=== PATIENT | male | born 1995 | race Caucasian/White ===

== ENCOUNTER 2020-08-04 07:33 | Day surgery (SDC) | payer OTHER ==
--- OUTSIDE RECORDS SUMMARY | 2020-08-02 09:40 | XMS REPORT | Continuity of Care Document ---
:1995 Author Organization [facility] t Address [address] [place] [place] [address] Care Team Providers Name Role Phone Jaymie Orellana Attending Clinician Doctor Unassigned, Name Attending Clinician Unavailable Milton CRUZ Attending Clinician Payers Payer Name Policy Type Policy Number Effective Date Expiration Date S ource Problems This patient has no known problems. Allergies, Adverse Reactions, Alerts Allergy Allergy Status Severity Reaction(s) Onset Inactive Treating Comm ents Source Name Type Date Date Clinician cefaclor DA Active U 2019-0 [facility] [place] [facility] sulfamet DA Active U 2018-0 [facility] hoxazole 01-15 [place] 00[facility] trimetho DA Active U 2019-0 [facility] prim - [place] [facility] Medications This patient has no known medications. Procedures This patient has no known procedures. Encounters Start End Encounter Admission Attending Care Care Encounter Source Date/Time Date/Time Type Type Clinicians Facility Department ID 2020-07-29 2020-07-29 Telephone Aniceto PRSARAY [id number] 00:00:00 00:00:00 Eileen Yeh [id number] [place] [id number] Anitha [id number] formerly [facility] 204 [facility] 2020-07-27 2020-07-27 Outpatient [facility]LMLC [facility] [id number] [facility] 2020-07-27 2020-07-27 Orders Doctor CHRISTINE [id number] 00:00:00 00:00:00 Only Unassigned, RAY [id number] [place] [facility] [id number] 2020-07-25 2020-07-25 Office Cristy [facility] [id number] 12:49:30 14:02:12 Visit Deshawn Yeh [id number] [place] [id number] Anitha [phone] [address] Results This patient has no known results.
--- OUTSIDE RECORDS SUMMARY | 2020-08-02 09:41 | XMS REPORT ---
:1995 Author Organization [facility] Address [address] [facility] [address] [place] [address] Care Team Providers Name Role Phone Marialuisa Unavailable [phone] PROBLEMS No Information ALLERGIES Allergen (clinical drug Drug/Non Drug Reaction Allergy Type Onset D ate Status ingredient) Allergy documented on EMR sulfamethoxazole / Bactrim([facility] Unknown Drug Allergy Act et[place] trimethoprim Code:[address]-45) [facility] Unknown Drug Allergy Active ENCOUNTERS from 1993 to 2020-07-27 Encounter Location Date Provider Diagnosis [place] [address] [facility] Jul, Lesely Elam Orchalgi a N50.819 ; Specialty/Urology [address] [facility] [place] [address] Z87.440 and Incomplete blad lisa emptying R33.9 IMMUNIZATIONS No Information SOCIAL HISTORY Tobacco Use: Social History Observation Description Date Details (start date - stop date) Never Smoker Sex Assigned At : Social History Observation Description Sex Assigned At Unknown Tobacco Use/Smoking Question Answer Notes Are you a never smoker REASON FOR REFERRAL No Information VITAL SIGNS Height 5 ft 9 in in Jul, Weight 195.8 lbs Jul, BMI 28.91 kg/m2 Jul, Oximetry 98 % Jul, Blood pressure systolic 119 mm Hg Jul, Blood pressure diastolic 92 mm Hg Jul, MEDICATIONS Medication SIG (Take, Route, Frequency, Duration) Start Date En d Date Status Tamiflu 75 MG 1 capsule Orally Twice a day for 5 Not-Taking day(s) Aspirin Not-Taking Janumet Not-Taking albuterol Not-Taking PROCEDURES No Information RESULTS No Results REASON FOR VISIT testicle pain MEDICAL (GENERAL) HISTORY Type Description Date Medical History Asthma, unspecified asthma severity, uns pecified whether complicated, unspecified whether persist ent Medical History Type 2 diabetes mellitus wit hout complication, without long-term current use of insulin Goals Section No Information Health Concerns No Information MEDICAL EQUIPMENT No Information MENTAL STATUS No Information FUNCTIONAL STATUS No Information ASSESSMENTS Encounter Date Diagnosis Notes Jul, Orchalgia (ICD-10 - N50.819) Jul, Incomplete bladder emptying (ICD-10 - R3 3.9) Jul, History of UTI (ICD-10 - Z87.440) PLAN OF TREATMENT Treatment Notes Assessment Notes Clinical Notes Orchalgia Continue FlomaxFinis h CiproUrine reflexStat Scrotal US and SHAVONNE, scrotal reveals righ t inguinal hernia in scrotal sac, no torsion or masses, normal symme tric blood flow, confirmed with Dr Rocha in radiologyRec referra l to general surgery, Dr. Walker who I spoke with and if patient can m anage pain, ok to see him in office tomorrow,Pain contro lled with OTC ibuprofen alternate with TylenolPatient instr ucted to go to ER if pain worsens, fever/chills, N&/or V. and ask for Dr. Walker as needed.SHAVONNE unremarkable, no hydroDr. Bynum exa mined patient, discussed plan of care and agreed with planROV for cys to, meatal dilation next visit after hernia repaired Treatment Notes Test Name Order Date URINALYSIS, COMPLETE W/REFLEX TO CULTURE 2020-07-27 URINALYSIS AUTO W/O SCOPE (21020) 2020-07-27 Ultrasound : Scrotum 2020-07-27 Renal Ultrasound-Complete 2020-07-27 PVR 2020-07-27 Next Appt Details 2 Weeks Reason:cysto with dilation Follow Up:2 Weekscysto with dilation Insurance Providers Payer Name Payer Payer Insured Name Patient Coverage Covera End Address Phone Relationship to Start Date Quang e Insured TML [employer] [phone] RatnaMaicol self CLAIMS [id number] [facility] [id number]
--- OUTSIDE RECORDS SUMMARY | 2020-08-02 09:42 | XMS REPORT | Summary of Care ---
:1995 Author Organization [facility] Address [address] [place] [address] Care Team Providers Name Role Phone Charito Elizalde Primary Care Provider Reason for Visit Reason Comments Results Encounter Details Date Type Department Care Team Description 07/28/2020 Telephone [facility] and Deshawn Muniz i, MD Results Clinics [address] [place] [address]. [address] [place] [id number] [place] [address] [phone] Allergies Active Allergy Reactions Severity Noted Date Comments Sulfamethoxazole-Trimethoprim Hives 08/27/2007 Cefaclor Hives 08/27/2007 documented as of this encounter (statuses as of 07/28/2020) Medications Medication Sig Dispensed Refills Start Date End Date Status aspirin (LO-DOSE Take 81 mg by 0 Active ASPIRIN) 81 mg EC mouth daily. tablet albuterol 90 Inhale 2 Puffs 8.5 g 2 08/25/2018 A ctive mcg/actuation inhaler every 6 (six) hours as needed for Wheezing or Shortness of Breath. Insulin [place], USE ONCE DAILY 100 Each 0 03/25/2019 Active Disposable, 32 gauge x 5/32" NdleIndications: Type 2 diabetes mellitus without complication, without long-term current use of insulin brompheniramine-pseud Take 5 mL by 150 mL 0 09/08/2019 Active oephedrine-DM mouth 4 (four) (BROMFED DM) 2-30-10 times daily as mg/5 mL needed for syrupIndications: Congestion/Aller Viral upper gies or Cough. respiratory tract infection with cough blood sugar Use as directed 200 Strip 1 09/09/2019 A ctive diagnostic (ONETOUCH BID E11.65 ULTRA BLUE TEST STRIP) stripIndications: Uncontrolled type 2 diabetes mellitus with hyperglycemia Insulin Glargine inject 24 Units 6 mL 1 09/30/2019 Active (LANTUS SOLOSTAR under the skin U-100 INSULIN) 100 every morning. unit/mL (3 mL) injection albuterol 1.25 mg/3 Use 3 mL as 120 Vial 2 03/21/2020 Active mL nebulizer directed every 6 solutionIndications: (six) hours as Moderate persistent needed for asthma without Wheezing. complication budesonide-formoteroL Inhale 2 Puffs 2 10.2 g 5 03/21/2020 Active 160-4.5 mcg/actuation (two) times inhalerIndications: daily. Moderate persistent asthma without complication amoxicillin-clavulana Take 1 tablet by 20 tablet 0 03/21/2020 Active te (AUGMENTIN) mouth 2 (two) 875-125 mg per times daily. tabletIndications: Moderate persistent asthma without complication lisinopril 10 mg Take 1 tablet by 30 tablet 5 03/21/2020 Active tabletIndications: mouth daily. Essential hypertension FARXIGA 5 mg TAKE ONE TABLET 90 tablet 0 03/30/2020 Active tabletIndications: BY MOUTH EVERY Uncontrolled type 2 MORNING diabetes mellitus with hyperglycemia naproxen 500 mg Take 1 tablet by 60 tablet 0 07/05/20202019 Active tabletIndications: mouth 2 (two) Acute bilateral times daily as thoracic back pain needed for Pain (scale 4-6) for up to 30 days. ciprofloxacin HCl Take 2 tablets 40 tablet 0 07/25/20202019 Active (CIPRO) 250 mg by mouth every tabletIndications: 12 (twelve) Epididymitis, hours for 10 Prostatitis, days. unspecified prostatitis type tamsulosin 0.4 mg 24 Take 1 capsule 30 capsule 0 07/25/2020 Active hr by mouth daily capsuleIndications: for 30 days. 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 Utility documented as of this encounter (statuses as of 07/28/2020) Resolved Problems Problem Noted Date Resolved Date Abscess and cellulitis 04/08/2016 05/05/2018 documented as of this encounter (statuses as of 07/28/2020) Social History Tobacco Use Types Packs/Day Years Used Date Former Smoker Cigarettes 4 Quit: 05/10/20 Smokeless Tobacco: Never Used Comments: quit 4 months ago Alcohol Use Drinks/Week oz/Week Comments Yes 1 Cans of beer 1.0 Sex Assigned at Date Recorded Not on file COVID-19 Exposure Response Date Recorded In the last month, have you been in contact with No / Unsure 07/25/2020 12:47 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 documented as of this encounter Last Filed Vital Signs Not on filedocumented in this encounter Miscellaneous Notes Telephone Encounter - Deshawn Rose MD - 07/28/2020 5:02 PM CST Resulting Agency: Susceptibility Staphylococcus aureus SUSCEPTIBILITY TESTING Clindamycin Resistant Erythromycin >=8 Resistant Nitrofurantoin 32 Susceptible Oxacillin 0.5 Susceptible Rifampin <=0.5 Susceptible Tetracycline <=1 Susceptible Trimethoprim/Sulfamethoxazole <=10 Susceptible I called patient and explained the results No hx of fever, seems to be contamination Allergic to Bactrim and cephalexin Plan: Tetracycline 500 mg po QID for 5 days Repeat urine culture documented in this encounter Plan of Treatment Date Type Specialty Care Team Description 08/11/2020 Office Visit Urology Deshawn Rose MD [address] [place] [address] [phone] Health Maintenance Due Date Last Done Comments VARICELLA VACCINES (1 of 2 - 1994 2-dose childhood series) PNEUMOCOCCAL 0-64 YEARS COMBINED 1999 SERIES (1 of 1 - PPSV23) DTaP,Tdap,and Td Vaccines (1 - 2012 Tdap) CREATININE (SERUM) 07/25/2019 07/25/2018, 11/13/2017, 05/11/2016 LDL-C 07/25/2019 07/25/2018, 05/11/2016 URINE MICROALBUMIN 07/25/2019 07/25/2018, 05/11/2016 HgA1C 03/10/2020 09/09/2019, 07/22/2018, 05/11/2016 INFLUENZA VACCINE (#1) 2020 Depression Screening 09/09/2020 09/09/2019 FOOT EXAM 09/09/2020 09/09/2019, 09/09/2019, 07/22/2018, Additional history exists EYE EXAM 12/22/2020 12/23/2019, 03/06/2017 documented as of this encounter Results Not on filedocumented in this encounter Insurance Payer Benefit Plan / Subscriber ID Effective Dates Phone Addre ss Type Group [facility] [employer] CLAIMS [id number] 2019-Present PPO documented as of this encounter
--- OUTSIDE RECORDS SUMMARY | 2020-08-02 09:42 | XMS REPORT | Summary of Care ---
:1995 Author Organization [facility] - Health Address [address] [place] [address] Care Team Providers Name Role Phone Charito Elizalde Primary Care Provider Encounter Details Date Type Department Care Team Description 07/27/2020 Orders Only [facility] Doctor Unassigned, No [address] [facility] Name [place] [phone] [place] [address] Allergies Active Allergy Reactions Severity Noted Date Comments Sulfamethoxazole-Trimethoprim Hives 08/27/2007 Cefaclor Hives 08/27/2007 documented as of this encounter (statuses as of 07/29/2020) Medications Medication Sig Dispensed Refills Start Date End Date Status aspirin (LO-DOSE Take 81 mg by 0 Active ASPIRIN) 81 mg EC mouth daily. tablet albuterol 90 Inhale 2 Puffs 8.5 g 2 08/25/2018 A ctive mcg/actuation inhaler every 6 (six) hours as needed for Wheezing or Shortness of Breath. Insulin [place], USE ONCE DAILY 100 Each 0 03/25/2019 [...] 30 days. 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 documented as of this encounter Last Filed Vital Signs Not on filedocumented in this encounter Plan of Treatment Date Type Specialty Care Team Description 08/11/2020 Office Visit Urology Deshawn Rose MD [address] [place] [address] [phone] Health Maintenance Due Date Last Done [...] 12/23/2019, 03/06/2017 documented as of this encounter Procedures Procedure Name Priority Date/Time Associated Diagnosis Comme nts AUTHORIZATION FOR RELEASE Routine 07/27/2020 12:01 AM OF PHI TIMBER KILLER documented in this encounter Results Not on filedocumented in this encounter Insurance Payer Benefit Plan / Subscriber ID Effective Dates Phone Addre ss Type Group [facility] CLAIMS [id number] 2019-Present PPO documented as of this encounter
--- OUTSIDE RECORDS SUMMARY | 2020-08-02 09:42 | XMS REPORT | Summary of Care ---
:1995 Author Organization [facility] Address [address] [place] [id number] Care Team Providers Name Role Phone Charito Elizalde Primary Care Provider Reason for Referral Radiology Services (Routine) Status Reason Specialty Diagnoses / Referred By Referred To Procedures Contact Contact New Request Diagnostic Diagnoses Epididymitis Stricture of anterior urethra in male, unspecified stricture type Retention of urine, unspecified Dilcia Garcia, Radiology Procedures US RETROPERITONEAL COMPLETE [address] [address] Radiology Services (Routine) Status Reason Specialty Diagnoses / Referred By Referred To Procedures Contact Contact New Request Diagnostic Diagnoses Epididymitis Type 2 diabetes mellitus without complication, without long-term current use of insulin Stricture of anterior urethra in male, unspecified stricture type Retention of urine, unspecified Dilcia Garcia, Radiology Procedures US SCROTUM AND CONTENTS [address] [address] Reason for Visit Reason Comments New Patient epididymitis (Routine) Status Reason Specialty Diagnoses / Referred By Referred To Procedures Contact Contact Authorized URO-UROLOGY / Diagnoses Epididymitis Dhara Tarango, Dilcia Garcia, Urology Procedures CONSULT/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 [address] [place] [id number] Phone: Encounter Details Date Type Department Care Team Description 07/25/2020 Office Visit [facility] Urology- Rachel Garcia MD Acute cystitis without hematuria (Primar y Dx); [address] Epididymitis; [address] [place] [address] Type 2 diab etes mellitus without complication, without long-term current use of insulin; Drive [phone] Stricture of anterior urethra in male, u nspecified stricture type; [address] Retention of urine, unspecified; [place], [place] Prostatit is, unspecified prostatitis type [id number] Allergies Active Allergy Reactions Severity Noted Date Comments Sulfamethoxazole-Trimethoprim Hives 08/27/2007 Cefaclor Hives 08/27/2007 documented as of this encounter (statuses as of 07/28/2020) Medications Medication Sig Dispensed Refills Start Date End Date Status aspirin (LO-DOSE Take 81 mg by 0 Active ASPIRIN) 81 mg EC mouth daily. tablet albuterol 90 Inhale 2 Puffs 8.5 g 2 08/25/2018 A ctive mcg/actuation every 6 (six) inhaler hours as needed for Wheezing or Shortness of Breath. Insulin Charlo, USE ONCE DAILY 100 Each 0 03/25/2019 Active Disposable, 32 gauge x 5/32" NdleIndications: Type 2 diabetes mellitus without complication, without long-term current use of insulin brompheniramine-pseu Take 5 mL by 150 mL 0 09/08/2019 Active doephedrine-DM mouth 4 (four) (BROMFED DM) 2-30-10 times [...] persistent needed for asthma without Wheezing. complication budesonide-formotero Inhale 2 Puffs 2 10.2 g 5 03/21/2020 Active L 160-4.5 (two) times mcg/actuation daily. inhalerIndications: Moderate persistent asthma without complication amoxicillin-clavulan Take 1 tablet by 20 tablet 0 03/21/2020 Active ate (AUGMENTIN) mouth 2 (two) 875-125 mg per [...] mouth 4 Epididymitis, (four) times Stricture of daily for 5 anterior urethra in days. male, unspecified stricture type, Retention of urine, unspecified, Acute cystitis without hematuria doxycycline hyclate Take 1 tablet by 14 tablet 0 07/19/2020 100 mg mouth 2 (two) tabletIndications: times daily for Epididymitis 7 days. documented as of this encounter (statuses as of 07/28/2020) Active Problems Problem Noted Date Diabetes 06/01/2016 Asthma Overview: ICD10 Diagnosis Term Eeler Utility documented as of this encounter (statuses as of 07/28/2020) Resolved Problems Problem Noted Date Resolved Date Abscess and cellulitis 04/08/2016 05/05/2018 documented as of this encounter (statuses as of 07/28/2020) Social History Tobacco Use Types Packs/Day Years Used Date Former Smoker Cigarettes 4 Quit: 05/10/20 19 Smokeless Tobacco: Never Used Comments: quit 4 months ago Alcohol Use Drinks/Week oz/Week Comments Yes 1 Cans of beer 1.0 Sex Assigned at Date Recorded Not on file COVID-19 Exposure Response Date Recorded In the last month, have you been in contact with No / Unsure 07/25/2020 12:47 PM CLAIM PROFESSIONAL someone who was confirmed or suspected to have Coronavirus / COVID-19? documented as of this encounter Last Filed Vital Signs Vital Sign Reading Time Taken Comments Blood Pressure 132/90 07/25/2020 1:14 PM CLAIM PROFESSIONAL Pulse 95 07/25/2020 1:14 PM CLAIM PROFESSIONAL Temperature - - Respiratory Rate 18 07/25/2020 1:14 PM CLAIM PROFESSIONAL Oxygen Saturation - - Inhaled Oxygen Concentration - - Weight 89.7 kg (197 lb 12.8 oz) 07/25/2020 1:14 PM CLAIM PROFESSIONAL Height 175.3 cm (5' 9") 07/25/2020 1:14 PM CLAIM PROFESSIONAL Body Mass Index 29.21 07/25/2020 1:14 PM CLAIM PROFESSIONAL documented in this encounter Progress Notes Dilcia Garcia MD - 07/25/2020 1:00 PM CST Urology Clinic Note / History and Physical Referred by: PCP Chief Complaint: I was asked to give my opinion regarding Maicol Segundo is a 25 year old male who presents with hx of right epididymitis History of Present Illness 07/25/2020: Maicol Segundo is a 25 year old male with PMHx of DM on insulin. Reported sudden onset dysuria and right testicular swelling No previous similar complaints, UTI or hematuria No hx of risky sexual behavior , most recent sexual activity 6 months ago. No previous urethral discharge or STI. Patient reported chronic stable LUTS and weak stream ( all of his adult life) No previous urological procedures or hx of urethral stricture Improved on a trial of Doxycycline International Prostate Symptom Score (I-PSS) In the past month: (Not at all - 0, Less than 1 in 5 times - 1, Less than half the time - 2, About half the time - 3, More than half the time - 4, Almost always - 5) 1. Incomplete Emptyin 2. Frequency: 1 3. Intermittency: 0 4. Urgency: 1 5. Weak Stream: 3 6. Strainin 7. Nocturia: 1 TOTAL: 13 Bother score: 5 DAKOTA : 20/25 PSAs reviewed: No results found for: PSA Histories Past Medical History: Diagnosis Date Diabetes mellitus Hyperlipidemia Hypertension Unspecified asthma(493.90) Past Surgical History: Procedure Laterality Date ADENOIDECTOMY MASS EXCISION MYRINGOTOMY Family History Problem Relation Age of Onset Diabetes Mother Heart Paternal Grandfather Heart Paternal Grandmother Diabetes Maternal Grandmother Diabetes Maternal Grandfather Diabetes Paternal Grandmother Diabetes Paternal Grandfather Social History Socioeconomic History Marital status: Single Spouse name: Not on file Number of children: Not on file Years of education: Not on file Highest education level: Not on file Occupational History Not on file Social Needs Financial resource strain: Not on file Food insecurity Worry: Not on file Inability: Not on file Transportation needs Medical: Not on file Non-medical: Not on file Tobacco Use Smoking status: Former Smoker Years: 4.00 Types: Cigarettes Quit date: 05/10/2019 Years since quittin.2 Smokeless tobacco: Never Used Tobacco comment: quit 4 months ago Substance and Sexual Activity Alcohol use: Yes Alcohol/week: 1.0 standard drinks Types: 1 Cans of beer per week Drug use: No Sexual activity: Yes Partners: Female Lifestyle Physical activity Days per week: Not on file Minutes per session: Not on file Stress: Not on file Relationships Social connections Talks on phone: Not on file Gets together: Not on file Attends sabianist service: Not on file Active member of club or organization: Not on file Attends meetings of clubs or organizations: Not on file Relationship status: Not on file Intimate partner violence Fear of current or ex partner: Not on file Emotionally abused: Not on file Physically abused: Not on file Forced sexual activity: Not on file Other Topics Concern Not on file Social History Narrative He lives alone 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 He gets a lot of exercise. Allergies Allergies Allergen Reactions Bactrim [Sulfamethoxazole-Trimethoprim] Hives Ceclor [Cefaclor] Hives Review of Systems Constitutional: negative Eyes: negative Ears, nose, mouth, throat: negative Cardiovascular: negative Respiratory: negative Gastrointestinal: negative Genitourinary: (+) per HPI Musculoskeletal: negative Integumentary: negative Neurological: negative Psychiatric: negative Endocrine: negative Hematologic/Lymphatic: negative Allergic/Immunologic: negative, allergies listed above Physical Examination Blood pressure 132/90, pulse 95, resp. rate 18, height 1.753 m (5' 9"), weight 89.7 kg (197 lb 12.8 oz). Constitutional: healthy, no acute distress Eyes: normal external eye, conjunctiva and sclera normal Ears, nose, mouth, throat: normocephalic, moist mucous membranes Cardiovascular: regular rate and rhythm Respiratory: respirations unlabored on room air Gastrointestinal: soft, non-distended, no pain Genitourinary: circumcised, normal phallus, two EUM, patient passes urine from superior stenotic opening. bilateral descended testes in normal anatomical position, slightly tender right testicle,no masses or lumps Rectal: deferred, tender perineum Musculoskeletal: no clubbing, cyanosis or edema Skin: no rashes Neurologic: alert and oriented x3 Psychiatric: appropriate mood and affect Hematologic: no bruising Laboratory Per HPI Radiology No final results containing an impression from the past 30 days were found. Procedure Note PVR : 128 cc Assessment Maicol Segundo is a 25 year old male with: 1. Hx of right epididymitis. Prostatitis , UTI and chronic LUTS Seems to have had some form for EUM stenosis w/wout urethral stricture Improved on Doxycycline Plan - Cipro 500 mg po bid for 10 days - Flomax - Urine culture - SHAVONNE to assess for HN - SARANYA - RTC 2 weeks will assess for RUG and cysto once UTI is treated Dilcia Garcia MD documented in this encounter Miscellaneous Notes Result QuickNote - Dilcia Garcia MD - 07/25/2020 1:00 PM CSTAllergic to Bactrim and cephalexin Plan:Tetracycline 500 mg po QID for 5 days Repeat urine culture ddendum Note - Dilcia Garcia MD - 07/25/2020 1:00 PM CLAIM PROFESSIONAL Addended by: DILCIA GARCIA on: 07/28/2020 05:07 PM Modules accepted: Orders documented in this encounter Plan of Treatment Date Type Specialty Care Team Description 08/11/2020 Office Visit Urology Dilcia Garcia MD [address] [place] [address]. [place] [phone] Name Type Priority Associated Diagnoses Order S chedule BASIC METABOLIC PANEL (NA, LAB Routine Epidi dymitis Expected: K, CL, CO2, GLUCOSE, BUN, Type 2 diabetes 07/25/2020, CREATININE, CA) mellitus without Expires: 07/25/2021 complication, without long-term current use of insulin Stricture of anterior urethra in male, unspecified stricture type Retention of urine, unspecified Prostatitis, unspecified prostatitis type US SCROTUM AND CONTENTS IMAGING Routine Epididym itis Expected: Type 2 diabetes 07/25/2020, mellitus without Expires: complication, without long-term current use of insulin Stricture of anterior urethra in male, unspecified stricture type Retention of urine, unspecified US RETROPERITONEAL COMPLETE IMAGING Routine Epid idymitis Expected: Stricture of anterior 2019, urethra in male, Expires: unspecified stricture type Retention of urine, unspecified Health Maintenance Due Date Last Done Comments [...] Name Priority Date/Time Associated Diagnosis Comme nts URINE CULTURE Routine 07/25/2020 4:00 Epididymitis Results for this PM CLAIM PROFESSIONAL Type 2 diabetes procedure ar e in mellitus without the results complication, without sectio n. long-term current use of insulin Stricture of anterior urethra in male, unspecified stricture type Retention of urine, unspecified Prostatitis, unspecified prostatitis type POCT URINALYSIS Routine 07/25/2020 1:15 Epididymitis Results for this AUTO PM CLAIM PROFESSIONAL procedure are i n the results section. documented in this encounter Results URINE CULTURE (07/25/2020 4:00 PM CLAIM PROFESSIONAL) URINE CULTURE 10,000-100,000 CFU/mL [facility] Staphylococcus aureus SERVICES Specimen Urine - URINE, CLEAN CATCH Narrative Performed At When Staphylococcus aureus is recovered in a urine cul ture, [facility] obtaining blood cultures is recommended in order to ex clude bloodstream infection. S. aureus largely enters the urinary tract hematogenously. Please contact the Antimicrobial Stewardship Program w ith questions. ASP Pager: [phone] Organism Antibiotic Method Susceptibility Staphylococcus aureus Clindamycin SUSCEPTIBILITY TESTING Res istant Staphylococcus aureus Erythromycin SUSCEPTIBILITY TESTING >=8 : Resistant Staphylococcus aureus Nitrofurantoin SUSCEPTIBILITY TESTING 32: Susceptible Staphylococcus aureus Oxacillin SUSCEPTIBILITY TESTING 0.5 : Susceptible Staphylococcus aureus Rifampin SUSCEPTIBILITY TESTING <=0 .5: Susceptible Staphylococcus aureus Tetracycline SUSCEPTIBILITY TESTING <=1 : Susceptible Staphylococcus aureus Trimethoprim/Sulfameth SUSCEPTIBILITY TEST ING <=10: Susceptible oxazole Comment: This isolate demonstrates inducible Clin damycin resistance by in vitro testing. Contact infectious disease faculty for appropriate advice. Nitrofurantoin is not recommended for us e in treating pyelonephritis or systemic disease. Performing Organization Address City/State/Zipcode Phone Number [facility] CLIA: [id number] [place] [address] [place] [address] POCT URINALYSIS, INSTRUMENT (07/25/2020 1:15 PM CLAIM PROFESSIONAL) Pathologist Sig nature POCT U SP GRAV 1.010 1.005 - 1.025 mg/dl POCT PH U 6.5 5 - 8 mg/dl POCT U LEUK EST Trace Negative - Negative POCT U NIT Negative Negative - Negative POCT U PROT Negative Negative - Negative POCT U GLU 1,000 Negative - Negative POCT U KETONE 80 Negative - Negative POCT U UROBILI 0.2 0.2 - 1 mg/dl POCT U BILI Negative Negative - Negative POCT U BLD small Negative - Negative POCT U COLOR Yellow POCT U APPEAR clear Specimen Urine - URINE, CLEAN CATCH documented in this encounter Visit Diagnoses Diagnosis Acute cystitis without hematuria - Prima ry Acute cystitis Epididymitis Orchitis and epididymitis, unspecified Type 2 diabetes mellitus without complic ation, without long-term current use of insulin Stricture of anterior urethra in male, u nspecified stricture type Retention of urine, unspecified Prostatitis, unspecified prostatitis typ e documented in this encounter Insurance Payer Benefit Plan / Subscriber ID Effective Dates Phone Addre ss Type Group [facility] CLAIMS [id number] 2019-Present PPO documented as of this encounter
--- OUTSIDE RECORDS SUMMARY | 2020-08-02 09:43 | XMS REPORT | Summary of Care ---
:1995 Author Organization [facility] Address [address] [place] [address] Care Team Providers Name Role Phone Charito Elizalde Primary Care Provider Reason for Visit Reason Comments Results Encounter Details Date Type Department Care Team Description 07/29/2020 Telephone [facility] Urology- Yakelin Moreland, ORACLE WMS CONSULTANT Results [place] [address] [facility] [address] [place] [address] [place] [address] [phone] Allergies Active Allergy Reactions Severity Noted Date [...] for Wheezing or Shortness of Breath. 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 documented as of this encounter Last Filed Vital Signs Not on filedocumented in this encounter Miscellaneous Notes Telephone Encounter - Eileen Moreland FNP - 07/29/2020 3:22 PM CSTCalled patient to let him know he has UTI and Rx was sent to [facility] in [place] yesterday. No answer, left message. documented in this encounter Plan of Treatment Date Type Specialty Care Team Description 08/11/2020 Office Visit Urology Deshawn Rose MD [address] [place] [address] [phone] Health Maintenance Due Date Last Done [...] Effective Dates Phone Addre ss Type Group [facility] TM GBRP CLAIMS [id number] 2019-Present PPO documented as of this encounter
[2020-08-02 13:16] LABS: Absolute Lymphocytes (CBC) 2.7 K/uL (0.7-4.9); Basophils % 0.2 % (0-1.3); Hematocrit 48.3 % (39.6-49.0); Lymphocytes % 17.7 % (15.3-44.8); MPV 8.8 fL (7.6-11.3); RBC Red Blood Cell Count 5.86 M/uL (4.33-5.43)
[2020-08-02 13:20] LABS: BUN Blood Urea Nitrogen 10 mg/dL (7-18); Bicarbonate 26 mmol/L (21-32); Glucose Level 366 mg/dL (74-106); Potassium 3.9 mmol/L (3.5-5.1); Sodium Level 132 mmol/L (136-145)
--- OUTSIDE RECORDS SUMMARY | 2020-08-04 07:43 | XMS REPORT | Continuity of Care Document ---
:1995 Author Organization [facility] t Address [address] [place] [place] [address] Care Team Providers Name Role Phone Jaymie [...] cefaclor DA Active U 2019-0 [facility] [place] [facility] sulfamet DA Active U 2018-0 [facility] hoxazole 01-15 [place] 00:[facility] [place] [place] [address] [facility] [place] [facility] Medications This patient has no known medications. Procedures This patient has no known procedures. Encounters Start End Encounter Admission Attending Care Care Encounter Source Date/Time Date/Time Type Type Clinicians Facility Department ID 2020-07-29 2020-07-29 Telephone Aniceto [facility] [id number] 00:00:00 00:00:00 Eilene Yeh [id number] [place] [id number] Anitha [phone] [facility] 204 [facility] 2020-07-27 2020-07-27 Outpatient [facility] [id number] [facility] 2020-07-27 2020-07-27 Orders Doctor CHRISTINE [id number] 00:00:00 00:00:00 Only Unassigned, RAY [id number] [place] [facility] [id number] 2020-07-25 2020-07-25 [facility] [id number] 12:49:30 14:02:12 Visit Deshawn Yeh [id number] [place] [id number] Anitha [phone] [address] Results This patient has no known results.
[2020-08-04] MEDS ORDERED: NA CHLORIDE 0.9% 1,000 ML ONE ×2 (08:07→11:32)
[2020-08-04] MEDS ORDERED: CEFAZOLIN/SWI 1gm 1 GM/10 ML SYR ONE (08:08)
[2020-08-04] MEDS ORDERED: INSULIN -REGULAR HUMAN 50 UNIT/0.5 ML ML ONE ×2 (08:18→10:31)
[2020-08-04] MEDS ORDERED: dexAMETHasone 4 MG/ML VIAL ONE (08:53)
[2020-08-04] MEDS ORDERED: FENTANYL CITR 100 MCG/2 ML ONE (08:53)
[2020-08-04] MEDS ORDERED: propofoL 200 MG/20 ML VIAL IV ONE (08:53)
[2020-08-04] MEDS ORDERED: MIDAZOLAM HCL 2 MG/2 ML INJ ONE (08:53)
[2020-08-04] MEDS ORDERED: LIDOCAINE 2% MPF 5 ML VIAL ONE (08:54)
[2020-08-04] MEDS ORDERED: KETOROLAC 30 MG/ML INJ ONE ×2 (09:20→11:41)
[2020-08-04] MEDS ORDERED: ONDANSETRON 4 MG/2 ML VIAL ONE (09:36)
--- NOTE | 2020-08-04 10:27 | OP ---
Date of Procedure: 08/04/2020 Surgeon: Jb Walker MD Program Director/Traffic Director: ANA CRISTINA Quinteros. Preoperative Diagnosis: Right inguinal hernia. Postoperative Diagnosis: Right inguinal hernia. Procedure: Repair of right inguinal hernia. Estimated Blood Loss: Minimal. Specimen: Cord lipoma. Findings: As above. Anesthesia: General. Complications: None. The patient tolerated the procedure in stable condition, taken to Recovery in good general condition. Procedure In Detail: Patient was brought to the OR and placed in supine position and general anesthe dolly begun. Patient was prepped draped in the usual sterile fashion. Marcaine 0.5% was infiltrated locally. A 1 5-blade was used to make a 4 cm oblique incision between anterior iliac superior spine and the pubic tubercle. In the right groin subcu tissue was divided. Darwin's fascia was identified and divided. Aponeurosis was identified and mobilized inferiorly to expose shelving edge and then opened through the external ring. The ilioinguinal nerve was identified and retracted out of the field of dissectio n. Cord was mobilized at the pubic tubercle. Cord lipoma was present, excised, sent to Pathology as specimen. No indirect sac identified. Weakening of the inguinal floor noticed. Subsequently this was repaired with the Marlex mesh plug in the internal ring, Onlay mesh plug on the inguinal floor, s ecured medially to the pubic tubercle, superior to the conjoined tendon, inferiorly to the shelving e dge, laterally to each other. Cord structures and ilioinguinal nerve were placed back in anatomic lo cation and then 2-0 Prolene used to close the aponeurosis, 3-0 chromic used to close Darwin's fascia and skin. Sterile dressing was applied. Patient was awakened and taken to Recovery in good general condition. Discharge Note: The patient will go to Day Surgery and home when stable. Disposition: Home. Condition: Stable. Discharge Instructions: Resume home medications and diet. Activity as tolerated. No heavy lifting. Remove outer dressing in 2 days. Shower. Keep wound clean and dry. Keep Steri-Strips on at all t imes. Scrotal support, ice pack. Tylenol No. 3 one tablet p.o. q.4 p.r.n. pain. Follow up in of erika in 1 week. Call for appointment. /MODL Voice ID: [id number] Report ID: [id number]
[2020-08-04] MEDS ORDERED: EPHEDRINE SULF 50 MG/ML VIAL ONE (11:06)
[2020-08-04] MEDS ORDERED: Phenylephrine HCl 10 MG/ML 1 ML VIAL ONE (11:24)
[2020-08-04] MEDS ORDERED: HYDROCODONE/APAP 7.5/325 MG TAB ONE (11:30)
[2020-08-04 12:20] VITALS: TEMP 97.4; O2SAT 98
[2020-08-04 13:31] VITALS: BP 128/76
== END 2020-08-04 13:55 | disposition home or self-care (01) ==
LOC: OR 07:33
PROVIDERS: ATTEND Surgery
PROC: 0YU50JZ Supplement Right Inguinal Region with Synthetic Substitute, Open Approach (ICD-10-PCS; principal; 2020-08-04 09:00)
DX: K40.90 Unilateral inguinal hernia, without obstruction or gangrene, not specified as recurrent (principal); Z20.828 Contact with and (suspected) exposure to other viral communicable diseases; F17.210 Nicotine dependence, cigarettes, uncomplicated; E10.9 Type 1 diabetes mellitus without complications
CPT/HCPCS: 36415; 80048; 82947; 85025; 88302; J0690; J1100; J2250; J2370; J2405; J2704; J3010; J7030; U0002

== ENCOUNTER 2020-08-20 14:59 | Inpatient (IN) | payer OTHER ==
--- OUTSIDE RECORDS SUMMARY | 2020-08-20 15:02 | XMS REPORT | Continuity of Care Document ---
:1995 Author Organization [facility] t Address [address] [place] [place] [address] Care Team Providers Name Role Phone Jaymie [...] Clinician cefaclor DA Active U 2019-0 [facility] [place] [facility]: [facility] sulfamet DA Active U 2018-0 [facility] hoxazole 01-15 [place] 00:00: [facility] trimetho DA Active U 2018-0 [facility] prim 01-15 [place] 00:00: [facility]ope 00 [facility] Medications This patient has no known medications. Procedures This patient has no known procedures. Encounters Start End Encounter Admission Attending Care Care Encounter Source Date/Time Date/Time Type Type Clinicians Facility Department ID 2020-08-17 2020-08-17 Outpatient [facility] [id number] [facility] X[facility]ena meehan Out[facility] ent Clinics 2020-08-12 2020-08-12 Outpatient [facility] [id number] [facility] 2020-08-10 2020-08-10 [facility] [id number] [facility] 2020-07-29 2020-07-29 Telephone [facility] [id number] 00:00:00 00:00:00 Eileen Yeh [id number] [place] [id number] [place] [phone] [facility] 204 [facility] 2020-07-27 2020-07-27 Outpatient [facility] [id number] [facility]00 [facility] l Outpati ent [facility] 2020-07-27 2020-07-27 Orders Doctor KING [id number] 00:00:00 00:00:00 Only Unassigned, RAY [id number] [place] [facility] [id number] 2020-07-25 2020-07-25 Office [facility] [id number] 12:49:30 14:02:12 Visit Deshawn Yeh [id number] [place] [id number] Profjudy [phone] [facility] 204 [facility] Results This patient has no known results.
--- OUTSIDE RECORDS SUMMARY | 2020-08-20 15:05 | XMS REPORT ---
:1995 Author Organization [facility] Address [address] [facility] [address] [place] [address] Care Team Providers Name Role Phone Marialuisa Unavailable [phone] PROBLEMS No Information ALLERGIES Allergen (clinical drug Drug/Non Drug Reaction Allergy Type Onset D ate Status ingredient) Allergy documented on EMR sulfamethoxazole / Bactrim([facility] Unknown Drug Allergy Act ethel trimethoprim Code:[address]-93) [facility] Unknown Drug Allergy Active ENCOUNTERS from 1993 to 2020-08-10 Encounter Location Date Provider Diagnosis [place] [address] [facility] Jul, Lesley Elam Incomple te bladder Specialty/Urology [address] [facility] [place] [address] [place] [address] Orchalgia N50. 819 IMMUNIZATIONS No Information SOCIAL HISTORY Tobacco Use: Social History Observation Description Date Details (start date - stop date) Never Smoker Sex Assigned At : Social History Observation Description Sex Assigned At Unknown Tobacco Use/Smoking Question Answer Notes Are you a never smoker REASON FOR REFERRAL No Information VITAL SIGNS Height 5 ft 9 in in Jul, Weight 195.8 lbs Jul, Temperature 98.2 degrees Fahrenheit Jul, BMI 28.91 kg/m2 Jul, Oximetry 95 % Jul, Blood pressure systolic 134 mm Hg Jul, Blood pressure diastolic 91 mm Hg Jul, MEDICATIONS Medication SIG (Take, Route, Notes Start Date End Date Status Frequency, Duration) Aspirin Not-Taking Tamsulosin HCl 0.4 MG 1 capsule Orally Once Jul,Aug, Active a day for 30 day(s) Tamiflu 75 MG 1 capsule Orally Not-T aking Twice a day for 5 day(s) albuterol Not-Taking Janumet Not-Taking PROCEDURES No Information RESULTS No Results REASON FOR VISIT trouble with urination MEDICAL (GENERAL) HISTORY Type Description Date Medical History Asthma, unspecified asthma severity, uns pecified whether complicated, unspecified whether persist ent Medical History Type 2 diabetes mellitus wit hout complication, without long-term current use of insulin Goals Section No Information Health Concerns No Information MEDICAL EQUIPMENT No Information MENTAL STATUS No Information FUNCTIONAL STATUS No Information ASSESSMENTS Encounter Date Diagnosis Assessment Notes Treatment Notes Treatm ent Clinical Notes 18 Jul, 2020 Incomplete bladder emptying (ICD-10 - R33.9) Jul, Orchalgia (ICD-10 - Continue Flomax N50.819) Finish his abx Urine reflex Scrotal US and SHAVONNE, scrotal reveals right inguinal hernia in scrotal sac, no torsion or mass es, normal symmetri c blood flow, confirmed with Dr Rocha in radiology referral to general surgery , Dr. Walker, repa ir on 08/04/2020 Pain controlled with OTC ibupro fen alternate with Tylenol Patient instruc adrian to go to ER if pain worsens, fever/chills, N&/or V. and as k for Dr. Walker a s needed. SHAVONNE unremarkabl e, no hydro ROV for cysto, meatal dilation next visit afte r hernia repaired PLAN OF TREATMENT Medication Medication Name Sig Start Date Stop Date Tamsulosin HCl 0.4 MG 1 capsule Orally Once a day for 30 Jul, Aug, day(s) Treatment Notes Assessment Notes Clinical Notes Orchalgia Continue FlomaxFinis h his abxUrine reflexScrotal US and SHAVONNE, scrotal reveals right inguin al hernia in scrotal sac, no torsion or masses, normal symmetric blo od flow, confirmed with Dr Rocha in radiologyreferral to general surgery, Dr. Walker, repair on 08/04/2020Pain contr olled with OTC ibuprofen alternate with TylenolPatient instr ucted to go to ER if pain worsens, fever/chills, N&/or V. and ask for Dr. Walker as needed.SHAVONNE unremarkable, no hydroROV for cysto, meatal dilation next visit after hernia repaired Treatment Notes Test Name Order Date URINALYSIS AUTO W/O SCOPE (22532) 2020-08-10 PVR 2020-08-10 URINALYSIS, COMPLETE W/REFLEX TO CULTURE 2020-08-10 Next Appt Details prn Reason:meatal dilation Follow Up:prnmeatal dilation Insurance Providers Payer Name Payer Payer Insured Name Patient Coverage Covera ge End Address Phone Relationship to Start Date Quang e Insured TML [employer] [phone] Maicol Segundo self CLAIMS [id number] [facility] [id number]
--- OUTSIDE RECORDS SUMMARY | 2020-08-20 15:05 | XMS REPORT ---
:1995 Author Organization [facility] Address [address] [facility] [place] [address] [place] [address] Care Team Providers Name Role Phone Fletcher Unavailable [phone] PROBLEMS No Information ALLERGIES Allergen (clinical drug Drug/Non Drug Reaction Allergy Type Onset D ate Status ingredient) Allergy documented on EMR sulfamethoxazole / Bactrim([facility] Unknown Drug Allergy Act ethel trimethoprim Code:[address]-69) [facility] Unknown Drug Allergy Active ENCOUNTERS from 1993 to 2020-08-17 Encounter Location Date Provider Diagnosis [place] [address] [facility] Jul, Vidal Bynum Incomple te emptying Specialty/Urology [address] [facility] bl [address]der R33.9 ; [place] [address] Perineal pain R10.2 and Right butto ck pain M79.18 IMMUNIZATIONS No Information SOCIAL HISTORY Tobacco Use: Social History Observation Description Date Details (start date - stop date) Never Smoker Sex Assigned At : Social History Observation Description Sex Assigned At Unknown Tobacco Use/Smoking Question Answer Notes Are you a never smoker REASON FOR REFERRAL No Information VITAL SIGNS Height 5 ft 9 in in Jul, Weight 194.2 lbs Jul, Temperature 97.3 degrees Fahrenheit Jul, BMI 28.68 kg/m2 Jul, Oximetry 97 % Jul, Blood pressure systolic 155 mm Hg Jul, Blood pressure diastolic 91 mm Hg Jul, MEDICATIONS Medication SIG (Take, Route, Notes Start Date End Date Status Frequency, Duration) Tamsulosin HCl 0.4 MG 1 capsule Orally Once Jul, 1 8 Aug, 2020 Active a day for 30 day(s) Janumet Not-Taking Aspirin Not-Taking Tamiflu 75 MG 1 capsule Orally Not-T aking Twice a day for 5 day(s) albuterol Not-Taking PROCEDURES No Information RESULTS No Results REASON FOR VISIT consultation, HAD INGUINAL HERNIA REPAIRED -NOW HURTING RIGHT TESTICLE AND BUTTOCKS MEDICAL (GENERAL) HISTORY Type Description Date Medical History Asthma, unspecified asthma severity, uns pecified whether complicated, unspecified whether persist ent Medical History Type 2 diabetes mellitus without complic ation, without long-term current use of insulin Medical History PT WAS GIVEN MACROBID 100MG # 1 TODAY DC IOR TO LEAVING THE OFFICE. Surgical History RIGHT INGUINAL HERNIA REPAIRED 07/2020 Goals Section No Information Health Concerns No Information MEDICAL EQUIPMENT No Information MENTAL STATUS No Information FUNCTIONAL STATUS No Information ASSESSMENTS Encounter Date Diagnosis Assessment Notes Treatment Notes Treatm ent Clinical Notes Jul, Incomplete emptying of bladder (ICD-10 - R33.9) Jul, Perineal pain (ICD-10 - R10.2) Jul, Right buttock pain (ICD-10 - M79.18) PLAN OF TREATMENT Treatment Notes Test Name Order Date URINALYSIS AUTO W/O SCOPE ([id number]) 2020-08-17 PVR 2020-08-17 Next Appt Details Provider Name:Vidal Bynum 2020-08-24 11:00:00 AM, [address] [place] [address], [facility] [address], [place], [address], Insurance Providers Payer Name Payer Payer Insured Name Patient Coverage Covera End Address Phone Relationship to Start Date Quang e Insured TML [employer] [phone] Maicol Segundo self CLAIMS [id number] [facility] [id number]
--- OUTSIDE RECORDS SUMMARY | 2020-08-20 15:05 | XMS REPORT ---
:1995 Author Organization [facility] Address [address] [facility] 200 [place] [address] Care Team Providers Name Role Phone Marialuisa Unavailable [phone] PROBLEMS No Information ALLERGIES Allergen (clinical drug Drug/Non Drug Reaction Allergy Type Onset D ate Status ingredient) Allergy documented on EMR sulfamethoxazole / Bactrim([facility] Unknown Drug Allergy Act ethel trimethoprim Code:[address]-62) [facility] Unknown Drug Allergy Active ENCOUNTERS from 1993 to 2020-08-15 Encounter Location Date Provider Diagnosis [place] [address] [facility] 200 20 Jul, 2020 Lesley Elam Specialty/[place] [address] IMMUNIZATIONS No Information SOCIAL HISTORY Tobacco Use: Social History Observation Description Date Details (start date - stop date) Never Smoker Sex Assigned At : Social History Observation Description Sex Assigned At Unknown Tobacco Use/Smoking Question Answer Notes Are you a never smoker REASON FOR REFERRAL No Information VITAL SIGNS No information MEDICATIONS Medication SIG (Take, Route, Notes Start Date End Date Status Frequency, Duration) Aspirin Not-Taking Tamsulosin HCl 0.4 MG 1 capsule Orally Once Jul,Aug, Active a day for 30 day(s) Tamiflu 75 MG 1 capsule Orally Not-T aking Twice a day for 5 day(s) albuterol Not-Taking Janumet Not-Taking PROCEDURES No Information RESULTS No Results REASON FOR VISIT No Information MEDICAL (GENERAL) HISTORY Type Description Date Medical History Asthma, unspecified asthma severity, uns pecified whether complicated, unspecified whether persist ent Medical History Type 2 diabetes mellitus wit hout complication, without long-term current use of insulin Goals Section No Information Health Concerns No Information MEDICAL EQUIPMENT No Information MENTAL STATUS No Information FUNCTIONAL STATUS No Information ASSESSMENTS No Information PLAN OF TREATMENT Medication Medication Name Sig Start Date Stop Date Tamsulosin HCl 0.4 MG 1 capsule Orally Once a day for 30 Jul, Aug, day(s) Next Appt Details Provider Name:Vidal Bynum, 2020-08-17 11:00:00 AM, [address] [place] [address], [place], [address], Insurance Providers Payer Name Payer Payer Insured Name Patient Coverage Covera End Address Phone Relationship to Start Date Quang e Insured TML [employer] [phone] Maicol Segundo self CLAIMS [id number] [facility] [address]
[2020-08-20] MEDS ORDERED: MORPHINE 4 MG/ML SYR ONE ×2 (16:04→17:21)
[2020-08-20] MEDS ORDERED: ONDANSETRON 4 MG/2 ML VIAL ONE (16:04)
[2020-08-20 16:14] LABS: Absolute Lymphocytes (CBC) 1.3 K/uL (0.7-4.9); Basophils % 0.3 % (0-1.3); Hematocrit 47.1 % (39.6-49.0); Lymphocytes % 6.1 % (15.3-44.8); MPV 8.8 fL (7.6-11.3); RBC Red Blood Cell Count 5.74 M/uL (4.33-5.43)
[2020-08-20 16:25] LABS: BUN Blood Urea Nitrogen 12 mg/dL (7-18); Bicarbonate 22 mmol/L (21-32); Glucose Level 197 mg/dL (74-106); Potassium 3.5 mmol/L (3.5-5.1); Sodium Level 135 mmol/L (136-145)
--- NOTE | 2020-08-20 16:34 | RAD REPORT ---
EXAM DESCRIPTION: CT - Pelvis W/Cont - 08/20/2020 4:21 pm CLINICAL HISTORY: marlen-rectal pain, eval for abscess Pain and swelling COMPARISON: No comparisons TECHNIQUE: All CT scans are performed using dose optimization technique as appropriate and may inclu de automated exposure control or mA/KV adjustment according to patient size. FINDINGS: There is a very large perirectal abscess on the right measuring 6.7 x 6.4 cm. The abscess is seen to extend superiorly into the pelvis where a large right pelvic sidewall abscess component is present during 10.2 x 6.3 cm. Smaller abscesses appear to involve the posterior aspect of the prosta te gland in totality measuring 3.5 x 2.4 cm. A Bertrand catheter is in place in the urinary bladder. The large abscesses exerts mass effect on the prostate gland and rectum to the left. The abscess extends to involve the right obturator internus muscle where an intramuscular 26 x 13 mm abscess is present. Surgical changes are present in the right inguinal region with small pockets of fluid and air present . Suggest clinical correlation history right inguinal surgical intervention. IMPRESSION: Very large right perirectal abscess is present with the abscess extending into the pelvi s along the right pelvic sidewall with involvement of the posterior prostate gland.
[2020-08-20] MEDS ORDERED: Levofloxacin 750mg IV 750 MG/150 ML BAG IV ONE (16:42)
[2020-08-20] MEDS ORDERED: METRONIDAZOLE 500mg IVPB 500 MG/100 ML BAG IV ONE (16:42)
--- NOTE | 2020-08-20 16:57 | ER ---
Nurse's Notes [facility] Name: Maicol Segundo Age: 25 yrs Sex: Male : 1995 Arrival Date: 08/20/2020 Time: 15:01 Bed 5 Private MD: Diagnosis: Abscess of anal and rectal regions Presentation: 08/20 15:20 Chief complaint: Sent by Dr. Walker for perirectal abscess. Coronavirus screen: At this hb time, the client does not indicate any symptoms associated with coronavirus-19. Ebola Screen: No symptoms or risks identified at this time. Initial Sepsis Screen: Does the patient meet any 2 criteria? No. Patient's initial sepsis screen is negative. Does the patient have a suspected source of infection? No. Patient's initial sepsis screen is negative. Risk Assessment: Do you want to hurt yourself or someone else? Patient reports no desire to harm self or others. Onset of symptoms was August 20, 2020. 15:20 Method Of Arrival: Wheelchair hb 15:20 Acuity: JIMMY 3 hb Historical: - Allergies: 15:23 Cefaclor; hb 15:23 sulfamethoxazole-trimethoprim; hb - Home Meds: 16:03 Farxiga 5 mg oral tab 1 tab once daily [Active]; Lantus 100 unit/mL Sub-Q soln tw2 [Active]; acetaminophen-codeine 300-15 mg Oral tab 1 tab prn every 4-6 hours [Active]; lisinopril 2.5 mg Oral tab 1 tab once daily [Active]; Cipro 500 mg Oral tab 1 tab every 12 hours [Active]; - PMHx: 16:03 Diabetes - IDDM; Hypertension; tw2 - PSHx: 15:23 Ear Tubes; Adenoids; hb - Immunization history:: Adult Immunizations up to date. - Social history:: Smoking status: Patient denies any tobacco usage or history of. - Family history:: not pertinent. - Hospitalizations: : No recent hospitalization is reported. Screenin:19 Abuse screen: Denies threats or abuse. Nutritional screening: No deficits noted. tw2 Tuberculosis screening: No symptoms or risk factors identified. Fall Risk None identified. Assessment: 15:30 General: Appears uncomfortable, slender, well groomed, Behavior is calm, cooperative, tw2 appropriate for age. Pain: Complains of pain in buttocks. Neuro: Level of Consciousness is awake, alert, obeys commands, Oriented to person, place, time, situation. Cardiovascular: Heart tones S1 S2 Patient's skin is warm and dry. Respiratory: Airway is patent Respiratory effort is even, unlabored, Respiratory pattern is regular, symmetrical, Breath sounds are clear bilaterally. GI: Abdomen is flat, Bowel sounds present X 4 quads. Reports rectal pain. : Urine is cloudy, cesar urine noted in collection bag Parent/caregiver report the patient having mart in place with leg bag for drainage collection. EENT: No signs and/or symptoms were reported regarding the EENT system. Derm: No signs and/or symptoms reported regarding the dermatologic system. Skin is intact, is healthy with good turgor, Skin is dry, Skin temperature is warm. Musculoskeletal: Range of motion: intact in all extremities. 16:30 Reassessment: Patient appears in no apparent distress at this time. No changes from tw2 previously documented assessment. Patient and/or family updated on plan of care and expected duration. Pain level reassessed. Patient is alert, oriented x 3, equal unlabored respirations, skin warm/dry/pink. Reassessment: "pain is better". 16:46 Reassessment: Dr. Lisa Pearson at bedside at this time discussing poc with pt and pts tw2 family. 17:02 Reassessment: pt states "my pain is coming back", provider notified, medicated as tw2 ordered. 18:10 Reassessment: Patient and/or family updated on plan of care and expected duration. Pain tw2 level reassessed. Patient is alert, oriented x 3, equal unlabored respirations, skin warm/dry/pink. pt c/o pain, medicated as ordered. Patient states symptoms have not improved. 19:10 Derm: explained to patient I will examined his buttocks area to see the area. patient rr5 refused to examined further while he is on side lying position. 19:10 General: Appears in no apparent distress. uncomfortable, Behavior is calm, cooperative, rr5 appropriate for age, for transfer to room 231. 19:10 Neuro: Level of Consciousness is awake, alert, obeys commands, Oriented to person, rr5 place, time. Cardiovascular: Capillary refill < 3 seconds Patient's skin is warm and dry. Respiratory: Airway is patent Respiratory effort is even, unlabored, Respiratory pattern is regular, symmetrical. : Mart in place to gravity drainage leg bag. Derm:. Musculoskeletal: Capillary refill < 3 seconds. 20:00 Reassessment: Patient appears in no apparent distress at this time. Patient is alert, rr5 oriented x 3, equal unlabored respirations, skin warm/dry/pink. reminded for NPO. patient understand the procedure for tomorrow and signed the consent. Vital Signs: 15:20 BP 161 / 107; Pulse 116; Resp 16; Temp 98.5(O); Pulse Ox 98% on R/A; Weight 89.81 kg; hb Height 5 ft. 9 in. (175.26 cm); Pain 10/10; 16:01 BP 161 / 109; Pulse 106; Resp 18; Pulse Ox 99% on R/A; Pain 7/10; tw2 17:00 BP 153 / 101; Pulse 98; Resp 17; Pulse Ox 96% on R/A; Pain 7/10; tw2 18:00 BP 146 / 96; Pulse 107; Resp 18; Pulse Ox 97% on R/A; Pain 8/10; tw2 18:57 BP 143 / 93; Pulse 106; Resp 16; Pulse Ox 96% on R/A; tw2 19:10 BP 131 / 85; Pulse 90; Resp 19; Pulse Ox 99% ; rr5 20:30 BP 139 / 96; Pulse 99; Resp 20; Temp 98.4; Pulse Ox 95% ; rr5 15:20 Body Mass Index 29.24 (89.81 kg, 175.26 cm) ED Course: 15:01 Patient arrived in ED. ds1 15:11 Placed in gown. Bed in low position. Side rails up X 1. Adult w/ patient. Pulse ox on. tw2 NIBP on. Warm blanket given. 15:19 Stacie King, ARTURO is Primary Nurse. tw2 15:19 Arm band placed on. tw2 15:22 Triage completed. hb 15:25 Franklyn Baeza MD is Attending Physician. rn 15:30 Served as a internal review and audit compliance during rectal exam. tw2 15:50 Inserted saline lock: 20 gauge in right antecubital area, using aseptic technique. tw2 Blood collected. 16:21 CT Pelvis w cont In Process Unspecified. EDMS 16:46 Served as a internal review and audit compliance during rectal exam. for Dr. Lisa Pearson at this time. tw2 16:56 Amador Dang MD is Hospitalizing Provider. rn 16:56 Rony Dang MD is Hospitalizing Provider. rn 19:00 Report given to ARTURO Mcgill, LyndsayRN and ARTURO Heredia. tw2 20:03 [facility] vince gutierrez informed to be in house. rr5 20:39 Patient admitted, IV remains in place. intact, No redness/swelling at site. rr5 Administered Medications: 15:56 Drug: Zofran (Ondansetron) 4 mg Route: IVP; Site: right antecubital; tw2 16:35 Follow up: Response: No adverse reaction tw2 15:58 Drug: morphine 4 mg {Note: RASS 0.} Route: IVP; Site: right antecubital; tw2 16:34 Follow up: Response: No adverse reaction; Pain is decreased; RASS: Drowsy (-1) tw2 16:34 Drug: Flagyl 500 mg Volume: 100 ml; Route: IVPB; Rate: 200 ml/hr; Infused Over: 30 tw2 mins; Site: right antecubital; 17:13 Follow up: Response: No adverse reaction; IV Status: Completed infusion tw2 17:10 Drug: morphine 4 mg {Note: RASS 0.} Route: IVP; Site: right antecubital; tw2 17:50 Follow up: Response: No adverse reaction; Pain is decreased; RASS: Alert and Calm (0) tw2 17:14 Drug: LevaQUIN 750 mg Volume: 150 ml; Route: IVPB; Infused Over: 90 mins; Site: right tw2 antecubital; 18:40 Follow up: Response: No adverse reaction; IV Intake: 150ml tw2 18:15 Drug: Zofran (Ondansetron) 4 mg Route: IVP; Site: right antecubital; tw2 18:57 Follow up: Response: No adverse reaction tw2 18:17 Drug: Dilaudid 1 mg {Note: RASS 0.} Route: IVP; Site: right antecubital; tw2 18:57 Follow up: Response: No adverse reaction; Pain is decreased; RASS: Alert and Calm (0) tw2 Intake: 18:40 IV: 150ml; Total: 150ml. tw2 19:30 PO: 0ml; Total: 150ml. rr5 15:37 pt arrived with mart and a leg bag in place upon arrival to the ER tw2 Output: 15:37 Urine: 450ml (Mart); Total: 450ml. tw2 19:30 Urine: 400ml (Mart); Total: 850ml. rr5 15:37 pt arrived with mart and a leg bag in place upon arrival to the ER tw2 Outcome: 16:56 Decision to Hospitalize by Provider. rn 20:39 Admitted to Med/surg accompanied by tech, via stretcher, room 231, with chart, Report rr5 called to hannah 20:39 Condition: stable 20:39 Instructed on the need for admit. 20:47 Patient left the ED. rr5 Signatures: Dispatcher [employer] EDMO Sneedi ds1 Franklyn Baeza MD MD rn Baxter, Heather, RN RN Stacie King RN RN tw2 Yan Sterling RN RN rr5 Corrections: (The following items were deleted from the chart) 18:18 18:18 Reassessment: Patient and/or family updated on plan of care and expected tw2 duration. Pain level reassessed. Patient is alert, oriented x 3, equal unlabored respirations, skin warm/dry/pink. pt c/o pain, medicated as ordered. Patient states symptoms have not improved. tw2
--- NOTE | 2020-08-20 16:57 | EDPHYS ---
Physician Documentation [facility] Name: Maicol Segundo Age: 25 yrs Sex: Male : 1995 Arrival Date: 08/20/2020 Time: 15:01 Bed 5 Private MD: ED Physician Franklyn Baeza HPI: 08/20 15:49 This 25 yrs old Male presents to ER via Wheelchair with complaints of Abscess.rn 15:49 the patient presents with a swollen area of the marlen-rectal. Description: fluctuant, rn swollen, warm. Onset: The symptoms/episode began/occurred 1 week(s) ago. Possible cause(s): unknown. Associated signs and symptoms: Pertinent positives: erythema, swelling, Pertinent negatives: fever. Modifying factors: the symptoms are alleviated by nothing, the symptoms are aggravated by walking, pressure, sitting, touching. Severity of symptoms: At their worst the symptoms were moderate, in the emergency department the symptoms are unchanged. The patient has not experienced similar symptoms in the past. The patient has been recently seen by a physician:. 15:51 Reports recent right inguinal hernia repair by Dr. Walker, states had been having rn perirectal pain for atleast a week, on abx, and now more intense pain. Worse with sitting and movement, no constipation, no bleeding. . Historical: - Allergies: 15:23 Cefaclor; hb 15:23 sulfamethoxazole-trimethoprim; hb - Home Meds: 16:03 Farxiga 5 mg oral tab 1 tab once daily [Active]; Lantus 100 unit/mL Sub-Q soln tw2 [Active]; acetaminophen-codeine 300-15 mg Oral tab 1 tab prn every 4-6 hours [Active]; lisinopril 2.5 mg Oral tab 1 tab once daily [Active]; Cipro 500 mg Oral tab 1 tab every 12 hours [Active]; - PMHx: 16:03 Diabetes - IDDM; Hypertension; tw2 - PSHx: 15:23 Ear Tubes; Adenoids; hb - Immunization history:: Adult Immunizations up to date. - Social history:: Smoking status: Patient denies any tobacco usage or history of. - Family history:: not pertinent. - Hospitalizations: : No recent hospitalization is reported. ROS: 15:51 Constitutional: Negative for fever, chills, and weight loss, Eyes: Negative for injury, rn pain, redness, and discharge, Cardiovascular: Negative for chest pain, palpitations, and edema, Respiratory: Negative for shortness of breath, cough, wheezing, and pleuritic chest pain, Abdomen/GI: Negative for abdominal pain, nausea, vomiting, diarrhea, and constipation, + perirectal pain and swelling Back: Negative for injury and pain, : Negative for injury, bleeding, discharge, and swelling, MS/Extremity: Negative for injury and deformity, Skin: Negative for injury, rash, and discoloration, Neuro: Negative for headache, weakness, numbness, tingling, and seizure. Exam: 15:51 Constitutional: This is a well developed, well nourished patient who is awake, alert, rn appears uncomfortable Head/Face: Normocephalic, atraumatic. Cardiovascular: Tachycardic, regular. No pulse deficits. Respiratory: No increased work of breathing, no retractions or nasal flaring. Abdomen/GI: soft, non-tender abdomen, + right marlen-rectal swelling and tenderness, no hemorrhoid seen, no tear Skin: Warm, dry MS/ Extremity: Pulses equal, no cyanosis. Neurovascular intact. Full, normal range of motion. Equal circumference. Neuro: Awake and alert, GCS 15, oriented to person, place, time, and situation. Vital Signs: 15:20 BP 161 / 107; Pulse 116; Resp 16; Temp 98.5(O); Pulse Ox 98% on R/A; Weight 89.81 kg; hb Height 5 ft. 9 in. (175.26 cm); Pain 10/10; 16:01 BP 161 / 109; Pulse 106; Resp 18; Pulse Ox 99% on R/A; Pain 7/10; tw2 17:00 BP 153 / 101; Pulse 98; Resp 17; Pulse Ox 96% on R/A; Pain 7/10; tw2 18:00 BP 146 / 96; Pulse 107; Resp 18; Pulse Ox 97% on R/A; Pain 8/10; tw2 18:57 BP 143 / 93; Pulse 106; Resp 16; Pulse Ox 96% on R/A; tw2 19:10 BP 131 / 85; Pulse 90; Resp 19; Pulse Ox 99% ; rr5 20:30 BP 139 / 96; Pulse 99; Resp 20; Temp 98.4; Pulse Ox 95% ; rr5 15:20 Body Mass Index 29.24 (89.81 kg, 175.26 cm) hb MDM: 15:25 Patient medically screened. rn 16:55 Differential diagnosis: abscess. Data reviewed: vital signs, nurses notes, lab test rn result(s), radiologic studies, CT scan, and as a result, I will admit patient. Counseling: I had a detailed discussion with the patient and/or guardian regarding: the historical points, exam findings, and any diagnostic results supporting the discharge/admit diagnosis, lab results, radiology results, the need for further work-up and treatment in the hospital. Response to treatment: the patient's symptoms have mildly improved after treatment, and as a result, I will admit patient. Admission orders: after a detailed discussion of the patient's condition and case, the admit orders are written by me. ED course: Consulted Monty Gayle out of town, Dr. Pearson evaluated patient in ER and looked at CT with me, will admit to hospitalist service and Monty Pearson with operate tomorrow. . 08/20 15:46 Order name: Basic Metabolic Panel; Complete Time: 16:28 rn 08/20 15:46 Order name: CBC with Diff rn 08/20 16:42 Order name: CREATININE WHOLE BLOOD; Complete Time: 16:43 EDSC 08/20 17:57 Order name: CBC with Automated Diff EDSC 08/20 17:57 Order name: CBC with Automated Diff EDSC 08/20 17:57 Order name: Comprehensive Metabolic Panel EDSC 08/20 15:46 Order name: CT Pelvis w cont; Complete Time: 16:36 rn 08/20 17:57 Order name: Comprehensive Metabolic Panel EDSC 08/20 18:53 Order name: CBC Smear Scan EDSC 08/20 19:30 Order name: COVID-19 rr5 08/20 15:46 Order name: IV Saline Lock; Complete Time: 16:00 rn 08/20 15:46 Order name: Labs collected and sent; Complete Time: 16:00 rn 08/20 15:46 Order name: NPO; Complete Time: 16:00 rn 08/20 17:57 Order name: CONS Pharmacy Consult EDSC 08/20 17:57 Order name: NPO EDMS Administered Medications: 15:56 Drug: Zofran (Ondansetron) 4 mg Route: IVP; Site: right antecubital; tw2 16:35 Follow up: Response: No adverse reaction tw2 15:58 Drug: morphine 4 mg {Note: RASS 0.} Route: IVP; Site: right antecubital; tw2 16:34 Follow up: Response: No adverse reaction; Pain is decreased; RASS: Drowsy (-1) tw2 16:34 Drug: Flagyl 500 mg Volume: 100 ml; Route: IVPB; Rate: 200 ml/hr; Infused Over: 30 tw2 mins; Site: right antecubital; 17:13 Follow up: Response: No adverse reaction; IV Status: Completed infusion tw2 17:10 Drug: morphine 4 mg {Note: RASS 0.} Route: IVP; Site: right antecubital; tw2 17:50 Follow up: Response: No adverse reaction; Pain is decreased; RASS: Alert and Calm (0) tw2 17:14 Drug: LevaQUIN 750 mg Volume: 150 ml; Route: IVPB; Infused Over: 90 mins; Site: right tw2 antecubital; 18:40 Follow up: Response: No adverse reaction; IV Intake: 150ml tw2 18:15 Drug: Zofran (Ondansetron) 4 mg Route: IVP; Site: right antecubital; tw2 18:57 Follow up: Response: No adverse reaction tw2 18:17 Drug: Dilaudid 1 mg {Note: RASS 0.} Route: IVP; Site: right antecubital; tw2 18:57 Follow up: Response: No adverse reaction; Pain is decreased; RASS: Alert and Calm (0) tw2 Disposition: 08/20/20 16:56 Hospitalization ordered by Rony Dang for Inpatient Admission. Preliminary diagnosis is Abscess of anal and rectal regions. - Bed requested for Telemetry/MedSurg (Inpatient). - Status is Inpatient Admission. rr5 - Condition is Stable. - Problem is new. - Symptoms have improved. Signatures: Dispatcher [employer] EDMS Franklyn Baeza MD MD rn Garcia, Cindy, RN RN Alexia Lundy RN RN Stacie King RN RN tw2 Yan Sterling RN RN rr5 Corrections: (The following items were deleted from the chart) 19:08 16:56 Hospitalization Ordered by Rony Dang MD for Inpatient Admission. cg Preliminary diagnosis is Abscess of anal and rectal regions. Bed requested for Telemetry/MedSurg (Inpatient). Status is Inpatient Admission. Condition is Stable. Problem is new. Symptoms have improved. rn 20:47 19:08 08/20/2020 16:56 Hospitalization Ordered by Rony Dang MD for Inpatient rr5 Admission. Preliminary diagnosis is Abscess of anal and rectal regions. Bed requested for Telemetry/MedSurg (Inpatient). Status is Inpatient Admission. Condition is Stable. Problem is new. Symptoms have improved. cg
[2020-08-20] MEDS ORDERED: MORPHINE 2 MG/ML SYR IV PRN (17:55)
[2020-08-20] MEDS ORDERED: Meropenem 1,000 MG in NA CHLORIDE 0.9% 100 ML IV SCH (17:59)
--- NOTE | 2020-08-20 18:00 | P.HP ---
Certification for Inpatient Patient admitted to: Inpatient With expected LOS: >2 Midnights Practitioner: I am a practitioner with admitting privileges, knowledge of patient current condition, hospital course, and medical plan of care. Services: Services provided to patient in accordance with Admission requirements found in Title 42 Section 412.3 of the Code of Federal Regulations Patient History Date of Service: 08/21/20 Reason for admission: Perirectal abscess History of Present Illness: Patient is 25 years ago this problem started 5 weeks ago he started having pain in the right side of his buttock went to the urgent care center was diagnosed with a urinary tract infection his pain persisted min to see 2 urologist and general surgery patient had operation in the right inguinal region still is pain persisted ended up here in the emergency room was found to have a very large perirectal abscess with elevated white count patient is also diabetic Allergies cefaclor [From Ceclor] Allergy (Verified 08/02/20 12:39) UNKNOWN sulfamethoxazole [From Bactrim] Allergy (Verified 08/02/20 12:39) UNKNOWN trimethoprim [From Bactrim] Allergy (Verified 08/02/20 12:39) UNKNOWN Home Medications: Dapagliflozin Propanediol [Farxiga] 5 mg PO DAILY 08/02/20 Insulin Glargine,Hum.rec.anlog [Lantus Solostar] 24 unit SQ DAILY 08/02/20 Lisinopril [Zestril] 10 mg PO DAILY 08/02/20 - Past Medical/Surgical History Diabetic: Yes -: Diabetes -: Tubes in ears -: adnoids removed - Family History Mother -: Diabetes Father -: Heart disease - Social History Alcohol use: Yes CD- Drugs: No Caffeine use: Yes Review of Systems 10-point ROS is otherwise unremarkable General: Weakness Gastrointestinal: Other (Pain in the right side of his buttock) Physical Examination - Vital Signs Temperature: 98.5 F Blood Pressure: 161/107 Pulse: 116 Respirations: 16 Pulse Ox (%): 98 - Physical Exam General: Alert, Oriented x3, Moderate distress Neck: Supple Respiratory: Clear to auscultation bilaterally, Friction rub Cardiovascular: Regular rate/rhythm Gastrointestinal: Normal bowel sounds, Soft and benign, Other (Rectal exam deferred done by the emergency room doctor) Integumentary: No rashes Neurological: Normal speech, Normal strength at 5/5 x4 extr Rectal: Other (Deferred) - Studies Laboratory Data (last 24 hrs) 08/20/20 15:50: WBC 20.7 H*, Hgb 15.7, Hct 47.1, Plt Count 205 08/20/20 15:50: Sodium 135 L, Potassium 3.5, BUN 12, Creatinine 0.57, Glucose 197 H Assessment and Plan - Problems (Diagnosis) (1) Perirectal abscess Current Visit: Yes Status: Acute Plan: Patient is 25 years of age admitted with right-sided perirectal abscess he has had pain for the past 5 weeks he has is seeing has an at an urgent care and an by urologist and vaginal surgery had operation in the right inguinal region pain continued to persist ended up in emergency room is also diabetic patient's white count is elevated admit to the floor seen by Dr. Pearson schedule for surgery tomorrow started him on meropenem CT report Very large right perirectal abscess is present with the abscess extending into the pelvis along the right pelvic sidewall with involvement of the posterior prostate gland. - Advance Directives Does patient have a Living Will: No Does patient have a Durable POA for Healthcare: No
[2020-08-20] MEDS ORDERED: HYDROMORPHONE HCL 1 MG/ML INJ ONE (18:24)
[2020-08-20 18:52] LABS: Blood Morphology Comment NOTED (NOT SEEN); Platelet Estimate ADEQ; White Blood Cell Scan OK (OK)
[2020-08-20 18:53] LABS: Anisocytosis 2+; Poikilocytosis 1+
--- NOTE | 2020-08-20 19:04 | CON ---
Date of Consultation: 08/20/2020 Reason For Consultation: Perirectal abscess. History Of Present Illness: This is a case of a 25-year-old patient, who comes to us with a 1-week h istory of what he claims is a perianal tenderness. He also has some of the issues with urological sy mptoms, for what he has a Bertrand at this moment. He was at one point also diagnosed with epididymitis , sometimes also diagnosed with UTI. The patient has a right inguinal hernia repair by one of the [facility] surgeons about a week ago. Unfortunately, he is not available at this time and I am covering for him. The patient fully understands that. Allergies: CEFACLOR, BACTRIM. Medications: 1.Farxiga. 2.Lantus. 3.Lisinopril. 4.Cipro. Past Surgical History: As above. Past Medical History: Include insulin-dependent diabetes and hypertension. Review of Systems: See H and P. No dysuria, hematuria, hematochezia, or melena. Although at one point, he has some dys uria and the person received a Bertrand catheter that is still there due to the urinary retention. Physical Examination: General: The patient is awake and alert. HEENT: Pupils are equal and reactive. Anicteric. Neck: Supple. Chest: Clear. Abdomen: Soft and depressible. Right inguinal incision is intact. No cellulitis in that area. Per ianal region shows tenderness, induration, and increased temperature. Extremities: Good capillary refill. Laboratory Data: Blood work shows WBC count of 20.7, hemoglobin of 15.7, platelets of 205. Sodium i s 135, creatinine is 0.57. CAT scan of the pelvis done in ER shows findings consistent with a large perirectal abscess that extends into the area of the pelvis. Assessment: A 25-year-old patient with large perirectal abscess. Benefits, alternatives, and risks of examination under anaesthesia, anoscopy, rigid proctoscopy, incision and drainage of a large perir ectal complex abscess was fully explained to the patient and the parents, which include, but not limi adrian to infection, bleeding, damage to adjacent structures, anesthesia complication, nonhealing wound, [place], and even . He also understands this may not relieve the symptoms. He might need more than one surgical intervention. He most likely will require wound care and long-term antibiotics. He at e just recently. We are going to keep the patient n.p.o. after midnight and then proceed when safe. BERRY/FELICE Voice ID: [id number] Report ID: [id number]
[2020-08-20 21:16] VITALS: BMI 29.1
[2020-08-20] MEDS ORDERED: Meropenem 1 GM/100 ML BAG ONE (21:42)
[2020-08-20] MEDS: INSULIN -REGULAR HUMAN 50 UNIT/0.5 ML ML SQ SCH (22:11)
[2020-08-20] MEDS: NA CHLORIDE 0.9% 1,000 ML IV SCH (22:12)
[2020-08-21] MEDS: KETOROLAC 30 MG/ML INJ IV PRN ×2 (00:25→06:37)
[2020-08-21 06:04] LABS: Absolute Lymphocytes (CBC) 1.9 K/uL (0.7-4.9); Basophils % 0.2 % (0-1.3); Hematocrit 42.9 % (39.6-49.0); Lymphocytes % 9.7 % (15.3-44.8); RBC Red Blood Cell Count 5.18 M/uL (4.33-5.43)
[2020-08-21 06:21] LABS: ALT/SGPT 9 U/L (12-78); AST/SGOT 10 U/L (15-37); Albumin 2.1 g/dL (3.4-5.0); Alkaline Phosphatase 102 U/L (45-117); BUN Blood Urea Nitrogen 13 mg/dL (7-18); Bicarbonate 26 mmol/L (21-32); Bilirubin Total 0.6 mg/dL (0.2-1.0); Glucose Level 171 mg/dL (74-106); Potassium 3.5 mmol/L (3.5-5.1); Protein, Total 6.4 g/dL (6.4-8.2); Sodium Level 135 mmol/L (136-145)
[2020-08-21] MEDS: ONDANSETRON 4 MG/2 ML VIAL IV PRN (06:37)
[2020-08-21] MEDS: NA CHLORIDE 0.9% 1,000 ML IV SCH ×3 (06:38→17:54)
[2020-08-21] MEDS: MORPHINE 4 MG/ML SYR IV PRN (07:04)
[2020-08-21] MEDS: Meropenem 1,000 MG in NA CHLORIDE 0.9% 100 ML IV SCH ×3 (07:12→22:02)
[2020-08-21] MEDS: INSULIN -REGULAR HUMAN 50 UNIT/0.5 ML ML SQ SCH ×4 (07:30→21:00)
[2020-08-21] MEDS ORDERED: SUCCINYLCHOLINE 20 MG/ML (10 ML) IV ONE (09:12)
[2020-08-21] MEDS ORDERED: FENTANYL CITR 250 MCG/5 ML ONE (09:13)
[2020-08-21] MEDS ORDERED: MIDAZOLAM HCL 2 MG/2 ML INJ ONE (09:13)
[2020-08-21] MEDS ORDERED: propofoL 200 MG/20 ML VIAL IV ONE (09:13)
--- NOTE | 2020-08-21 10:00 | P.BOP ---
Preoperative diagnosis: Complex large perirectal/pelvic abscess Postoperative diagnosis: same Primary procedure: EUA, Anoscopy, Rigid proctoscopy Secondary procedure: Incision and drainage or perirectal abscess Estimated blood loss: <20cc Specimen: pus Findings: as above Anesthesia: General Complications: None Drain(s): Wound drain (owen ) Transferred to: Recovery Room
[2020-08-21] MEDS: NICOTINE 21 MG/PAT TD SCH (11:11)
--- NOTE | 2020-08-21 11:16 | P.PN ---
Subjective Date of Service: 08/21/20 Chief Complaint: Perirectal abscess Subjective: Improving (Patient is status post incision and drainage doing much better very alert responsive cooperative) Review of Systems Unremarkable Physical Examination - Vital Signs Temperature: 97.7 F Blood Pressure: 118/76 Pulse: 90 Respirations: 16 Pulse Ox (%): 98 - Physical Exam General: Alert, In no apparent distress, Oriented x3 Respiratory: Clear to auscultation bilaterally Cardiovascular: No edema - Studies Laboratory Data (last 24 hrs) 08/20/20 15:50: WBC 20.7 H*, Hgb 15.7, Hct 47.1, Plt Count 205 08/20/20 15:50: Sodium 135 L, Potassium 3.5, BUN 12, Creatinine 0.57, Glucose 197 H Assessment & Plan - Problems (Diagnosis) (1) Perirectal abscess Current Visit: Yes Status: Acute Plan: Status post incision and drainage of the perirectal abscess is doing much better start a diet patient has a drain chemistries reviewed white count is declining vital signs stable naked Nicoderm patch ordered patient is a heavy smoker (2) Diabetes Current Visit: Yes Status: Acute Plan: Resume insulin and that Qualifiers: Diabetes mellitus type: type 1 Discharge Plan: Home Plan to discharge in: 48 Hours
[2020-08-21] MEDS ORDERED: TRAMADOL 37.5mg/APAP 325mg PER TAB PO PRN (11:18)
--- NOTE | 2020-08-21 12:50 | OP ---
Date of Procedure: 08/21/2020 Surgeon: Josh Pearson MD Preoperative Diagnosis: Complex large perirectal and pelvic abscess. Postoperative Diagnosis: Complex large perirectal and pelvic abscess. Procedures: Examination under anesthesia, anoscopy, rigid proctoscopy, incision and drainage of comp jerilyn perirectal abscess. Anesthesia: General plus local. Drains: Oren drain. Indications: This is the case of a 25-year-old patient with multiple medical problems including diab etes, who came to us with a very large right perirectal abscess that extends into the area of the pel vis and right pelvic sidewall with even some improvement of the posterior prostate gland. The patien t needs emergent drainage. We kept him n.p.o., IV hydration, IV antibiotics and proceeded with EUA, anoscopy, proctoscopy, I and D of perirectal abscess with benefits, alternatives, and risks were full y explained to him and the parents, which include, but not limited to infection, bleeding, damage to adjacent structures, anesthesia complication, nonhealing wound, [place], and even . They also unders tand this may not relieve any symptoms. He might need more than one surgical intervention. The fami ly understand that he may require wound care. Family also understands may require long-term antibiot ics. So, I believe an Infectious Disease doctor should be called in the case. We will also explain to him the importance of losing weight and also diabetes control. He signed a consent. Procedure In Detail: The patient was brought to the operating room and placed in supine position. A nesthesia was done without complication. The patient was placed in lithotomy position. A time-out w as called. Rectal examination was done followed by a rigid proctoscopy under direct visualization up to about 12 cm, cannot advance anymore due to large amount of stool present. We did not see any mas s in that region. We still have the perirectal abscess mostly on the right side. Then, after that, I placed an anoscope once again looking for any tumors in the anal canal or any specific connection. Once again, we noticed the perirectal abscess. We may get an incision on the perianal region that g ave us access to the perirectal area. This abscess was large, going all the way down to the pelvis. When we have incision in that area, first we localized with an 18-gauge needle and then we made the incision. We have a large amount of copious amount of pus. The area was profusely irrigated until c lear and then since the packing that area is not possible at this time and the area of cellulitis, I put a [place] drain that will help me drain this area in the meantime until more definitive treatment can be done. Local anesthetic was applied over the area. The patient tolerated the procedure well. Area was covered with sterile dressings. The patient was sent to recovery in stable condition. BERRY/FELICE Voice ID: [id number] Report ID: [id number]
[2020-08-21] MEDS: HYDROCODONE/APAP 5/325 MG TAB PO PRN (22:02)
[2020-08-22] MEDS ORDERED: TRAZODONE 50 MG TABLET PO ONE (00:12)
[2020-08-22] MEDS: KETOROLAC 30 MG/ML INJ IV PRN (00:32)
[2020-08-22 04:20] LABS: Hematocrit 40.5 % (39.6-49.0); MPV 8.6 fL (7.6-11.3); RBC Red Blood Cell Count 4.92 M/uL (4.33-5.43)
[2020-08-22 04:31] LABS: BUN Blood Urea Nitrogen 11 mg/dL (7-18); Bicarbonate 25 mmol/L (21-32); Glucose Level 225 mg/dL (74-106); HDL Cholesterol 24 mg/dL (40-60); LDL Cholesterol, Calculated 89 (<130); Potassium 3.2 mmol/L (3.5-5.1); Sodium Level 138 mmol/L (136-145)
[2020-08-22] MEDS: NA CHLORIDE 0.9% 1,000 ML IV SCH (05:05)
[2020-08-22] MEDS: Meropenem 1,000 MG in NA CHLORIDE 0.9% 100 ML IV SCH ×3 (05:05→21:38)
[2020-08-22] MEDS: HYDROCODONE/APAP 5/325 MG TAB PO PRN ×2 (06:21→14:10)
[2020-08-22] MEDS: INSULIN -REGULAR HUMAN 50 UNIT/0.5 ML ML SQ SCH ×4 (08:58→21:37)
[2020-08-22] MEDS: NICOTINE 21 MG/PAT TD SCH (08:58)
[2020-08-22] MEDS: INSULIN GLARGINE 100 UNITS/ML SQ SCH (08:59)
--- NOTE | 2020-08-22 11:43 | P.PN ---
Subjective Date of Service: 08/22/20 Patient is a 25-year-old gentleman who came to the hospital with a large perirectal abscess. Patient had an incision and debridement performed yesterday. Patient had been struggling with pain for the last month. He initially had an inguinal hernia repair, but this did not fix his pain. He has seen by the urologist who had felt patient may have a perirectal abscess. Patient was having pain so General surgery recommended going to the emergency room were patient was found have a large perirectal abscess. On the CT scan there was also concern for an intramuscular abscess as well as an abscess along the prostate. At this time, will continue with the IV antibiotic therapy. Infectious Disease consultation is pending. Continue with Bertrand catheter at this time. Review of Systems 10-point ROS is otherwise unremarkable Physical Examination - Vital Signs Temperature: 96.9 F Blood Pressure: 122/82 Pulse: 84 Respirations: 16 Pulse Ox (%): 97 - Physical Exam General: Alert, In no apparent distress, Oriented x3 Respiratory: Clear to auscultation bilaterally, Normal air movement Cardiovascular: Regular rate/rhythm, Normal S1 S2, No murmurs Gastrointestinal: Normal bowel sounds, Soft and benign, Non-distended, No tenderness Neurological: Sensation intact, Cranial nerves 3-12 intact, Abnormal strength - Studies Medications List Reviewed: Yes Assessment & Plan - Problems (Diagnosis) (1) Perirectal abscess Current Visit: Yes Status: Acute (2) Diabetes Current Visit: Yes Status: Acute Qualifiers: Diabetes mellitus type: type 1 (3) Abscess of muscle Current Visit: Yes Status: Acute (4) Abscess, prostate Current Visit: Yes Status: Acute - Plan 1. Continue with IV antibiotic 2. Continue with local wound care 3. Appreciate Infectious Disease and surgical consultation 4. Gentle IV hydration 5. Monitor CBC 6. Strict blood sugar monitoring 7. Pain control 8. GI and DVT prophylaxis Discharge Plan: Home Plan to discharge in: Greater than 2 days - Advance Directives Does patient have a Living Will: No Does patient have a Durable POA for Healthcare: No - Code Status/Comfort Care Code Status Assessed: Yes Code Status: Full Code Critical Care: No Time Spent Managing PTS Care (In Minutes): 35
--- NOTE | 2020-08-22 12:37 | PN ---
Date of Progress Note: 08/22/2020 Diagnosis: Pelvic and perirectal abscess. Subjective: Patient is doing better, feeling better less pressure. No shortness of breath. No ches t pain. Objective: General: The patient is awake, alert. Abdomen: Soft and depressible. Intact surgical sites. Extremities: No calf tenderness. Laboratory Data: Blood work came from 20 to 15.6. We are trying to give him some diet. Plan: We are going to consult Infectious Disease for guidance on the antibiotics since it was a very large complex abscess and may require several days of IV antibiotics. Concerning the Bertrand, it was placed by urologist. I do not have the details of the reason why I suspect is that pressure in the b ladder, which CAT scan shows even affecting the prostate. So even though we can remove the Bertrand, we have to consider also the risks and damage from trying to put it back on, so the decision will be ma de tomorrow. The Oren will remain in place. Antibiotics will continue. We are going to try to f ollow the cultures. BERRY/FELICE Voice ID: [id number] Report ID: [id number]
--- NOTE | 2020-08-22 15:07 | CON ---
History Of Present Illness: This is a 25-year-old male coming in with perirectal abscess. I was con sulted to evaluate and manage antibiotic. The patient has been diabetic since cintia in high school at age 14 and noncompliant to his sugar control. Hemoglobin A1c is more than 12 and blood sugars wer e quite high also. The patient recently seen by urologist for urinary tract infection and recently a lso had a right inguinal hernia surgery. Came to the emergency room where a CT scan showed the patie nt has a large perirectal abscess of 6.7 x 6.4 cm extending to the right pelvis 10.2 x 6.3. A smalle r abscess is also noted in the prostate gland and measuring 3.5 x 2.4. The abscess is extending to i nvolve the right obturator intermedius muscle where an intramuscular 26 x 13 mm abscess was also note d. Past Medical History: Diabetes mellitus and noncompliance with medications. Tobacco positive 1 pack . Social History: Tobacco positive. Alcohol negative. Family History: Noncontributory. Medications: Currently, the patient is on meropenem. See MAR for other medications. Allergies: INCLUDE CEFACLOR AND BACTRIM. Review of Systems: A 10-point review was performed. Physical Examination: General: This is a 25-year-old male, lying in bed, not in any acute cardiopulmonary distress. Vital Signs: Temperature 97, pulse 92, respirations 18, blood pressure 136/94. HEENT: Unremarkable. Neck: Supple. Lungs: Clear to auscultation. Heart: S1, S2. Regular. Abdomen: Soft. Bowel sounds present. Extremities: No edema. Genitalia: Right perirectal area shows Oren drain in place. Laboratory Data: Shows WBC 15,600 down from 20,700, hemoglobin 13.6, platelets are 204. Chemistry s hows sodium 138, potassium 3.2, chloride 103, bicarb of 25, BUN 11, creatinine 0.4, glucose is 225. Hemoglobin A1c is 12.2. Micro data is growing Staph aureus from the wound, positive. Assessment And Plan: This is a 25-year-old male with longstanding history of diabetes mellitus and u ncontrolled diabetes and previous history of abscess formation, especially when he goes off his insul in treatment. The patient is coming in at this time with perirectal abscess, had recent right inguin al hernia surgery also. Hemoglobin A1c is 12.2. I agree with continuing meropenem. We will also st art the patient on vancomycin as the patient is growing gram-positive cocci. Case was discussed with father and mother as the patient has been on poor control with his diabetes. Wound might be slow he aling. We will recommend vancomycin and Merrem for now once leukocytosis starts to subside. We will recommend to switch him to Levaquin and doxycycline depending on sensitivity of Staph aureus. We wi ll follow the patient closely. Continue wound care and supportive care. We will recommend to apply petroleum gel to the wound site, to keep wound area covered and protected from fecal material and uri ne. We will follow the patient closely. Thank you Dr. Pearson for consult. SHELLY/FELICE Voice ID: [id number] Report ID: [id number]
[2020-08-22] MEDS: MORPHINE 4 MG/ML SYR IV PRN (21:36)
[2020-08-23] MEDS ORDERED: TRAZODONE 50 MG TABLET PO ONE (01:40)
[2020-08-23] MEDS: NA CHLORIDE 0.9% 1,000 ML IV SCH ×3 (02:03→16:37)
[2020-08-23] MEDS ORDERED: LORazepam 2 MG/ML VIAL IV ONE (04:32)
[2020-08-23] MEDS: Meropenem 1,000 MG in NA CHLORIDE 0.9% 100 ML IV SCH ×3 (06:32→21:59)
[2020-08-23] MEDS: INSULIN -REGULAR HUMAN 50 UNIT/0.5 ML ML SQ SCH ×4 (11:01→21:12)
[2020-08-23] MEDS: INSULIN GLARGINE 100 UNITS/ML SQ SCH (11:01)
[2020-08-23] MEDS: NICOTINE 21 MG/PAT TD SCH (11:02)
--- NOTE | 2020-08-23 13:41 | PN ---
Diagnosis: Large pelvic and perirectal abscess, status post drainage. History Of Present Illness: This is the case of a 25-year-old patient with history of diabetes, morb id obesity, came with pelvic abscesses coming from the perirectal region. Underwent surgery surinder quinn. Right now, he feels better. Pressure is relieved. He comes to the hospital already with a Fo sergio catheter placed by urologist. Since the abscess was so large, apparently he was pushing the blad lisa to the side. Now that that is relieved, we are considering removing his Bertrand. He had a [place] drain, moving on the last few hours, came off, so we removed the [place] drain from him today. He i s tolerating a clear liquid diet. Objective: Chest: Clear. Abdomen: Soft and depressible. Genitalia: Perianal area shows an intact incision. The [place] is out already, so we removed that. No evidence of rosmery pus coming through the area. Extremities: Good capillary refill. Laboratory Data: Blood work shows a WBC count came from 20.7 to 15.6. Glucose about 209. Plan: He wants the Bertrand removed. He understands that they have a chance to put it back again, alth ough now that the pressure is relieved, most likely it is going to be okay. Under those conditions, we will proceed to remove the Bertrand. Oren is out already. We are going to give him some diet. H e still needs to be on antibiotics. We consulted ID doctor, who will help us with that. He understands the chance of recurrence of that abs cess. HM/MODL Voice ID: [id number] Report ID: [id number]
[2020-08-23] MEDS: ONDANSETRON 4 MG/2 ML VIAL IV PRN (16:19)
[2020-08-23] MEDS: KETOROLAC 30 MG/ML INJ IV PRN (16:19)
[2020-08-24] MEDS: NA CHLORIDE 0.9% 1,000 ML IV SCH (05:07)
[2020-08-24] MEDS: Meropenem 1,000 MG in NA CHLORIDE 0.9% 100 ML IV SCH ×3 (05:08→21:29)
[2020-08-24] MEDS: INSULIN GLARGINE 100 UNITS/ML SQ SCH (09:30)
--- NOTE | 2020-08-24 09:33 | P.PN ---
Subjective Date of Service: 08/23/20 Subjective: No new changes, No C/O voiced Patient is doing better. At this time will continue with the IV antibiotic therapy. Infectious Disease consultation appreciated. MAXIMO mart in AM Review of Systems 10-point ROS is otherwise unremarkable Physical Examination - Vital Signs Temperature: 98.2 F Blood Pressure: 142/94 Pulse: 94 Respirations: 18 Pulse Ox (%): 97 - Physical Exam General: Alert, In no apparent distress, Oriented x3 Respiratory: Clear to auscultation bilaterally, Normal air movement Cardiovascular: Regular rate/rhythm, Normal S1 S2 Gastrointestinal: Normal bowel sounds, Soft and benign, Non-distended, Tenderness (minimal) Musculoskeletal: No tenderness Neurological: Normal tone, Sensation intact, Cranial nerves 3-12 intact - Studies Medications List Reviewed: Yes Assessment & Plan - Problems (Diagnosis) (1) Perirectal abscess Current Visit: Yes Status: Acute (2) Diabetes Current Visit: Yes Status: Acute Qualifiers: Diabetes mellitus type: type 1 (3) Abscess of muscle Current Visit: Yes Status: Acute (4) Abscess, prostate Current Visit: Yes Status: Acute - Plan 1. Continue with IV antibiotic 2. Continue with local wound care 3. Appreciate Infectious Disease and surgical consultation 4. Gentle IV hydration 5. Monitor CBC 6. Strict blood sugar monitoring 7. Pain control 8. GI and DVT prophylaxis - Advance Directives Does patient have a Living Will: No Does patient have a Durable POA for Healthcare: No - Code Status/Comfort Care Code Status: Full Code
--- NOTE | 2020-08-24 10:47 | PN ---
Date of Progress Note: 08/24/2020 Diagnoses: Perirectal and pelvic abscess. Subjective: A 25-year-old patient with perirectal and pelvic abscess, underwent an evacuation of tho se abscesses. Now continued on antibiotics. Appreciate Dr. Rowell and Dr. Moore's recommendations on antibiotics. The patient feels better. No shortness of breath. No chest pain. No fever. Having bowel movement and passing flatus. Yesterday, also the Bertrand was removed that was placed previously by urologist and he is having good urination. Objective: Abdomen: Benign. The surgical site is intact. Extremities: No calf tenderness. The patient will continue antibiotics following the recommendations from the Infectious Disease. Alicia ntually, we will do the CAT scan before he gets discharged. Laboratory Data: WBC count today is still pending, although yesterday it was 15, coming down from 20 . BERRY/FELICE Voice ID: [id number] Report ID: [id number]
[2020-08-24] MEDS: INSULIN -REGULAR HUMAN 50 UNIT/0.5 ML ML SQ SCH ×4 (10:59→21:00)
[2020-08-24] MEDS: NICOTINE 21 MG/PAT TD SCH (11:00)
[2020-08-24 11:44] LABS: Absolute Lymphocytes (CBC) 2.2 K/uL (0.7-4.9); Basophils % 0.6 % (0-1.3); Hematocrit 44.7 % (39.6-49.0); Lymphocytes % 16.6 % (15.3-44.8); MPV 7.9 fL (7.6-11.3); RBC Red Blood Cell Count 5.46 M/uL (4.33-5.43)
--- NOTE | 2020-08-24 11:56 | PN ---
Subjective: The patient is lying in bed. Father is by the bedside. Denies any problems. Had a show er earlier this morning. Continue to have sugars running high and are in 240s-250s. Denies any othe r problems. Objective: Vital Signs: Temperature 98.2, pulse 94, respirations 18, blood pressure 142/94. Pelvic: Examination of perirectal region shows surgical incision without much drainage at this time. Laboratory Data: Shows WBC 15.6, hemoglobin 13.6, platelets are 204. No new labs available for catalina ritchie. They are pending. Chemistry is pending. Micro data showing Staph aureus sensitive to cefazolin and quinolones. We will recommend to start patient on cefazolin or Cipro and pack the wound with iodoform gauze. Con tinue antibiotic IV for now and then can be switched to oral for 2 more weeks if no problems with rolando rrhea. Also recommend to put the patient on probiotics. We will follow the patient as needed. The patient was also educated regarding his control of diabetes mellitus as it can delay wound healing if the sugars remain elevated. We will follow the patient closely. NF/MODL Voice ID: [id number] Report ID: [id number]
[2020-08-24 11:57] LABS: BUN Blood Urea Nitrogen 7 mg/dL (7-18); Bicarbonate 32 mmol/L (21-32); Glucose Level 259 mg/dL (74-106); Potassium 3.9 mmol/L (3.5-5.1); Sodium Level 141 mmol/L (136-145)
[2020-08-24 13:36] LABS: Blood Morphology Comment NOT SEEN (NOT SEEN); Platelet Estimate ADEQ
[2020-08-24] MEDS ORDERED: HUMALOG MIX 75/25 100 UNITS/ML SQ ONE (14:30)
[2020-08-24] MEDS: METRONIDAZOLE 500mg IVPB 500 MG/100 ML BAG IV SCH (16:27)
[2020-08-24] MEDS: Levofloxacin500mg IV 500 MG/100 ML BAG IV SCH (16:27)
[2020-08-24] MEDS: KETOROLAC 30 MG/ML INJ IV PRN (22:42)
[2020-08-24] MEDS: ONDANSETRON 4 MG/2 ML VIAL IV PRN (22:43)
[2020-08-25] MEDS: METRONIDAZOLE 500mg IVPB 500 MG/100 ML BAG IV SCH ×4 (01:12→17:06)
[2020-08-25] MEDS: Meropenem 1,000 MG in NA CHLORIDE 0.9% 100 ML IV SCH ×2 (05:50→14:00)
[2020-08-25 06:45] LABS: Absolute Lymphocytes (CBC) 2.3 K/uL (0.7-4.9); Basophils % 0.3 % (0-1.3); Hematocrit 40.9 % (39.6-49.0); Lymphocytes % 26.1 % (15.3-44.8); MPV 8.4 fL (7.6-11.3)
[2020-08-25 06:57] LABS: ALT/SGPT 9 U/L (12-78); AST/SGOT 9 U/L (15-37); Albumin 2.2 g/dL (3.4-5.0); Alkaline Phosphatase 78 U/L (45-117); BUN Blood Urea Nitrogen 8 mg/dL (7-18); Bicarbonate 27 mmol/L (21-32); Bilirubin Total 0.7 mg/dL (0.2-1.0); Glucose Level 182 mg/dL (74-106); Magnesium 1.7 mg/dL (1.8-2.4); Phosphorus 3.2 mg/dL (2.5-4.9); Potassium 3.5 mmol/L (3.5-5.1); Protein, Total 6.5 g/dL (6.4-8.2); Sodium Level 141 mmol/L (136-145)
--- NOTE | 2020-08-25 07:54 | RAD REPORT ---
EXAM DESCRIPTION: CT - Abdomen Pelvis W Contrast - 08/25/2020 7:31 am CLINICAL HISTORY: Perirectal abscess/intramuscular abscess/prostate, abdominopelvic discomfort COMPARISON: CT pelvis August 20 TECHNIQUE: Biphasic, helical CT imaging of the abdomen and pelvis was performed following 100 ml non -ionic IV contrast. No oral contrast All CT scans are performed using dose optimization technique as appropriate and may include automated exposure control or mA/KV adjustment according to patient size. FINDINGS: No suspicious findings in the lung bases. The liver, spleen, and pancreas show no suspicious findings. Gallbladder and biliary tree are also wi thout suspicious finding. Symmetric renal function is seen with no hydronephrosis or suspicious renal mass. No pyelonephritis o r acute parenchymal process. Bertrand catheter has been removed. Bladder wall thickening is present part ly due to contracted state. There may be cystitis or reactive changes due to the previously detailed large pelvic abscess. Punctate air within the lumen of the bladder is not unexpected given the recent placement of a Bertrand catheter. No adrenal abnormalities. No gastric dilatation or gastric wall thickening. No small bowel dilatation. The appendix is normal. Moderate stool volume is present from cecum through descending colon. No primary or acute colon proce ss. No bulky lymphadenopathy or mass. No suspicious bony findings. The large pelvic abscess has almost fully resolved. There are 2 low-density collections in the prosta te gland both approximately 16 mm in size. The right-side collection has reduced in size since Novemb er 28. Small fluid and air collections remain along the right-side pelvic floor and pelvic side wall. Reduction from prior study is greater than 90%. Largest remnant collection is 3 x 1 cm. Small air in fluid collections are present in the right groin. There are surgical clips present from prior hernia repair. The surgical procedure pre dates the abscess. No new abscess formation. No distant free air. IMPRESSION: Near complete resolution of the large pelvic abscess reduced by 90% or more in volume. A few small remnant fluid collections remain in the right-side pelvic floor and sidewall. Minimal les s than 2 centimeter fluid collection at the right groin. Two small low-density masses in the prostate gland are most likely remnant prostate abscesses. The ri ght-side collection has significantly reduced in size. Urinary bladder wall thickening. This may be cystitis or reactive wall thickening related to the absc ess. Bertrand catheter has been removed. No new abscess or distant free air.
[2020-08-25] MEDS: INSULIN GLARGINE 100 UNITS/ML SQ SCH (08:37)
[2020-08-25] MEDS: INSULIN -REGULAR HUMAN 50 UNIT/0.5 ML ML SQ SCH ×4 (08:37→22:13)
[2020-08-25] MEDS: NICOTINE 21 MG/PAT TD SCH (08:38)
[2020-08-25] MEDS: DAPAGLIFLOZIN PROPANEDIOL 5 MG PO SCH (09:00)
--- NOTE | 2020-08-25 09:33 | P.PN ---
Subjective Date of Service: 08/24/20 Patient is doing well with no new complaints. Repeat CT scan in the morning. If improvement then possible discharge home in the next 24-48 hr. Review of Systems 10-point ROS is otherwise unremarkable Physical Examination - Vital Signs Temperature: 97.9 F Blood Pressure: 145/82 Pulse: 78 Respirations: 20 Pulse Ox (%): 99 - Physical Exam General: Alert, In no apparent distress, Oriented x3 Respiratory: Clear to auscultation bilaterally, Normal air movement Cardiovascular: Regular rate/rhythm, Normal S1 S2, No murmurs Gastrointestinal: Normal bowel sounds, Soft and benign, Non-distended, No tende rness Musculoskeletal: No clubbing, No swelling, No tenderness Neurological: Normal strength at 5/5 x4 extr, Sensation intact, Cranial nerves 3-12 intact - Studies Medications List Reviewed: Yes Assessment & Plan - Problems (Diagnosis) (1) Perirectal abscess Current Visit: Yes Status: Acute (2) Diabetes Current Visit: Yes Status: Acute Qualifiers: Diabetes mellitus type: type 1 (3) Abscess of muscle Current Visit: Yes Status: Acute (4) Abscess, prostate Current Visit: Yes Status: Acute - Plan continue with plan of care as mentioned below 1. Continue with IV antibiotics;If white blood cell count continues to improve then will change to oral antibiotics and patient will be able to discharge home. CT scan pending in a.m. 2. Continue with local wound care 3. Appreciate Infectious Disease and surgical consultation 4. Gentle IV hydration 5. Monitor CBC 6. Strict blood sugar monitoring 7. Pain control 8. GI and DVT prophylaxis Discharge Plan: Home Plan to discharge in: Greater than 2 days - Advance Directives Does patient have a Living Will: No Does patient have a Durable POA for Healthcare: No - Code Status/Comfort Care Code Status: Full Code Critical Care: No Time Spent Managing PTS Care (In Minutes): 35
[2020-08-25] MEDS ORDERED: FLUCONAZOLE 100 MG TAB PO ONE (11:58)
[2020-08-25] MEDS ORDERED: MICONAZOLE 2% TOPICAL 15 GM TOP SCH (11:58)
--- NOTE | 2020-08-25 12:10 | PN ---
Diagnoses: Diabetes, pelvic abscess, perirectal abscess. The patient is improving, not able to tolerate full diet yet. Still having some dysuria. No hematur ia, no hematochezia, no melena. Chest clear. Abdomen no peritonitis and patient has surgical site intact. The only condition we ask ed the nurse not to pack the area anymore. Blood Work: Reviewed with the patient. Imaging: CAT scan done today reviewed with the patient with the excellent improvement of his conditi on. Still some time to go because the patient still has cystitis, prostatitis, and colitis. The mul tiple pocketed tiny pelvic abscess and perirectal abscess, but compared with the previous one, he has a lot of improvement. So the plan from the surgical standpoint, no packing needed. This will block the area and make it worse. We just need a 4 x 4 outside to collect the area that is draining. Con tinue the antibiotics. Follow Dr. Moore's recommendations. Follow Dr. Rowell's recommendations. The patient fully explained for the last 45 minutes the importance of being compliance not only with his antibiotics treatment but also with diabetes treatment. He was advised to follow up with the urolog ist when he get discharged and follow also with us when he get discharged. BERRY/FELICE Voice ID: [id number] Report ID: [id number]
[2020-08-25] MEDS: Levofloxacin500mg IV 500 MG/100 ML BAG IV SCH (14:53)
[2020-08-25] MEDS: NYSTATIN 100MU/GM CREAM 15GM TOP SCH (16:15)
--- NOTE | 2020-08-25 16:49 | PN ---
Subjective: The patient is lying in bed. No new complaints. Would like to go home. No fever. No problems with antibiotics. Objective: Vital Signs: Temperature 97.6, pulse 92, respirations 20, blood pressure 118/77. Extremities: Per recommendation of surgical team, iodoform was not placed into the wound. Laboratory Data: Shows WBC 9, hemoglobin 13.7, platelets are 243. Chemistry shows sodium 141, potas sium 3.5, chloride 105, bicarb 27, BUN 8, creatinine 0.5, glucose 182. Currently, the patient is on Levaquin and Flagyl. Assessment And Plan: Perirectal abscess. Continue IV for couple of weeks and then switch to oral fo r 2 weeks. Probiotics. Monitor for signs of diarrhea or nausea, vomiting. Follow up with surgical team. NF/MODL Voice ID: [id number] Report ID: [id number]
[2020-08-25] MEDS: ONDANSETRON 4 MG/2 ML VIAL IV PRN (22:15)
[2020-08-25] MEDS: KETOROLAC 30 MG/ML INJ IV PRN (22:15)
[2020-08-26] MEDS: METRONIDAZOLE 500mg IVPB 500 MG/100 ML BAG IV SCH ×4 (01:32→18:37)
[2020-08-26] MEDS: DAPAGLIFLOZIN PROPANEDIOL 5 MG PO SCH (09:00)
[2020-08-26] MEDS: NICOTINE 21 MG/PAT TD SCH (09:00)
[2020-08-26] MEDS: INSULIN -REGULAR HUMAN 50 UNIT/0.5 ML ML SQ SCH ×4 (09:14→21:00)
[2020-08-26] MEDS: INSULIN GLARGINE 100 UNITS/ML SQ SCH (09:15)
[2020-08-26] MEDS: NYSTATIN 100MU/GM CREAM 15GM TOP SCH ×2 (09:16→20:14)
--- NOTE | 2020-08-26 10:16 | P.PN ---
Subjective Date of Service: 08/25/[address] scan shows significant improvement. Infectious Disease wants to continue IV antibiotics. Trying to get a PICC line arranged as an outpatient. Review of Systems 10-point ROS is otherwise unremarkable Physical Examination - Vital Signs Temperature: 97.1 F Blood Pressure: 137/86 Pulse: 88 Respirations: 14 Pulse Ox (%): 98 - Physical Exam General: Alert, In no apparent distress, Oriented x3 Respiratory: Clear to auscultation bilaterally, Normal air movement Cardiovascular: Regular rate/rhythm, Normal S1 S2 Gastrointestinal: Normal bowel sounds, Soft and benign, Non-distended, No tenderness Musculoskeletal: No clubbing, No swelling, No tenderness Integumentary: Other (5 cm incision which is healing well with minimal drainage) Neurological: Normal speech, Normal tone, Normal affect Lymphatics: No axilla or inguinal lymphadenopathy - Studies Medications List Reviewed: Yes Assessment & Plan - Problems (Diagnosis) (1) Perirectal abscess Current Visit: Yes Status: Acute (2) Diabetes Current Visit: Yes Status: Acute Qualifiers: Diabetes mellitus type: type 1 (3) Abscess of muscle Current Visit: Yes Status: Acute (4) Abscess, prostate Current Visit: Yes Status: Acute - Plan continue with plan of care as mentioned below 1. Continue with IV antibiotics-infectious Disease wanting 2 weeks of IV antibiotics. 2. Continue with local wound care 3. Appreciate Infectious Disease and surgical consultation 4. Gentle IV hydration 5. Monitor CBC 6. Strict blood sugar monitoring 7. Pain control 8. GI and DVT prophylaxis Discharge Plan: Home Plan to discharge in: 24 Hours - Advance Directives Does patient have a Living Will: No Does patient have a Durable POA for Healthcare: No - Code Status/Comfort Care Code Status: Full Code Critical Care: No Time Spent Managing PTS Care (In Minutes): 35
[2020-08-26] MEDS: Levofloxacin500mg IV 500 MG/100 ML BAG IV SCH (14:11)
[2020-08-26] MEDS: HYDROCODONE/APAP 5/325 MG TAB PO PRN (20:59)
[2020-08-27] MEDS: METRONIDAZOLE 500mg IVPB 500 MG/100 ML BAG IV SCH ×5 (00:13→23:27)
[2020-08-27] MEDS: HYDROCODONE/APAP 5/325 MG TAB PO PRN (05:29)
[2020-08-27] MEDS: FARXIGA 5 MG PO SCH (08:29)
[2020-08-27] MEDS: ONDANSETRON 4 MG/2 ML VIAL IV PRN (08:29)
[2020-08-27] MEDS: INSULIN -REGULAR HUMAN 50 UNIT/0.5 ML ML SQ SCH ×4 (08:29→21:37)
[2020-08-27] MEDS: NYSTATIN 100MU/GM CREAM 15GM TOP SCH ×2 (08:30→21:00)
[2020-08-27] MEDS: INSULIN GLARGINE 100 UNITS/ML SQ SCH (08:30)
[2020-08-27] MEDS: NICOTINE 21 MG/PAT TD SCH (08:30)
--- NOTE | 2020-08-27 08:53 | RAD REPORT ---
EXAM DESCRIPTION: RAD - Chest Single View - 08/27/2020 3:08 am CLINICAL HISTORY: The patient is 25 year old and is male; TECHNIQUE: Frontal view of the chest. COMPARISON: Chest radiograph August 26, 2020 at 2238 hours FINDINGS: LUNGS: There are low lung volumes. No lobar consolidation. PLEURAL SPACE: Unremarkable. No pneumothorax. HEART: Unremarkable. No cardiomegaly. MEDIASTINUM: Unremarkable. BONES/JOINTS: Unremarkable. TUBES, LINES AND DEVICES: The right upper extremity PICC is redemonstrated. The tip is difficult to fully see, but felt to be within the proximal SVC. IMPRESSION: The right upper extremity PICC is redemonstrated. The tip is difficult to fully see, but felt to be within the proximal SVC. Electronically signed by: Karen Jj MD 08/27/2020 6:58 AM OVEN DRIER TENDER Due to temporary technical issues with the PACS/Fluency reporting system, reports are being signed by the in house radiologists without review as a courtesy to insure prompt reporting. The interpreting radiologist is fully responsible for the content of the report.
--- NOTE | 2020-08-27 08:54 | RAD REPORT ---
EXAM DESCRIPTION: RAD - Chest Single View - 08/26/2020 10:49 pm CLINICAL HISTORY: 25-year-old male status post PICC line placement. TECHNIQUE: Single view, AP portable chest was obtained. COMPARISON: None. FINDINGS: Unremarkable cardiac and mediastinal silhouette. Heart size is normal. Low lung volumes grossly clear without focal opacity, pneumothorax or pleural effusions. LEFT basilar linear opacities suggesting subsegmental atelectasis. RIGHT PICC line tip is not visualized to its distal extent, seen to the level of the approximately T4 vertebrae, level of the cephalad superior vena cava. The visualized bones are within normal limits. IMPRESSION: 1. No acute cardiopulmonary abnormalities. 2. RIGHT PICC line tip is not visualized to its distal extent, seen to the level of the approximately T4 vertebrae, level of the cephalad superior vena cava. Electronically signed by: Maria Fernanda Muniz MD 08/26/2020 11:06 PM [employer] BUSINESS OBJECTS CONSULTANT Due to temporary technical issues with the PACS/Fluency reporting system, reports are being signed by the in house radiologists without review as a courtesy to insure prompt reporting. The interpreting radiologist is fully responsible for the content of the report.
[2020-08-27] MEDS: Levofloxacin500mg IV 500 MG/100 ML BAG IV SCH (13:20)
[2020-08-27] MEDS: ESZOPICLONE 1 MG TAB PO PRN (21:48)
[2020-08-28] MEDS: METRONIDAZOLE 500mg IVPB 500 MG/100 ML BAG IV SCH ×3 (06:13→17:59)
[2020-08-28] MEDS: NICOTINE 21 MG/PAT TD SCH ×2 (09:00→09:59)
[2020-08-28] MEDS: FARXIGA 5 MG PO SCH (10:00)
[2020-08-28] MEDS: NYSTATIN 100MU/GM CREAM 15GM TOP SCH ×2 (10:00→21:00)
[2020-08-28] MEDS: INSULIN -REGULAR HUMAN 50 UNIT/0.5 ML ML SQ SCH ×4 (10:00→21:00)
[2020-08-28] MEDS: INSULIN GLARGINE 100 UNITS/ML SQ SCH (10:01)
[2020-08-28] MEDS: Levofloxacin500mg IV 500 MG/100 ML BAG IV SCH (15:11)
--- NOTE | 2020-08-28 15:11 | P.PN ---
Subjective Date of Service: 08/26/20 Patient denies any complaints. Patient is clinically improving with no new complaints. We are trying get patient home unfortunately we are unable to get home health established because of insurance. Will continue trying home health agencies. I have also talked to case management about educating the patient regarding getting IV antibiotics and monitoring his wounds, but there is an issue of taking care of the PICC line. I did speak with Infectious Disease again and they recommended 2 weeks of IV antibiotic therapy. At this time patient only needs 10 more days. Review of Systems 10-point ROS is otherwise unremarkable Physical Examination - Vital Signs Temperature: 96.9 F Blood Pressure: 137/83 Pulse: 82 Respirations: 16 Pulse Ox (%): 97 - Physical Exam General: Alert, In no apparent distress, Oriented x3 Respiratory: Clear to auscultation bilaterally, Normal air movement Cardiovascular: Regular rate/rhythm, Normal S1 S2, No murmurs Gastrointestinal: Normal bowel sounds, Soft and benign, Non-distended, No tenderness Musculoskeletal: No clubbing, No swelling, No tenderness Integumentary: Other (Incision to the buttocks) Neurological: Sensation intact, Cranial nerves 3-12 intact - Studies Medications List Reviewed: Yes Assessment & Plan - Problems (Diagnosis) (1) Perirectal abscess Current Visit: Yes Status: Acute (2) Diabetes Current Visit: Yes Status: Acute Qualifiers: Diabetes mellitus type: type 1 (3) Abscess of muscle Current Visit: Yes Status: Acute (4) Abscess, prostate Current Visit: Yes Status: Acute - Plan At this time where awaiting for discharge planning to complete patient's discharge. We have not been able to get home health established. 1. Continue with IV antibiotics-Infectious Disease wanting 2 weeks of IV antibiotics(11 more days). 2. Continue with local wound care 3. Appreciate Infectious Disease and surgical consultation 4. Hep-Lock IV 5. Labs weekly 6. Strict blood sugar monitoring 7. Pain control 8. GI and DVT prophylaxis Discharge Plan: Home Plan to discharge in: Greater than 2 days - Advance Directives Does patient have a Living Will: No Does patient have a Durable POA for Healthcare: No - Code Status/Comfort Care Code Status: Full Code Critical Care: No Time Spent Managing PTS Care (In Minutes): 35
--- NOTE | 2020-08-28 15:17 | P.PN ---
Subjective Date of Service: 08/28/2008/28-Patient is wanting to go home. He has Levaquin at home and he is worried that he wasted his money. I am not sure if his insurance covered it. He is really just wanting to get home but unfortunately we are waiting for home health arrangements. 08/27-Patient continues to do well with no new complaints. 08/26 Patient denies any complaints. Patient is clinically improving with no new complaints. We are trying get patient home unfortunately we are unable to get home health established because of insurance. Will continue trying home health agencies. I have also talked to case management about educating the patient regarding getting IV antibiotics and monitoring his wounds, but there is an issue of taking care of the PICC line. I did speak with Infectious Disease again and they recommended 2 weeks of IV antibiotic therapy. At this time patient only needs 10 more days. Review of Systems 10-point ROS is otherwise unremarkable Physical Examination - Vital Signs Temperature: 96.9 F Blood Pressure: 137/83 Pulse: 82 Respirations: 16 Pulse Ox (%): 97 - Physical Exam General: Alert, In no apparent distress, Oriented x3 Gastrointestinal: Normal bowel sounds, Soft and benign, Non-distended, No rebound, No guarding - Studies Medications List Reviewed: Yes Assessment & Plan - Problems (Diagnosis) (1) Perirectal abscess Current Visit: Yes Status: Acute (2) Diabetes Current Visit: Yes Status: Acute Qualifiers: Diabetes mellitus type: type 1 (3) Abscess of muscle Current Visit: Yes Status: Acute (4) Abscess, prostate Current Visit: Yes Status: Acute - Plan At this time where awaiting for discharge planning to complete patient's discharge. We have not been able to get home health established. 1. Continue with IV antibiotics-Infectious Disease wanting 2 weeks of IV Levaquin from 08/23. (8 more days remaining). 2. Continue with local wound care 3. Appreciate Infectious Disease and surgical consultation 4. Labs weekly Discharge Plan: Home Plan to discharge in: 24 Hours - Advance Directives Does patient have a Living Will: No Does patient have a Durable POA for Healthcare: No - Code Status/Comfort Care Code Status: Full Code Critical Care: No Time Spent Managing PTS Care (In Minutes): 25
--- NOTE | 2020-08-28 15:18 | P.PN ---
Subjective Date of Service: 08/27/2008/27-Patient continues to do well with no new complaints. 08/26 Patient denies any complaints. Patient is clinically improving with no new complaints. We are trying get patient home unfortunately we are unable to get home health established because of insurance. Will continue trying home health agencies. I have also talked to case management about educating the patient regarding getting IV antibiotics and monitoring his wounds, but there is an issue of taking care of the PICC line. I did speak with Infectious Disease again and they recommended 2 weeks of IV antibiotic therapy. At this time patient only needs 10 more days. Review of Systems 10-point ROS is otherwise unremarkable Physical Examination - Vital Signs Temperature: 96.9 F Blood Pressure: 137/83 Pulse: 82 Respirations: 16 Pulse Ox (%): 97 - Physical Exam General: Alert, In no apparent distress, Oriented x3 - Studies Medications List Reviewed: Yes Assessment & Plan - Problems (Diagnosis) (1) Perirectal abscess Current Visit: Yes Status: Acute (2) Diabetes Current Visit: Yes Status: Acute Qualifiers: Diabetes mellitus type: type 1 (3) Abscess of muscle Current Visit: Yes Status: Acute (4) Abscess, prostate Current Visit: Yes Status: Acute - Plan 1. Continue with IV antibiotics-Infectious Disease wanting 2 weeks of IV Levaquin from 08/23. (9 more days remaining). 2. Continue with local wound care 3. Appreciate Infectious Disease and surgical consultation 4. Labs weekly Discharge Plan: Home Plan to discharge in: Greater than 2 days - Advance Directives Does patient have a Living Will: No Does patient have a Durable POA for Healthcare: No - Code Status/Comfort Care Code Status: Full Code Critical Care: No Time Spent Managing PTS Care (In Minutes): 25
[2020-08-28 19:51] VITALS: O2SAT 99
[2020-08-28] MEDS: ESZOPICLONE 1 MG TAB PO PRN (21:58)
[2020-08-29] MEDS: METRONIDAZOLE 500mg IVPB 500 MG/100 ML BAG IV SCH ×5 (00:27→23:43)
[2020-08-29 05:58] LABS: Absolute Lymphocytes (CBC) 3.3 K/uL (0.7-4.9); Basophils % 0.4 % (0-1.3); MPV 8.3 fL (7.6-11.3); RBC Red Blood Cell Count 5.47 M/uL (4.33-5.43)
[2020-08-29 06:15] LABS: BUN Blood Urea Nitrogen 15 mg/dL (7-18); Bicarbonate 29 mmol/L (21-32); Glucose Level 180 mg/dL (74-106); Potassium 3.9 mmol/L (3.5-5.1); Sodium Level 140 mmol/L (136-145)
[2020-08-29] MEDS: FARXIGA 5 MG PO SCH (08:24)
[2020-08-29] MEDS: NICOTINE 21 MG/PAT TD SCH (08:25)
[2020-08-29] MEDS: INSULIN -REGULAR HUMAN 50 UNIT/0.5 ML ML SQ SCH ×4 (08:26→21:03)
[2020-08-29] MEDS: NYSTATIN 100MU/GM CREAM 15GM TOP SCH ×2 (08:28→21:00)
[2020-08-29] MEDS: INSULIN GLARGINE 100 UNITS/ML SQ SCH (08:28)
--- NOTE | 2020-08-29 08:53 | P.DS ---
Admission Date: 08/20/20 Discharge Date: 08/29/20 Primary Care Provider: Dr. Roger Disposition: ROUTINE DISCHARGE Discharge Condition: GOOD Reason for Admission: Perirectal abscess Consultations: Surgery-Dr. Pearson Infectious disease-Dr. Moore Procedures: COVID: Negative CT scan: FINDINGS: There is a very large perirectal abscess on the right measuring 6.7 x 6.4 cm. The abscess is seen to extend superiorly into the pelvis where a large right pelvic sidewall abscess component is present during 10.2 x 6.3 cm. Smaller abscesses appear to involve the posterior aspect of the prostate gland in totality measuring 3.5 x 2.4 cm. A Bertrand catheter is in place in the urinary bladder. The large abscesses exerts mass effect on the prostate gland and rectum to the left. The abscess extends to involve the right obturator internus muscle where an intramuscular 26 x 13 mm abscess is present. Surgical changes are present in the right inguinal region with small pockets of fluid and air present. Suggest clinical correlation history right inguinal surgical intervention. IMPRESSION: Very large right perirectal abscess is present with the abscess extending into the pelvis along the right pelvic sidewall with involvement of the posterior prostate gland. Surgery: Date of Procedure: 08/21/2020 Surgeon: Josh Pearson MD Preoperative Diagnosis: Complex large perirectal and pelvic abscess. Postoperative Diagnosis: Complex large perirectal and pelvic abscess. Procedures: Examination under anesthesia, anoscopy, rigid proctoscopy, incision and drainage of complex perirectal abscess. Anesthesia: General plus local. Drains: Oren drain. Follow up CT Scan: FINDINGS: No suspicious findings in the lung bases. The liver, spleen, and pancreas show no suspicious findings. Gallbladder and biliary tree are also without suspicious finding. Symmetric renal function is seen with no hydronephrosis or suspicious renal mass. No pyelonephritis or acute parenchymal process. Bertrand catheter has been removed. Bladder wall thickening is present partly due to contracted state. There may be cystitis or reactive changes due to the previously detailed large pelvic abscess. Punctate air within the lumen of the bladder is not unexpected given the recent placement of a Bertrand catheter. No adrenal abnormalities. No gastric dilatation or gastric wall thickening. No small bowel dilatation. The appendix is normal. Moderate stool volume is present from cecum through descen ding colon. No primary or acute colon process. No bulky lymphadenopathy or mass. No suspicious bony findings. The large pelvic abscess has almost fully resolved. There are 2 low-density collections in the prostate gland both approximately 16 mm in size. The right- side collection has reduced in size since August 20. Small fluid and air collections remain along the right-side pelvic floor and pelvic side wall. Reduction from prior study is greater than 90%. Largest remnant collection is 3 x 1 cm. Small air in fluid collections are present in the right groin. There are surgical clips present from prior hernia repair. The surgical procedure pre dates the abscess. No new abscess formation. No distant free air. IMPRESSION: Near complete resolution of the large pelvic abscess reduced by 90% or more in volume. A few small remnant fluid collections remain in the right-side pelvic floor and sidewall. Minimal less than 2 centimeter fluid collection at the right groin. Two small low-density masses in the prostate gland are most likely remnant prostate abscesses. The right-side collection has significantly reduced in size. Urinary bladder wall thickening. This may be cystitis or reactive wall thickening related to the abscess. Bertrand catheter has been removed. No new abscess or distant free air. 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 Patient was apparently diagnose with epididymitis prior to admission. Patient also had a right inguinal repair by 1 of the local surgeons. Patient did not improve. Patient now with large complex perirectal abscess with pelvic abscess. Patient admitted for further evaluation and treatment. Hospital Course: Patient presented with Helen rectal pain. Patient found to have large right complex perirectal abscess with abscess extending into the pelvis along with right pelvic side wall with involvement of the posterior prostate gland. Patient was seen and evaluated by infectious disease and surgery. Surgical intervention was required. Patient had examination under anesthesia, anoscopy, rigid proctoscopy, and incision/drainage of complex perirectal abscess. Wound culture positive for Staph aureus. Infectious disease recommended IV Levaquin. PICC line now in place. Repeat CT scan shows near complete resolution of the large pelvic abscess reduce by 90% or more in volume. Small remnant fluid collection remain in the right side pelvic floor inside wall. Minimal less than 2 cm fluid collection at the right groin noted. 2 small low-density masses in the prostate gland likely remnant prostate abscesses. Patient continues with current wound care. Infectious Disease recommends IV Levaquin 500 mg daily for 14 days. This can be transition to oral Levaquin 500 mg daily for another 14 days. Arrangements for IV antibiotic therapy to be done as an outpatient have been arranged. Patient and family have been taught on current wound care and IV antibiotic administration. The patient will also continue with probiotics 3 times a day. At discharge patient will follow up with surgery within 1 week to follow up this hospitalization and continue his care. Infectious Disease recommends to recheck MRI of the abdomen and pelvis after 14 days of IV antibiotic therapy to monitor resolution of abscess. This can be further monitored and managed by surgery. Patient with diabetes mellitus type 2 insulin-dependent. Patient with hyperglycemia. A1c 12.2. Recommend blood sugars less than 140 fasting and less than 200 after meals. Blood sugars have been stable on Lantus. At discharge patient will continue with Lantus 30 units subcu once daily and Farxiga 5 mg daily. Further adjustment in his medication can be done by his PCP. Patient with hypertension. Patient may continue with lisinopril 10 mg daily. Recommend to maintain blood pressure less than 140/80. Further adjustment can be done by his PCP. Patient with tobacco abuse. At discharge patient will continue with nicotine patch. Tobacco cessation education provided. Vital Signs/Physical Exam: Temp Pulse Resp BP Pulse Ox 98 F 85 16 101/64 98 08/29/20 04:00 08/29/20 04:00 08/29/20 04:00 08/29/20 04:00 08/29/20 04:00 General: Alert, Cooperative HEENT: Atraumatic Respiratory: Other (Patient breathing appropriately) Cardiovascular: Normal pulses Integumentary: Other (Examination to the wound not done.) Neurological: Normal speech, Normal strength at 5/5 x4 extr, Normal tone Laboratory Data at Discharge: WBC 9.6 K/uL (4.3-10.9) 08/29/20 05:13 Hgb 14.8 g/dL (13.6-17.9) 08/29/20 05:13 Hct 44.0 % (39.6-49.0) 08/29/20 05:13 Plt Count 218 K/uL (152-406) 08/29/20 05:13 Sodium 140 mmol/L (136-145) 08/29/20 05:13 Potassium 3.9 mmol/L (3.5-5.1) 08/29/20 05:13 BUN 15 mg/dL (7-18) 08/29/20 05:13 Creatinine 0.67 mg/dL (0.55-1.3) 08/29/20 05:13 Glucose 180 mg/dL (74-106) H 08/29/20 05:13 Phosphorus 3.2 mg/dL (2.5-4.9) 08/25/20 06:04 Magnesium 1.7 mg/dL (1.8-2.4) L 08/25/20 06:04 Total Bilirubin 0.7 mg/dL (0.2-1.0) 08/25/20 06:04 AST 9 U/L (15-37) L 08/25/20 06:04 ALT 9 U/L (12-78) L 08/25/20 06:04 Alkaline Phosphatase 78 U/L (45-117) 08/25/20 06:04 Triglycerides 122 mg/dL (<150) 08/22/20 03:56 Cholesterol 137 mg/dL (<200) 08/22/20 03:56 HDL Cholesterol 24 mg/dL (40-60) L 08/22/20 03:56 Cholesterol/HDL Ratio 5.71 08/22/20 03:56 Home Medications: Dapagliflozin Propanediol [Farxiga] 5 mg PO DAILY 08/02/20 Lisinopril [Zestril] 10 mg PO DAILY 08/02/20 Insulin Glargine,Hum.rec.anlog [Lantus Solostar] 30 unit SQ DAILY #1 08/25/20 Nystatin Cream [Mycostatin 100MU/Gm Cream*] 1 appl TOP BID #1 tube 08/25/20 Lactobacillus Acidophilus [Acidophilus Lactobacilli] 1 each PO TID #90 capsule 08/29/20 Nicotine [Nicoderm*] 21 mg TD DAILY #30 patch.td24 08/29/20 New Medications: Lactobacillus Acidophilus [Acidophilus Lactobacilli] 1 each PO TID #90 capsule Insulin Glargine,Hum.rec.anlog [Lantus Solostar] 30 unit SQ DAILY #1 Nystatin Cream [Mycostatin 100MU/Gm Cream*] 1 appl TOP BID #1 tube Nicotine [Nicoderm*] 21 mg TD DAILY #30 patch.td24 Patient Discharge Instructions: 1. Recommend follow up with PCP in 1 week to follow up this hospitalization. 2. Patient presented with Helen rectal pain. Patient found to have large right complex perirectal abscess with abscess extending into the pelvis along with right pelvic side wall with involvement of the posterior prostate gland. Patient was seen and evaluated by infectious disease and surgery. Surgical intervention was required. Patient had examination under anesthesia, anoscopy, rigid proctoscopy, and incision/drainage of complex perirectal abscess. Wound culture positive for Staph aureus. Infectious disease recommended IV Levaquin. PICC line now in place. Repeat CT scan shows near complete resolution of the large pelvic abscess reduce by 90% or more in volume. Small remnant fluid collection remain in the right side pelvic floor inside wall. Minimal less than 2 cm fluid collection at the right groin noted. 2 small low-density masses in the prostate gland likely remnant prostate abscesses. Patient continues with current wound care. Infectious Disease recommends IV Levaquin 500 mg daily for 14 days. This can be transition to oral Levaquin 500 mg daily for another 14 days. Arrangements for IV antibiotic therapy to be done as an outpatient have been arranged. Patient and family have been taught on current wound care and IV antibiotic administration. The patient will also continue with probiotics 3 times a day. At discharge patient will follow up with surgery within 1 week to follow up this hospitalization and continue his care. Infectious Disease recommends to recheck MRI of the abdomen and pelvis after 14 days of IV antibiotic therapy to monitor resolution of abscess. This can be further monitored and managed by surgery. 3. Patient with diabetes mellitus type 2 insulin-dependent. Patient with hyperglycemia. A1c 12.2. Recommend blood sugars less than 140 fasting and less than 200 after meals. Blood sugars have been stable on Lantus. At discharge patient will continue with Lantus 30 units subcu once daily and Farxiga 5 mg daily. Further adjustment in his medication can be done by his PCP. 4. Patient with hypertension. Patient may continue with lisinopril 10 mg daily. Recommend to maintain blood pressure less than 140/80. Further adjustment can be done by his PCP. 5. Patient with tobacco abuse. At discharge patient will continue with nicotine patch. Tobacco cessation education provided. Diet: ADA Activity: Fall precautions Followup: Fausto Roger MD [Primary Care Provider] - 1 Week (Follow up in office in 1 week. Call to schedule an appointment. ) Time spent managing pt's care (in minutes): 55
--- NOTE | 2020-08-29 13:59 | P.PN ---
Subjective Date of Service: 08/29/20 Primary Care Provider: Dr. Roger Chief Complaint: Perirectal/pelvic abscess Subjective: No new changes, Tolerating diet, Ambulating, Improving Physical Examination - Vital Signs Temperature: 97.1 F Blood Pressure: 109/73 Pulse: 80 Respirations: 18 Pulse Ox (%): 99 - Physical Exam General: Alert, Oriented x3 HEENT: PERRLA Neck: Supple Neurological: Normal speech - Studies Medications List Reviewed: Yes Assessment And Plan - Plan F/U with offive one week Cover surgical area with gauze. No packing. Abx per Dr Bunn
[2020-08-29] MEDS: Levofloxacin500mg IV 500 MG/100 ML BAG IV SCH (14:00)
--- NOTE | 2020-08-29 18:44 | PN ---
Subjective: The patient is sitting up, not in any acute distress. Would like to go home as soon as possible. Objective: Vital Signs: Temperature 97, pulse 80, respirations 18, blood pressure 109/73. Lungs: Basal crackles. Heart: S1, S2. Regular. Abdomen: Soft, nontender. Bowel sounds present. Extremities: No edema. Laboratory Data: Reviewed. Assessment And Plan: Perirectal abscess, doing better. Continue antibiotic. We will follow the pat ient as needed. Two weeks of IV and two weeks off oral. Repeat MRI after 2 weeks. NF/MODL Voice ID: [id number] Report ID: [id number]
[2020-08-29] MEDS: ESZOPICLONE 1 MG TAB PO PRN (21:03)
[2020-08-30] MEDS: METRONIDAZOLE 500mg IVPB 500 MG/100 ML BAG IV SCH ×2 (05:30→12:17)
--- NOTE | 2020-08-30 08:12 | P.PN ---
Subjective Date of Service: 08/30/20 Primary Care Provider: Dr. Roger Chief Complaint: Perirectal/pelvic abscess Subjective: Other (Discharge was held yesterday as home health could not be arrange.) Physical Examination - Vital Signs Temperature: 96.9 F Blood Pressure: 112/74 Pulse: 81 Respirations: 17 Pulse Ox (%): 98 - Physical Exam General: Alert, Cooperative HEENT: Atraumatic Neck: Supple Respiratory: Clear to auscultation bilaterally, Normal air movement Cardiovascular: Normal pulses, Regular rate/rhythm Neurological: Normal speech, Normal strength at 5/5 x4 extr, Normal tone, Normal affect - Studies Medications List Reviewed: Yes Assessment & Plan Discharge Plan: Home Plan to discharge in: 24 Hours Physician Review Additional Text: Medical Problem List: Helen rectal pain secondary to large right complex perirectal abscess with abscess extending into the pelvis along with right pelvic side wall with involvement of the posterior prostate gland status post examination under anesthesia, anoscopy, rigid proctoscopy, and incision/drainage of complex perirectal abscess, wound culture positive for Staph aureus 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 Patient was apparently diagnose with epididymitis prior to admission. Patient also had a right inguinal repair by 1 of the local surgeons. Patient did not improve. Patient now with large complex perirectal abscess with pelvic abscess. Patient admitted for further evaluation and treatment. Plan of care for today: Discharge was held yesterday as home health could not be arranged. Planned for today is to discuss with social worker palliative care to help arrange for home health. Hopefully this can be arranged so that patient can be discharged today. This was discussed in detail with patient. Hospital course Patient presented with Helen rectal pain. Patient found to have large right complex perirectal abscess with abscess extending into the pelvis along with right pelvic side wall with involvement of the posterior prostate gland. Patient was seen and evaluated by infectious disease and surgery. Surgical intervention was required. Patient had examination under anesthesia, anoscopy, rigid proctoscopy, and incision/drainage of complex perirectal abscess. Wound culture positive for Staph aureus. Infectious disease recommended IV Levaquin. PICC line now in place. Repeat CT scan shows near complete resolution of the large pelvic abscess reduce by 90% or more in volume. Small remnant fluid collection remain in the right side pelvic floor inside wall. Minimal less than 2 cm fluid collection at the right groin noted. 2 small low-density masses in the prostate gland likely remnant prostate abscesses. Patient continues with current wound care. Infectious Disease recommends IV Levaquin 500 mg daily for 14 days. This can be transition to oral Levaquin 500 mg daily for another 14 days. Arrangements for IV antibiotic therapy to be done as an outpatient have been arranged. Patient and family have been taught on current wound care and IV antibiotic administration. The patient will also continue with probiotics 3 times a day. At discharge patient will follow up with surgery within 1 week to follow up this hospitalization and continue his care. Infectious Disease recommends to recheck MRI of the abdomen and pelvis after 14 days of IV antibiotic therapy to monitor resolution of abscess. This can be further monitored and managed by surgery. Patient with diabetes mellitus type 2 insulin-dependent. Patient with hypergl ycemia. A1c 12.2. Recommend blood sugars less than 140 fasting and less than 200 after meals. Blood sugars have been stable on Lantus. At discharge patient will continue with Lantus 30 units subcu once daily and Farxiga 5 mg daily. Further adjustment in his medication can be done by his PCP. Patient with hypertension. Patient may continue with lisinopril 10 mg daily. Recommend to maintain blood pressure less than 140/80. Further adjustment can be done by his PCP. Patient with tobacco abuse. At discharge patient will continue with nicotine patch. Tobacco cessation education provided. Time Spent Managing Pts Care (In Minutes): 55
[2020-08-30] MEDS: NYSTATIN 100MU/GM CREAM 15GM TOP SCH (08:43)
[2020-08-30] MEDS: INSULIN -REGULAR HUMAN 50 UNIT/0.5 ML ML SQ SCH ×3 (08:44→16:30)
[2020-08-30] MEDS: INSULIN GLARGINE 100 UNITS/ML SQ SCH (08:44)
[2020-08-30] MEDS: FARXIGA 5 MG PO SCH (08:44)
[2020-08-30] MEDS: NICOTINE 21 MG/PAT TD SCH (08:52)
[2020-08-30 13:01] VITALS: BP 123/85; TEMP 97.1
[2020-08-30] MEDS: Levofloxacin500mg IV 500 MG/100 ML BAG IV SCH (14:23)
== END 2020-08-30 16:41 | disposition home health service (06) | DRG 345 ==
LOC: ER 14:59 → ERHOLD 18:05 → 2ND 19:44
PROVIDERS: ADMIT Internal Medicine Sleep Medicine; ATTEND Family Medicine
PROC: 0D9P8ZZ Drainage of Rectum, Via Natural or Artificial Opening Endoscopic (ICD-10-PCS; principal; 2020-08-21 09:00)
PROC: 02HV33Z Insertion of Infusion Device into Superior Vena Cava, Percutaneous Approach (ICD-10-PCS; 2020-08-26)
DX: K61.1 Rectal abscess (principal); N41.2 Abscess of prostate; M60.051 Infective myositis, right thigh; I10 Essential (primary) hypertension; E11.65 Type 2 diabetes mellitus with hyperglycemia; B95.61 Methicillin susceptible Staphylococcus aureus infection as the cause of diseases classified elsewhere; Z88.1 Allergy status to other antibiotic agents; Z79.4 Long term (current) use of insulin; Z91.14 Patient's other noncompliance with medication regimen; Z79.899 Other long term (current) drug therapy; Z20.828 Contact with and (suspected) exposure to other viral communicable diseases
CPT/HCPCS: 36415; 36569; 71045; 72193; 74177; 80048; 80053; 80061; 82565; 82947; 83036; 83735; 84100; 84145; 84153; 85025; 85027; 87070; 87075; 87077; 87186; 87205; 94760; 96365; 96375; 99285; J0330; J1170; J1815; J2185; J2250; J2270; J2405; J2704; J3010; J7030; Q9967; U0003

== ENCOUNTER 2020-12-14 20:25 | Inpatient (IN) | payer OTHER ==
--- OUTSIDE RECORDS SUMMARY | 2020-12-14 20:29 | XMS REPORT | Continuity of Care Document ---
:1995 Author Organization [facility] t Address [address] [place] [place] [address] Care Team Providers Name Role Phone Doctor Unassigned, Name Attending Clinician Unavailable Kaan CRUZ Attending Clinician Milton CRUZ Attending Clinician Jaymie Orellana Attending Clinician Payers Payer Name Policy Type Policy Number Effective Date Expiration Date S ource Problems This patient has no known problems. Allergies, Adverse Reactions, Alerts Allergy Allergy Status Severity Reaction(s) Onset Inactive Treating Comm ents Source Name Type Date Date Clinician cefaclor DA Active U 2019-0 [facility] 01[facility]15 [place] [facility] sulfamet DA Active U 2018-0 [facility] hoxazole 01-15 00:00: [facility] trimetho DA Active U 2019-0 [facility] prim 01-15 [place] [facility] Medications This patient has no known medications. Procedures This patient has no known procedures. Encounters Start End Encounter Admission Attending Care Care Encounter Source Date/Time Date/Time Type Type Clinicians Facility Department ID 2020-09-05 2020-09-05 Orders Doctor KING [id number] 00:00:00 00:00:00 Only UnassignedRAY [id number] [facility] [id number] 2020-08-30 2020-08-30 [facility] [id number] 00:00:00 00:00:00 [facility] [id number] [place] [id number] Professio [phone] nal 044 Office [facility] 2020-08-21 2020-08-21 Refill [facility] [id number] 00:00:00 00:00:00 Deshawn Yeh [id number] [place] [id number] Professio [phone] [address] 2020-08-17 2020-08-17 [facility]patient [facility] [id number] 2020-08-12 2020-08-12 [facility] [id number] [facility] 2020-08-10 2020-08-10 Outpatient [facility] [id number] [facility] 2020-07-29 2020-07-29 [place] [facility] [id number] 00:00:00 00:00:00 Eileen Coon [place] [id number] [place] [id number] Professio [phone] [address] 2020-07-27 2020-07-27 Orders Doctor K[facility] [id number] 00:00:00 00:00:00 Only Unassigned, RAY [id number] [facility] [id number] 2020-07-27 2020-07-[address] [facility] [id number] [facility] 2020-07-25 2020-07-25 Office [facility] [id number] 12:49:30 14:02:12 Visit Deshawn Yeh [id number] [place] [id number] [facility] [phone] [place] [address] Building Results This patient has no known results.
--- NOTE | 2020-12-14 23:25 | EDPHYS ---
Physician Documentation [facility] Name: Maicol Segundo Age: 25 yrs Sex: Male : 1995 Arrival Date: 12/14/2020 Time: 20:29 Bed 19 Private MD: MICHAEL Physician Solomon Santos HPI: 12/14 23:17 This 25 yrs old Male presents to ER via Wheelchair with complaints of Wound tyrese Infection, on foot,sent by Dr. Fernando. Historical: - Allergies: 20:44 sulfamethoxazole-trimethoprim; ca1 20:44 Cefaclor; ca1 - PMHx: 20:44 Diabetes - IDDM; Hypertension; ca1 - PSHx: 20:44 Ear Tubes; Adenoids; ca1 - Immunization history:: Flu vaccine is not up to date. - Social history:: Smoking status: Patient reports the use of cigarette tobacco products, smokes one pack cigarettes per day. ROS: 23:18 MS/extremity: Positive for erythema, pain, swelling, of the right foot, right ankle, tyrese lateral aspect of right foot, anterior aspect of right ankle and dorsum of right foot. 23:18 Constitutional: Negative for fever, chills, and weight loss. 23:18 Eyes: Negative for injury, pain, redness, and discharge, ENT: Negative for injury, pain, and discharge, Neck: Negative for injury, pain, and swelling, Respiratory: Negative for shortness of breath, cough, wheezing, and pleuritic chest pain, Abdomen/GI: Negative for abdominal pain, nausea, vomiting, diarrhea, and constipation, Back: Negative for injury and pain, : Negative for injury, bleeding, discharge, and swelling, Skin: Negative for injury, rash, and discoloration, Neuro: Negative for headache, weakness, numbness, tingling, and seizure, Psych: Negative for depression, anxiety, suicide ideation, homicidal ideation, and hallucinations, Allergy/Immunology: Negative for hives, rash, and allergies, Endocrine: Negative for neck swelling, polydipsia, polyuria, polyphagia, and marked weight changes, Hematologic/Lymphatic: Negative for swollen nodes, abnormal bleeding, and unusual bruising. 23:18 Constitutional: Positive for fever, malaise. 23:18 Cardiovascular: Positive for palpitations. 23:18 MS/extremity: Positive for decreased range of motion, erythema, pain, swelling, tenderness, of the lateral side of right foot, right lateral malleolus and dorsum of right foot. 23:18 Skin: Positive for cellulitis, discoloration, erythema, swelling, of the lateral side of right foot, lateral side of right heel, right lateral malleolus and dorsum of right foot, diffusely. Exam: 23:18 Constitutional: This is a well developed, well nourished patient who is awake, alert, tyrese and in no acute distress. Head/Face: Normocephalic, atraumatic. Eyes: Pupils equal round and reactive to light, extra-ocular motions intact. Lids and lashes normal. Conjunctiva and sclera are non-icteric and not injected. Cornea within normal limits. Periorbital areas with no swelling, redness, or edema. ENT: Nares patent. No nasal discharge, no septal abnormalities noted. Tympanic membranes are normal and external auditory canals are clear. Oropharynx with no redness, swelling, or masses, exudates, or evidence of obstruction, uvula midline. Mucous membranes moist. Neck: Trachea midline, no thyromegaly or masses palpated, and no cervical lymphadenopathy. Supple, full range of motion without nuchal rigidity, or vertebral point tenderness. No Meningismus. Chest/axilla: Normal chest wall appearance and motion. Nontender with no deformity. No lesions are appreciated. Respiratory: Lungs have equal breath sounds bilaterally, clear to auscultation and percussion. No rales, rhonchi or wheezes noted. No increased work of breathing, no retractions or nasal flaring. Back: No spinal tenderness. No costovertebral tenderness. Full range of motion. Male : Normal genitalia with no discharge or lesions. Skin: Warm, dry with normal turgor. Normal color with no rashes, no lesions, and no evidence of cellulitis. MS/ Extremity: Pulses equal, no cyanosis. Neurovascular intact. Full, normal range of motion. Neuro: Awake and alert, GCS 15, oriented to person, place, time, and situation. Cranial nerves II-XII grossly intact. Motor strength 5/5 in all extremities. Sensory grossly intact. Cerebellar exam normal. Normal gait. Psych: Awake, alert, with orientation to person, place and time. Behavior, mood, and affect are within normal limits. 23:18 Cardiovascular: Rate: tachycardic, Rhythm: regular, Pulses: Pulses are 4+ in bilateral radial, brachial, femoral, popliteal, posterior tibial and and dorsalis pedis arteries.. Edema: 1+ edema to level of right midcalf and right ankle, JVD: is not appreciated. 12/15 01:03 ECG was reviewed by the Attending Physician. [facility] Vital Signs: 12/14 20:39 BP 125 / 87; Pulse 117; Resp 19 S; Temp 99.2(TE); Pulse Ox 97% on R/A; Weight 89.36 kg ca1 (R); Height 5 ft. 9 in. (175.26 cm) (R); Pain 6/10; 20:39 Body Mass Index 29.09 (89.36 kg, 175.26 cm) ca1 MDM: 23:03 Patient medically screened. [facility] 12/15 00:19 Differential diagnosis: fracture, cellulitis. Data reviewed: vital signs, nurses notes, [facility] lab test result(s), EKG, radiologic studies, plain films. Data interpreted: secured entrance monitor: rate is 117 beats/min, rhythm is regular, Pulse oximetry: on room air is 97 %. Test interpretation: by ED physician or midlevel provider: ECG, plain radiologic studies. Counseling: I had a detailed discussion with the patient and/or guardian regarding: the historical points, exam findings, and any diagnostic results supporting the discharge/admit diagnosis, lab results, radiology results, the need for further work-up and treatment in the hospital. 12/14 23:17 Order name: Basic Metabolic Panel [facility] 12/14 23:17 Order name: CBC with Diff [facility] 12/14 23:17 Order name: LFT's [facility] 12/14 23:17 Order name: Magnesium; Complete Time: 00:48 [facility] 12/14 23:17 Order name: NT PRO-BNP; Complete Time: 00:48 [facility] 12/14 23:17 Order name: PT-INR; Complete Time: 00:30 [facility] 12/14 23:17 Order name: Troponin (emerg Dept Use Only); Complete Time: 00:48 [facility] 12/14 23:17 Order name: Sed Rate; Complete Time: 00:30 [facility] 12/14 23:17 Order name: Basic Metabolic Panel; Complete Time: 00:48 EDMS 12/14 23:17 Order name: CBC with Automated Diff; Complete Time: 00:30 EDMS 12/14 23:17 Order name: Liver (Hepatic) Function; Complete Time: 00:48 EDKS 12/14 23:25 Order name: Lactate [facility] 12/14 23:38 Order name: COVID-19 : Document "Date of Symptom Onset" if Symptomatic. tt3 12/15 00:59 Order name: CORONAVIRUS EDKS 12/14 23:17 Order name: XRAY Chest (1 view) [facility] 12/14 23:17 Order name: EKG; Complete Time: 23:18 [facility] 12/14 23:17 Order name: Foot Right 3 View XRAY [facility] 12/15 01:48 Order name: SARS-COV-2 RT PCR EDKS 12/15 06:41 Order name: CBC with Automated Diff EDKS 12/15 06:54 Order name: Basic Metabolic Panel [facility] 12/15 08:05 Order name: RAD [facility] 12/15 08:08 Order name: Glucose, Ancillary Testing [facility] 12/15 08:24 Order name: RAD [facility] 12/15 11:53 Order name: Glucose, Ancillary Testing [facility] 12/14 23:17 Order name: Cardiac monitoring; Complete Time: 01:04 [facility] 12/14 23:17 Order name: EKG - Nurse/Tech; Complete Time: 01:04 [facility] 12/14 23:17 Order name: IV Saline Lock; Complete Time: 00:03 [facility] 12/14 23:17 Order name: Labs collected and sent; Complete Time: 00:03 [facility] 12/14 23:17 Order name: O2 Per Protocol; Complete Time: 00:03 [facility] 12/14 23:17 Order name: O2 Sat Monitoring; Complete Time: 00:03 [facility] 12/14 23:17 Order name: Wound Care: damp to dry; Complete Time: 01:29 [facility] 12/14 23:29 Order name: CONS Physician Consult EDKS EC: Rate is 98 beats/min. Rhythm is regular. QRS [place] is Normal. FL interval is normal. QRS tyrese interval is normal. QT interval is prolonged at 362 msec. No Q waves. T waves are Normal. No ST changes noted. Clinical impression: NSR w/ Non-specific ST/T Changes and No evidence of ischemia. Interpreted by me. Reviewed by me. Administered Medications: 12/14 23:55 Drug: NS 0.9% 1000 ml Route: IV; Rate: 1 bolus; Site: right antecubital; ea 12/15 01:29 Follow up: Response: No adverse reaction; IV Status: Completed infusion; IV Intake: ea 1000ml 12/14 23:55 Drug: morphine 4 mg Route: IVP; Site: right antecubital; ea 12/15 01:29 Follow up: Response: No adverse reaction ea 12/14 23:55 Drug: Zofran (Ondansetron) 4 mg Route: IVP; Site: right antecubital; ea 12/15 01:29 Follow up: Response: No adverse reaction ea 00:04 Drug: Zosyn 3.375 grams Route: IVPB; Infused Over: 60 mins; Site: right antecubital; ea 01:10 Follow up: Response: No adverse reaction; IV Status: Completed infusion ea :03 Drug: NS 0.9% 1000 ml Route: IV; Rate: 1 bolus; Site: right antecubital; ea 01:15 Drug: vancoMYCIN 2 grams Route: IVPB; Rate: calculated rate; Site: right antecubital; ea Disposition: 12/14/20 23:24 Hospitalization ordered by Mark Joseph for Inpatient Admission. Preliminary diagnosis are Cellulitis and acute lymphangitis of other parts of limb - right foot, with necrosis, Type 1 diabetes mellitus, Gangrene, not elsewhere classified - right foot, Fever, unspecified, Osteomyelitis - right foot, Elevated white blood cell count. - Bed requested for Telemetry/MedSurg (Inpatient). - Status is Inpatient Admission. rb3 - Condition is Fair. - Problem is new. - Symptoms have worsened. Signatures: Dispatcher [employer] Mari Knox RN RN dw Anderson, Corey, MD MD cha Antunez, Elena, RN RN ea Acob, Cheryl, RN RN ca1 Dale, Rhonda, RN RN rd1 Kera Valverde, RN RN rb3 Corrections: (The following items were deleted from the chart) 12/14 23:59 23:24 Hospitalization Ordered by Mark Joseph MD for Inpatient Admission. Preliminary [facility] diagnosis is Cellulitis and acute lymphangitis of other parts of limb - right foot, with necrosis; Type 1 diabetes mellitus; Gangrene, not elsewhere classified - right foot; Fever, unspecified. Bed requested for Telemetry/MedSurg (Inpatient). Status is Inpatient Admission. Condition is Fair. Problem is new. Symptoms have worsened. [facility] 12/15 00:31 12/14 23:59 12/14/2020 23:24 Hospitalization Ordered by Mark Joseph MD for Inpatient tyrese Admission. Preliminary diagnosis is Cellulitis and acute lymphangitis of other parts of limb - right foot, with necrosis; Type 1 diabetes mellitus; Gangrene, not elsewhere classified - right foot; Fever, unspecified; Osteomyelitis - right foot. Bed requested for Telemetry/MedSurg (Inpatient). Status is Inpatient Admission. Condition is Fair. Problem is new. Symptoms have worsened. [facility] 12/15 01:50 00:31 12/14/2020 23:24 Hospitalization Ordered by Mark Joseph MD for Inpatient rd1 Admission. Preliminary diagnosis is Cellulitis and acute lymphangitis of other parts of limb - right foot, with necrosis; Type 1 diabetes mellitus; Gangrene, not elsewhere classified - right foot; Fever, unspecified; Osteomyelitis - right foot; Elevated white blood cell count. Bed requested for Telemetry/MedSurg (Inpatient). Status is Inpatient Admission. Condition is Fair. Problem is new. Symptoms have worsened. [facility] 11:28 01:50 12/14/2020 23:24 Hospitalization Ordered by Mark Joseph MD for Inpatient dw Admission. Preliminary diagnosis is Cellulitis and acute lymphangitis of other parts of limb - right foot, with necrosis; Type 1 diabetes mellitus; Gangrene, not elsewhere classified - right foot; Fever, unspecified; Osteomyelitis - right foot; Elevated white blood cell count. Bed requested for [facility] ER HOLD. Status is Inpatient Admission. Condition is Fair. Problem is new. Symptoms have worsened. rd1 11:37 11:28 12/14/2020 23:24 Hospitalization Ordered by Mark Joseph MD for Inpatient dw Admission. Preliminary diagnosis is Cellulitis and acute lymphangitis of other parts of limb - right foot, with necrosis; Type 1 diabetes mellitus; Gangrene, not elsewhere classified - right foot; Fever, unspecified; Osteomyelitis - right foot; Elevated white blood cell count. Bed requested for Telemetry/MedSurg (Inpatient). Status is Inpatient Admission. Condition is Fair. Problem is new. Symptoms have worsened. dw 12:40 11:37 12/14/2020 23:24 Hospitalization Ordered by Mark Joseph MD for Inpatient rb3 Admission. Preliminary diagnosis is Cellulitis and acute lymphangitis of other parts of limb - right foot, with necrosis; Type 1 diabetes mellitus; Gangrene, not elsewhere classified - right foot; Fever, unspecified; Osteomyelitis - right foot; Elevated white blood cell count. Bed requested for Telemetry/MedSurg (Inpatient). Status is Inpatient Admission. Condition is Fair. Problem is new. Symptoms have worsened. dw
--- NOTE | 2020-12-14 23:25 | ER ---
Nurse's Notes [facility] Name: Maicol Segundo Age: 25 yrs Sex: Male : 1995 Arrival Date: 12/14/2020 Time: 20:29 Bed 19 Private MD: Diagnosis: Cellulitis and acute lymphangitis of other parts of limb-right foot, with necrosis;Type 1 diabetes mellitus;Gangrene, not elsewhere classified-right foot;Fever, unspecified;Osteomyelitis-right foot;Elevated white blood cell count Presentation: 12/14 20:39 Chief complaint: Patient states: I am a diabetic and have neuropathy. I have a wound on ca1 my R foot x 2 weeks. Started with a blister and has gotten worse since. Had been taking ABX prescribed for the wound, but the wound is bot getting better. Coronavirus screen: Client denies travel out of the [place] in the last 14 days. At this time, the client does not indicate any symptoms associated with coronavirus-19. Ebola Screen: Patient negative for fever greater than or equal to 101.5 degrees Fahrenheit, and additional compatible Ebola Virus Disease symptoms Patient denies exposure to infectious person. Patient denies travel to an Ebola-affected area in the 21 days before illness onset. No symptoms or risks identified at this time. Initial Sepsis Screen: Does the patient meet any 2 criteria? No. Patient's initial sepsis screen is negative. Does the patient have a suspected source of infection? No. Patient's initial sepsis screen is negative. Risk Assessment: Do you want to hurt yourself or someone else? Patient reports no desire to harm self or others. Onset of symptoms was December 14, 2020. 20:39 Method Of Arrival: Wheelchair ca1 20:39 Acuity: JIMMY 3 ca1 Triage Assessment: 12/15 03:18 General: Appears. ea Historical: - Allergies: 12/14 20:44 sulfamethoxazole-trimethoprim; ca1 20:44 Cefaclor; ca1 - PMHx: 20:44 Diabetes - IDDM; Hypertension; ca1 - PSHx: 20:44 Ear Tubes; Adenoids; ca1 - Immunization history:: Flu vaccine is not up to date. - Social history:: Smoking status: Patient reports the use of cigarette tobacco products, smokes one pack cigarettes per day. Screenin/25 01:51 Abuse screen: Denies threats or abuse. Nutritional screening: No deficits noted. ea Tuberculosis screening: No symptoms or risk factors identified. Fall Risk None identified. Assessment: 12:03 Reassessment: Gave report to ARTURO Nolasco. Information from the [facility] was given. All rb3 questions asked and answered. Vital Signs: 12/14 20:39 BP 125 / 87; Pulse 117; Resp 19 S; Temp 99.2(TE); Pulse Ox 97% on R/A; Weight 89.36 kg ca1 (R); Height 5 ft. 9 in. (175.26 cm) (R); Pain 6/10; 20:39 Body Mass Index 29.09 (89.36 kg, 175.26 cm) ca1 ED Course: 20:29 Patient arrived in ED. bp1 20:43 Triage completed. ca1 20:44 Arm band placed on right wrist. ca1 21:00 Patient has correct armband on for positive identification. Bed in low position. Call ea light in reach. Side rails up X2. 22:59 Purvi Bertrand RN is Primary Nurse. ea 23:03 Solomon Santos MD is Attending Physician. tyrese 23:21 Mark Joseph MD is Hospitalizing Provider. [facility] 12/15 01:52 No provider procedures requiring assistance completed. Patient admitted, IV remains in ea place. 12:30 No provider procedures requiring assistance completed. Patient admitted, IV remains in rb3 place. Administered Medications: 12/14 23:55 Drug: NS 0.9% 1000 ml Route: IV; Rate: 1 bolus; Site: right antecubital; ea 12/15 01:29 Follow up: Response: No adverse reaction; IV Status: Completed infusion; IV Intake: ea 1000ml 12/14 23:55 Drug: morphine 4 mg Route: IVP; Site: right antecubital; ea 12/15 01:29 Follow up: Response: No adverse reaction 12/14 23:55 Drug: Zofran (Ondansetron) 4 mg Route: IVP; Site: right antecubital; ea 12/15 01:29 Follow up: Response: No adverse reaction ea 00:04 Drug: Zosyn 3.375 grams Route: IVPB; Infused Over: 60 mins; Site: right antecubital; ea 01:10 Follow up: Response: No adverse reaction; IV Status: Completed infusion ea 01:03 Drug: NS 0.9% 1000 ml Route: IV; Rate: 1 bolus; Site: right antecubital; ea 01:15 Drug: vancoMYCIN 2 grams Route: IVPB; Rate: calculated rate; Site: right antecubital; ea Intake: 01:29 IV: 1000ml; Total: 1000ml. ea Outcome: 12/14 23:24 Decision to Hospitalize by Provider. tyrese 12/15 01:52 Instructed on the need for admit, Demonstrated understanding of instructions. ea 03:18 Admitted to ER Hold. Please see [facility] for further documentation. ea 03:18 Condition: stable 12:30 Admitted to Tele via stretcher, room 424, with chart, Report called to ARTURO Nolasco rb3 12:30 Condition: stable 12:30 Instructed on the need for admit. 12:40 Patient left the ED. rb3 Signatures: Solomon Santos MD MD cha Antunez, Elena, RN RN ea Acob, Cheryl, RN RN ca1 [place]ia[place], Brittany bp1 Barber, Rebecca, RN RN rb3
[2020-12-14] MEDS ORDERED: NA CHLORIDE 0.9% 500 ML ONE (23:44)
[2020-12-14] MEDS ORDERED: VANCOMYCIN 1 GM/VIAL ONE (23:44)
[2020-12-14] MEDS ORDERED: ONDANSETRON 4 MG/2 ML VIAL ONE (23:44)
[2020-12-14] MEDS ORDERED: MORPHINE 4 MG/ML SYR ONE (23:44)
[2020-12-14] MEDS ORDERED: PIPER/TAZO/NS 3.375gm 3.375 GM/100 ML BAG ONE (23:44)
[2020-12-14] MEDS ORDERED: NA CHLORIDE 0.9% 2,000 ML ONE (23:45)
[2020-12-15 00:10] LABS: Absolute Lymphocytes (CBC) 1.8 K/uL (0.7-4.9); Basophils % 0.4 % (0-1.3); Hematocrit 45.5 % (39.6-49.0); Lymphocytes % 11.2 % (15.3-44.8); MPV 8.5 fL (7.6-11.3); RBC Red Blood Cell Count 5.64 M/uL (4.33-5.43)
[2020-12-15 00:20] LABS: Protime INR 1.3
[2020-12-15 00:36] LABS: ALT/SGPT 8 U/L (12-78); AST/SGOT 6 U/L (15-37); Albumin 2.8 g/dL (3.4-5.0); Alkaline Phosphatase 71 U/L (45-117); BUN Blood Urea Nitrogen 15 mg/dL (7-18); Bicarbonate 28 mmol/L (21-32); Bilirubin Direct 0.2 mg/dL (0-0.2); Bilirubin Total 0.7 mg/dL (0.2-1.0); Glucose Level 191 mg/dL (74-106); NT PRO-BNP 72 pg/mL (<125); Potassium 3.7 mmol/L (3.5-5.1); Protein, Total 7.8 g/dL (6.4-8.2); Sodium Level 138 mmol/L (136-145); Troponin (Emerg Dept Use Only) < 0.02 ng/mL (0.0-0.045)
[2020-12-15] MEDS ORDERED: VANCOMYCIN/NS 1 gm 1 GM/250 ML BAG IVPB SCH (03:35)
[2020-12-15] MEDS ORDERED: GLUCAGON 1 MG/VIAL IM PRN ×2 (03:35→17:09)
[2020-12-15] MEDS ORDERED: D50W 25 GM/50 ML SYRINGE IV PRN (03:35)
[2020-12-15] MEDS ORDERED: PIPER/TAZO/NS 3.375gm 3.375 GM/100 ML BAG IVPB SCH ×2 (03:35→12:00)
[2020-12-15] MEDS: NA CHLORIDE 0.9% 1,000 ML IV SCH ×4 (03:35→19:35)
[2020-12-15] MEDS ORDERED: PIPER/TAZO/NS 3.375gm 3.375 GM/100 ML BAG IVPB ONE (04:00)
[2020-12-15] MEDS: PIPER/TAZO/NS 3.375gm 3.375 GM/100 ML BAG IVPB SCH ×2 (06:00→12:00)
[2020-12-15 06:40] LABS: Absolute Lymphocytes (CBC) 1.7 K/uL (0.7-4.9); Basophils % 0.4 % (0-1.3); Hematocrit 40.8 % (39.6-49.0); MPV 7.8 fL (7.6-11.3); RBC Red Blood Cell Count 5.06 M/uL (4.33-5.43)
[2020-12-15 06:54] LABS: BUN Blood Urea Nitrogen 15 mg/dL (7-18); Bicarbonate 26 mmol/L (21-32); Glucose Level 167 mg/dL (74-106); Potassium 3.8 mmol/L (3.5-5.1); Sodium Level 138 mmol/L (136-145)
[2020-12-15] MEDS ORDERED: NA CHLORIDE 0.9% 1,000 ML ONE (07:06)
--- NOTE | 2020-12-15 07:19 | EKG ---
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
[2020-12-15] MEDS ORDERED: PIPER/TAZO/NS 3.375gm 3.375 GM/100 ML BAG ONE (07:25)
[2020-12-15] MEDS: INSULIN -REGULAR HUMAN 50 UNIT/0.5 ML ML SQ SCH ×4 (07:30→21:58)
--- NOTE | 2020-12-15 08:04 | RAD REPORT ---
EXAM DESCRIPTION: Vincent Single View12/14/2020 11:42 pm CLINICAL HISTORY: Cough COMPARISON: 2019 FINDINGS: The lungs appear clear of acute infiltrate. The heart is normal size IMPRESSION: No acute abnormalities displayed
--- NOTE | 2020-12-15 08:24 | RAD REPORT ---
EXAM DESCRIPTION: RAD - Foot Right 3 View - 12/14/2020 11:42 pm CLINICAL HISTORY: Right foot pain and swelling FINDINGS: No fracture or dislocation is seen. Air is present within the soft tissues along the dorsal aspect adjacent to the lateral metatarsals. T his may indicate an air producing infection. Subtle cortical regularity involves the fifth metatarsal neck which may indicate osteomyelitis
[2020-12-15] MEDS ORDERED: INSULIN -REGULAR HUMAN 50 UNIT/0.5 ML ML ONE (08:45)
[2020-12-15] MEDS ORDERED: INFLUENZA VACCINE (for 3y+) 0.5 ML DOSE IMVAC ONE (09:00)
[2020-12-15] MEDS ORDERED: FAMOTIDINE 20 MG/2 ML VIAL IV SCH (09:00)
[2020-12-15] MEDS ORDERED: FAMOTIDINE 20 MG/2 ML VIAL IV ONE (09:12)
[2020-12-15] MEDS ORDERED: PANTOPRAZOLE 40 MG INJ ONE (09:34)
[2020-12-15] MEDS: VANCOMYCIN 1.5 GM in NA CHLORIDE 0.9% 500 ML IVPB SCH ×2 (11:00→14:16)
--- NOTE | 2020-12-15 12:12 | P.CNS ---
Date of Consult: 12/15/20 Reason for Consult: abscess right foot Requesting Physician: Solomon Santos Chief Complaint: right foot abscess History of Present Illness: Right foot wound present for 6 days. Patient was placed on oral antibiotics with increased pain and signs of infection. Patient was referred to the ER and placed on iv antibiotics Allergies cefaclor [From Ceclor] Allergy (Verified 08/02/20 12:39) UNKNOWN sulfamethoxazole [From Bactrim] Allergy (Verified 08/02/20 12:39) UNKNOWN trimethoprim [From Bactrim] Allergy (Verified 08/02/20 12:39) UNKNOWN Home Medications: Dapagliflozin Propanediol [Farxiga] 5 mg PO DAILY 08/02/20 Lisinopril [Zestril] 10 mg PO DAILY 08/02/20 Insulin Glargine,Hum.rec.anlog [Lantus Solostar] 30 unit SQ DAILY #1 08/25/20 Nystatin Cream [Mycostatin 100MU/Gm Cream*] 1 appl TOP BID #1 tube 08/25/20 Lactobacillus Acidophilus [Acidophilus Lactobacilli] 1 each PO TID #90 capsule 08/29/20 Nicotine [Nicoderm*] 21 mg TD DAILY #30 patch.td24 08/29/20 - Past Medical/Surgical History Diabetic: Yes -: Diabetes -: HTN -: Tubes in ears -: adnoids removed - Family History Mother Medical History: Diabetes Father Medical History: Heart disease - Social History Smoking Status: Current every day smoker Alcohol use: Yes CD- Drugs: No Caffeine use: Yes Review of Systems 10-point ROS is otherwise unremarkable Physical Examination Temp Pulse Resp BP Pulse Ox 98.3 F 82 17 123/69 97 12/15/20 08:00 12/15/20 08:00 12/15/20 08:00 12/15/20 08:00 12/15/20 08:00 General: Alert, In no apparent distress, Oriented x3 Cardiovascular: No edema, Normal pulses Capillary refill: <2 Seconds Musculoskeletal: No clubbing, No swelling, No contractures, No erythema, No tenderness, No warmth Integumentary: Diabetic ulcer (ulceration right plantar and lateral fifth metatarsal head large eschar present and foul odor. Ecchymosis/necrosis noted dorsum right fifth metatarsal extending proximally to the midfoot with significant erythema and edema note) Neurological: Abnormal sensation Imagings Data: right foot x ray three views reveal edema right forefoot with gas present in tissues and possible osteomyelitis right fifth metatarsal - Problems (1) Abscess of right foot Current Visit: Yes Status: Acute (2) Diabetes Current Visit: No Status: Acute Qualifiers: Diabetes mellitus type: type 1 Conclusions/Impression: Patient to remain npo Patient will be taken to the OR tonight for incision and drainage with bone biopsy right foot This is an emergent procedure due to gas being present on radiographs and leukocytosis noted
[2020-12-15] MEDS ORDERED: VANCOMYCIN 1.25 GM in NA CHLORIDE 0.9% 250 ML IVPB SCH ×2 (13:00→15:00)
[2020-12-15 14:56] VITALS: BMI 27.3
[2020-12-15] MEDS ORDERED: D50W 25 GM/50 ML VIAL IV PRN ×2 (16:00→17:13)
[2020-12-15] MEDS ORDERED: LIDOCAINE 2% MPF 5 ML VIAL ONE (16:22)
[2020-12-15] MEDS ORDERED: propofoL 200 MG/20 ML VIAL IV ONE (16:22)
[2020-12-15] MEDS ORDERED: FENTANYL CITR 100 MCG/2 ML ONE (16:23)
[2020-12-15] MEDS ORDERED: ONDANSETRON 4 MG/2 ML VIAL ONE (16:30)
[2020-12-15] MEDS ORDERED: dexAMETHasone 10 MG/ML VIAL ONE (16:30)
[2020-12-15] MEDS ORDERED: LIDOCAINE 1% MPF 30 ML VIAL ONE (16:52)
[2020-12-15] MEDS: AMPICILLIN/SULBACT 1.5 GM in NA CHLORIDE 0.9% 100 ML IV SCH (16:55)
[2020-12-15] MEDS ORDERED: AMPICILLIN/SULBACT 1.5GM VIAL IVPB SCH (17:00)
[2020-12-15] MEDS ORDERED: PROMETHAZINE INJ 25 MG/ML AMP ONE (17:04)
--- NOTE | 2020-12-15 17:08 | P.HP ---
Certification for Inpatient Patient admitted to: Inpatient With expected LOS: >2 Midnights Patient will require the following post-hospital care: Home Health Services Practitioner: I am a practitioner with admitting privileges, knowledge of patient current condition, hospital course, and medical plan of care. 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 He was seen last week with an ulcer of his foot. Went to Dr. Grider office for follow up yesterday. He was complaining of fevers and chills. had surrounding cellulitis on the wound. Was sent to the ER. xray showed possible air in the wound. As well possible osteomyelitis. Allergies cefaclor [From Ceclor] Allergy (Verified 08/02/20 12:39) UNKNOWN sulfamethoxazole [From Bactrim] Allergy (Verified 08/02/20 12:39) UNKNOWN trimethoprim [From Bactrim] Allergy (Verified 08/02/20 12:39) UNKNOWN Home Medications: Dapagliflozin Propanediol [Farxiga] 10 mg PO DAILY 12/15/20 Doxycycline Hyclate 100 mg PO BID 12/15/20 Insulin Glargine,Hum.rec.anlog [Basaglar Kwikpen U-100] 36 units SQ DAILY 12/15/20 Levofloxacin [Levaquin] 500 mg PO DAILY 12/15/20 Medihoney [Medihoney Woundcare Gel*] 1 appl TOP DAILY 12/15/20 Omeprazole [Prilosec] 40 mg PO DAILY 12/15/20 - Past Medical/Surgical History Has patient received pneumonia vaccine in the past: No Diabetic: Yes -: Diabetes -: HTN -: Tubes in ears -: adnoids removed - Family History Mother -: Diabetes Father -: Heart disease - Social History Smoking Status: Unknown if ever smoked Alcohol use: Yes CD- Drugs: No Caffeine use: Yes Review of Systems 10-point ROS is otherwise unremarkable Musculoskeletal: Foot Pain Physical Examination - Vital Signs Temperature: 97.9 F Blood Pressure: 120/76 Pulse: 99 Respirations: 16 Pulse Ox (%): 99 - Physical Exam General: Alert, In no apparent distress HEENT: Atraumatic, PERRLA, Mucous membr. moist/pink, EOMI, Sclerae nonicteric Neck: Supple, 2+ carotid pulse no bruit, No LAD, Without JVD or thyroid abnormality Respiratory: Clear to auscultation bilaterally, Normal air movement Cardiovascular: Regular rate/rhythm, Normal S1 S2 Gastrointestinal: Normal bowel sounds, No tenderness Musculoskeletal: No tenderness Integumentary: No rashes, Tenderness/swelling, Warmth, Diabetic ulcer Neurological: Normal gait, Normal speech, Normal strength at 5/5 x4 extr, Normal tone, Normal affect Lymphatics: No axilla or inguinal lymphadenopathy Assessment and Plan - Problems (Diagnosis) (1) Abscess of right foot Current Visit: Yes Status: Acute Plan: Will start the patient on iv antibiotics and fluids. Consult to Dr. Fernando. He plans to take the patient to surgery this evening. Will continue to follow up on the wound. (2) Diabetes Current Visit: No Status: Acute Plan: will continue home dosage of insulin. With sliding scale to cover. We have already got a recent a1c in the office Qualifiers: Diabetes mellitus type: type 1 Diabetes mellitus complication status: with skin complications Diabetes mellitus complication detail: with foot ulcer Qualified Code(s): E10.621 - Type 1 diabetes mellitus with foot ulcer; L97.509 - Non-pressure chronic ulcer of other part of unspecified foot with unspecified severity (3) HTN (hypertension) Current Visit: Yes Status: Chronic Plan: continue home dose of lisinopril Qualifiers: Hypertension type: essential hypertension Qualified Code(s): I10 - Essential (primary) hypertension Discharge Plan: Home Plan to discharge in: 48 Hours - Advance Directives Does patient have a Living Will: No Does patient have a Durable POA for Healthcare: No - Code Status/Comfort Care Code Status Assessed: Yes Code Status: Full Code Physician Review: Patient Assessed, Agree with Above Assessment and Plan Critical Care: No Time Spent Managing Pts Care (In Minutes): 45
--- NOTE | 2020-12-15 17:34 | P.OP ---
Preoperative diagnosis: bilateral feet abscess Postoperative diagnosis: same Primary procedure: bilateral foot incision and drainage Secondary procedure: bone biopsy right fifth metatarsal Anesthesia: general Estimated blood loss: 20cc Specimen: bone for gross, cultures Findings: abscess right foot with necrotic tissue Complications: None Implants: none Fluids & blood products: none Transferred to: Recovery Room Condition: Good
[2020-12-15] MEDS ORDERED: KETOROLAC 30 MG/ML INJ ONE (17:36)
[2020-12-15] MEDS: ACETAMINOPHEN 325 MG TABLET PO PRN (21:55)
[2020-12-15] MEDS: MORPHINE 4 MG/ML SYR IV PRN (22:43)
--- NOTE | 2020-12-15 23:40 | OP ---
Surgeon: Phuc Fernando Jr, DPM Preoperative Diagnosis: Bilateral foot abscess. Postoperative Diagnosis: Bilateral foot abscess. Procedure: Bilateral foot incision and drainage, simple on the left, deep to fascial area on the rig ht with bone biopsy of the right fifth metatarsal. Pathology: Cultures for aerobic and anaerobic sensitivities and bone biopsy of the right fifth metat arsal for gross. Anesthesia: General. Hemostasis: Pneumatic ankle tourniquet at 250 mmHg. Estimated Blood Loss: Less than 20 cc. Materials: 1 inch iodoform gauze. Injectables: None. Complication: None. Procedure In Detail: The patient was brought into [facility] operating room, placed o n the OR table in supine position. Patient was placed under general anesthesia and the patient was p repped and draped in the usual aseptic manner. Attention was directed to the right foot at which elle e black eschar was noted to be along the plantar aspect of the right fifth MPJ extending laterally an d dorsally with proximal erythema along the extensor tendons of the lateral aspect of the foot extend ing proximally with necrosis and ecchymosis to approximately the cuboid. At this time utilizing makenna p dissection, the eschar was excised full thickness with purulence noted to be exuding from the exten sor tendon tract. At this time, a [place] elevator was inserted along this area and the 15 blade was c arried straight to the [place] elevator opening and decompressing the abscess. There was significant b lack necrotic tissue with purulence noted. Cultures were taken at this time. There abscesses were n oted to extend somewhat dorsally with necrotic nonviable tissue noted on the medial aspect of the inc ision. This was excised utilizing a 15 blade. Next, utilizing curettage and rongeur, necrotic nonvi able tissue was removed and the wound was then irrigated with copious amounts of normal sterile salin e utilizing pulse lavage. Following this, the fifth metatarsal head was identified and a bone biopsy was performed utilizing a rongeur. Next, the wound was packed with 1 inch iodoform gauze. The inci rich was noted to be 13 mm in length, 3 cm in width to the extensor tendons. There was no purulence after irrigation was performed and a sterile dressing consisting of Iodoform gauze, 4x4s, ABD, Kerlix and an Alex wrap was applied to the right lower extremity. Pneumatic ankle tourniquet was deflated w ith prompt hyperemic response noted to the right lower extremity. At this time, attention was direct ed to the left posterior aspect of the heel, which time a small bullous lesion was identified. This was excised, opened, deroofed with no purulence. The skin has healed deep to this. So no abscess wa s present. This was dressed with Xeroform, Adaptic and Kerlix and the patient tolerated the procedur e and anesthesia well and was transferred to recovery with vital signs stable and neurovascular statu s intact. This was noted to be a probable staged procedure with possible further return to the OR as needed. SYDNEY/FELICE Voice ID: [id number] Report ID: [id number]
[2020-12-16] MEDS: AMPICILLIN/SULBACT 1.5 GM in NA CHLORIDE 0.9% 100 ML IV SCH ×3 (01:26→17:00)
[2020-12-16] MEDS: VANCOMYCIN 1.5 GM in NA CHLORIDE 0.9% 500 ML IVPB SCH ×3 (02:39→18:00)
[2020-12-16 06:37] LABS: BUN Blood Urea Nitrogen 22 mg/dL (7-18); Bicarbonate 17 mmol/L (21-32); Glucose Level 205 mg/dL (74-106); Potassium 4.3 mmol/L (3.5-5.1); Sodium Level 140 mmol/L (136-145)
[2020-12-16 06:40] LABS: Absolute Lymphocytes (CBC) 1.1 K/uL (0.7-4.9); Basophils % 0.2 % (0-1.3); Lymphocytes % 6.4 % (15.3-44.8); MPV 8.3 fL (7.6-11.3); RBC Red Blood Cell Count 5.53 M/uL (4.33-5.43)
[2020-12-16] MEDS: NA CHLORIDE 0.9% 1,000 ML IV SCH (07:20)
[2020-12-16] MEDS: INSULIN -REGULAR HUMAN 50 UNIT/0.5 ML ML SQ SCH ×4 (07:30→20:49)
[2020-12-16] MEDS: NICOTINE 21 MG/PAT TD SCH (09:00)
[2020-12-16] MEDS: lisinopriL 10 MG TAB PO SCH (09:00)
[2020-12-16] MEDS ORDERED: INSULIN GLARGINE 100 UNITS/ML SQ SCH (09:00)
[2020-12-16 09:21] LABS: Blood Morphology Comment NOT SEEN (NOT SEEN); Platelet Estimate ADEQ
[2020-12-16] MEDS: INSULIN GLARGINE 100 UNITS/ML SQ SCH (10:00)
[2020-12-16] MEDS: HOME MED 1 EA UNK (Dapagliflozin Propanediol [Farxiga] 10 MG) PO SCH (10:00)
--- NOTE | 2020-12-16 10:03 | P.PN ---
Subjective Date of Service: 12/16/20 Primary Care Provider: Jake Chief Complaint: right foot abscess Subjective: Improving Review of Systems 10-point ROS is otherwise unremarkable Musculoskeletal: Foot Pain Physical Examination - Vital Signs Temperature: 96.3 F Blood Pressure: 116/73 Pulse: 81 Respirations: 19 Pulse Ox (%): 97 - Physical Exam General: Alert, In no apparent distress HEENT: Atraumatic, PERRLA, EOMI Neck: Supple, JVD not distended Respiratory: Clear to auscultation bilaterally, Normal air movement Cardiovascular: Regular rate/rhythm, Normal S1 S2 Gastrointestinal: Normal bowel sounds, No tenderness Musculoskeletal: No tenderness, Other (both feet bandaged) Integumentary: No rashes Neurological: Normal speech, Normal tone, Normal affect Lymphatics: No axilla or inguinal lymphadenopathy Assessment & Plan - Problems (Diagnosis) (1) Abscess of bursae of both feet Current Visit: Yes Status: Acute Plan: will continue IV antibiotics. Will keep him in house till we get back the bone cultures. See what duration of antibiotics he will need. Will get a picc line for the patient in anticipation of home antibiotics. (2) Diabetes Current Visit: No Status: Acute Plan: will continue home dosage of insulin. With sliding scale to cover. We have already got a recent a1c in the office 12/16 Will start his home medications Qualifiers: Diabetes mellitus type: type 1 Diabetes mellitus complication status: with skin complications Diabetes mellitus complication detail: with foot ulcer Qualified Code(s): E10.621 - Type 1 diabetes mellitus with foot ulcer; L97.509 - Non-pressure chronic ulcer of other part of unspecified foot with unspecified severity (3) HTN (hypertension) Current Visit: Yes Status: Chronic Plan: continue home dose of lisinopril Qualifiers: Hypertension type: essential hypertension Qualified Code(s): I10 - Essential (primary) hypertension (4) GERD (gastroesophageal reflux disease) Current Visit: Yes Status: Acute Plan: will substitue protonix for home omeprazole Qualifiers: Esophagitis presence: without esophagitis Qualified Code(s): K21.9 - Gastro-esophageal reflux disease without esophagitis Discharge Plan: Home Plan to discharge in: Greater than 2 days - Code Status/Comfort Care Code Status Assessed: No Physician Review: Patient Assessed, Agree with Above Assessment and Plan Critical Care: No Time Spent Managing Pts Care (In Minutes): 25
--- NOTE | 2020-12-16 13:39 | P.PN ---
Subjective Date of Service: 12/16/20 Primary Care Provider: Jake Chief Complaint: right foot abscess Subjective: Tolerating diet ("I feel better"), Doing well Review of Systems 10-point ROS is otherwise unremarkable Physical Examination - Vital Signs Temperature: 96.3 F Blood Pressure: 116/73 Pulse: 81 Respirations: 19 Pulse Ox (%): 97 - Physical Exam General: Alert, In no apparent distress, Oriented x3 Cardiovascular: No edema, Normal pulses Capillary refill: <2 Seconds Musculoskeletal: No clubbing, No swelling, No contractures, No erythema, No tenderness, No warmth Integumentary: Other (Dressing change performed at bedside. No breakthrough bleeding. No purulence noted within wound. Decreased erythema and edema periwound right foot. Small areas of continued necrotic demarcation at proximal aspects of wound. ) Neurological: Abnormal sensation (absent proprioceptive and protective sensations right) - Studies WBC increased to 18,000. Assessment And Plan - Current Problems (Diagnosis) (1) Abscess of right foot Current Visit: Yes Status: Acute (2) Diabetes Current Visit: No Status: Acute Qualifiers: Diabetes mellitus type: type 1 Diabetes mellitus complication status: with skin complications Diabetes mellitus complication detail: with foot ulcer Qualified Code(s): E10.621 - Type 1 diabetes mellitus with foot ulcer; L97.509 - Non-pressure chronic ulcer of other part of unspecified foot with unspecified severity - Plan Bid wet to dry dressing change Will continue to monitor the patient and his labs. May need a return to OR for further debridement Physician Review: Patient Assessed, Agree with Above Assessment and Plan
[2020-12-16] MEDS: MORPHINE 4 MG/ML SYR IV PRN (21:37)
[2020-12-16] MEDS: ONDANSETRON 4 MG/2 ML VIAL IV PRN (21:44)
[2020-12-17] MEDS: AMPICILLIN/SULBACT 1.5 GM in NA CHLORIDE 0.9% 100 ML IV SCH ×3 (00:13→17:00)
[2020-12-17] MEDS: MORPHINE 4 MG/ML SYR IV PRN ×3 (03:27→23:03)
[2020-12-17] MEDS: NA CHLORIDE 0.9% 1,000 ML IV SCH ×3 (03:28→22:59)
[2020-12-17 06:51] LABS: Absolute Lymphocytes (CBC) 2.6 K/uL (0.7-4.9); Basophils % 0.2 % (0-1.3); Hematocrit 41.5 % (39.6-49.0); Lymphocytes % 23.1 % (15.3-44.8); MPV 8.1 fL (7.6-11.3); RBC Red Blood Cell Count 5.01 M/uL (4.33-5.43)
[2020-12-17 06:58] LABS: BUN Blood Urea Nitrogen 18 mg/dL (7-18); Bicarbonate 23 mmol/L (21-32); Glucose Level 189 mg/dL (74-106); Sodium Level 142 mmol/L (136-145)
[2020-12-17] MEDS: VANCOMYCIN 1.5 GM in NA CHLORIDE 0.9% 500 ML IVPB SCH ×2 (07:16→18:13)
[2020-12-17] MEDS: PANTOPRAZOLE 40MG TABLET PO SCH (07:16)
[2020-12-17] MEDS: ONDANSETRON 4 MG/2 ML VIAL IV PRN (07:21)
[2020-12-17] MEDS: INSULIN -REGULAR HUMAN 50 UNIT/0.5 ML ML SQ SCH ×4 (07:30→20:08)
[2020-12-17] MEDS: lisinopriL 10 MG TAB PO SCH (08:20)
[2020-12-17] MEDS: INSULIN GLARGINE 100 UNITS/ML SQ SCH (08:20)
[2020-12-17] MEDS: HOME MED 1 EA UNK (Dapagliflozin Propanediol [Farxiga] 10 MG) PO SCH (08:21)
[2020-12-17] MEDS: NICOTINE 21 MG/PAT TD SCH (08:27)
--- NOTE | 2020-12-17 09:19 | P.PN ---
Subjective Date of Service: 12/17/20 Primary Care Provider: Jake Chief Complaint: right foot abscess Subjective: Improving, Doing well Review of Systems 10-point ROS is otherwise unremarkable Physical Examination - Vital Signs Temperature: 97 F Blood Pressure: 129/85 Pulse: 85 Respirations: 16 Pulse Ox (%): 98 - Physical Exam General: Alert, In no apparent distress, Oriented x3, Oriented x2 Cardiovascular: No edema, Normal pulses Capillary refill: <2 Seconds Musculoskeletal: No clubbing, No swelling, No contractures, No erythema, No tenderness, No warmth Integumentary: Other (dressing removed at bedside. No purulence. Demarcation of medial incision flap that was debrided full thickness excisionally at bedside with a 15 blade.) Neurological: Abnormal sensation - Studies WBC decreased to 11.1, cultures positive for s. Agalactae Group B sensitive to Vancomycin Assessment And Plan - Current Problems (Diagnosis) (1) Abscess of right foot Current Visit: Yes Status: Acute (2) Diabetes Current Visit: No Status: Acute Qualifiers: Diabetes mellitus type: type 1 Diabetes mellitus complication status: with skin complications Diabetes mellitus complication detail: with foot ulcer Qualified Code(s): E10.621 - Type 1 diabetes mellitus with foot ulcer; L97.509 - Non-pressure chronic ulcer of other part of unspecified foot with unspecified severity - Plan d/c wet to dry Begin wound vac 120mmhg continuous with dressing changes q48h Awaiting bone biopsy results Will continue to monitor the patient and his labs. May need a return to OR for further debridement Physician Review: Patient Assessed, Agree with Above Assessment and Plan
--- NOTE | 2020-12-17 11:14 | P.PN ---
Subjective Date of Service: 12/17/20 Primary Care Provider: Jake Chief Complaint: right foot abscess Subjective: Improving Review of Systems 10-point ROS is otherwise unremarkable Musculoskeletal: Foot Pain Physical Examination - Vital Signs Temperature: 97 F Blood Pressure: 129/85 Pulse: 85 Respirations: 16 Pulse Ox (%): 98 - Physical Exam General: Alert, In no apparent distress HEENT: Atraumatic, PERRLA, EOMI Neck: Supple, JVD not distended Respiratory: Clear to auscultation bilaterally, Normal air movement Cardiovascular: Regular rate/rhythm, Normal S1 S2 Gastrointestinal: Normal bowel sounds, No tenderness Musculoskeletal: No tenderness Integumentary: No rashes Neurological: Normal speech, Normal tone, Normal affect Lymphatics: No axilla or inguinal lymphadenopathy Assessment & Plan - Problems (Diagnosis) (1) Abscess of bursae of both feet Current Visit: Yes Status: Acute Plan: will continue IV antibiotics. Will keep him in house till we get back the bone cultures. See what duration of antibiotics he will need. Will get a picc line for the patient in anticipation of home antibiotics. 12/17 plans for wound vac. (2) Diabetes Current Visit: No Status: Acute Plan: will continue home dosage of insulin. With sliding scale to cover. We have already got a recent a1c in the office 12/16 Will start his home medications Qualifiers: Diabetes mellitus type: type 1 Diabetes mellitus complication status: with skin complications Diabetes mellitus complication detail: with foot ulcer Qualified Code(s): E10.621 - Type 1 diabetes mellitus with foot ulcer; L97.509 - Non-pressure chronic ulcer of other part of unspecified foot with unspecified severity (3) HTN (hypertension) Current Visit: Yes Status: Chronic Plan: continue home dose of lisinopril Qualifiers: Hypertension type: essential hypertension Qualified Code(s): I10 - Essential (primary) hypertension (4) GERD (gastroesophageal reflux disease) Current Visit: Yes Status: Acute Plan: will substitue protonix for home omeprazole Qualifiers: Esophagitis presence: without esophagitis Qualified Code(s): K21.9 - Gastro-esophageal reflux disease without esophagitis Discharge Plan: Home Plan to discharge in: 48 Hours - Code Status/Comfort Care Code Status Assessed: No Physician Review: Patient Assessed, Agree with Above Assessment and Plan Critical Care: No Time Spent Managing Pts Care (In Minutes): 25
[2020-12-18] MEDS: AMPICILLIN/SULBACT 1.5 GM in NA CHLORIDE 0.9% 100 ML IV SCH ×3 (00:39→17:04)
[2020-12-18] MEDS: VANCOMYCIN 1.5 GM in NA CHLORIDE 0.9% 500 ML IVPB SCH ×2 (05:33→18:59)
[2020-12-18] MEDS: PANTOPRAZOLE 40MG TABLET PO SCH (05:33)
[2020-12-18 06:17] LABS: Absolute Lymphocytes (CBC) 2.2 K/uL (0.7-4.9); Basophils % 0.5 % (0-1.3); Hematocrit 40.5 % (39.6-49.0); Lymphocytes % 21.4 % (15.3-44.8); MPV 7.5 fL (7.6-11.3); RBC Red Blood Cell Count 4.99 M/uL (4.33-5.43)
[2020-12-18 06:36] LABS: BUN Blood Urea Nitrogen 13 mg/dL (7-18); Bicarbonate 24 mmol/L (21-32); Glucose Level 125 mg/dL (74-106); Potassium 3.8 mmol/L (3.5-5.1); Sodium Level 140 mmol/L (136-145)
[2020-12-18] MEDS: INSULIN -REGULAR HUMAN 50 UNIT/0.5 ML ML SQ SCH ×4 (07:30→20:04)
[2020-12-18] MEDS: NICOTINE 21 MG/PAT TD SCH (08:42)
[2020-12-18] MEDS: HOME MED 1 EA UNK (Dapagliflozin Propanediol [Farxiga] 10 MG) PO SCH (08:46)
[2020-12-18] MEDS: lisinopriL 10 MG TAB PO SCH (08:48)
[2020-12-18] MEDS: INSULIN GLARGINE 100 UNITS/ML SQ SCH (08:49)
[2020-12-18 11:42] LABS: C.diff Antigen/Toxin Ag neg : Tox neg (NEG : NEG)
[2020-12-18 15:08] LABS: Urine Appearance CLEAR; Urine Bilirubin NEGATIVE (NEG); Urine Blood NEGATIVE (Negative); Urine Color YELLOW; Urine Glucose 3+ (Negative); Urine Protein NEGATIVE (NEG); Urine Specific Gravity 1.015 (1.005-1.030); Urine Urobilinogen 0.2 mg/dL (0.2-1.0)
--- NOTE | 2020-12-18 15:24 | P.PN ---
Subjective Date of Service: 12/18/20 Primary Care Provider: Jake Chief Complaint: right foot abscess Subjective: Improving Review of Systems 10-point ROS is otherwise unremarkable Musculoskeletal: Foot Pain (well controlled. Has a wound vac on ) Physical Examination - Vital Signs Temperature: 96.6 F Blood Pressure: 128/89 Pulse: 75 Respirations: 18 Pulse Ox (%): 98 - Physical Exam General: Alert, In no apparent distress HEENT: Atraumatic, PERRLA, EOMI Neck: Supple, JVD not distended Respiratory: Clear to auscultation bilaterally, Normal air movement Cardiovascular: Regular rate/rhythm, Normal S1 S2 Gastrointestinal: Normal bowel sounds, No tenderness Musculoskeletal: Erythema Integumentary: No rashes Neurological: Normal speech, Normal tone, Normal affect Lymphatics: No axilla or inguinal lymphadenopathy Assessment & Plan - Problems (Diagnosis) (1) Abscess of bursae of both feet Current Visit: Yes Status: Acute Plan: will continue IV antibiotics. Will keep him in house till we get back the bone cultures. See what duration of antibiotics he will need. Will get a picc line for the patient in anticipation of home antibiotics. 12/18 Strep agl from the wound culture. Vanc sensitive. Will have him set up for 6 weeks of antibiotics. (2) Diabetes Current Visit: No Status: Acute Plan: will continue home dosage of insulin. With sliding scale to cover. We have already got a recent a1c in the office 12/16 Will start his home medications Qualifiers: Diabetes mellitus type: type 1 Diabetes mellitus complication status: with skin complications Diabetes mellitus complication detail: with foot ulcer Qualified Code(s): E10.621 - Type 1 diabetes mellitus with foot ulcer; L97.509 - Non-pressure chronic ulcer of other part of unspecified foot with unspecified severity (3) HTN (hypertension) Current Visit: Yes Status: Chronic Plan: continue home dose of lisinopril Qualifiers: Hypertension type: essential hypertension Qualified Code(s): I10 - Essential (primary) hypertension (4) GERD (gastroesophageal reflux disease) Current Visit: Yes Status: Acute Plan: will substitue protonix for home omeprazole Qualifiers: Esophagitis presence: without esophagitis Qualified Code(s): K21.9 - Gastro-esophageal reflux disease without esophagitis Discharge Plan: Home Plan to discharge in: 48 Hours - Code Status/Comfort Care Code Status Assessed: No Physician Review: Patient Assessed, Agree with Above Assessment and Plan Critical Care: No Time Spent Managing Pts Care (In Minutes): 20
[2020-12-18 15:36] LABS: Urine Microscopic Reflex NO UMIC
[2020-12-18] MEDS: NA CHLORIDE 0.9% 1,000 ML IV SCH (17:03)
[2020-12-18] MEDS: MORPHINE 4 MG/ML SYR IV PRN (21:51)
[2020-12-18] MEDS: ONDANSETRON 4 MG/2 ML VIAL IV PRN (21:55)
[2020-12-19] MEDS: AMPICILLIN/SULBACT 1.5 GM in NA CHLORIDE 0.9% 100 ML IV SCH ×3 (00:09→17:47)
[2020-12-19] MEDS: NA CHLORIDE 0.9% 1,000 ML IV SCH ×2 (01:31→12:27)
[2020-12-19] MEDS: VANCOMYCIN 1.5 GM in NA CHLORIDE 0.9% 500 ML IVPB SCH ×2 (06:07→18:45)
[2020-12-19] MEDS: PANTOPRAZOLE 40MG TABLET PO SCH (06:07)
--- NOTE | 2020-12-19 08:03 | P.PN ---
Subjective Date of Service: 12/19/20 Primary Care Provider: Jake Chief Complaint: right foot abscess Subjective: Improving Review of Systems 10-point ROS is otherwise unremarkable Physical Examination - Vital Signs Temperature: 97.7 F Blood Pressure: 150/90 Pulse: 67 Respirations: 19 Pulse Ox (%): 98 - Physical Exam General: Alert, In no apparent distress, Oriented x3 Cardiovascular: No edema, Normal pulses Capillary refill: <2 Seconds Musculoskeletal: No clubbing, No swelling, No contractures, No erythema, No tenderness, No warmth Integumentary: Other (wound right foot is improving, increased granulation, no purulence noted. Tendon noted distally) Neurological: Abnormal sensation - Studies awaiting results from pathology on bone biopsy Assessment And Plan - Current Problems (Diagnosis) (1) Abscess of right foot Current Visit: Yes Status: Acute (2) Diabetes Current Visit: No Status: Acute Qualifiers: Diabetes mellitus type: type 1 Diabetes mellitus complication status: with skin complications Diabetes mellitus complication detail: with foot ulcer Qualified Code(s): E10.621 - Type 1 diabetes mellitus with foot ulcer; L97.509 - Non-pressure chronic ulcer of other part of unspecified foot with unspecified severity - Plan Continue wound vac 120mmhg continuous with dressing changes q48h Awaiting bone biopsy results Will continue to monitor the patient and his labs. May need a return to OR for further debridement Awaiting PICC placement Patient to follow up in wound care 12/26/20 upon discharge from hospital Discharge Plan: Home Physician Review: Patient Assessed, Agree with Above Assessment and Plan
[2020-12-19] MEDS: INSULIN -REGULAR HUMAN 50 UNIT/0.5 ML ML SQ SCH ×4 (08:49→21:28)
[2020-12-19] MEDS: lisinopriL 10 MG TAB PO SCH (08:50)
[2020-12-19] MEDS: HOME MED 1 EA UNK (Dapagliflozin Propanediol [Farxiga] 10 MG) PO SCH (08:51)
[2020-12-19] MEDS: INSULIN GLARGINE 100 UNITS/ML SQ SCH (08:52)
[2020-12-19] MEDS: NICOTINE 21 MG/PAT TD SCH (09:00)
[2020-12-19] MEDS: LOPERAMIDE HCL 2 MG CAPSULE PO PRN ×2 (10:22→21:29)
--- NOTE | 2020-12-19 11:23 | P.PN ---
Subjective Date of Service: 12/19/20 Primary Care Provider: Jake Chief Complaint: right foot abscess Subjective: No new changes Review of Systems 10-point ROS is otherwise unremarkable Physical Examination - Vital Signs Temperature: 97.7 F Blood Pressure: 143/93 Pulse: 79 Respirations: 19 Pulse Ox (%): 98 - Physical Exam General: Alert, In no apparent distress HEENT: Atraumatic, PERRLA, EOMI Neck: Supple, JVD not distended Respiratory: Clear to auscultation bilaterally, Normal air movement Cardiovascular: Regular rate/rhythm, Normal S1 S2 Gastrointestinal: Normal bowel sounds, No tenderness Musculoskeletal: No tenderness Integumentary: No rashes Neurological: Normal speech, Normal tone, Normal affect Lymphatics: No axilla or inguinal lymphadenopathy Assessment & Plan - Problems (Diagnosis) (1) Abscess of bursae of both feet Current Visit: Yes Status: Acute Plan: will continue IV antibiotics. Will keep him in house till we get back the bone cultures. See what duration of antibiotics he will need. Will get a picc line for the patient in anticipation of home antibiotics. 12/18 Strep agl from the wound culture. Vanc sensitive. Will have him set up for 6 weeks of antibiotics. (2) Diabetes Current Visit: No Status: Acute Plan: will continue home dosage of insulin. With sliding scale to cover. We have already got a recent a1c in the office 12/16 Will start his home medications Qualifiers: Diabetes mellitus type: type 1 Diabetes mellitus complication status: with skin complications Diabetes mellitus complication detail: with foot ulcer Qualified Code(s): E10.621 - Type 1 diabetes mellitus with foot ulcer; L97.509 - Non-pressure chronic ulcer of other part of unspecified foot with unspecified severity (3) HTN (hypertension) Current Visit: Yes Status: Chronic Plan: continue home dose of lisinopril Qualifiers: Hypertension type: essential hypertension Qualified Code(s): I10 - Essential (primary) hypertension (4) GERD (gastroesophageal reflux disease) Current Visit: Yes Status: Acute Plan: will substitue protonix for home omeprazole Qualifiers: Esophagitis presence: without esophagitis Qualified Code(s): K21.9 - Gastro-esophageal reflux disease without esophagitis (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 Spent 20min discussing his condition. The father took me aside to address some of the fears the patient is voicing with the family and not with me. Patient has been working hard on his diabetes the last 6 months and has made good progress. Unfortunately he had this osteomyletis. He is worried about loosing his feet, not being able to work. Other concerns as well. These are all valid fears. Will need to create more support for his family. Gave the father the [employer] diabetic education program. We can try working with councillors. Discharge Plan: Home - Code Status/Comfort Care Code Status Assessed: No Physician Review: Patient Assessed, Agree with Above Assessment and Plan Critical Care: No Time Spent Managing Pts Care (In Minutes): 40
[2020-12-19] MEDS: MORPHINE 4 MG/ML SYR IV PRN ×2 (12:14→21:29)
--- NOTE | 2020-12-19 16:57 | RAD REPORT ---
EXAM DESCRIPTION: RAD - Chest Single View - 12/19/2020 4:46 pm CLINICAL HISTORY: picc placement COMPARISON: Chest Single View dated 12/14/2020; Chest Single View dated 08/27/2020; Chest Single View dated 08/26/2020 FINDINGS: Portable chest was obtained following placement of a right upper extremity PICC line. The catheter tip projects over the SVC.
[2020-12-20] MEDS: AMPICILLIN/SULBACT 1.5 GM in NA CHLORIDE 0.9% 100 ML IV SCH ×3 (00:21→16:16)
[2020-12-20] MEDS: NA CHLORIDE 0.9% 1,000 ML IV SCH (04:24)
[2020-12-20] MEDS: MORPHINE 4 MG/ML SYR IV PRN ×2 (05:28→22:48)
[2020-12-20] MEDS: LOPERAMIDE HCL 2 MG CAPSULE PO PRN ×2 (05:29→22:49)
[2020-12-20] MEDS: PANTOPRAZOLE 40MG TABLET PO SCH (05:29)
[2020-12-20] MEDS: VANCOMYCIN 1.5 GM in NA CHLORIDE 0.9% 500 ML IVPB SCH ×2 (06:00→17:46)
[2020-12-20] MEDS: lisinopriL 10 MG TAB PO SCH (08:07)
[2020-12-20] MEDS: INSULIN -REGULAR HUMAN 50 UNIT/0.5 ML ML SQ SCH ×4 (08:08→22:46)
[2020-12-20] MEDS: INSULIN GLARGINE 100 UNITS/ML SQ SCH (08:09)
[2020-12-20] MEDS: HOME MED 1 EA UNK (Dapagliflozin Propanediol [Farxiga] 10 MG) PO SCH (08:12)
[2020-12-20] MEDS: NICOTINE 21 MG/PAT TD SCH (08:15)
--- NOTE | 2020-12-20 09:51 | P.PN ---
Subjective Date of Service: 12/20/20 Primary Care Provider: Jake Chief Complaint: right foot abscess Subjective: No new changes Review of Systems 10-point ROS is otherwise unremarkable Physical Examination - Vital Signs Temperature: 97.7 F Blood Pressure: 121/44 Pulse: 84 Respirations: 17 Pulse Ox (%): 98 - Physical Exam General: Alert, In no apparent distress HEENT: Atraumatic, PERRLA, EOMI Neck: Supple, JVD not distended Respiratory: Clear to auscultation bilaterally, Normal air movement Cardiovascular: Regular rate/rhythm, Normal S1 S2 Gastrointestinal: Normal bowel sounds, No tenderness Musculoskeletal: No tenderness Integumentary: No rashes, Diabetic ulcer (right foot) Neurological: Normal speech, Normal tone, Normal affect Lymphatics: No axilla or inguinal lymphadenopathy Assessment & Plan - Problems (Diagnosis) (1) Abscess of bursae of both feet Current Visit: Yes Status: Acute Plan: will continue IV antibiotics. Will keep him in house till we get back the bone cultures. See what duration of antibiotics he will need. Will get a picc line for the patient in anticipation of home antibiotics. 12/20 Awaiting authorization of his wound vac and antibiotics. Will continue unasyn and vancomycin. Once bone biopsy results come back we can tailor the antibio tics to the wound (2) Diabetes Current Visit: No Status: Acute Plan: will continue home dosage of insulin. With sliding scale to cover. We have already got a recent a1c in the office 12/16 Will start his home medications Qualifiers: Diabetes mellitus type: type 1 Diabetes mellitus complication status: with skin complications Diabetes mellitus complication detail: with foot ulcer Qualified Code(s): E10.621 - Type 1 diabetes mellitus with foot ulcer; L97.509 - Non-pressure chronic ulcer of other part of unspecified foot with unspecified severity (3) HTN (hypertension) Current Visit: Yes Status: Chronic Plan: continue home dose of lisinopril Qualifiers: Hypertension type: essential hypertension Qualified Code(s): I10 - Essential (primary) hypertension (4) GERD (gastroesophageal reflux disease) Current Visit: Yes Status: Acute Plan: will substitue protonix for home omeprazole Qualifiers: Esophagitis presence: without esophagitis Qualified Code(s): K21.9 - Gastro-esophageal reflux disease without esophagitis (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 Spent 20min discussing his condition. The father took me aside to address some of the fears the patient is voicing with the family and not with me. Patient has been working hard on his diabetes the last 6 months and has made good progress. Unfortunately he had this osteomyletis. He is worried about loosing his feet, not being able to work. Other concerns as well. These are all valid fears. Will need to create more support for his family. Gave the father the [employer] diabetic education program. We can try working with councillors. Discharge Plan: Home Plan to discharge in: 24 Hours - Code Status/Comfort Care Code Status Assessed: No Physician Review: Patient Assessed, Agree with Above Assessment and Plan Critical Care: No Time Spent Managing Pts Care (In Minutes): 20
[2020-12-20] MEDS: ONDANSETRON 4 MG/2 ML VIAL IV PRN (22:49)
[2020-12-21] MEDS: NA CHLORIDE 0.9% 1,000 ML IV SCH ×3 (00:38→20:51)
[2020-12-21] MEDS: AMPICILLIN/SULBACT 1.5 GM in NA CHLORIDE 0.9% 100 ML IV SCH ×3 (00:38→16:16)
[2020-12-21] MEDS: LOPERAMIDE HCL 2 MG CAPSULE PO PRN ×2 (04:24→17:19)
[2020-12-21] MEDS: PANTOPRAZOLE 40MG TABLET PO SCH (06:08)
[2020-12-21] MEDS: VANCOMYCIN 1.5 GM in NA CHLORIDE 0.9% 500 ML IVPB SCH ×2 (06:08→18:14)
[2020-12-21] MEDS: INSULIN -REGULAR HUMAN 50 UNIT/0.5 ML ML SQ SCH ×4 (07:30→20:52)
[2020-12-21] MEDS: HOME MED 1 EA UNK (Dapagliflozin Propanediol [Farxiga] 10 MG) PO SCH (08:35)
[2020-12-21] MEDS: NICOTINE 21 MG/PAT TD SCH (08:36)
[2020-12-21] MEDS: lisinopriL 10 MG TAB PO SCH (08:38)
[2020-12-21] MEDS: INSULIN GLARGINE 100 UNITS/ML SQ SCH (08:38)
--- NOTE | 2020-12-21 09:44 | P.PN ---
Subjective Date of Service: 12/21/20 Primary Care Provider: Jake Chief Complaint: right foot abscess Subjective: No new changes Review of Systems 10-point ROS is otherwise unremarkable Integumentary: Other Physical Examination - Vital Signs Temperature: 97.9 F Blood Pressure: 126/78 Pulse: 75 Respirations: 16 Pulse Ox (%): 97 - Physical Exam General: Alert, In no apparent distress HEENT: Atraumatic, PERRLA, EOMI Neck: Supple, JVD not distended Respiratory: Clear to auscultation bilaterally, Normal air movement Cardiovascular: Regular rate/rhythm, Normal S1 S2 Gastrointestinal: Normal bowel sounds, No tenderness Musculoskeletal: No tenderness Integumentary: No rashes, Diabetic ulcer Neurological: Normal speech, Normal tone, Normal affect Lymphatics: No axilla or inguinal lymphadenopathy Assessment & Plan - Problems (Diagnosis) (1) Abscess of bursae of both feet Current Visit: Yes Status: Acute Plan: will continue IV antibiotics. Will keep him in house till we get back the bone cultures. See what duration of antibiotics he will need. Will get a picc line for the patient in anticipation of home antibiotics. 12/21 awaiting home health and antibiotic authorization and we can discharge the patient today. (2) Diabetes Current Visit: No Status: Acute Plan: will continue home dosage of insulin. With sliding scale to cover. We have already got a recent a1c in the office 12/16 Will start his home medications Qualifiers: Diabetes mellitus type: type 1 Diabetes mellitus complication status: with skin complications Diabetes mellitus complication detail: with foot ulcer Qualified Code(s): E10.621 - Type 1 diabetes mellitus with foot ulcer; L97.509 - Non-pressure chronic ulcer of other part of unspecified foot with unspecified severity (3) HTN (hypertension) Current Visit: Yes Status: Chronic Plan: continue home dose of lisinopril Qualifiers: Hypertension type: essential hypertension Qualified Code(s): I10 - Essential (primary) hypertension (4) GERD (gastroesophageal reflux disease) Current Visit: Yes Status: Acute Plan: will substitue protonix for home omeprazole Qualifiers: Esophagitis presence: without esophagitis Qualified Code(s): K21.9 - Gastro-esophageal reflux disease without esophagitis (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 Spent 20min discussing his condition. The father took me aside to address some of the fears the patient is voicing with the family and not with me. Patient has been working hard on his diabetes the last 6 months and has made good progress. Unfo rtunately he had this osteomyletis. He is worried about loosing his feet, not being able to work. Other concerns as well. These are all valid fears. Will need to create more support for his family. Gave the father the [employer] diabetic education program. We can try working with councillors. Discharge Plan: Home Plan to discharge in: 24 Hours - Code Status/Comfort Care Code Status Assessed: No Physician Review: Patient Assessed, Agree with Above Assessment and Plan Critical Care: No Time Spent Managing Pts Care (In Minutes): 20
[2020-12-21] MEDS: ENSURE HIGH PROTEIN 237 ML CAN PO SCH (20:51)
[2020-12-22] MEDS: AMPICILLIN/SULBACT 1.5 GM in NA CHLORIDE 0.9% 100 ML IV SCH ×3 (00:22→17:00)
[2020-12-22] MEDS: ACETAMINOPHEN 325 MG TABLET PO PRN (02:14)
[2020-12-22] MEDS: VANCOMYCIN 1.5 GM in NA CHLORIDE 0.9% 500 ML IVPB SCH ×2 (05:03→15:11)
[2020-12-22] MEDS: PANTOPRAZOLE 40MG TABLET PO SCH (05:04)
[2020-12-22] MEDS: NICOTINE 21 MG/PAT TD SCH (09:00)
[2020-12-22] MEDS: ENSURE HIGH PROTEIN 237 ML CAN PO SCH (09:00)
[2020-12-22] MEDS: INSULIN -REGULAR HUMAN 50 UNIT/0.5 ML ML SQ SCH ×3 (09:24→16:11)
[2020-12-22] MEDS: HOME MED 1 EA UNK (Dapagliflozin Propanediol [Farxiga] 10 MG) PO SCH (09:24)
[2020-12-22] MEDS: INSULIN GLARGINE 100 UNITS/ML SQ SCH (09:25)
[2020-12-22] MEDS: lisinopriL 10 MG TAB PO SCH (09:26)
[2020-12-22] MEDS: NA CHLORIDE 0.9% 1,000 ML IV SCH (10:00)
[2020-12-22 10:14] VITALS: O2SAT 98
--- NOTE | 2020-12-22 11:25 | P.DS ---
Admission Date: 12/14/20 Discharge Date: 12/22/20 Primary Care Provider: Jake Disposition: ROUTINE DISCHARGE Discharge Condition: GOOD Reason for Admission: right foot abscess - Problems (1) Abscess of bursae of both feet Current Visit: Yes Status: Acute (2) Diabetes Current Visit: No Status: Acute Qualifiers: Diabetes mellitus type: type 1 Diabetes mellitus complication status: with skin complications Diabetes mellitus complication detail: with foot ulcer Qualified Code(s): E10.621 - Type 1 diabetes mellitus with foot ulcer; L97.509 - Non-pressure chronic ulcer of other part of unspecified foot with unspecified severity (3) HTN (hypertension) Current Visit: Yes Status: Chronic Qualifiers: Hypertension type: essential hypertension Qualified Code(s): I10 - Essential (primary) hypertension (4) GERD (gastroesophageal reflux disease) Current Visit: Yes Status: Acute Qualifiers: Esophagitis presence: without esophagitis Qualified Code(s): K21.9 - Gastro-esophageal reflux disease without esophagitis (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 He was seen last week with an ulcer of his foot. Went to Dr. Grider office for follow up yesterday. He was complaining of fevers and chills. had surrounding cellulitis on the wound. Was sent to the ER. xray showed possible air in the wound. As well possible osteomyelitis. Hospital Course: Patient was sent to the office by Dr. Fernando. Who took the patient to surgery. Awaiting on the bone biopsy. He had a wound vac placed. Started the patient on vanc and unasyn. Will have him follow up with me in a week. He is following up with Dr. Fernando in the wound care center. Have had a long visit with his father. the patient was quite despondent on this unfortunate turn He has been working hard to control his diabetes. Will continue to try improving the support to the patient and the family. Vital Signs/Physical Exam: Temp Pulse Resp BP Pulse Ox 97.3 F 67 17 145/86 H 99 12/22/20 08:00 12/22/20 09:26 12/22/20 08:00 12/22/20 09:26 12/22/20 08:00 General: Alert, In no apparent distress HEENT: Atraumatic, PERRLA, EOMI Neck: Supple, JVD not distended Respiratory: Clear to auscultation bilaterally, Normal air movement Cardiovascular: Regular rate/rhythm, Normal S1 S2 Gastrointestinal: Normal bowel sounds, No tenderness Musculoskeletal: No tenderness Integumentary: No rashes Neurological: Normal speech, Normal tone, Normal affect Lymphatics: No axilla or inguinal lymphadenopathy Laboratory Data at Discharge: WBC 10.40 K/uL (4.3-10.9) 12/18/20 05:39 Hgb 13.8 g/dL (13.6-17.9) 12/18/20 05:39 Hct 40.5 % (39.6-49.0) 12/18/20 05:39 Plt Count 211 K/uL (152-406) 12/18/20 05:39 PT 15.0 SECONDS (9.5-12.5) H 12/14/20 23:43 INR 1.30 12/14/20 23:43 Sodium 140 mmol/L (136-145) 12/18/20 05:39 Potassium 3.8 mmol/L (3.5-5.1) 12/18/20 05:39 BUN 13 mg/dL (7-18) 12/18/20 05:39 Creatinine 0.38 mg/dL (0.55-1.3) L 12/18/20 05:39 Glucose 125 mg/dL (74-106) H 12/18/20 05:39 Magnesium 2.0 mg/dL (1.8-2.4) 12/14/20 23:43 Total Bilirubin 0.7 mg/dL (0.2-1.0) 12/14/20 23:43 AST 6 U/L (15-37) L 12/14/20 23:43 ALT 8 U/L (12-78) L 12/14/20 23:43 Alkaline Phosphatase 71 U/L (45-117) 12/14/20 23:43 Home Medications: Dapagliflozin Propanediol [Farxiga] 10 mg PO DAILY 12/15/20 Doxycycline Hyclate 100 mg PO BID 12/15/20 Insulin Glargine,Hum.rec.anlog [Basaglar Kwikpen U-100] 36 units SQ DAILY 12/15/20 Levofloxacin [Levaquin] 500 mg PO DAILY 12/15/20 Medihoney [Medihoney Woundcare Gel*] 1 appl TOP DAILY 12/15/20 Omeprazole [Prilosec] 40 mg PO DAILY 12/15/20 Physician Discharge Instructions: patient should be on 6 weeks of iv unasyn and vancomycin. Diet: ADA Activity: Ad margarette Followup: Phuc Fernando JR, DPM [ASSOCIATE-ACTIVE - CAN ADMIT] - 1 Week (in wound care center) Mark Joseph MD [Primary Care Provider] - 1-2 Weeks Time spent managing pt's care (in minutes): 30
[2020-12-22 13:05] VITALS: TEMP 97.6
[2020-12-22 17:38] VITALS: BP 128/85
== END 2020-12-22 18:07 | disposition home health service (06) | DRG 478 ==
LOC: ER 20:25 → OBSVTOIN 23:38 → ERHOLD 23:38 → INTOOBSV 23:38 → 4TH 12-15 12:17 → 2ND 12-18 10:45
PROVIDERS: ADMIT Internal Medicine; ATTEND Internal Medicine
PROC: 0J9Q0ZZ Drainage of Right Foot Subcutaneous Tissue and Fascia, Open Approach (ICD-10-PCS; 2020-12-15)
PROC: 0QBN0ZX Excision of Right Metatarsal, Open Approach, Diagnostic (ICD-10-PCS; principal; 2020-12-15 16:30)
PROC: 02HV33Z Insertion of Infusion Device into Superior Vena Cava, Percutaneous Approach (ICD-10-PCS; 2020-12-19)
DX: M71.072 Abscess of bursa, left ankle and foot (principal); M86.8X7 Other osteomyelitis, ankle and foot; L03.116 Cellulitis of left lower limb; L03.115 Cellulitis of right lower limb; M71.071 Abscess of bursa, right ankle and foot; E10.69 Type 1 diabetes mellitus with other specified complication; E10.621 Type 1 diabetes mellitus with foot ulcer; L97.509 Non-pressure chronic ulcer of other part of unspecified foot with unspecified severity; F06.34 Mood disorder due to known physiological condition with mixed features; I10 Essential (primary) hypertension; K21.9 Gastro-esophageal reflux disease without esophagitis; F17.210 Nicotine dependence, cigarettes, uncomplicated; Z79.4 Long term (current) use of insulin; Z88.1 Allergy status to other antibiotic agents; Z79.899 Other long term (current) drug therapy; Z20.822 Contact with and (suspected) exposure to COVID-19
CPT/HCPCS: 36415; 36569; 71045; 80048; 80076; 80202; 81003; 82947; 83605; 83735; 83880; 84484; 85025; 85610; 85652; 87070; 87075; 87077; 87186; 87205; 87324; 87449; 88304; 88311; 93005; 96365; 96375; 99285; C9113; J0295; J1100; J1815; J2405; J2543; J2550; J2704; J3010; J3370; J7030; J7040; U0003

== ENCOUNTER 2021-01-09 09:19 | Day surgery (SDC) | payer OTHER ==
[2021-01-09 10:18] VITALS: BP 116/73; BMI 26.6
--- NOTE | 2021-01-09 14:20 | RAD REPORT ---
EXAM DESCRIPTION: RAD - Chest Single View - 01/09/2021 2:10 pm CLINICAL HISTORY: Device placement PICC line placement . IMPRESSION: PICC line with its tip in the proximal to mid superior vena cava
[2021-01-09] MEDS ORDERED: ALTEPLASE 2 MG/VIAL IV SCH (16:00)
[2021-01-09] MEDS ORDERED: WATER FOR INJ,STERILE 10 ML IV SCH (16:00)
[2021-01-09 16:19] VITALS: TEMP 98; O2SAT 98
== END 2021-01-09 16:10 | disposition home or self-care (01) ==
LOC: DS 09:19
PROVIDERS: ATTEND Internal Medicine
DX: M86.471 Chronic osteomyelitis with draining sinus, right ankle and foot (principal)
CPT/HCPCS: 36593; 71045; J2997

== ENCOUNTER 2023-05-13 18:21 | Inpatient (IN) | payer BC ==
--- OUTSIDE RECORDS SUMMARY | 2023-05-13 18:27 | XMS REPORT | Continuity of Care Document ---
:[address] [facility] t Address [address] [facility] [address] [place] [address] Care Team Providers Name Role Phone Vianca Joshua Attending Clinician Unavailable Doctor Unassigned, [place] Attending Clinician Unavailable Dalton Sandhu MD Attending Clinician DALTON SANDHU Attending Clinician Unavailable NYDIA SANCHEZ Attending Clinician Unavailable Nydia Sanchez MD Attending Clinician Dilcia Rose MD Attending Clinician DILCIA ROSE Attending Clinician Unavailable Eileen Orellana Attending Clinician Provider, [facility] Attending Clinician Unavailable Lainey Hernandez Attending Clinician LAINEY BRITTON Attending Clinician Unavailable Charito Frank Attending Clinician Joby Eller MD Attending Clinician JOBY ELLER Attending Clinician Unavailable HOLLI FITZGERALD Admitting Clinician Unavailable Payers Payer Name Policy Type Policy Number Effective Date Expiration Date S ource TML [facility] [id number] 2019 CLAIMS 00:00:00 TML GBRP C1 [id number] [facility] t CLAIMS - [facility] Problems Condition Condition Condition Status Onset Resolution Last Treating Co mments Source Name Details Category Date Date Treatment Clinician Date Diabetes [facility]: [place] 00 Medical Branch Asthma Asthma Disease Active Overview: [facility] Formattin ity of g of this [place] note Medical might be Branch different from the original. ICD10 Diagnosis Term [employer] Utility Allergies, Adverse Reactions, Alerts Allergy Allergy Status Severity Reaction(s) Onset Inactive Treating Comm ents Source Name Type Date Date Clinician sulfamet DA Active [facility] hoxazole 01-15 [place] [facility] trim[facility] DA Active [facility] prim 01-15 [place] 00:[facility] cefaclor DA Active [facility] 01-15 [place] 00:[facility] Sulfamet Propensi Active Hives 2006-09 [facility] hoxazole ty to 2-05 ity of -Trimeth adverse 00:00: [place] oprim reaction 00 Medical s Branch Cefaclor Propensi Active Hives 2006-09 Univer s ty to 2-05 ity of adverse 00:00: [place] reaction 00 Medical s Branch SULFAMET DRUG Active Hives 2006- Univers HOXAZOLE 2-05 ity of -TRIMETH 00:00: [place] OPRIM 00 Medical Branch CEFACLOR DRUG Active Hives 2006- Univers INGREDI 2-05 ity of 00:00: [place] 00 Medical Branch sulfamet sulfamet Active Unknown Commo n hoxazole hoxazole Spirit / / - [facility] trimetho trimetho [facility] Social History Social Habit Start Date Stop Date Quantity Comments Source History of [facility] - Tobacco Use [facility] Sex Assigned At Common Sp michelle - [facility] Exposure to Not sure University of SARS-CoV-2 [facility] (event) [place] Tobacco use and 2020-07-25 2020-07-25 Never used Universit y of exposure 00:00:00 00:00:00 [facility] Alcohol intake 2020-07-25 2020-07-25 Current drinker [facility] rsity of 00:00:00 00:00:00 of alcohol [place] Medical (finding) Branch Tobacco Comment 2019-09-09 2019-09-09 quit 4 months Univer sity of 00:00:00 00:00:00 ago [facility] Smoking Status Start Date Stop Date Source Never Smoker [facility] Ce nter Former smoker 2020-07-25 00:00:00 2020-07-25 00:00:00 Universi ty of [place] Medical [place] Current some day 2020-07-19 00:00:00 [facility] smoker Medical Branch Medications Ordered Filled Start Stop Current Ordering Indication Dosage Frequency Signature Comments Components Source Medication Medication Date Date Medication? Clinician (SIG) Name Name TAMSULOSIN 2019-09 Yes [id number] TAKE ONE Univers 0.4 mg 24 1-30 CAPSULE BY ity of hr capsule 00:00: [facility] DAILY Medical Branch TAMSULOSIN 2019-09 Yes [id number] TAKE ONE Univers 0.4 mg 24 1-30 CAPSULE BY ity of hr capsule 00:00: [facility] DAILY Medical Branch TAMSULOSIN 2019-09 Yes [id number] TAKE ONE Univers 0.4 mg 24 1-30 CAPSULE BY ity of hr capsule 00:00: [facility] DAILY Medical Branch TAMSULOSIN 2019-09 Yes [id number] TAKE ONE Univers 0.4 mg 24 1-30 CAPSULE BY ity of hr capsule 00:00: [facility] DAILY Medical Branch TAMSULOSIN 2019- Yes [id number] TAKE ONE Univers 0.4 mg 24 1-30 CAPSULE BY ity of hr capsule 00:00: [facility] DAILY Medical Branch TAMSULOSIN 2019- Yes [id number] TAKE ONE Univers 0.4 mg 24 1-30 CAPSULE BY ity of hr capsule 00:00: [facility] DAILY Medical Branch TAMSULOSIN 2019- Yes [id number] TAKE ONE Univers 0.4 mg 24 1-30 CAPSULE BY ity of hr capsule 00:00: [facility] DAILY Medical Branch TAMSULOSIN 2019- Yes [id number] TAKE ONE Univers 0.4 mg 24 1-30 CAPSULE BY ity of hr capsule 00:00: [facility] DAILY Medical Branch Tamsulosin Tamsulosin 2019-09 2020- No 1{capsu QD Tamsulosin HCl 0.4 MG HCl 0.4 MG 10-10 le} HCl 0.4 MG 00:00: 00:00 00 :00 Tamsulosin Tamsulosin 2019-09 2020- No 1{capsu QD Tamsulosin HCl 0.4 MG HCl 0.4 MG 10-1018 le} HCl 0.4 MG 00:00: 00:00 00 :00 Tamsulosin Tamsulosin 2019-09- No 1{capsu QD Tamsulosin HCl 0.4 MG HCl 0.4 MG 10-1018 le} HCl 0.4 MG 00:00: 00:00 00 :00 tetracyclin 2019-2019- No [id number] 500mg Take 1 Univers e 500 mg 09-27 capsule by ity of capsule 00:00: 05:59 mouth 4 [place] 00 :00 (four) Medical times Branch daily for 5 days. tetracyclin 2019-09- No [id number] 500mg Take 1 Univers e 500 mg 09-27 capsule by ity of capsule 00:00: 05:59 mouth 4 [place] 00 :00 (four) Medical times Branch daily for 5 days. tetracyclin 2019-09- No [id number] 500mg Take 1 Univers e 500 mg 09-27 capsule by ity of capsule 00:00: 05:59 mouth 4 [place] 00 :00 (four) Medical times Branch daily for 5 days. tamsulosin 2019-09- No [id number] .4mg Take 1 U nivers 0.4 mg 24 09-24 capsule by ity of hr capsule 00:00: 05:59 mouth [place] 00 :00 daily for Medical 30 days. Branch tamsulosin 2019-09- No [id number] .4mg Take 1 U nivers 0.4 mg 24 09-24 capsule by ity of hr capsule 00:00: 05:59 mouth [place] 00 :00 daily for Medical 30 days. Branch tamsulosin 2019-09- No [id number] .4mg Take 1 U nivers 0.4 mg 24 09-24 capsule by ity of hr capsule 00:00: 05:59 mouth [place] 00 :00 daily for Medical 30 days. Branch tamsulosin 2019-09- No [id number] .4mg Take 1 U nivers 0.4 mg 24 09-24 capsule by ity of hr capsule 00:00: 05:59 mouth [place] 00 :00 daily for Medical 30 days. Branch tamsulosin 2019-09- No [id number] .4mg Take 1 U nivers 0.4 mg 24 09-24 capsule by ity of hr capsule 00:00: 05:59 mouth [place] 00 :00 daily for Medical 30 days. Branch tamsulosin 2019-09- No [id number] .4mg Take 1 U nivers 0.4 mg 24 09-24 capsule by ity of hr capsule 00:00: 05:59 mouth [place] 00 :00 daily for Medical 30 days. Branch tamsulosin 2019-09 No [id number] .4mg Take 1 U nivers 0.4 mg 24 09-24 capsule by ity of hr capsule 00:00: 05:59 mouth [place] 00 :00 daily for Medical 30 days. Branch tamsulosin 2019-09 No [id number] .4mg Take 1 U nivers 0.4 mg 24 09-24 capsule by ity of hr capsule 00:00: 00:00 mouth [place] 00 :00 daily for Medical 30 days. Branch ciprofloxac 2019-09 No [id number] 500mg Take 2 Univers in HCl 09-2413 tablets by ity of (CIPRO) 250 00:00: 05:59 [place] mg tablet 00 :00 every 12 Medica l (twelve) Branch hours for 10 days. ciprofloxac 2019-09 No [id number] 500mg Take 2 Univers in HCl 09-2413 tablets by ity of (CIPRO) 250 00:00: 05:59 [place] mg tablet 00 :00 every 12 Medica l (twelve) Branch hours for 10 days. ciprofloxac 2019-09 No [id number] 500mg Take 2 Univers in HCl 09-2413 tablets by ity of (CIPRO) 250 00:00: 05:59 mouth [place] mg tablet 00 :00 every 12 Medica l (twelve) Branch hours for 10 days. ciprofloxac 2019-09 No [id number] 500mg Take 2 Univers in HCl 09-2413 tablets by ity of (CIPRO) 250 00:00: 05:59 mouth [place] mg tablet 00 :00 every 12 Medica l (twelve) Branch hours for 10 days. ciprofloxac 2019-09 No [id number] 500mg Take 2 Univers in HCl - 11-13 tablets by ity of (CIPRO) 250 00:00: 05:59 mouth [place] mg tablet 00 :00 every 12 Medica l (twelve) Branch hours for 10 days. ciprofloxac 2019-09- No [id number] 500mg Take 2 Univers in HCl - 11-13 tablets by ity of (CIPRO) 250 00:00: 05:59 mouth [place] mg tablet 00 :00 every 12 Medica l (twelve) Branch hours for 10 days. ciprofloxac 2019-09- No [id number] 500mg Take 2 Univers in HCl - 11-13 tablets by ity of (CIPRO) 250 00:00: 05:59 mouth [place] mg tablet 00 :00 every 12 Medica l (twelve) Branch hours for 10 days. doxycycline 2019-09- No [id number] 100mg Take 1 Univers hyclate 100 0-27 11-04 tablet by it y of mg tablet 00:00: 05:59 mouth 2 [place] 00 :[place] (two) Medical times Branch daily for 7 days. doxycycline 2019-09- No [id number] 100mg Take 1 Univers hyclate 100 0-27 11-04 tablet by it y of mg tablet 00:00: 05:59 mouth 2 [place] 00 :[place] (two) Medical times Branch daily for 7 days. doxycycline 2019-09- No [id number] 100mg Take 1 Univers hyclate 100 0-27 11-04 tablet by it y of mg tablet 00:00: 05:59 mouth 2 [place] 00 :[place] (two) Medical times Branch daily for 7 days. doxycycline 2019-09- No [id number] 100mg Take 1 Univers hyclate 100 0-27 11-04 tablet by it y of mg tablet 00:00: 05:59 mouth 2 [place] 00 :[place] (two) Medical times Branch daily for 7 days. doxycycline 2019-09- No [id number] 100mg Take 1 Univers hyclate 100 0-27 11-04 tablet by it y of mg tablet 00:00: 05:59 mouth 2 [place] 00 :[place] (two) Medical times Branch daily for 7 days. doxycycline 2019-09- No [id number] 100mg Take 1 Univers hyclate 100 0-27 11-04 tablet by it y of mg tablet 00:00: 05:59 mouth 2 [place] 00 :[place] (two) Medical times Branch daily for 7 days. naproxen 2019- 2020- No [id number] 500mg Take 1 Univers 500 mg 0-13 11-13 tablet by ity of tablet 00:00: 05:59 mouth 2 [place] 00 :00 (two) Medical times Branch daily as needed for Pain (scale 4-6) for up to 30 days. naproxen 2019- 2020- No [id number] 500mg Take 1 Univers 500 mg 0-13 11-13 tablet by ity of tablet 00:00: 05:59 mouth 2 [place] 00 :00 (two) Medical times Branch daily as needed for Pain (scale 4-6) for up to 30 days. naproxen 2019- 2020- No [id number] 500mg Take 1 Univers 500 mg 0-13 11-13 tablet by ity of tablet 00:00: 05:59 mouth 2 [place] 00 :00 (two) Medical times Branch daily as needed for Pain (scale 4-6) for up to 30 days. naproxen 2019- 2020- No [id number] 500mg Take 1 [facility] 500 mg 0-13 11-13 tablet by ity of tablet 00:00: 05:59 mouth 2 [place] 00 :00 (two) Medical times Branch daily as needed for Pain (scale 4-6) for up to 30 days. naproxen 2019-09 2020- No [id number] 500mg Take 1 Univers 500 mg 0-13 11-13 tablet by ity of tablet 00:00: 05:59 mouth 2 [place] 00 :00 (two) Medical times Branch daily as needed for Pain (scale 4-6) for up to 30 days. naproxen 2019- 2020- No [id number] 500mg Take 1 Univers 500 mg 0-13 11-13 tablet by ity of tablet 00:00: 05:59 mouth 2 [place] 00 :00 (two) Medical times Branch daily as needed for Pain (scale 4-6) for up to 30 days. naproxen 2019- 2020- No [id number] 500mg Take 1 Univers 500 mg 0-13 11-13 tablet by ity of tablet 00:00: 05:59 mouth 2 [place] 00 :00 (two) Medical times Branch daily as needed for Pain (scale 4-6) for up to 30 days. naproxen 2019- 2020- No [id number] 500mg Take 1 Univers 500 mg 0-13 11-13 tablet by ity of tablet 00:00: 05:59 mouth 2 [place] 00 :00 (two) Medical times Branch daily as needed for Pain (scale 4-6) for up to 30 days. naproxen 2019- 2020- No [id number] 500mg Take 1 Univers 500 mg 0-13 11-13 tablet by ity of tablet 00:00: 05:59 mouth 2 [place] 00 :00 (two) Medical times Branch daily as needed for Pain (scale 4-6) for up to 30 days. naproxen 2019- 2020- No [id number] 500mg Take 1 Univers 500 mg 0-13 11-13 tablet by ity of tablet 00:00: 05:59 mouth 2 [place] 00 :00 (two) Medical times Branch daily as needed for Pain (scale 4-6) for up to 30 days. naproxen 2019- 2020- No [id number] 500mg Take 1 Univers 500 mg 0-13 11-13 tablet by ity of tablet 00:00: 05:59 mouth 2 [place] 00 :00 (two) Medical times Branch daily as needed for Pain (scale 4-6) for up to 30 days. naproxen 2019-09 2020- No [id number] 500mg Take 1 Univers 500 mg 0-13 11-13 tablet by ity of tablet 00:00: 05:59 mouth 2 [place] 00 :00 (two) Medical times Branch daily as needed for Pain (scale 4-6) for up to 30 days. naproxen 2019-09 2020- No [id number] 500mg Take 1 Univers 500 mg 0-13 11-13 tablet by ity of tablet 00:00: 05:59 mouth 2 [place] 00 :00 (two) Medical times Branch daily as needed for Pain (scale 4-6) for up to 30 days. naproxen 2019- 2020- No [id number] 500mg Take 1 Univers 500 mg 0-13 11-13 tablet by ity of tablet 00:00: 05:59 mouth 2 [place] 00 :00 (two) Medical times Branch daily as needed for Pain (scale 4-6) for up to 30 days. naproxen 2019- 2020- No [id number] 500mg Take 1 Univers 500 mg 0-13 11-13 tablet by ity of tablet 00:00: 05:59 mouth 2 [place] 00 :00 (two) Medical times Branch daily as needed for Pain (scale 4-6) for up to 30 days. naproxen 2019-09- No [id number] 500mg Take 1 Univers 500 mg 0-13 11-13 tablet by ity of tablet 00:00: 05:59 mouth 2 [place] 00 :00 (two) Medical times Branch daily as needed for Pain (scale 4-6) for up to 30 days. cyclobenzap 2019-09- No [id number] 10mg Take 1 Univers rine 10 mg 0-13 10-21 tablet by ity of tablet 00:00: 04:59 mouth 3 [place] 00 :00 (three) Medical times Branch daily for 7 days. cyclobenzap 2019-09- No [id number] 10mg Take 1 Univers rine 10 mg 0-13 10-21 tablet by ity of tablet 00:00: 04:59 mouth 3 [place] 00 :00 (three) Medical times Branch daily for 7 days. cyclobenzap 2019-2019- No [id number] 10mg Take 1 Univers rine 10 mg 0-13 10-21 tablet by ity of tablet 00:00: 04:59 mouth 3 [place] 00 :00 (three) Medical times Branch daily for 7 days. cyclobenzap 2019-09- No [id number] 10mg Take 1 Univers rine 10 mg 0-13 10-21 tablet by ity of tablet 00:00: 04:59 mouth 3 [place] 00 :00 (three) Medical times Branch daily for 7 days. cyclobenzap 2019-2019- No [id number] 10mg Take 1 Univers rine 10 mg 0-13 10-21 tablet by ity of tablet 00:00: 04:59 mouth 3 [place] 00 :00 (three) Medical times Branch daily for 7 days. cyclobenzap 2019-09 2020- No [id number] 10mg Take 1 Univers rine 10 mg 0-13 10-21 tablet by ity of tablet 00:00: 04:59 mouth 3 [place] 00 :00 (three) Medical times Branch daily for 7 days. FARXIGA 5 2020-0 Yes [id number] TAKE ONE Univers mg tablet 7-08 TABLET BY ity o f 00:00: MOUTH [place] 00 EVERY Medical MORNING Branch FARXIGA 5 2020-0 Yes [id number] TAKE ONE Univers mg tablet 7-08 TABLET BY ity o f 00:00: MOUTH [place] 00 EVERY Medical MORNING Branch FARXIGA 5 2020-0 Yes [id number] TAKE ONE Univers mg tablet 7-08 TABLET BY ity o f 00:00: MOUTH [place] 00 EVERY Medical MORNING Branch FARXIGA 5 2020-0 Yes [id number] TAKE ONE Univers mg tablet 7-08 TABLET BY ity o f 00:00: MOUTH [place] 00 EVERY Medical MORNING Branch FARXIGA 5 2020-0 Yes [id number] TAKE ONE Univers mg tablet 7-08 TABLET BY ity o f 00:00: MOUTH [place] 00 EVERY Medical MORNING Branch FARXIGA 5 2020-0 Yes [id number] TAKE ONE Univers mg tablet 7-08 TABLET BY ity o f 00:00: MOUTH [place] 00 EVERY Medical MORNING Branch FARXIGA 5 2020-0 Yes [id number] TAKE ONE Univers mg tablet 7-08 TABLET BY ity o f 00:00: MOUTH [place] 00 EVERY Medical MORNING Branch FARXIGA 5 2020-0 Yes [id number] TAKE ONE Univers mg tablet 7-08 TABLET BY ity o f 00:00: MOUTH [place] 00 EVERY Medical MORNING Branch FARXIGA 5 2020-0 Yes [id number] TAKE ONE Univers mg tablet 7-08 TABLET BY ity o f 00:00: MOUTH [place] 00 EVERY Medical MORNING Branch FARXIGA 5 2020-0 Yes [id number] TAKE ONE Univers mg tablet 7-08 TABLET BY ity o f 00:00: MOUTH [place] 00 EVERY Medical MORNING Branch FARXIGA 5 2020-0 Yes [id number] TAKE ONE Univers mg tablet 7-08 TABLET BY ity o f 00:00: MOUTH [place] 00 EVERY Medical MORNING Branch FARXIGA 5 2020-0 Yes [id number] TAKE ONE Univers mg tablet 7-08 TABLET BY ity o f 00:00: MOUTH [place] 00 EVERY Medical MORNING Branch FARXIGA 5 2020-0 Yes [id number] TAKE ONE Univers mg tablet 7-08 TABLET BY ity o f 00:00: MOUTH [place] 00 EVERY Medical MORNING Branch FARXIGA 5 2020-0 Yes [id number] TAKE ONE Univers mg tablet 7-08 TABLET BY ity o f 00:00: MOUTH [place] 00 EVERY Medical MORNING Branch FARXIGA 5 2020-0 Yes [id number] TAKE ONE Univers mg tablet 7-08 TABLET BY ity o f 00:00: MOUTH [place] 00 EVERY Medical MORNING Branch FARXIGA 5 2020-0 Yes [id number] TAKE ONE Univers mg tablet 7-08 TABLET BY ity o f 00:00: MOUTH [place] 00 EVERY Medical MORNING Branch FARXIGA 5 2020-0 Yes [id number] TAKE ONE Univers mg tablet 7-08 TABLET BY ity o f 00:00: MOUTH [place] 00 EVERY Medical MORNING Branch FARXIGA 5 2020-0 Yes [id number] TAKE ONE Univers mg tablet 7-08 TABLET BY ity o f 00:00: MOUTH [place] 00 EVERY Medical MORNING Branch FARXIGA 5 2020-0 Yes [id number] TAKE ONE Univers mg tablet 7-08 TABLET BY ity o f 00:00: MOUTH [place] 00 EVERY Medical MORNING Branch FARXIGA 5 2020-0 Yes [id number] TAKE ONE Univers mg tablet 7-08 TABLET BY ity o f 00:00: MOUTH [place] 00 EVERY Medical MORNING Branch FARXIGA 5 2020-0 Yes [id number] TAKE ONE Univers mg tablet 7-08 TABLET BY ity o f 00:00: MOUTH [place] 00 EVERY Medical MORNING Branch FARXIGA 5 2020-0 Yes [id number] TAKE ONE Univers mg tablet 7-08 TABLET BY ity o f 00:00: MOUTH [place] 00 EVERY Medical MORNING Branch FARXIGA 5 2020-0 Yes [id number] TAKE ONE Univers mg tablet 7-08 TABLET BY ity o f 00:00: MOUTH [place] 00 EVERY Medical MORNING Branch FARXIGA 5 2020-0 Yes [id number] TAKE ONE Univers mg tablet 7-08 TABLET BY ity o f 00:00: MOUTH [place] 00 EVERY Medical MORNING Branch FARXIGA 5 2020-0 Yes [id number] TAKE ONE Univers mg tablet 7-08 TABLET BY ity o f 00:00: MOUTH [place] 00 EVERY Medical MORNING Branch FARXIGA 5 2020-0 Yes [id number] TAKE ONE Univers mg tablet 7-08 TABLET BY ity o f 00:00: MOUTH [place] 00 EVERY Medical MORNING Branch FARXIGA 5 2020-0 Yes [id number] TAKE ONE Univers mg tablet 7-08 TABLET BY ity o f 00:00: MOUTH [place] 00 EVERY Medical MORNING Branch FARXIGA 5 2020-0 Yes [id number] TAKE ONE Univers mg tablet 7-08 TABLET BY ity o f 00:00: MOUTH [place] 00 EVERY Medical MORNING Branch FARXIGA 5 2020-0 Yes [id number] TAKE ONE Univers mg tablet 7-08 TABLET BY ity o f 00:00: MOUTH [place] 00 EVERY Medical MORNING Branch FARXIGA 5 2020-0 Yes [id number] TAKE ONE Univers mg tablet 7-08 TABLET BY ity o f 00:00: MOUTH [place] 00 EVERY Medical MORNING Branch FARXIGA 5 2020-0 Yes [id number] TAKE ONE Univers mg tablet 7-08 TABLET BY ity o f 00:00: MOUTH [place] 00 EVERY Medical MORNING Branch albuterol 2020-0 Yes [id number] 1.25mg Use 3 mL Univers 1.25 mg/3 6-29 as ity of mL 00:00: directed [place] nebulizer 00 every 6 Medical solution (six) Branch hours as needed for Wheezing. budesonide- 2020-0 Yes [id number] 2{puff} Inhale 2 Univers formoteroL 6-29 Puffs 2 ity of 160-4.5 00:00: (two) [place] mcg/actuati 00 times Medical on inhaler daily. Branch amoxicillin 2020-0 Yes [id number] 1{tbl} Take 1 Univers -clavulanat 6-29 tablet by ity of e 00:00: mouth 2 [place] (AUGMENTIN) 00 (two) Medical 875-125 mg times Branch per tablet daily. lisinopril 2020-0 Yes [id number] 10mg Take 1 U nivers 10 mg 6-29 tablet by ity of tablet 00:00: mouth [place] 00 daily. Medical Branch albuterol 2020-0 Yes [id number] 1.25mg Use 3 mL Univers 1.25 mg/3 6-29 as ity of mL 00:00: directed [place] nebulizer 00 every 6 Medical solution (six) Branch hours as needed for Wheezing. budesonide- 2020-0 Yes [id number] 2{puff} Inhale 2 Univers formoteroL 6-29 Puffs 2 ity of 160-4.5 00:00: (two) [place] mcg/actuati 00 times Medical on inhaler daily. Branch amoxicillin 2020-0 Yes [id number] 1{tbl} Take 1 Univers -clavulanat 6-29 tablet by ity of e 00:00: mouth 2 [place] (AUGMENTIN) 00 (two) Medical 875-125 mg times Branch per tablet daily. lisinopril 2020-0 Yes [id number] 10mg Take 1 U nivers 10 mg 6-29 tablet by ity of tablet 00:00: mouth [place] 00 daily. Medical Branch albuterol 2020-0 Yes [id number] 1.25mg Use 3 mL Univers 1.25 mg/3 6-29 as ity of mL 00:00: directed [place] nebulizer 00 every 6 Medical solution (six) Branch hours as needed for Wheezing. budesonide- 2020-0 Yes [id number] 2{puff} Inhale 2 Univers formoteroL 6-29 Puffs 2 ity of 160-4.5 00:00: (two) [place] mcg/actuati 00 times Medical on inhaler daily. Branch amoxicillin 2020-0 Yes [id number] 1{tbl} Take 1 Univers -clavulanat 6-29 tablet by ity of e 00:00: mouth 2 [place] (AUGMENTIN) 00 (two) Medical 875-125 mg times Branch per tablet daily. lisinopril 2020-0 Yes [id number] 10mg Take 1 U nivers 10 mg 6-29 tablet by ity of tablet 00:00: mouth [place] 00 daily. Medical Branch albuterol 2020-0 Yes [id number] 1.25mg Use 3 mL Univers 1.25 mg/3 6-29 as ity of mL 00:00: directed [place] nebulizer 00 every 6 Medical solution (six) Branch hours as needed for Wheezing. budesonide- 2020-0 Yes [id number] 2{puff} Inhale 2 Univers formoteroL 6-29 Puffs 2 ity of 160-4.5 00:00: (two) [place] mcg/actuati 00 times Medical on inhaler daily. Branch amoxicillin 2020-0 Yes [id number] 1{tbl} Take 1 Univers -clavulanat 6-29 tablet by ity of e 00:00: mouth 2 [place] (AUGMENTIN) 00 (two) Medical 875-125 mg times Branch per tablet daily. lisinopril 2020-0 Yes [id number] 10mg Take 1 U nivers 10 mg 6-29 tablet by ity of tablet 00:00: mouth [place] 00 daily. Medical Branch albuterol 2020-0 Yes [id number] 1.25mg Use 3 mL Univers 1.25 mg/3 6-29 as ity of mL 00:00: directed [place] nebulizer 00 every 6 Medical solution (six) Branch hours as needed for Wheezing. budesonide- 2020-0 Yes [id number] 2{puff} Inhale 2 Univers formoteroL 6-29 Puffs 2 ity of 160-4.5 00:00: (two) [place] mcg/actuati 00 times Medical on inhaler daily. Branch amoxicillin 2020-0 Yes [id number] 1{tbl} Take 1 Univers -clavulanat 6-29 tablet by ity of e 00:00: mouth 2 [place] (AUGMENTIN) 00 (two) Medical 875-125 mg times Branch per tablet daily. lisinopril 2020-0 Yes [id number] 10mg Take 1 U nivers 10 mg 6-29 tablet by ity of tablet 00:00: mouth [place] 00 daily. Medical Branch albuterol 2020-0 Yes [id number] 1.25mg Use 3 mL Univers 1.25 mg/3 6-29 as ity of mL 00:00: directed [place] nebulizer 00 every 6 Medical solution (six) Branch hours as needed for Wheezing. budesonide- 2020-0 Yes [id number] 2{puff} Inhale 2 Univers formoteroL 6-29 Puffs 2 ity of 160-4.5 00:00: (two) [place] mcg/actuati 00 times Medical on inhaler daily. Branch amoxicillin 2020-0 Yes [id number] 1{tbl} Take 1 Univers -clavulanat 6-29 tablet by ity of e 00:00: mouth 2 [place] (AUGMENTIN) 00 (two) Medical 875-125 mg times Branch per tablet daily. lisinopril 2020-0 Yes [id number] 10mg Take 1 U nivers 10 mg 6-29 tablet by ity of tablet 00:00: mouth [place] 00 daily. Medical Branch albuterol 2020-0 Yes [id number] 1.25mg Use 3 mL Univers 1.25 mg/3 6-29 as ity of mL 00:00: directed [place] nebulizer 00 every 6 Medical solution (six) Branch hours as needed for Wheezing. budesonide- 2020-0 Yes [id number] 2{puff} Inhale 2 Univers formoteroL 6-29 Puffs 2 ity of 160-4.5 00:00: (two) [place] mcg/actuati 00 times Medical on inhaler daily. Branch amoxicillin 2020-0 Yes [id number] 1{tbl} Take 1 Univers -clavulanat 6-29 tablet by ity of e 00:00: mouth 2 [place] (AUGMENTIN) 00 (two) Medical 875-125 mg times Branch per tablet daily. lisinopril 2020-0 Yes [id number] 10mg Take 1 U nivers 10 mg 6-29 tablet by ity of tablet 00:00: mouth [place] 00 daily. Medical Branch albuterol 2020-0 Yes [id number] 1.25mg Use 3 mL Univers 1.25 mg/3 6-29 as ity of mL 00:00: directed [place] nebulizer 00 every 6 Medical solution (six) Branch hours as needed for Wheezing. budesonide- 2020-0 Yes [id number] 2{puff} Inhale 2 Univers formoteroL 6-29 Puffs 2 ity of 160-4.5 00:00: (two) [place] mcg/actuati 00 times Medical on inhaler daily. Branch amoxicillin 2020-0 Yes [id number] 1{tbl} Take 1 Univers -clavulanat 6-29 tablet by ity of e 00:00: mouth 2 [place] (AUGMENTIN) 00 (two) Medical 875-125 mg times Branch per tablet daily. lisinopril 2020-0 Yes [id number] 10mg Take 1 U nivers 10 mg 6-29 tablet by ity of tablet 00:00: mouth [place] 00 daily. Medical Branch albuterol 2020-0 Yes [id number] 1.25mg Use 3 mL Univers 1.25 mg/3 6-29 as ity of mL 00:00: directed [place] nebulizer 00 every 6 Medical solution (six) Branch hours as needed for Wheezing. budesonide- 2020-0 Yes [id number] 2{puff} Inhale 2 Univers formoteroL 6-29 Puffs 2 ity of 160-4.5 00:00: (two) [place] mcg/actuati 00 times Medical on inhaler daily. Branch amoxicillin 2020-0 Yes [id number] 1{tbl} Take 1 [facility] -clavulanat 6-29 tablet by ity of e 00:00: mouth 2 [place] (AUGMENTIN) 00 (two) Medical 875-125 mg times Branch per tablet daily. lisinopril 2020-0 Yes [id number] 10mg Take 1 [facility] nivers 10 mg 6-29 tablet by ity of tablet 00:00: mouth [place] 00 daily. Medical Branch albuterol 2020-0 Yes [id number] 1.25mg Use 3 mL [facility] 1.25 mg/3 6-29 as ity of mL 00:00: directed [place] nebulizer 00 every 6 Medical solution (six) Branch hours as needed for Wheezing. budesonide- 2020-0 Yes [id number] 2{puff} Inhale 2 [facility] formoteroL 6-29 Puffs 2 ity of 160-4.5 00:00: (two) [place] mcg/actuati 00 times Medical on inhaler daily. Branch amoxicillin 2020-0 Yes [id number] 1{tbl} Take 1 [facility] -clavulanat 6-29 tablet by ity of e 00:00: mouth 2 [place] (AUGMENTIN) 00 (two) Medical 875-125 mg times Branch per tablet daily. lisinopril 2020-0 Yes [id number] 10mg Take 1 [facility] nivers 10 mg 6-29 tablet by ity of tablet 00:00: mouth [place] 00 daily. Medical Branch albuterol 2020-0 Yes [id number] 1.25mg Use 3 mL [facility] 1.25 mg/3 6-29 as ity of mL 00:00: directed [place] nebulizer 00 every 6 Medical solution (six) Branch hours as needed for Wheezing. budesonide- 2020-0 Yes [id number] 2{puff} Inhale 2 [facility] formoteroL 6-29 Puffs 2 ity of 160-4.5 00:00: (two) [place] mcg/actuati 00 times Medical on inhaler daily. Branch amoxicillin 2020-0 Yes [id number] 1{tbl} Take 1 [facility] -clavulanat 6-29 tablet by ity of e 00:00: mouth 2 [place] (AUGMENTIN) 00 (two) Medical 875-125 mg times Branch per tablet daily. lisinopril 2020-0 Yes [id number] 10mg Take 1 [facility] nivers 10 mg 6-29 tablet by ity of tablet 00:00: mouth [place] 00 daily. Medical Branch albuterol 2020-0 Yes [id number] 1.25mg Use 3 mL [facility] 1.25 mg/3 6-29 as ity of mL 00:00: directed [place] nebulizer 00 every 6 Medical solution (six) Branch hours as needed for Wheezing. budesonide- 2020-0 Yes [id number] 2{puff} Inhale 2 [facility] formoteroL 6-29 Puffs 2 ity of 160-4.5 00:00: (two) [place] mcg/actuati 00 times Medical on inhaler daily. Branch amoxicillin 2020-0 Yes [id number] 1{tbl} Take 1 [facility] -clavulanat 6-29 tablet by ity of e 00:00: mouth 2 [place] (AUGMENTIN) 00 (two) Medical 875-125 mg times Branch per tablet daily. lisinopril 2020-0 Yes [id number] 10mg Take 1 [facility] nivers 10 mg 6-29 tablet by ity of tablet 00:00: mouth [place] 00 daily. Medical Branch albuterol 2020-0 Yes [id number] 1.25mg Use 3 mL [facility] 1.25 mg/3 6-29 as ity of mL 00:00: directed [place] nebulizer 00 every 6 Medical solution (six) Branch hours as needed for Wheezing. budesonide- 2020-0 Yes [id number] 2{puff} Inhale 2 [facility] formoteroL 6-29 Puffs 2 ity of 160-4.5 00:00: (two) [place] mcg/actuati 00 times Medical on inhaler daily. Branch amoxicillin 2020-0 Yes [id number] 1{tbl} Take 1 [facility] -clavulanat 6-29 tablet by ity of e 00:00: mouth 2 [place] (AUGMENTIN) 00 (two) Medical 875-125 mg times Branch per tablet daily. lisinopril 2020-0 Yes [id number] 10mg Take 1 [facility] nivers 10 mg 6-29 tablet by ity of tablet 00:00: mouth [place] 00 daily. Medical Branch albuterol 2020-0 Yes [id number] 1.25mg Use 3 mL [facility] 1.25 mg/3 6-29 as ity of mL 00:00: directed [place] nebulizer 00 every 6 Medical solution (six) Branch hours as needed for Wheezing. budesonide- 2020-0 Yes [id number] 2{puff} Inhale 2 [facility] formoteroL 6-29 Puffs 2 ity of 160-4.5 00:00: (two) [place] mcg/actuati 00 times Medical on inhaler daily. Branch amoxicillin 2020-0 Yes [id number] 1{tbl} Take 1 [facility] -clavulanat 6-29 tablet by ity of e 00:00: mouth 2 [place] (AUGMENTIN) 00 (two) Medical 875-125 mg times Branch per tablet daily. lisinopril 2020-0 Yes [id number] 10mg Take 1 [facility] nivers 10 mg 6-29 tablet by ity of tablet 00:00: mouth [place] 00 daily. Medical Branch albuterol 2020-0 Yes [id number] 1.25mg Use 3 mL [facility] 1.25 mg/3 6-29 as ity of mL 00:00: directed [place] nebulizer 00 every 6 Medical solution (six) Branch hours as needed for Wheezing. budesonide- 2020-0 Yes [id number] 2{puff} Inhale 2 [facility] formoteroL 6-29 Puffs 2 ity of 160-4.5 00:00: (two) [place] mcg/actuati 00 times Medical on inhaler daily. Branch amoxicillin 2020-0 Yes [id number] 1{tbl} Take 1 [facility] -clavulanat 6-29 tablet by ity of e 00:00: mouth 2 [place] (AUGMENTIN) 00 (two) Medical 875-125 mg times Branch per tablet daily. lisinopril 2020-0 Yes [id number] 10mg Take 1 [facility] nivers 10 mg 6-29 tablet by ity of tablet 00:00: mouth [place] 00 daily. Medical Branch albuterol 2020-0 Yes [id number] 1.25mg Use 3 mL [facility] 1.25 mg/3 6-29 as ity of mL 00:00: directed [place] nebulizer 00 every 6 Medical solution (six) Branch hours as needed for Wheezing. budesonide- 2020-0 Yes [id number] 2{puff} Inhale 2 [facility] formoteroL 6-29 Puffs 2 ity of 160-4.5 00:00: (two) [place] mcg/actuati 00 times Medical on inhaler daily. Branch amoxicillin 2020-0 Yes [id number] 1{tbl} Take 1 [facility] -clavulanat 6-29 tablet by ity of e 00:00: mouth 2 [place] (AUGMENTIN) 00 (two) Medical 875-125 mg times Branch per tablet daily. lisinopril 2020-0 Yes [id number] 10mg Take 1 [facility] nivers 10 mg 6-29 tablet by ity of tablet 00:00: mouth [place] 00 daily. Medical Branch albuterol 2020-0 Yes [id number] 1.25mg Use 3 mL [facility] 1.25 mg/3 6-29 as ity of mL 00:00: directed [place] nebulizer 00 every 6 Medical solution (six) Branch hours as needed for Wheezing. budesonide- 2020-0 Yes [id number] 2{puff} Inhale 2 [facility] formoteroL 6-29 Puffs 2 ity of 160-4.5 00:00: (two) [place] mcg/actuati 00 times Medical on inhaler daily. Branch amoxicillin 2020-0 Yes [id number] 1{tbl} Take 1 [facility] -clavulanat 6-29 tablet by ity of e 00:00: mouth 2 [place] (AUGMENTIN) 00 (two) Medical 875-125 mg times Branch per tablet daily. lisinopril 2020-0 Yes [id number] 10mg Take 1 [facility] nivers 10 mg 6-29 tablet by ity of tablet 00:00: mouth [place] 00 daily. Medical Branch albuterol 2020-0 Yes [id number] 1.25mg Use 3 mL [facility] 1.25 mg/3 6-29 as ity of mL 00:00: directed [place] nebulizer 00 every 6 Medical solution (six) Branch hours as needed for Wheezing. budesonide- 2020-0 Yes [id number] 2{puff} Inhale 2 [facility] formoteroL 6-29 Puffs 2 ity of 160-4.5 00:00: (two) [place] mcg/actuati 00 times Medical on inhaler daily. Branch amoxicillin 2020-0 Yes [id number] 1{tbl} Take 1 [facility] -clavulanat 6-29 tablet by ity of e 00:00: mouth 2 [place] (AUGMENTIN) 00 (two) Medical 875-125 mg times Branch per tablet daily. lisinopril 2020-0 Yes [id number] 10mg Take 1 [facility] nivers 10 mg 6-29 tablet by ity of tablet 00:00: mouth [place] 00 daily. Medical Branch albuterol 2020-0 Yes [id number] 1.25mg Use 3 mL [facility] 1.25 mg/3 6-29 as ity of mL 00:00: directed [place] nebulizer 00 every 6 Medical solution (six) Branch hours as needed for Wheezing. budesonide- 2020-0 Yes [id number] 2{puff} Inhale 2 [facility] formoteroL 6-29 Puffs 2 ity of 160-4.5 00:00: (two) [place] mcg/actuati 00 times Medical on inhaler daily. Branch amoxicillin 2020-0 Yes [id number] 1{tbl} Take 1 [facility] -clavulanat 6-29 tablet by ity of e 00:00: mouth 2 [place] (AUGMENTIN) 00 (two) Medical 875-125 mg times Branch per tablet daily. lisinopril 2020-0 Yes [id number] 10mg Take 1 [facility] nivers 10 mg 6-29 tablet by ity of tablet 00:00: mouth [place] 00 daily. Medical Branch albuterol 2020-0 Yes [id number] 1.25mg Use 3 mL [facility] 1.25 mg/3 6-29 as ity of mL 00:00: directed [place] nebulizer 00 every 6 Medical solution (six) Branch hours as needed for Wheezing. budesonide- 2020-0 Yes [id number] 2{puff} Inhale 2 [facility] formoteroL 6-29 Puffs 2 ity of 160-4.5 00:00: (two) [place] mcg/actuati 00 times Medical on inhaler daily. Branch amoxicillin 2019-0 Yes [id number] 1{tbl} Take 1 [facility] -clavulanat 6-29 tablet by ity of e 00:00: mouth 2 [place] (AUGMENTIN) 00 (two) Medical 875-125 mg times Branch per tablet daily. lisinopril 2020-0 Yes [id number] 10mg Take 1 U nivers 10 mg 6-29 tablet by ity of tablet 00:00: mouth [place] 00 daily. Medical Branch albuterol 2020-0 Yes [id number] 1.25mg Use 3 mL [facility] 1.25 mg/3 6-29 as ity of mL 00:00: directed [place] nebulizer 00 every 6 Medical solution (six) Branch hours as needed for Wheezing. budesonide- 2020-0 Yes [id number] 2{puff} Inhale 2 [facility] formoteroL 6-29 Puffs 2 ity of 160-4.5 00:00: (two) [place] mcg/actuati 00 times Medical on inhaler daily. Branch amoxicillin 2020-0 Yes [id number] 1{tbl} Take 1 [facility] -clavulanat 6-29 tablet by ity of e 00:00: mouth 2 [place] (AUGMENTIN) 00 (two) Medical 875-125 mg times Branch per tablet daily. lisinopril 2020-0 Yes [id number] 10mg Take 1 U nivers 10 mg 6-29 tablet by ity of tablet 00:00: mouth [place] 00 daily. Medical Branch albuterol 2020-0 Yes [id number] 1.25mg Use 3 mL [facility] 1.25 mg/3 6-29 as ity of mL 00:00: directed [place] nebulizer 00 every 6 Medical solution (six) Branch hours as needed for Wheezing. budesonide- 2020-0 Yes [id number] 2{puff} Inhale 2 [facility] formoteroL 6-29 Puffs 2 ity of 160-4.5 00:00: (two) [place] mcg/actuati 00 times Medical on inhaler daily. Branch amoxicillin 2020-0 Yes [id number] 1{tbl} Take 1 [facility] -clavulanat 6-29 tablet by ity of e 00:00: mouth 2 [place] (AUGMENTIN) 00 (two) Medical 875-125 mg times Branch per tablet daily. lisinopril 2020-0 Yes [id number] 10mg Take 1 U nivers 10 mg 6-29 tablet by ity of tablet 00:00: mouth [place] 00 daily. Medical Branch albuterol 2020-0 Yes [id number] 1.25mg Use 3 mL [facility] 1.25 mg/3 6-29 as ity of mL 00:00: directed [place] nebulizer 00 every 6 Medical solution (six) Branch hours as needed for Wheezing. budesonide- 2020-0 Yes [id number] 2{puff} Inhale 2 [facility] formoteroL 6-29 Puffs 2 ity of 160-4.5 00:00: (two) [place] mcg/actuati 00 times Medical on inhaler daily. Branch amoxicillin 2020-0 Yes [id number] 1{tbl} Take 1 [facility] -clavulanat 6-29 tablet by ity of e 00:00: mouth 2 [place] (AUGMENTIN) 00 (two) Medical 875-125 mg times Branch per tablet daily. lisinopril 2020-0 Yes [id number] 10mg Take 1 U nivers 10 mg 6-29 tablet by ity of tablet 00:00: mouth [place] 00 daily. Medical Branch albuterol 2020-0 Yes [id number] 1.25mg Use 3 mL [facility] 1.25 mg/3 6-29 as ity of mL 00:00: directed [place] nebulizer 00 every 6 Medical solution (six) Branch hours as needed for Wheezing. budesonide- 2020-0 Yes [id number] 2{puff} Inhale 2 [facility] formoteroL 6-29 Puffs 2 ity of 160-4.5 00:00: (two) [place] mcg/actuati 00 times Medical on inhaler daily. Branch amoxicillin 2020-0 Yes [id number] 1{tbl} Take 1 [facility] -clavulanat 6-29 tablet by ity of e 00:00: mouth 2 [place] (AUGMENTIN) 00 (two) Medical 875-125 mg times Branch per tablet daily. lisinopril 2020-0 Yes [id number] 10mg Take 1 U nivers 10 mg 6-29 tablet by ity of tablet 00:00: mouth [place] 00 daily. Medical Branch albuterol 2020-0 Yes [id number] 1.25mg Use 3 mL [facility] 1.25 mg/3 6-29 as ity of mL 00:00: directed [place] nebulizer 00 every 6 Medical solution (six) Branch hours as needed for Wheezing. budesonide- 2020-0 Yes [id number] 2{puff} Inhale 2 [facility] formoteroL 6-29 Puffs 2 ity of 160-4.5 00:00: (two) [place] mcg/actuati 00 times Medical on inhaler daily. Branch amoxicillin 2020-0 Yes [id number] 1{tbl} Take 1 [facility] -clavulanat 6-29 tablet by ity of e 00:00: mouth 2 [place] (AUGMENTIN) 00 (two) Medical 875-125 mg times Branch per tablet daily. lisinopril 2020-0 Yes [id number] 10mg Take 1 U nivers 10 mg 6-29 tablet by ity of tablet 00:00: mouth [place] 00 daily. Medical Branch albuterol 2020-0 Yes [id number] 1.25mg Use 3 mL [facility] 1.25 mg/3 6-29 as ity of mL 00:00: directed [place] nebulizer 00 every 6 Medical solution (six) Branch hours as needed for Wheezing. budesonide- 2020-0 Yes [id number] 2{puff} Inhale 2 [facility] formoteroL 6-29 Puffs 2 ity of 160-4.5 00:00: (two) [place] mcg/actuati 00 times Medical on inhaler daily. Branch amoxicillin 2020-0 Yes [id number] 1{tbl} Take 1 [facility] -clavulanat 6-29 tablet by ity of e 00:00: mouth 2 [place] (AUGMENTIN) 00 (two) Medical 875-125 mg times Branch per tablet daily. lisinopril 2020-0 Yes [id number] 10mg Take 1 U nivers 10 mg 6-29 tablet by ity of tablet 00:00: mouth [place] 00 daily. Medical Branch albuterol 2020-0 Yes [id number] 1.25mg Use 3 mL [facility] 1.25 mg/3 6-29 as ity of mL 00:00: directed [place] nebulizer 00 every 6 Medical solution (six) Branch hours as needed for Wheezing. budesonide- 2020-0 Yes [id number] 2{puff} Inhale 2 [facility] formoteroL 6-29 Puffs 2 ity of 160-4.5 00:00: (two) [place] mcg/actuati 00 times Medical on inhaler daily. Branch amoxicillin 2020-0 Yes [id number] 1{tbl} Take 1 [facility] -clavulanat 6-29 tablet by ity of e 00:00: mouth 2 [place] (AUGMENTIN) 00 (two) Medical 875-125 mg times Branch per tablet daily. lisinopril 2020-0 Yes [id number] 10mg Take 1 U nivers 10 mg 6-29 tablet by ity of tablet 00:00: mouth [place] 00 daily. Medical Branch albuterol 2020-0 Yes [id number] 1.25mg Use 3 mL [facility] 1.25 mg/3 6-29 as ity of mL 00:00: directed [place] nebulizer 00 every 6 Medical solution (six) Branch hours as needed for Wheezing. budesonide- 2020-0 Yes [id number] 2{puff} Inhale 2 [facility] formoteroL 6-29 Puffs 2 ity of 160-4.5 00:00: (two) [place] mcg/actuati 00 times Medical on inhaler daily. Branch amoxicillin 2020-0 Yes [id number] 1{tbl} Take 1 [facility] -clavulanat 6-29 tablet by ity of e 00:00: mouth 2 [place] (AUGMENTIN) 00 (two) Medical 875-125 mg times Branch per tablet daily. lisinopril 2020-0 Yes [id number] 10mg Take 1 U nivers 10 mg 6-29 tablet by ity of tablet 00:00: mouth [place] 00 daily. Medical Branch albuterol 2020-0 Yes [id number] 1.25mg Use 3 mL [facility] 1.25 mg/3 6-29 as ity of mL 00:00: directed [place] nebulizer 00 every 6 Medical solution (six) Branch hours as needed for Wheezing. budesonide- 2020-0 Yes [id number] 2{puff} Inhale 2 [facility] formoteroL 6-29 Puffs 2 ity of 160-4.5 00:00: (two) [place] mcg/actuati 00 times Medical on inhaler daily. Branch amoxicillin 2020-0 Yes [id number] 1{tbl} Take 1 [facility] -clavulanat 6-29 tablet by ity of e 00:00: mouth 2 [place] (AUGMENTIN) 00 (two) Medical 875-125 mg times Branch per tablet daily. lisinopril 2020-0 Yes [id number] 10mg Take 1 U nivers 10 mg 6-29 tablet by ity of tablet 00:00: mouth [place] 00 daily. Medical Branch albuterol 2020-0 Yes [id number] 1.25mg Use 3 mL [facility] 1.25 mg/3 6-29 as ity of mL 00:00: directed [place] nebulizer 00 every 6 Medical solution (six) Branch hours as needed for Wheezing. budesonide- 2020-0 Yes [id number] 2{puff} Inhale 2 [facility] formoteroL 6-29 Puffs 2 ity of 160-4.5 00:00: (two) [place] mcg/actuati 00 times Medical on inhaler daily. Branch amoxicillin 2020-0 Yes [id number] 1{tbl} Take 1 [facility] -clavulanat 6-29 tablet by ity of e 00:00: mouth 2 [place] (AUGMENTIN) 00 (two) Medical 875-125 mg times Branch per tablet daily. lisinopril 2020-0 Yes [id number] 10mg Take 1 U nivers 10 mg 6-29 tablet by ity of tablet 00:00: mouth [place] 00 daily. Medical Branch albuterol 2020-0 Yes [id number] 1.25mg Use 3 mL [facility] 1.25 mg/3 6-29 as ity of mL 00:00: directed [place] nebulizer 00 every 6 Medical solution (six) Branch hours as needed for Wheezing. budesonide- 2020-0 Yes [id number] 2{puff} Inhale 2 [facility] formoteroL 6-29 Puffs 2 ity of 160-4.5 00:00: (two) [place] mcg/actuati 00 times Medical on inhaler daily. Branch amoxicillin 2020-0 Yes [id number] 1{tbl} Take 1 [facility] -clavulanat 6-29 tablet by ity of e 00:00: mouth 2 [place] (AUGMENTIN) 00 (two) Medical 875-125 mg times Branch per tablet daily. lisinopril 2020-0 Yes [id number] 10mg Take 1 U nivers 10 mg 6-29 tablet by ity of tablet 00:00: mouth [place] 00 daily. Medical Branch albuterol 2020-0 Yes [id number] 1.25mg Use 3 mL [facility] 1.25 mg/3 6-29 as ity of mL 00:00: directed [place] nebulizer 00 every 6 Medical solution (six) Branch hours as needed for Wheezing. budesonide- 2020-0 Yes [id number] 2{puff} Inhale 2 [facility] formoteroL 6-29 Puffs 2 ity of 160-4.5 00:00: (two) [place] mcg/actuati 00 times Medical on inhaler daily. Branch amoxicillin 2019-0 Yes [id number] 1{tbl} Take 1 [facility] -clavulanat 6-29 tablet by ity of e 00:00: mouth 2 [place] (AUGMENTIN) 00 (two) Medical 875-125 mg times Branch per tablet daily. lisinopril 2020-0 Yes [id number] 10mg Take 1 U nivers 10 mg 6-29 tablet by ity of tablet 00:00: mouth [place] 00 daily. Medical Branch albuterol 2020-0 Yes [id number] 1.25mg Use 3 mL [facility] 1.25 mg/3 6-29 as ity of mL 00:00: directed [place] nebulizer 00 every 6 Medical solution (six) Branch hours as needed for Wheezing. budesonide- 2020-0 Yes [id number] 2{puff} Inhale 2 [facility] formoteroL 6-29 Puffs 2 ity of 160-4.5 00:00: (two) [place] mcg/actuati 00 times Medical on inhaler daily. Branch amoxicillin 2020-0 Yes [id number] 1{tbl} Take 1 [facility] -clavulanat 6-29 tablet by ity of e 00:00: mouth 2 [place] (AUGMENTIN) 00 (two) Medical 875-125 mg times Branch per tablet daily. lisinopril 2020-0 Yes [id number] 10mg Take 1 U nivers 10 mg 6-29 tablet by ity of tablet 00:00: mouth [place] 00 daily. Medical Branch albuterol 2020-0 Yes [id number] 1.25mg Use 3 mL [facility] 1.25 mg/3 6-29 as ity of mL 00:00: directed [place] nebulizer 00 every 6 Medical solution (six) Branch hours as needed for Wheezing. budesonide- 2020-0 Yes [id number] 2{puff} Inhale 2 [facility] formoteroL 6-29 Puffs 2 ity of 160-4.5 00:00: (two) [place] mcg/actuati 00 times Medical on inhaler daily. Branch amoxicillin 2020-0 Yes [id number] 1{tbl} Take 1 [facility] -clavulanat 6-29 tablet by ity of e 00:00: mouth 2 [place] (AUGMENTIN) 00 (two) Medical 875-125 mg times Branch per tablet daily. lisinopril 2020-0 Yes [id number] 10mg Take 1 U nivers 10 mg 6-29 tablet by ity of tablet 00:00: mouth [place] 00 daily. Medical Branch albuterol 2020-0 Yes [id number] 1.25mg Use 3 mL [facility] 1.25 mg/3 6-29 as ity of mL 00:00: directed [place] nebulizer 00 every 6 Medical solution (six) Branch hours as needed for Wheezing. budesonide- 2020-0 Yes [id number] 2{puff} Inhale 2 [facility] formoteroL 6-29 Puffs 2 ity of 160-4.5 00:00: (two) [place] mcg/actuati 00 times Medical on inhaler daily. Branch amoxicillin 2020-0 Yes [id number] 1{tbl} Take 1 [facility] -clavulanat 6-29 tablet by ity of e 00:00: mouth 2 [place] (AUGMENTIN) 00 (two) Medical 875-125 mg times Branch per tablet daily. lisinopril 2020-0 Yes [id number] 10mg Take 1 U nivers 10 mg 6-29 tablet by ity of tablet 00:00: mouth [place] 00 daily. Medical Branch LISINOPRIL 2020-0 Yes [id number] TAKE ONE [facility] 2.5 mg 3-06 TABLET BY ity of tablet 00:00: MOUTH [place] 00 DAILY Medical Branch LISINOPRIL 2020-0 Yes [id number] TAKE ONE [facility] 2.5 mg 3-06 TABLET BY ity of tablet 00:00: MOUTH [place] 00 DAILY Medical Branch LISINOPRIL 2020-0 Yes [id number] TAKE ONE [facility] 2.5 mg 3-06 TABLET BY ity of tablet 00:00: MOUTH [place] 00 DAILY Medical Branch LISINOPRIL 2020-0 Yes [id number] TAKE ONE [facility] 2.5 mg 3-06 TABLET BY ity of tablet 00:00: [facility] 00 DAILY Medical Branch LISINOPRIL 2020-0 Yes [id number] TAKE ONE [facility] 2.5 mg 3-06 TABLET BY ity of tablet 00:00: [facility] 00 DAILY Medical Branch LISINOPRIL 2020-0 Yes [id number] TAKE ONE [facility] 2.5 mg 3-06 TABLET BY ity of tablet 00:00: [facility] 00 DAILY Medical Branch LISINOPRIL 2020-0 Yes [id number] TAKE ONE [facility] 2.5 mg 3-06 TABLET BY ity of tablet 00:00: [facility] 00 DAILY Medical Branch LISINOPRIL 2020-0 2020- No [id number] TAKE ONE [facility] 2.5 mg 3-06 06-29 TABLET BY ity of tablet 00:00: 00:00 [facility] 00 :00 DAILY Medical Branch LISINOPRIL 2020-0 2020- No [id number] TAKE ONE [facility] 2.5 mg 3-06 06-29 TABLET BY ity of tablet 00:00: 00:00 [facility] 00 :00 DAILY Medical Branch Insulin 2020-0 Yes 24U inject 24 Unive rs Gl[place]ine 1-08 Units ity of (LANTUS 00:00: under the [facility] 00 skin every Medic al U-100 morning. Branch INSULIN) 100 unit/mL (3 mL) injection Insulin 2020-0 Yes 24U inject 24 Unive rs Glargine 1-08 Units ity of (LANTUS 00:00: under the [place] SOLOSTIN 00 skin every Medic al U-100 morning. Branch INSULIN) 100 unit/mL (3 mL) injection Insulin 2020-0 Yes 24U inject 24 Unive rs Gl[place]ine 1-08 Units ity of (LANTUS 00:00: under the [place] SOLOSTAR 00 skin every Medic al U-100 morning. Branch INSULIN) 100 unit/mL (3 mL) injection Insulin 2020-0 Yes 24U inject 24 Unive rs Gl[place]ine 1-08 Units ity of (LANTUS 00:00: under the [place] [facility] 00 skin every Medic al U-100 morning. Branch INSULIN) 100 unit/mL (3 mL) injection Insulin 2020-0 Yes 24U inject 24 Unive rs [place] 1-08 Units ity of (LANTUS 00:00: under the [place] SOLOST[facility] 00 skin every Medic al U-100 morning. Branch INSULIN) 100 unit/mL (3 mL) injection Insulin 2020-0 Yes 24U inject 24 Unive rs [place]ine 1-08 Units ity of (LANTUS 00:00: under the [place] [facility] 00 skin every Medic al U-100 morning. Branch INSULIN) 100 unit/mL (3 mL) injection Insulin 2020-0 Yes 24U inject 24 Unive rs [place] 1-08 Units ity of (LANTUS 00:00: under the [place] SOLOSTAR 00 skin every Medic al U-100 morning. Branch INSULIN) 100 unit/mL (3 mL) injection Insulin 2020-0 Yes 24U inject 24 Unive rs Gl[place]ine 1-08 Units ity of (LANTUS 00:00: under the [place] [facility] 00 skin every Medic al U-100 morning. Branch INSULIN) 100 unit/mL (3 mL) injection Insulin 2020-0 Yes 24U inject 24 Unive rs [place]ine 1-08 Units ity of (LANTUS 00:00: under the [place] [facility] 00 skin every Medic al U-100 morning. Branch INSULIN) 100 unit/mL (3 mL) injection Insulin 2020-0 Yes 24U inject 24 Unive rs Gl[place]ine 1-08 Units ity of (LANTUS 00:00: under the [place] [facility] 00 skin every Medic al U-100 morning. Branch INSULIN) 100 unit/mL (3 mL) injection Insulin 2020-0 Yes 24U inject 24 Unive rs Gl[place]ine 1-08 Units ity of (LANTUS 00:00: under the [place] [facility] 00 skin every Medic al U-100 morning. Branch INSULIN) 100 unit/mL (3 mL) injection Insulin 2020-0 Yes 24U inject 24 Unive rs [place]ine 1-08 Units ity of (LANTUS 00:00: under the [place] [facility] 00 skin every Medic al U-100 morning. Branch INSULIN) 100 unit/mL (3 mL) injection Insulin 2020-0 Yes 24U inject 24 Unive rs [place]ine 1-08 Units ity of (LANTUS 00:00: under the [place] SOLOST[facility] 00 skin every Medic al U-100 morning. Branch INSULIN) 100 unit/mL (3 mL) injection Insulin 2020-0 Yes 24U inject 24 Unive rs Glargine 1-08 Units ity of (LANTUS 00:00: under the [place] [facility] 00 skin every Medic al U-100 morning. Branch INSULIN) 100 unit/mL (3 mL) injection Insulin 2020-0 Yes 24U inject 24 Unive rs Glargine 1-08 Units ity of (LANTUS 00:00: under the [place] [facility] 00 skin every Medic al U-100 morning. Branch INSULIN) 100 unit/mL (3 mL) injection Insulin 2020-0 Yes 24U inject 24 Unive rs Glargine 1-08 Units ity of (LANTUS 00:00: under the [place] [facility] 00 skin every Medic al U-100 morning. Branch INSULIN) 100 unit/mL (3 mL) injection Insulin 2020-0 Yes 24U inject 24 Unive rs Glargine 1-08 Units ity of (LANTUS 00:00: under the [place] SOL[facility] 00 skin every Medic al U-100 morning. Branch INSULIN) 100 unit/mL (3 mL) injection Insulin 2020-0 Yes 24U inject 24 Unive rs Glargine 1-08 Units ity of (LANTUS 00:00: under the [place] SOL[facility] 00 skin every Medic al U-100 morning. Branch INSULIN) 100 unit/mL (3 mL) injection Insulin 2020-0 Yes 24U inject 24 Unive rs Glargine 1-08 Units ity of (LANTUS 00:00: under the [place] SOLOSTAR 00 skin every Medic al U-100 morning. Branch INSULIN) 100 unit/mL (3 mL) injection Insulin 2020-0 Yes 24U inject 24 Unive rs Glargine 1-08 Units ity of (LANTUS 00:00: under the [place] SOLOSTAR 00 skin every Medic al U-100 morning. Branch INSULIN) 100 unit/mL (3 mL) injection Insulin 2020-0 Yes 24U inject 24 Unive rs Glargine 1-08 Units ity of (LANTUS 00:00: under the [place] SOLOSTAR 00 skin every Medic al U-100 morning. Branch INSULIN) 100 unit/mL (3 mL) injection Insulin 2020-0 Yes 24U inject 24 Unive rs Glargine 1-08 Units ity of (LANTUS 00:00: under the [place] SOLOSTAR 00 skin every Medic al U-100 morning. Branch INSULIN) 100 unit/mL (3 mL) injection Insulin 2020-0 Yes 24U inject 24 Unive rs Glargine 1-08 Units ity of (LANTUS 00:00: under the [place] SOLOSTAR 00 skin every Medic al U-100 morning. Branch INSULIN) 100 unit/mL (3 mL) injection Insulin 2020-0 Yes 24U inject 24 Unive rs Glargine 1-08 Units ity of (LANTUS 00:00: under the [place] SOL[facility] 00 skin every Medic al U-100 morning. Branch INSULIN) 100 unit/mL (3 mL) injection Insulin 2020-0 Yes 24U inject 24 Unive rs Glargine 1-08 Units ity of (LANTUS 00:00: under the [place] SOL[facility] 00 skin every Medic al U-100 morning. Branch INSULIN) 100 unit/mL (3 mL) injection Insulin 2020-0 Yes 24U inject 24 Unive rs Glargine 1-08 Units ity of (LANTUS 00:00: under the [place] SOLOST[facility] 00 skin every Medic al U-100 morning. Branch INSULIN) 100 unit/mL (3 mL) injection Insulin 2020-0 Yes 24U inject 24 Unive rs Glargine 1-08 Units ity of (LANTUS 00:00: under the [place] SOLOSTAR 00 skin every Medic al U-100 morning. Branch INSULIN) 100 unit/mL (3 mL) injection Insulin 2020-0 Yes 24U inject 24 Unive rs Glargine 1-08 Units ity of ([place]US 00:00: under the [place] SOLOSTAR 00 skin every Medic al U-100 morning. Branch INSULIN) 100 unit/mL (3 mL) injection Insulin 2020-0 Yes 24U inject 24 Unive rs Glargine 1-08 Units ity of (L[place]US 00:00: under the [place] SOLOSTAR 00 skin every Medic al U-100 morning. Branch INSULIN) 100 unit/mL (3 mL) injection Insulin 2020-0 Yes 24U inject 24 Unive rs Glargine 1-08 Units ity of (LANTUS 00:00: under the [place] SOLOSTAR 00 skin every Medic al U-100 morning. Branch INSULIN) 100 unit/mL (3 mL) injection Insulin 2020-0 Yes 24U inject 24 Unive rs Glargine 1-08 Units ity of (LANTUS 00:00: under the [place] SOLOSTAR 00 skin every Medic al U-100 morning. Branch INSULIN) 100 unit/mL (3 mL) injection Insulin 2020-0 Yes 24U inject 24 Unive rs Glargine 1-08 Units ity of (LANTUS 00:00: under the [place] SOLOST[facility] 00 skin every Medic al U-100 morning. Branch INSULIN) 100 unit/mL (3 mL) injection Insulin 2020-0 Yes 24U inject 24 Unive rs Glargine 1-08 Units ity of (L[place]US 00:00: under the [place] SOLOSTAR 00 skin every Medic al U-100 morning. Branch INSULIN) 100 unit/mL (3 mL) injection Insulin 2020-0 Yes 24U inject 24 Unive rs Glargine 1-08 Units ity of ([place]ANTUS 00:00: under the [place] SOLOST[facility] 00 skin every Medic al U-100 morning. Branch INSULIN) 100 unit/mL (3 mL) injection Insulin 2020-0 Yes 24U inject 24 Unive rs Glargine 1-08 Units ity of (LANTUS 00:00: under the [place] SOLOST[facility] 00 skin every Medic al U-100 morning. Branch INSULIN) 100 unit/mL (3 mL) injection Insulin 2020-0 Yes 24U inject 24 Unive rs Glargine 1-08 Units ity of ([place]ANTUS 00:00: under the [place] SOLOST[facility] 00 skin every Medic al U-100 morning. Branch INSULIN) 100 unit/mL (3 mL) injection Insulin 2020-0 Yes 24U inject 24 Unive rs Glargine 1-08 Units ity of ([place]US 00:00: under the [place] SOLOST[facility] 00 skin every Medic al U-100 morning. Branch INSULIN) 100 unit/mL (3 mL) injection Insulin 2020-0 Yes 24U inject 24 Unive rs Glargine 1-08 Units ity of ([place]ANTUS 00:00: under the [place] SOLOST[facility] 00 skin every Medic al U-100 morning. Branch INSULIN) 100 unit/mL (3 mL) injection Insulin 2020-0 Yes 24U inject 24 Unive rs Glargine 1-08 Units ity of ([place] 00:00: under the [place] SOLOST[facility] 00 skin every Medic al U-100 morning. Branch INSULIN) 100 unit/mL (3 mL) injection Insulin 2020-0 Yes 24U inject 24 Unive rs Glargine 1-08 Units ity of ([place] 00:00: under the [place] SOLOSTAR 00 skin every Medic al U-100 morning. Branch INSULIN) 100 unit/mL (3 mL) injection Insulin 2020-0 Yes 24U inject 24 Unive rs Glargine 1-08 Units ity of (LANTUS 00:00: under the [place] SOLOST[facility] 00 skin every Medic al U-100 morning. Branch INSULIN) 100 unit/mL (3 mL) injection Insulin 2020-0 Yes 24U inject 24 Unive rs Glargine 1-08 Units ity of (LANTUS 00:00: under the [place] SOLOST[facility] 00 skin every Medic al U-100 morning. Branch INSULIN) 100 unit/mL (3 mL) injection dapaglifloz 2020-0 Yes [id number] 5mg Take 1 [facility] in 1-07 tablet by ity of (FARXIGA) 5 00:00: mouth [place] mg tablet 00 every Medical morning. Branch dapaglifloz 2020-0 Yes [id number] 5mg Take 1 [facility] in 1-07 tablet by ity of (FARXIGA) 5 00:00: mouth [place] mg tablet 00 every Medical morning. Branch dapaglifloz 2020-0 Yes [id number] 5mg Take 1 [facility] in 1-07 tablet by ity of (FARXIGA) 5 00:00: mouth [place] mg tablet 00 every Medical morning. Branch dapaglifloz 2020-0 Yes [id number] 5mg Take 1 [facility] in 1-07 tablet by ity of ([place]) 5 00:00: mouth [place] mg tablet 00 every Medical morning. Branch dapaglifloz 2020-0 Yes [id number] 5mg Take 1 [facility] in 1-07 tablet by ity of ([facility] ([place] [place] 5 00:00: mouth [place] mg tablet 00 every Medical morning. Branch dapaglifloz 2020-0 Yes [id number] 5mg Take 1 Univers in 1-07 tablet by ity of ([facility] ([place] [place] 5 00:00: mouth [place] mg tablet 00 every Medical morning. Branch dapaglifloz 2020-0 Yes [id number] 5mg Take 1 [facility] in 1-07 tablet by ity of ([facility] ([place] [place] 5 00:00: mouth [place] mg tablet 00 every Medical morning. Branch dapaglifloz 2020-0 Yes [id number] 5mg Take 1 Univers in 1-07 tablet by ity of ([facility] ([place] [place] 5 00:00: mouth [place] mg tablet 00 every Medical morning. Branch dapaglifloz 2020-0 Yes [id number] 5mg Take 1 Univers in 1-07 tablet by ity of ([facility] ([place] [place] 5 00:00: mouth [place] mg tablet 00 every Medical morning. Branch dapaglifloz 2020-0 Yes [id number] 5mg Take 1 [facility] in 1-07 tablet by ity of ([place]) 5 00:00: mouth [place] mg tablet 00 every Medical morning. Branch dapaglifloz 2020-0 Yes [id number] 5mg Take 1 [facility] in 1-07 tablet by ity of ([facility] ([place] [place] 5 00:00: mouth [place] mg tablet 00 every Medical morning. Branch dapaglifloz 2020-0 2020- No [id number] 5mg Take 1 [facility] in 1-07 07-08 tablet by ity of ([place]) 5 00:00: 00:00 [place] tablet 00 :00 every Medical morning. Branch blood sugar 2018-09 Yes [id number] Use as Univers diagnostic 2-18 directed ity o f (ONETOUCH 00:00: BID E11.65 [place] ULTRA BLUE 00 Medical TEST STRIP) Branch strip blood sugar 2018-09 Yes [id number] Use as [facility] diagnostic 2-18 directed ity o f (ONETOUCH 00:00: BID E11.65 [place] ULTRA BLUE 00 Medical TEST STRIP) Branch strip blood sugar 2018-09 Yes [id number] Use as [facility] diagnostic 2-18 directed ity o f (ONETOUCH 00:00: BID E11.65 [place] ULTRA BLUE 00 Medical TEST STRIP) Branch strip blood sugar 2018-09 Yes [id number] Use as [facility] diagnostic 2-18 directed ity o f (ONETOUCH 00:00: BID E11.65 [place] ULTRA BLUE 00 Medical TEST STRIP) Branch strip blood sugar 2018-09 Yes [id number] Use as [facility] diagnostic 2-18 directed ity o f (ONETOUCH 00:00: BID E11.65 [place] ULTRA BLUE 00 Medical TEST STRIP) Branch strip blood sugar 2018-09 Yes [id number] Use as [facility] diagnostic 2-18 directed ity o f (ONETOUCH 00:00: BID E11.65 [place] ULTRA BLUE 00 Medical TEST STRIP) Branch strip blood sugar 2018-09 Yes [id number] Use as [facility] diagnostic 2-18 directed ity o f (ONETOUCH 00:00: BID E11.65 [place] ULTRA BLUE 00 Medical TEST STRIP) Branch strip blood sugar 2018-09 Yes [id number] Use as [facility] diagnostic 2-18 directed ity o f (ONETOUCH 00:00: BID E11.65 [place] ULTRA BLUE 00 Medical TEST STRIP) Branch strip blood sugar 2018-09 Yes [id number] Use as [facility] diagnostic 2-18 directed ity o f (ONETOUCH 00:00: BID E11.65 [place] ULTRA BLUE 00 Medical TEST STRIP) Branch strip blood sugar 2018-09 Yes [id number] Use as [facility] diagnostic 2-18 directed ity o f (ONETOUCH 00:00: BID E11.65 [place] ULTRA BLUE 00 Medical TEST STRIP) Branch strip blood sugar 2018-09 Yes [id number] Use as [facility] diagnostic 2-18 directed ity o f (ONETOUCH 00:00: BID E11.65 [place] ULTRA BLUE 00 Medical TEST STRIP) Branch strip blood sugar 2018-09 Yes [id number] Use as [facility] diagnostic 2-18 directed ity o f (ONETOUCH 00:00: BID E11.65 [place] ULTRA BLUE 00 Medical TEST STRIP) Branch strip blood sugar 2018-09 Yes [id number] Use as [facility] diagnostic 2-18 directed ity o f (ONETOUCH 00:00: BID E11.65 [place] ULTRA BLUE 00 Medical TEST STRIP) Branch strip blood sugar 2018-09 Yes [id number] Use as [facility] diagnostic 2-18 directed ity o f (ONETOUCH 00:00: BID E11.65 [place] ULTRA BLUE 00 Medical TEST STRIP) Branch strip blood sugar 2018-09 Yes [id number] Use as Univers diagnostic 2-18 directed ity o f (ONETOUCH 00:00: BID E11.65 [place] ULTRA BLUE 00 Medical TEST STRIP) Branch strip blood sugar 2018-09 Yes [id number] Use as Univers diagnostic 2-18 directed ity o f (ONETOUCH 00:00: BID E11.65 [place] ULTRA BLUE 00 Medical TEST STRIP) Branch strip blood sugar 2018-09 Yes [id number] Use as [facility] diagnostic 2-18 directed ity o f (ONETOUCH 00:00: BID E11.65 [place] ULTRA BLUE 00 Medical TEST STRIP) Branch strip blood sugar 2018-09 Yes [id number] Use as [facility] diagnostic 2-18 directed ity o f (ONETOUCH 00:00: BID E11.65 [place] ULTRA BLUE 00 Medical TEST STRIP) Branch strip blood sugar 2018-09 Yes [id number] Use as [facility] diagnostic 2-18 directed ity o f (ONETOUCH 00:00: BID E11.65 [place] ULTRA BLUE 00 Medical TEST STRIP) Branch strip blood sugar 2018-09 Yes [id number] Use as [facility] diagnostic 2-18 directed ity o f (ONETOUCH 00:00: BID E11.65 [place] ULTRA BLUE 00 Medical TEST STRIP) Branch strip blood sugar 2018-09 Yes [id number] Use as [facility] diagnostic 2-18 directed ity o f (ONETOUCH 00:00: BID E11.65 [place] ULTRA BLUE 00 Medical TEST STRIP) Branch strip blood sugar 2018-09 Yes [id number] Use as [facility] diagnostic 2-18 directed ity o f (ONETOUCH 00:00: BID E11.65 [place] ULTRA BLUE 00 Medical TEST STRIP) Branch strip blood sugar 2018-09 Yes [id number] Use as [facility] diagnostic 2-18 directed ity o f (ONETOUCH 00:00: BID E11.65 [place] ULTRA BLUE 00 Medical TEST STRIP) Branch strip blood sugar 2018-09 Yes [id number] Use as [facility] diagnostic 2-18 directed ity o f (ONETOUCH 00:00: BID E11.65 [place] ULTRA BLUE 00 Medical TEST STRIP) Branch strip blood sugar 2018-09 Yes [id number] Use as [facility] diagnostic 2-18 directed ity o f (ONETOUCH 00:00: BID E11.65 [place] ULTRA BLUE 00 Medical TEST STRIP) Branch strip blood sugar 2018-09 Yes [id number] Use as [facility] diagnostic 2-18 directed ity o f (ONETOUCH 00:00: BID E11.65 [place] ULTRA BLUE 00 Medical TEST STRIP) Branch strip blood sugar 2018-09 Yes [id number] Use as [facility] diagnostic 2-18 directed ity o f (ONETOUCH 00:00: BID E11.65 [place] ULTRA BLUE 00 Medical TEST STRIP) Branch strip blood sugar 2018-09 Yes [id number] Use as [facility] diagnostic 2-18 directed ity o f (ONETOUCH 00:00: BID E11.65 [place] ULTRA BLUE 00 Medical TEST STRIP) Branch strip blood sugar 2018-09 Yes [id number] Use as [facility] diagnostic 2-18 directed ity o f (ONETOUCH 00:00: BID E11.65 [place] ULTRA BLUE 00 Medical TEST STRIP) Branch strip blood sugar 2018-09 Yes [id number] Use as [facility] diagnostic 2-18 directed ity o f (ONETOUCH 00:00: BID E11.65 [place] ULTRA BLUE 00 Medical TEST STRIP) Branch strip blood sugar 2018-09 Yes [id number] Use as [facility] diagnostic 2-18 directed ity o f (ONETOUCH 00:00: BID E11.65 [place] ULTRA BLUE 00 Medical TEST STRIP) Branch strip blood sugar 2018-09 Yes [id number] Use as [facility] diagnostic 2-18 directed ity o f (ONETOUCH 00:00: BID E11.65 [place] ULTRA BLUE 00 Medical TEST STRIP) Branch strip blood sugar 2018-09 Yes [id number] Use as [facility] diagnostic 2-18 directed ity o f (ONETOUCH 00:00: BID E11.65 [place] ULTRA BLUE 00 Medical TEST STRIP) Branch strip blood sugar 2018-09 Yes [id number] Use as [facility] diagnostic 2-18 directed ity o f (ONETOUCH 00:00: BID E11.65 [place] ULTRA BLUE 00 Medical TEST STRIP) Branch strip blood sugar 2018-09 Yes [id number] Use as [facility] diagnostic 2-18 directed ity o f (ONETOUCH 00:00: BID E11.65 [place] ULTRA BLUE 00 Medical TEST STRIP) Branch strip blood sugar 2018-09 Yes [id number] Use as [facility] diagnostic 2-18 directed ity o f (ONETOUCH 00:00: BID E11.65 [place] ULTRA BLUE 00 Medical TEST STRIP) Branch strip blood sugar 2018-09 Yes [id number] Use as [facility] diagnostic 2-18 directed ity o f (ONETOUCH 00:00: BID E11.65 [place] ULTRA BLUE 00 Medical TEST STRIP) Branch strip blood sugar 2018-09 Yes [id number] Use as [facility] diagnostic 2-18 directed ity o f (ONETOUCH 00:00: BID E11.65 [place] ULTRA BLUE 00 Medical TEST STRIP) Branch strip blood sugar 2018-09 Yes [id number] Use as [facility] diagnostic 2-18 directed ity o f (ONETOUCH 00:00: BID E11.65 [place] ULTRA BLUE 00 Medical TEST STRIP) Branch strip blood sugar 2018-09 Yes [id number] Use as [facility] diagnostic 2-18 directed ity o f (ONETOUCH 00:00: BID E11.65 [place] ULTRA BLUE 00 Medical TEST STRIP) Branch strip blood sugar 2018-09 Yes [id number] Use as [facility] diagnostic 2-18 directed ity o f (ONETOUCH 00:00: BID E11.65 [place] ULTRA BLUE 00 Medical TEST STRIP) Branch strip blood sugar 2018-09 Yes [id number] Use as [facility] diagnostic 2-18 directed ity o f (ONETOUCH 00:00: BID E11.65 [place] ULTRA BLUE 00 Medical TEST STRIP) Branch strip lisinopril 2018-09 2020- No [id number] 2.5mg Take 1 Univers 2.5 mg 2-18 03-06 tablet by ity of tablet 00:00: 00:00 mouth [place] 00 :00 daily. Medical Branch aspirin 2018-09 Yes 81mg Take 81 mg Univ ers (LO-DOSE 2-17 by mouth ity of ASPIRIN) 81 21:39: [place]. [place] mg EC 20 Medical tablet Branch aspirin 2018-09 Yes 81mg Take 81 mg Univ ers (LO-DOSE 2-17 by mouth ity of ASPIRIN) 81 21:39: daily. [place] mg EC 20 Medical tablet Branch aspirin Yes 81mg Take 81 mg Univ ers (LO-DOSE 2-17 by mouth ity of ASPIRIN) 81 21:39: daily. [place] mg EC 20 Medical tablet Branch aspirin 2018- Yes 81mg Take 81 mg Univ ers (LO-DOSE 2-17 by mouth ity of ASPIRIN) 81 21:39: daily. [place] mg EC 20 Medical tablet Branch aspirin 2018- Yes 81mg Take 81 mg Univ ers (LO-DOSE 2-17 by mouth ity of ASPIRIN) 81 21:39: daily. [place] mg EC 20 Medical tablet Branch aspirin 2018- Yes 81mg Take 81 mg Univ ers (LO-DOSE 2-17 by mouth ity of ASPIRIN) 81 21:39: daily. [place] mg EC 20 Medical tablet Branch aspirin 2018- Yes 81mg Take 81 mg Univ ers (LO-DOSE 2-17 by mouth ity of ASPIRIN) 81 21:39: daily. [place] mg EC 20 Medical tablet Branch aspirin 2018- Yes 81mg Take 81 mg Univ ers (LO-DOSE 2-17 by mouth ity of ASPIRIN) 81 21:39: daily. [place] mg EC 20 Medical tablet Branch aspirin 2018- Yes 81mg Take 81 mg Univ ers (LO-DOSE 2-17 by mouth ity of ASPIRIN) 81 21:39: daily. [place] mg EC 20 Medical tablet Branch aspirin 2018- Yes 81mg Take 81 mg Univ ers (LO-DOSE 2-17 by mouth ity of ASPIRIN) 81 21:39: daily. [place] mg EC 20 Medical tablet Branch aspirin 2018- Yes 81mg Take 81 mg Univ ers (LO-DOSE 2-17 by mouth ity of ASPIRIN) 81 21:39: daily. [place] mg EC 20 Medical tablet Branch aspirin 2018- Yes 81mg Take 81 mg Univ ers (LO-DOSE 2-17 by mouth ity of ASPIRIN) 81 21:39: daily. [place] mg EC 20 Medical tablet Branch aspirin 2018- Yes 81mg Take 81 mg Univ ers (LO-DOSE 2-17 by mouth ity of ASPIRIN) 81 21:39: daily. [place] mg EC 20 Medical tablet Branch aspirin 2018- Yes 81mg Take 81 mg Univ ers (LO-DOSE 2-17 by mouth ity of ASPIRIN) 81 21:39: daily. [place] mg EC 20 Medical tablet Branch aspirin 2018-09 Yes 81mg Take 81 mg Univ ers (LO-DOSE 2-17 by mouth ity of ASPIRIN) 81 21:39: daily. [place] mg EC 20 Medical tablet Branch aspirin 2018- Yes 81mg Take 81 mg Univ ers (LO-DOSE 2-17 by mouth ity of ASPIRIN) 81 21:39: daily. [place] mg EC 20 Medical tablet Branch aspirin 2018-09 Yes 81mg Take 81 mg Univ ers (LO-DOSE 2-17 by mouth ity of ASPIRIN) 81 21:39: daily. [place] mg EC 20 Medical tablet Branch aspirin 2018-09 Yes 81mg Take 81 mg Univ ers (LO-DOSE 2-17 by mouth ity of ASPIRIN) 81 21:39: daily. [place] mg EC 20 Medical tablet Branch aspirin 2018- Yes 81mg Take 81 mg Univ ers (LO-DOSE 2-17 by mouth ity of ASPIRIN) 81 21:39: daily. [place] mg EC 20 Medical tablet Branch aspirin 2018-09 Yes 81mg Take 81 mg Univ ers (LO-DOSE 2-17 by mouth ity of ASPIRIN) 81 21:39: daily. [place] mg EC 20 Medical tablet Branch aspirin 2018-09 Yes 81mg Take 81 mg Univ ers (LO-DOSE 2-17 by mouth ity of ASPIRIN) 81 21:39: daily. [place] mg EC 20 Medical tablet Branch aspirin 2018-09 Yes 81mg Take 81 mg Univ ers (LO-DOSE 2-17 by mouth ity of ASPIRIN) 81 21:39: daily. [place] mg EC 20 Medical tablet Branch aspirin 2018- Yes 81mg Take 81 mg Univ ers (LO-DOSE 2-17 by mouth ity of ASPIRIN) 81 21:39: daily. [place] mg EC 20 Medical tablet Branch aspirin 2018- Yes 81mg Take 81 mg Univ ers (LO-DOSE 2-17 by mouth ity of ASPIRIN) 81 21:39: daily. [place] mg EC 20 Medical tablet Branch aspirin 2018- Yes 81mg Take 81 mg Univ ers (LO-DOSE 2-17 by mouth ity of ASPIRIN) 81 21:39: daily. [place] mg EC 20 Medical tablet Branch aspirin 2018- Yes 81mg Take 81 mg Univ ers (LO-DOSE 2-17 by mouth ity of ASPIRIN) 81 21:39: daily. [place] mg EC 20 Medical tablet Branch aspirin 2018- Yes 81mg Take 81 mg Univ ers (LO-DOSE 2-17 by mouth ity of ASPIRIN) 81 21:39: daily. [place] mg EC 20 Medical tablet Branch aspirin 2018- Yes 81mg Take 81 mg Univ ers (LO-DOSE 2-17 by mouth ity of ASPIRIN) 81 21:39: daily. [place] mg EC 20 Medical tablet Branch aspirin 2018- Yes 81mg Take 81 mg Univ ers (LO-DOSE 2-17 by mouth ity of ASPIRIN) 81 21:39: daily. [place] mg EC 20 Medical tablet Branch aspirin 2018- Yes 81mg Take 81 mg Univ ers (LO-DOSE 2-17 by mouth ity of ASPIRIN) 81 21:39: daily. [place] mg EC 20 Medical tablet Branch aspirin 2018- Yes 81mg Take 81 mg Univ ers (LO-DOSE 2-17 by mouth ity of ASPIRIN) 81 21:39: daily. [place] mg EC 20 Medical tablet Branch aspirin 2018- Yes 81mg Take 81 mg Univ ers (LO-DOSE 2-17 by mouth ity of ASPIRIN) 81 21:39: daily. [place] mg EC 20 Medical tablet Branch aspirin 2018- Yes 81mg Take 81 mg Univ ers (LO-DOSE 2-17 by mouth ity of ASPIRIN) 81 21:39: daily. [place] mg EC 20 Medical tablet Branch aspirin 2018- Yes 81mg Take 81 mg Univ ers (LO-DOSE 2-17 by mouth ity of ASPIRIN) 81 21:39: daily. [place] mg EC 20 Medical tablet Branch aspirin 2018- Yes 81mg Take 81 mg Univ ers (LO-DOSE 2-17 by mouth ity of ASPIRIN) 81 21:39: daily. [place] mg EC 20 Medical tablet Branch aspirin 2018- Yes 81mg Take 81 mg Univ ers (LO-DOSE 2-17 by mouth ity of ASPIRIN) 81 21:39: daily. [place] mg EC 20 Medical tablet Branch aspirin 2018- Yes 81mg Take 81 mg Univ ers (LO-DOSE 2-17 by mouth ity of ASPIRIN) 81 21:39: daily. [place] mg EC 20 Medical tablet Branch aspirin 2018- Yes 81mg Take 81 mg Univ ers (LO-DOSE 2-17 by mouth ity of ASPIRIN) 81 21:39: daily. [place] mg EC 20 Medical tablet Branch aspirin 2018-09 Yes 81mg Take 81 mg Univ ers (LO-DOSE 2-17 by mouth ity of ASPIRIN) 81 21:39: daily. [place] mg EC 20 Medical tablet Branch aspirin 2018-09 Yes 81mg Take 81 mg Univ ers (LO-DOSE 2-17 by mouth ity of ASPIRIN) 81 21:39: daily. [place] mg EC 20 Medical tablet Branch aspirin 2018-09 Yes 81mg Take 81 mg Univ ers (LO-DOSE 2-17 by mouth ity of ASPIRIN) 81 21:39: daily. [place] mg EC 20 Medical tablet Branch aspirin 2018-09 Yes 81mg Take 81 mg Univ ers (LO-DOSE 2-17 by mouth ity of ASPIRIN) 81 21:39: daily. [place] mg EC 20 Medical tablet Branch bromphenira 2018-09 Yes [id number] 5mL Take 5 mL [facility] mine-pseudo 2-17 by mouth 4 it y of ephedrine-D 00:00: (four) [place] M (BROMFED 00 times Medical DM) 2-30-10 daily as Bran ch mg/5 mL needed for syrup Congestion /Allergies or Cough. bromphenira 2018-09 Yes [id number] 5mL Take 5 mL [facility] mine-pseudo 2-17 by mouth 4 it y of ephedrine-D 00:00: (four) [place] M (BROMFED 00 times Medical DM) 2-30-10 daily as Bran ch mg/5 mL needed for syrup Congestion /Allergies or Cough. bromphenira 2018-09 Yes [id number] 5mL Take 5 mL [facility] mine-pseudo 2-17 by mouth 4 it y of ephedrine-D 00:00: (four) [place] M (BROMFED 00 times Medical DM) 2-30-10 daily as Bran ch mg/5 mL needed for syrup Congestion /Allergies or Cough. bromphenira 2018-09 Yes [id number] 5mL Take 5 mL [facility] mine-pseudo 2-17 by mouth 4 it y of ephedrine-D 00:00: (four) [place] M (BROMFED 00 times Medical DM) 2-30-10 daily as Bran ch mg/5 mL needed for syrup Congestion /Allergies or Cough. bromphenira 2018-09 Yes [id number] 5mL Take 5 mL [facility] mine-pseudo 2-17 by mouth 4 it y of ephedrine-D 00:00: (four) [place] M (BROMFED 00 times Medical DM) 2-30-10 daily as Bran ch mg/5 mL needed for syrup Congestion /Allergies or Cough. phen2018-09 Yes [id number] 5mL Take 5 mL [facility] mine-pseudo 2-17 by mouth 4 it y of ephedrine-D 00:00: (four) [place] M (BROMFED 00 times Medical DM) 2-30-10 daily as Bran ch mg/5 mL needed for syrup Congestion /Allergies or Cough. phen2018-09 Yes [id number] 5mL Take 5 mL [facility] mine-pseudo 2-17 by mouth 4 it y of ephedrine-D 00:00: (four) [place] M (BROMFED 00 times Medical DM) 2-30-10 daily as Bran ch mg/5 mL needed for syrup Congestion /Allergies or Cough. phen2018-09 Yes [id number] 5mL Take 5 mL [facility] mine-pseudo 2-17 by mouth 4 it y of ephedrine-D 00:00: (four) [place] M (BROMFED 00 times Medical DM) 2-30-10 daily as Bran ch mg/5 mL needed for syrup Congestion /Allergies or Cough. phen2018-09 Yes [id number] 5mL Take 5 mL [facility] mine-pseudo 2-17 by mouth 4 it y of ephedrine-D 00:00: (four) [place] M (BROMFED 00 times Medical DM) 2-30-10 daily as Bran ch mg/5 mL needed for syrup Congestion /Allergies or Cough. phen2018-09 Yes [id number] 5mL Take 5 mL [facility] mine-pseudo 2-17 by mouth 4 it y of ephedrine-D 00:00: (four) [place] M (BROMFED 00 times Medical DM) 2-30-10 daily as Bran ch mg/5 mL needed for syrup Congestion /Allergies or Cough. phen2018-09 Yes [id number] 5mL Take 5 mL [facility] mine-pseudo 2-17 by mouth 4 it y of ephedrine-D 00:00: (four) [place] M (BROMFED 00 times Medical DM) 2-30-10 daily as Bran ch mg/5 mL needed for syrup Congestion /Allergies or Cough. phenira 2018-09 Yes [id number] 5mL Take 5 mL [facility] mine-pseudo 2-17 by mouth 4 it y of ephedrine-D 00:00: (four) [place] M (BROMFED 00 times Medical DM) 2-30-10 daily as Bran ch mg/5 mL needed for syrup Congestion /Allergies or Cough. phen2018-09 Yes [id number] 5mL Take 5 mL [facility] mine-pseudo 2-17 by mouth 4 it y of ephedrine-D 00:00: (four) [place] M (BROMFED 00 times Medical DM) 2-30-10 daily as Bran ch mg/5 mL needed for syrup Congestion /Allergies or Cough. phen2018-09 Yes [id number] 5mL Take 5 mL [facility] mine-pseudo 2-17 by mouth 4 it y of ephedrine-D 00:00: (four) [place] (BROMFED 00 times Medical DM) 2-30-10 daily as Bran ch mg/5 mL needed for syrup Congestion /Allergies or Cough. phen2018-09 Yes [id number] 5mL Take 5 mL [facility] mine-pseudo 2-17 by mouth 4 it y of ephedrine-D 00:00: (four) [place] M (BROMFED 00 times Medical DM) 2-30-10 daily as Bran ch mg/5 mL needed for syrup Congestion /Allergies or Cough. phen2018-09 Yes [id number] 5mL Take 5 mL [facility] mine-pseudo 2-17 by mouth 4 it y of ephedrine-D 00:00: (four) [place] (BROMFED 00 times Medical DM) 2-30-10 daily as Bran ch mg/5 mL needed for syrup Congestion /Allergies or Cough. phenira 2018-09 Yes [id number] 5mL Take 5 mL [facility] mine-pseudo 2-17 by mouth 4 it y of ephedrine-D 00:00: (four) [place] (BROMFED 00 times Medical DM) 2-30-10 daily as Bran ch mg/5 mL needed for syrup Congestion /Allergies or Cough. bromphenira 2018-09 Yes [id number] 5mL Take 5 mL [facility] mine-pseudo 2-17 by mouth 4 it y of ephedrine-D 00:00: (four) [place] (BROMFED 00 times Medical DM) 2-30-10 daily as Bran ch mg/5 mL needed for syrup Congestion /Allergies or Cough. phenira 2018-09 Yes [id number] 5mL Take 5 mL [facility] mine-pseudo 2-17 by mouth 4 it y of ephedrine-D 00:00: (four) [place] (BROMFED 00 times Medical DM) 2-30-10 daily as Bran ch mg/5 mL needed for syrup Congestion /Allergies or Cough. phenira 2018-09 Yes [id number] 5mL Take 5 mL [facility] mine-pseudo 2-17 by mouth 4 it y of ephedrine-D 00:00: (four) [place] (BROMFED 00 times Medical DM) 2-30-10 daily as Bran ch mg/5 mL needed for syrup Congestion /Allergies or Cough. phen2018-09 Yes [id number] 5mL Take 5 mL [facility] mine-pseudo 2-17 by mouth 4 it y of ephedrine-D 00:00: (four) [place] (BROMFED 00 times Medical DM) 2-30-10 daily as Bran ch mg/5 mL needed for syrup Congestion /Allergies or Cough. phenira 2018-09 Yes [id number] 5mL Take 5 mL [facility] mine-pseudo 2-17 by mouth 4 it y of ephedrine-D 00:00: (four) [place] (BROMFED 00 times Medical DM) 2-30-10 daily as Bran ch mg/5 mL needed for syrup Congestion /Allergies or Cough. phen2018-09 Yes [id number] 5mL Take 5 mL [facility] mine-pseudo 2-17 by mouth 4 it y of ephedrine-D 00:00: (four) [place] (BROMFED 00 times Medical DM) 2-30-10 daily as Bran ch mg/5 mL needed for syrup Congestion /Allergies or Cough. phen2018-09 Yes [id number] 5mL Take 5 mL [facility] mine-pseudo 2-17 by mouth 4 it y of ephedrine-D 00:00: (four) [place] (BROMFED 00 times Medical DM) 2-30-10 daily as Bran ch mg/5 mL needed for syrup Congestion /Allergies or Cough. bromphenira 2018-09 Yes [id number] 5mL Take 5 mL [facility] mine-pseudo 2-17 by mouth 4 it y of ephedrine-D 00:00: (four) [place] [facility] (BROMFED 00 times Medical DM) 2-30-10 daily as Bran ch mg/5 mL needed for syrup Congestion /Allergies or Cough. bromphenira 2018-09 Yes [id number] 5mL Take 5 mL [facility] mine-pseudo 2-17 by mouth 4 it y of ephedrine-D 00:00: (four) [place] (BROMFED 00 times Medical DM) 2-30-10 daily as Bran ch mg/5 mL needed for syrup Congestion /Allergies or Cough. bromphenira 2018-09 Yes [id number] 5mL Take 5 mL Univers mine-pseudo 2-17 by mouth 4 it y of ephedrine-D 00:00: (four) [place] [facility] M (BROMFED 00 times Medical DM) 2-30-10 daily as Bran ch mg/5 mL needed for syrup Congestion /Allergies or Cough. bromphenira 2018-09 Yes [id number] 5mL Take 5 mL Univers mine-pseudo 2-17 by mouth 4 it y of ephedrine-D 00:00: (four) [place] [facility] M (BROMFED 00 times Medical DM) 2-30-10 daily as Bran ch mg/5 mL needed for syrup Congestion /Allergies or Cough. bromphenira 2018-09 Yes [id number] 5mL Take 5 mL [facility] mine-pseudo 2-17 by mouth 4 it y of ephedrine-D 00:00: ([place] ([place] 00 times Medical DM) 2-30-10 daily as Bran ch mg/5 mL needed for syrup Congestion /Allergies or Cough. bromphenira 2018-09 Yes [id number] 5mL Take 5 mL [facility] mine-pseudo 2-17 by mouth 4 it y of ephedrine-D 00:00: ([place] ([place] 00 times Medical DM) 2-30-10 daily as Bran ch mg/5 mL needed for syrup Congestion /Allergies or Cough. bromphenira 2018-09 Yes [id number] 5mL Take 5 mL Univers mine-pseudo 2-17 by mouth 4 it y of ephedrine-D 00:00: (four[place] ([place]OMF[place] 00 times Medical DM) 2-30-10 daily as Bran ch mg/5 mL needed for syrup Congestion /Allergies or Cough. bromphenira 2018-09 Yes [id number] 5mL Take 5 mL Univers mine-pseudo 2-17 by mouth 4 it y of ephedrine-D 00:00: (four[place] (BROMFED 00 times Medical DM) 2-30-10 daily as Bran ch mg/5 mL needed for syrup Congestion /Allergies or Cough. bromphenira 2018-09 Yes [id number] 5mL Take 5 mL [facility] mine-pseudo 2-17 by mouth 4 it y of ephedrine-D 00:00: (four) [place] (BROMFED 00 times Medical DM) 2-30-10 daily as Bran ch mg/5 mL needed for syrup Congestion /Allergies or Cough. bromphenira 2018-09 Yes [id number] 5mL Take 5 mL [facility] mine-pseudo 2-17 by mouth 4 it y of ephedrine-D 00:00: (four) [place] (BROMFED 00 times Medical DM) 2-30-10 daily as Bran ch mg/5 mL needed for syrup Congestion /Allergies or Cough. bromphenira 2018-09 Yes [id number] 5mL Take 5 mL [facility] mine-pseudo 2-17 by mouth 4 it y of ephedrine-D 00:00: (four[place] (BROMFED 00 times Medical DM) 2-30-10 daily as Bran ch mg/5 mL needed for syrup Congestion /Allergies or Cough. bromphenira 2018-09 Yes [id number] 5mL Take 5 mL [facility] mine-pseudo 2-17 by mouth 4 it y of ephedrine-D 00:00: (four) [place] (BROMFED 00 times Medical DM) 2-30-10 daily as Bran ch mg/5 mL needed for syrup Congestion /Allergies or Cough. bromphenira 2018-09 Yes [id number] 5mL Take 5 mL [facility] mine-pseudo 2-17 by mouth 4 it y of ephedrine-D 00:00: (four[place] (BROMFED 00 times Medical DM) 2-30-10 daily as Bran ch mg/5 mL needed for syrup Congestion /Allergies or Cough. bromphenira 2018-09 Yes [id number] 5mL Take 5 mL [facility] mine-pseudo 2-17 by mouth 4 it y of ephedrine-D 00:00: (four) [place] M (BROMFED 00 times Medical DM) 2-30-10 daily as Bran ch mg/5 mL needed for syrup Congestion /Allergies or Cough. bromphenira 2018-09 Yes [id number] 5mL Take 5 mL [facility] mine-pseudo 2-17 by mouth 4 it y of ephedrine-D 00:00: (four[place] (BROMFED 00 times Medical DM) 2-30-10 daily as Bran ch mg/5 mL needed for syrup Congestion /Allergies or Cough. bromphenira 2018-09 Yes [id number] 5mL Take 5 mL [facility] mine-pseudo 2-17 by mouth 4 it y of ephedrine-D 00:00: (four) [place] [facility] M (BROMFED 00 times Medical DM) 2-30-10 daily as Bran ch mg/5 mL needed for syrup Congestion /Allergies or Cough. bromphenira 2018-09 Yes [id number] 5mL Take 5 mL [facility] mine-pseudo 2-17 by mouth 4 it y of ephedrine-D 00:00: (four) [place] (BROMFED 00 times Medical DM) 2-30-10 daily as Bran ch mg/5 mL needed for syrup Congestion /Allergies or Cough. bromphenira 2018-09 Yes [id number] 5mL Take 5 mL [facility] mine-pseudo 2-17 by mouth 4 it y of ephedrine-D 00:00: (four) [place] [facility] M (BROMFED 00 times Medical DM) 2-30-10 daily as Bran ch mg/5 mL needed for syrup Congestion /Allergies or Cough. Insulin 2018- Yes [id number] USE ONCE U nivers [place], 7-03 DAILY ity of Disposable, 00:00: [place] 32 gauge x 00 Medical 5/32" [place] Branch Insulin 2019-0 Yes [id number] USE ONCE U nivers [place], 7-03 DAILY ity of Disposable, 00:00: [place] 32 gauge x 00 Medical 5/32" [place] [facility] Insulin 2019-0 Yes [id number] USE ONCE U nivers [place], 7-03 DAILY ity of Disposable, 00:00: [place] 32 gauge x 00 Medical 5/32" [place] [facility] Insulin 2019-0 Yes [id number] USE ONCE U nivers [place], 7-03 DAILY ity of Disposable, 00:00: [place] 32 gauge x 00 Medical [facility]" [place] Branch Insulin 2019-0 Yes [id number] USE ONCE U nivers [place], 7-03 DAILY ity of Disposable, 00:00: [place] 32 gauge x 00 [place] [address]" [place] Branch Insulin 2019-0 Yes [id number] USE ONCE U nivers [place], 7-03 DAILY ity of Disposable, 00:00: [place] 32 gauge x 00 [place] [address]" [place] Branch Insulin 2019-0 Yes [id number] USE ONCE U nivers [place], 7-03 DAILY ity of Disposable, 00:00: [place] 32 gauge x 00 [place] [address]" [place] Branch Insulin 2019-0 Yes [id number] USE ONCE U nivers [place], 7-03 DAILY ity of Disposable, 00:00: [place] 32 gauge x 00 [place] [address]" [place] Branch Insulin 2019-0 Yes [id number] USE ONCE U nivers [place], 7-03 DAILY ity of Disposable, 00:00: [place] 32 gauge x 00 [place] [address]" [place] Branch Insulin 2019-0 Yes [id number] USE ONCE U nivers [place], 7-03 DAILY ity of Disposable, 00:00: [place] 32 gauge x 00 [place] [address]" [place] Branch Insulin 2019-0 Yes [id number] USE ONCE U nivers [place], 7-03 DAILY ity of Disposable, 00:00: [place] 32 gauge x 00 [place] [address]" [place] Branch Insulin 2019-0 Yes [id number] USE ONCE U nivers [place], 7-03 DAILY ity of Disposable, 00:00: [place] 32 gauge x 00 [place] [address]" [place] Branch Insulin 2019-0 Yes [id number] USE ONCE U nivers [place], 7-03 DAILY ity of Disposable, 00:00: [place] 32 gauge x 00 [place] [address]" [place] Branch Insulin 2019-0 Yes [id number] USE ONCE U nivers [place], 7-03 DAILY ity of Disposable, 00:00: [place] 32 gauge x 00 [place] [address]" [place] Branch Insulin 2019-0 Yes [id number] USE ONCE U nivers [place], 7-03 DAILY ity of Disposable, 00:00: [place] 32 gauge x 00 Medical 5/32" [place] [facility] Insulin 2019-0 Yes [id number] USE ONCE U nivers [place], 7-03 DAILY ity of Disposable, 00:00: [place] 32 gauge x [address] Branch Insulin 2019-0 Yes [id number] USE ONCE U nivers [place], 7-03 DAILY ity of Disposable, 00:00: [place] 32 gauge x [address] Branch Insulin 2019-0 Yes [id number] USE ONCE U nivers [place], 7-03 DAILY ity of Disposable, 00:00: [place] 32 gauge x [address] Branch Insulin 2019-0 Yes [id number] USE ONCE U nivers [place], 7-03 DAILY ity of Disposable, 00:00: [place] 32 gauge x [address] Branch Insulin 2019-0 Yes [id number] USE ONCE U nivers [place], 7-03 DAILY ity of Disposable, 00:00: [place] 32 gauge x [address] Branch Insulin 2019-0 Yes [id number] USE ONCE U nivers [place], 7-03 DAILY ity of Disposable, 00:00: [place] 32 gauge x [address] Branch Insulin 2019-0 Yes [id number] USE ONCE U nivers [place], 7-03 DAILY ity of Disposable, 00:00: [place] 32 gauge x [address] Insulin 2019-0 Yes [id number] USE ONCE U nivers [place], 7-03 DAILY ity of Disposable, 00:00: [place] 32 gauge x [address] Branch Insulin 2019-0 Yes [id number] USE ONCE U nivers [place], 7-03 DAILY ity of Disposable, 00:00: [place] 32 gauge x [address] Branch Insulin 2019-0 Yes [id number] USE ONCE U nivers [place], 7-03 DAILY ity of Disposable, 00:00: [place] 32 gauge x [address] Branch Insulin 2019-0 Yes [id number] USE ONCE U nivers [place], 7-03 DAILY ity of Disposable, 00:00: [place] 32 gauge x [address] Branch Insulin 2019-0 Yes [id number] USE ONCE U nivers [place], 7-03 DAILY ity of Disposable, 00:00: [place] 32 gauge x 00 [place] [address]" [place] Branch Insulin 2019-0 Yes [id number] USE ONCE U nivers [place], 7-03 DAILY ity of Disposable, 00:00: [place] 32 gauge x [address] Branch Insulin 2019-0 Yes [id number] USE ONCE U nivers [place], 7-03 DAILY ity of Disposable, 00:00: [place] 32 gauge x [address] Branch Insulin 2019-0 Yes [id number] USE ONCE U nivers [place], 7-03 DAILY ity of Disposable, 00:00: [place] 32 gauge x [address] Branch Insulin 2019-0 Yes [id number] USE ONCE U nivers [place], 7-03 DAILY ity of Disposable, 00:00: [place] 32 gauge x [address] Branch Insulin 2019-0 Yes [id number] USE ONCE U nivers [place], 7-03 DAILY ity of Disposable, 00:00: [place] 32 gauge x [address] Branch Insulin 2019-0 Yes [id number] USE ONCE U nivers [place], 7-03 DAILY ity of Disposable, 00:00: [place] 32 gauge x [address] Branch Insulin 2019-0 Yes [id number] USE ONCE U nivers [place], 7-03 DAILY ity of Disposable, 00:00: [place] 32 gauge x [address] Branch Insulin 2019-0 Yes [id number] USE ONCE U nivers [place], 7-03 DAILY ity of Disposable, 00:00: [place] 32 gauge x [address] Branch Insulin 2019-0 Yes [id number] USE ONCE U nivers [place], 7-03 DAILY ity of Disposable, 00:00: [place] 32 gauge x [address] Branch Insulin 2019-0 Yes [id number] USE ONCE U nivers [place], 7-03 DAILY ity of Disposable, 00:00: [place] 32 gauge x 00 [place] [address]" N[place] Branch Insulin 2019-0 Yes [id number] USE ONCE U nivers [place], 7-03 DAILY ity of Disposable, 00:00: [place] 32 gauge x 00 [place] [address]" [place] Branch Insulin 2019-0 Yes [id number] USE ONCE U nivers [place], 7-03 DAILY ity of Disposable, 00:00: [place] 32 gauge x 00 [facility] 5/32" [place] Branch Insulin 2019-0 Yes [id number] USE ONCE U nivers [place], 7-03 DAILY ity of Disposable, 00:00: [place] 32 gauge x 00 Medical 5/32" [place] Branch Insulin 2019-0 Yes [id number] USE ONCE U nivers [place], 7-03 DAILY ity of Disposable, 00:00: [place] 32 gauge x 00 Medical 5/32" [place] Branch Insulin 2019-0 Yes [id number] USE ONCE U nivers [place], 7-03 DAILY ity of Disposable, 00:00: [place] 32 gauge x 00 Medical 5/32" [place] Branch albuterol 2017-09 Yes 2{puff} Inhale 2 U nivers 90 2-03 Puffs ity of mcg/actuati 00:00: every 6 [place] on inhaler 00 (six) Medical hours as Branch needed for Wheezing or Shortness of Breath. albuterol 2017-09 Yes 2{puff} Inhale 2 U nivers 90 2-03 Puffs ity of mcg/actuati 00:00: every 6 [place] on inhaler 00 (six) Medical hours as Branch needed for Wheezing or Shortness of Breath. albuterol 2017-09 Yes 2{puff} Inhale 2 U nivers 90 2-03 Puffs ity of mcg/actuati 00:00: every 6 [place] on inhaler 00 (six) Medical hours as Branch needed for Wheezing or Shortness of Breath. albuterol 2017-09 Yes 2{puff} Inhale 2 U nivers 90 2-03 Puffs ity of mcg/actuati 00:00: every 6 [place] on inhaler 00 (six) Medical hours as Branch needed for Wheezing or Shortness of Breath. albuterol 2017-09 Yes 2{puff} Inhale 2 U nivers 90 2-03 Puffs ity of mcg/actuati 00:00: every 6 [place] on inhaler 00 (six) Medical hours as Branch needed for Wheezing or Shortness of Breath. albuterol 2017-09 Yes 2{puff} Inhale 2 U nivers 90 2-03 Puffs ity of mcg/actuati 00:00: every 6 [place] on inhaler 00 (six) Medical hours as Branch needed for Wheezing or Shortness of Breath. albuterol 2017-09 Yes 2{puff} Inhale 2 U nivers 90 2-03 Puffs ity of mcg/actuati 00:00: every 6 [place] on inhaler 00 (six) Medical hours as Branch needed for Wheezing or Shortness of Breath. albuterol 2017-09 Yes 2{puff} Inhale 2 U nivers 90 2-03 Puffs ity of mcg/actuati 00:00: every 6 [place] on inhaler 00 (six) Medical hours as Branch needed for Wheezing or Shortness of Breath. albuterol 2017-09 Yes 2{puff} Inhale 2 U nivers 90 2-03 Puffs ity of mcg/actuati 00:00: every 6 [place] on inhaler 00 (six) Medical hours as Branch needed for Wheezing or Shortness of Breath. albuterol 2017-09 Yes 2{puff} Inhale 2 U nivers 90 2-03 Puffs ity of mcg/actuati 00:00: every 6 [place] on inhaler 00 (six) Medical hours as Branch needed for Wheezing or Shortness of Breath. albuterol 2017-09 Yes 2{puff} Inhale 2 U nivers 90 2-03 Puffs ity of mcg/actuati 00:00: every 6 [place] on inhaler 00 (six) Medical hours as Branch needed for Wheezing or Shortness of Breath. albuterol 2017-09 Yes 2{puff} Inhale 2 U nivers 90 2-03 Puffs ity of mcg/actuati 00:00: every 6 [place] on inhaler 00 (six) Medical hours as Branch needed for Wheezing or Shortness of Breath. albuterol 2017-09 Yes 2{puff} Inhale 2 U nivers 90 2-03 Puffs ity of mcg/actuati 00:00: every 6 [place] on inhaler 00 (six) Medical hours as Branch needed for Wheezing or Shortness of Breath. albuterol 2017-09 Yes 2{puff} Inhale 2 U nivers 90 2-03 Puffs ity of mcg/actuati 00:00: every 6 [place] on inhaler 00 (six) Medical hours as Branch needed for Wheezing or Shortness of Breath. albuterol 2017-09 Yes 2{puff} Inhale 2 U nivers 90 2-03 Puffs ity of mcg/actuati 00:00: every 6 [place] on inhaler 00 (six) Medical hours as Branch needed for Wheezing or Shortness of Breath. albuterol 2017-09 Yes 2{puff} Inhale 2 U nivers 90 2-03 Puffs ity of mcg/actuati 00:00: every 6 [place] as on inhaler 00 (six) Medical hours as Branch needed for Wheezing or Shortness of Breath. albuterol 2017-09 Yes 2{puff} Inhale 2 U nivers 90 2-03 Puffs ity of mcg/actuati 00:00: every 6 [place] on inhaler 00 (six) Medical hours as Branch needed for Wheezing or Shortness of Breath. albuterol 2017-09 Yes 2{puff} Inhale 2 U nivers 90 2-03 Puffs ity of mcg/actuati 00:00: every 6 [place] on inhaler 00 (six) Medical hours as Branch needed for Wheezing or Shortness of Breath. albuterol 2017-09 Yes 2{puff} Inhale 2 U nivers 90 2-03 Puffs ity of mcg/actuati 00:00: every 6 [place] on inhaler 00 (six) Medical hours as Branch needed for Wheezing or Shortness of Breath. albuterol 2017-09 Yes 2{puff} Inhale 2 U nivers 90 2-03 Puffs ity of mcg/actuati 00:00: every 6 [place] on inhaler 00 (six) Medical hours as Branch needed for Wheezing or Shortness of Breath. albuterol 2017-09 Yes 2{puff} Inhale 2 U nivers 90 2-03 Puffs ity of mcg/actuati 00:00: every 6 [place] on inhaler 00 (six) Medical hours as Branch needed for Wheezing or Shortness of Breath. albuterol 2017-09 Yes 2{puff} Inhale 2 U nivers 90 2-03 Puffs ity of mcg/actuati 00:00: every 6 [place] as on inhaler 00 (six) Medical hours as Branch needed for Wheezing or Shortness of Breath. albuterol 2017-09 Yes 2{puff} Inhale 2 U nivers 90 2-03 Puffs ity of mcg/actuati 00:00: every 6 [place] on inhaler 00 (six) Medical hours as Branch needed for Wheezing or Shortness of Breath. albuterol 2017-09 Yes 2{puff} Inhale 2 U nivers 90 2-03 Puffs ity of mcg/actuati 00:00: every 6 [place] as on inhaler 00 (six) Medical hours as Branch needed for Wheezing or Shortness of Breath. albuterol 2017-09 Yes 2{puff} Inhale 2 U nivers 90 2-03 Puffs ity of mcg/actuati 00:00: every 6 [place] as on inhaler 00 (six) Medical hours as Branch needed for Wheezing or Shortness of Breath. albuterol 2017-09 Yes 2{puff} Inhale 2 U nivers 90 2-03 Puffs ity of mcg/actuati 00:00: every 6 [place] as on inhaler 00 (six) Medical hours as Branch needed for Wheezing or Shortness of Breath. albuterol 2017-09 Yes 2{puff} Inhale 2 U nivers 90 2-03 Puffs ity of mcg/actuati 00:00: every 6 [place] on inhaler 00 (six) Medical hours as Branch needed for Wheezing or Shortness of Breath. albuterol 2017-09 Yes 2{puff} Inhale 2 U nivers 90 2-03 Puffs ity of mcg/actuati 00:00: every 6 [place] as on inhaler 00 (six) Medical hours as Branch needed for Wheezing or Shortness of Breath. albuterol 2017-09 Yes 2{puff} Inhale 2 U nivers 90 2-03 Puffs ity of mcg/actuati 00:00: every 6 [place] as on inhaler 00 (six) Medical hours as Branch needed for Wheezing or Shortness of Breath. albuterol 2017-09 Yes 2{puff} Inhale 2 U nivers 90 2-03 Puffs ity of mcg/actuati 00:00: every 6 [place] on inhaler 00 (six) Medical hours as Branch needed for Wheezing or Shortness of Breath. albuterol 2017-09 Yes 2{puff} Inhale 2 U nivers 90 2-03 Puffs ity of mcg/actuati 00:00: every 6 [place] as on inhaler 00 (six) Medical hours as Branch needed for Wheezing or Shortness of Breath. albuterol 2017-09 Yes 2{puff} Inhale 2 U nivers 90 2-03 Puffs ity of mcg/actuati 00:00: every 6 [place] as on inhaler 00 (six) Medical hours as Branch needed for Wheezing or Shortness of Breath. albuterol 2017-09 Yes 2{puff} Inhale 2 U nivers 90 2-03 Puffs ity of mcg/actuati 00:00: every 6 [place] as on inhaler 00 (six) Medical hours as Branch needed for Wheezing or Shortness of Breath. albuterol 2017-09 Yes 2{puff} Inhale 2 U nivers 90 2-03 Puffs ity of mcg/actuati 00:00: every 6 [place] on inhaler 00 (six) Medical hours as Branch needed for Wheezing or Shortness of Breath. albuterol 2017-09 Yes 2{puff} Inhale 2 U nivers 90 2-03 Puffs ity of mcg/actuati 00:00: every 6 [place] on inhaler 00 (six) Medical hours as Branch needed for Wheezing or Shortness of Breath. albuterol 2017-09 Yes 2{puff} Inhale 2 U nivers 90 2-03 Puffs ity of mcg/actuati 00:00: every 6 [place] on inhaler 00 (six) Medical hours as Branch needed for Wheezing or Shortness of Breath. albuterol 2017-09 Yes 2{puff} Inhale 2 U nivers 90 2-03 Puffs ity of mcg/actuati 00:00: every 6 [place] as on inhaler 00 (six) Medical hours as Branch needed for Wheezing or Shortness of Breath. albuterol 2017-09 Yes 2{puff} Inhale 2 U nivers 90 2-03 Puffs ity of mcg/actuati 00:00: every 6 [place] on inhaler 00 (six) Medical hours as Branch needed for Wheezing or Shortness of Breath. albuterol 2017-09 Yes 2{puff} Inhale 2 U nivers 90 2-03 Puffs ity of mcg/actuati 00:00: every 6 [place] as on inhaler 00 (six) Medical hours as Branch needed for Wheezing or Shortness of Breath. albuterol 2017-09 Yes 2{puff} Inhale 2 U nivers 90 2-03 Puffs ity of mcg/actuati 00:00: every 6 [place] as on inhaler 00 (six) Medical hours as Branch needed for Wheezing or Shortness of Breath. albuterol 2017-09 Yes 2{puff} Inhale 2 U nivers 90 2-03 Puffs ity of mcg/actuati 00:00: every 6 [place] as on inhaler 00 (six) Medical hours as Branch needed for Wheezing or Shortness of Breath. albuterol 2017-09 Yes 2{puff} Inhale 2 U nivers 90 2-03 Puffs ity of mcg/actuati 00:00: every 6 [place] as on inhaler 00 (six) Medical hours as Branch needed for Wheezing or Shortness of Breath. Tamiflu 75 Tamiflu 75 No 1{capsu BID Tamiflu 75 MG MG le} MG Aspirin Aspirin No Aspirin Janumet Janumet No Janumet albuterol albuterol No albuterol Aspirin Aspirin No Aspirin Tamiflu 75 Tamiflu 75 No 1{capsu BID Tamiflu 75 MG MG le} MG albuterol albuterol No albuterol Janumet Janumet No Janumet Aspirin Aspirin No Aspirin Tamiflu 75 Tamiflu 75 No 1{capsu BID Tamiflu 75 MG MG le} MG albuterol albuterol No albuterol Janumet Janumet No Janumet Janumet Janumet No Janumet Aspirin Aspirin No Aspirin Tamiflu 75 Tamiflu 75 No 1{capsu BID Tamiflu 75 MG MG le} MG albuterol albuterol No albuterol Vital Signs Vital Name Observation Time Observation Value Comments Source height 2020-08-17 11:00:00 [facility] weight 2020-08-17 11:00:00 194.2 [lb_av] [facility] temperature 2020-08-17 11:00:00 97.3 [degF] [facility] bmi 2020-08-17 11:00:00 28.68 kg/m2 [facility] oximetry 2020-08-17 11:00:00 97 % [facility] blood pressure 2020-08-17 11:00:00 155 mm[Hg] [facility] blood pressure 2020-08-17 11:00:00 91 mm[Hg] [facility] height 2020-08-10 09:00:00 Common [facility] weight 2020-08-10 09:00:00 195.8 [lb_av] Common [facility] temperature 2020-08-10 09:00:00 98.2 [degF] Common [facility] bmi 2020-08-10 09:00:00 28.91 kg/m2 Common [facility] oximetry 2020-08-10 09:00:00 95 % Common [facility] blood pressure 2020-08-10 09:00:00 134 mm[Hg] [facility] blood pressure 2020-08-10 09:00:00 91 mm[Hg] Common [facility] - diastolic [facility] height 2020-07-27 09:30:00 Common [facility] weight 2020-07-27 09:30:00 195.8 [lb_av] Common [facility] bmi 2020-07-27 09:30:00 28.91 kg/m2 Common [facility] oximetry 2020-07-27 09:30:00 98 % Common [facility] blood pressure 2020-07-27 09:30:00 119 mm[Hg] [facility] blood pressure 2020-07-27 09:30:00 92 mm[Hg] Common [facility] - diastolic [facility] Systolic blood 2020-07-25 19:14:00 132 mm[Hg] Univer sity of pressure [facility] Diastolic blood 2020-07-25 19:14:00 90 mm[Hg] Unive rsity of pressure [facility] Heart rate 2020-07-25 19:14:00 95 /min Universi ty [facility] [place] [facility] Respiratory rate 2020-07-25 19:14:00 18 /min Univ ersity [facility] [place] [facility] Body height 2020-07-25 19:14:00 175.3 cm Universi [facility] Body weight 2020-07-25 19:14:00 89.721 kg Universi [facility] BMI 2020-07-25 19:14:00 29.21 [facility] 2020-07-25 19:14:00 132 mm[Hg] Univer sity of pressure [place] [facility] Diastolic blood 2020-07-25 19:14:00 90 mm[Hg] Unive rsity of pressure [place] [facility] Heart rate 2020-07-25 19:14:00 95 /min Universi ty [facility] [place] [facility] Respiratory rate 2020-07-25 19:14:00 18 /min Univ ersity of [facility] Body height 2020-07-25 19:14:00 175.3 cm Universi ty [facility] [place] [facility] Body weight 2020-07-25 19:14:00 89.721 kg [facility] [place] [facility] BMI 2020-07-25 19:14:00 29.21 kg/m2 Universi ty of [facility] Systolic blood 2020-07-19 21:20:00 132 mm[Hg] Univer sity of pressure [place] [facility] Diastolic blood 2020-07-19 21:20:00 89 mm[Hg] Unive rsity of pressure [facility] Heart rate 2020-07-19 21:20:00 111 /min [facility]i [facility] [place] [facility] Body temperature 2020-07-19 21:20:00 37.06 Marzena Univ ersity [facility] [place] [facility] Respiratory rate 2020-07-19 21:20:00 20 /min Univ ersity [facility] [place] [facility] Body height 2020-07-19 21:20:00 172.7 cm [facility] [place] [facility] Body weight 2020-07-19 21:20:00 95.255 kg [facility] [place] [facility] BMI 2020-07-19 21:20:00 31.93 kg/m2 Universi ty of [facility] Oxygen saturation in 2020-07-19 21:20:00 98 /min University of Arterial blood by [facility] Pulse oximetry Branch Systolic blood 2020-07-05 16:11:00 135 mm[Hg] Univer sity of pressure [place] [facility] Diastolic blood 2020-07-05 16:11:00 86 mm[Hg] Unive rsity of pressure [place] [facility] Heart rate 2020-07-05 16:11:00 101 /min Universi ty of [facility] Body temperature 2020-07-05 16:11:00 37.33 Marzena Univ ersity of [facility] Respiratory rate 2020-07-05 16:11:00 18 /min Univ ersity of [place] [facility] Body height 2020-07-05 16:11:00 175.3 cm Universi ty of [facility] Body weight 2020-07-05 16:11:00 94.348 kg Universi ty [facility] BMI 2020-07-05 16:11:00 30.72 kg/m2 Universi [facility] Oxygen saturation in 2020-07-05 16:11:00 95 /min University of Arterial blood by [facility] Pulse oximetry Branch Systolic blood 2020-03-21 20:21:00 150 mm[Hg] Univer sity of pressure [place] [facility] [place] Diastolic blood 2020-03-21 20:21:00 90 mm[Hg] Unive rsity of pressure [facility] Body weight 2020-03-21 20:21:00 95.255 kg Universi ty [facility] BMI 2020-03-21 20:21:00 31.01 kg/m2 [facility] Procedures Procedure Date / Time Performing Clinician Source Performed HOME HEALTH - OTHER 2021-01-24 05:01:00 Doctor Unassigned, No [facility] [facility] [place] HOME HEALTH - OTHER 2021-01-13 05:01:00 Doctor Unassigned, No Un iversity of [facility] [place] HOME HEALTH - OTHER 2021-01-04 05:01:00 Doctor Unassigned, No Un iversity of [facility] [place] HOME HEALTH - OTHER 2020-12-26 05:01:00 Doctor Unassigned, No Un iversity of [facility] EXTERNAL PROVIDER 2020-09-05 06:01:00 Doctor Unassigned, No Univ ersity of [facility] Branch AUTHORIZATION FOR 2020-07-27 06:01:00 Doctor Unassigned, No Univ ersity of [place] RELEASE OF [facility] URINE CULTURE 2020-07-25 22:00[facility]00 [facility] 2020-07-25 19:15:00 [facility] 2020-07-19 00:00:00 Sukhdeep [facility] o [facility] Medical [place] XR SPINE THORACIC 3 VW 2020-07-05 17:24:03 Lainey Brittone [facility] acute hospital NOTICE OF PRIVACY 2020-07-05 17:02:00 Doctor Unassigned, No [facility] PRACTICES Name Medical Branch CONSENT/REFUSAL FOR 2020-07-05 17:01:47 Doctor Unassigned, No [facility] DIAGNOSIS AND TREATMENT Name Medical Branch ASSIGNMENT OF BENEFITS 2020-07-05 17:01:32 Doctor Unassigned, No [facility] Name Medical Branch AUTHORIZATION FOR 2020-04-27 05:01:00 Doctor Unassigned, No Univ [facility] RELEASE OF PHI Name Medical Branch REFERRAL- 2019-12-24 05:01:00 Doctor Unassigned, No [facility] REQUEST/RESPONSE Name Medical [place] Encounters Start End Encounter Admission Attending Care Care Encounter Source Date/Time Date/Time Type Type Clinicians Facility Department ID 2021-12-05 [facility] [id number] Common 14:35:00 Vianca [id number] [facility] 2021-10-18 [facility] [id number] Common 12:01:53 Vianca [id number] [facility] 2021-01-27 2021-01-27 Outpatient [facility] [id number] Univers 00:00:00 00:00:00 ity [facility] 2021-01-24 2021-01-24 Outpatient [facility] [id number] Univers 00:00:00 00:00:00 ity [facility] 2021-01-24 2021-01-24 Orders Doctor KING 1.2.840.114 [id number] Univers 00:00:00 00:00:00 Only Unassigned, RAY 350.1.13.10 ity [facility] 4.2.7.2.686 [place] [phone] [place] [address] Branch 2021-01-21 2021-01-21 Outpatient [facility] [id number] Univers 00:00:00 00:00:00 ity [facility] 2021-01-17 2021-01-17 Outpatient [facility] [id number] Univers 00:00:00 00:00:00 ity [facility] 2021-01-13 2021-01-13 Outpatient [facility] [id number] Univers 00:00:00 00:00:00 ity of [facility] 2021-01-13 2021-01-13 Orders Doctor CHRISTINE 1.2.840.114 [id number] Univers 00:00:00 00:00:00 Only Unassigned, RAY [id number] ity of [place] [facility] 4.2.7.2.686 [place] as [phone] [facility] 009 [place] 2021-01-10 2021-01-10 Outpatient [facility] [id number] Univers 00:00:00 00:00:00 ity of [facility] 2021-01-07 2021-01-07 Outpatient [facility] [id number] Univers 00:00:00 00:00:00 ity of [facility] 2021-01-07 2021-01-07 Outpatient R [facility] [id number] Univers 00:00:00 00:00:00 ity of [facility] 2021-01-04 2021-01-04 Outpatient [facility] [id number] Univers 00:00:00 00:00:00 ity [facility] 2021-01-04 2021-01-04 Orders Doctor CHRISTINE 1.2.840.114 [id number] Univers 00:00:00 00:00:00 Only Unassigned, RAY [id number] ity of [place] [facility] 4.2.7.2.686 [place] [phone] [facility] 009 [place] 2021-01-01 2021-01-01 [facility] KimberlynKIMBER 1.2.840.114 [id number] Univers 10:28:00 23:59:00 Encounter Dalton Nayana [id number] ity of [facility] 4.2.7.2.686 [place] [phone] [facility] 031 Branch 2021-01-01 2021-01-01 Outpatient [facility] ACO [id number] Univers 00:00:00 00:00:00 DALTON ity [facility] 2020-12-29 2020-12-29 Outpatient [facility] [id number] Univers 00:00:00 00:00:00 ity [facility] 2020-12-26 2020-12-26 Outpatient [facility] [id number] Univers 00:00:00 00:00:00 ity of [facility] 2020-12-26 2020-12-26 Orders Doctor CHRISTINE 1.2.840.114 [id number] Univers 00:00:00 00:00:00 Only Unassigned, RAY [id number] ity of [place] [facility] 4.2.7.2.686 [place] [phone] [address] 2020-09-12 2020-09-12 [facility] [id number] Univers 12:45:00 12:45:00 NYDIA ity [facility] 2020-09-05 2020-09-05 Orders Doctor CHRISTINE 1.2.840.114 [id number] Univers 00:00:00 00:00:00 Only Unassigned, RAY [id number] ity of [place] [facility] 4.2.7.2.686 [place] [phone] [address] 2020-09-05 2020-09-05 Orders Doctor KING 1.2.840.114 [id number] 00:00:00 00:00:00 Only Unassigned, RAY [id number] [place] [facility] 4.2.7.2.686 [phone] [facility] 2020-08-30 2020-08-[address] [facility] [id number] Univers 00:00:00 00:00:00 Nydia Health [id number] it y of [place] 4.2.7.2.686 [place] Professio [phone] La dical [address] Office [facility] One 2020-08-30 2020-08-[address] [facility] [id number] 00:00:00 00:00:00 Nydia Health [id number] [place] [id number] Professio [phone] nal [address] [place] [address] One 2020-08-21 2020-08-[address] [facility] 1.2.840.114 [id number] Univers 00:00:00 00:00:00 Dilcia Yeh [id number] [id number] [phone] La dical [address] 2020-08-21 2020-08-21 Refill Milton [facility] 1.2.840.114 [id number] 00:00:00 00:00:00 Dilcia [place] [id number] [place] 4.2.7.2.686 Professio [phone] [address] 2020-08-17 2020-08-17 OFFICE STLMLC STLMLC [id number] Co mmon 00:00:00 00:00:00 VISIT Spirit ESTAB PT - CHI LEVEL 4 [facility] 2020-08-12 2020-08-12 (TEL) STLMLC STLMLC [id number] Co mmon 00:00:00 00:00:00 Spirit - [facility] 2020-08-11 2020-08-11 Outpatient R MILTON [facility] [id number] [facility] 15:45:00 15:45:00 DILCIA ity [facility] 2020-08-10 2020-08-10 OFFICE STLMLC STLMLC [id number] Co mmon 00:00:00 00:00:00 VISIT EST Spir it PT LEVEL 3 - [facility] 2020-07-29 2020-07-[address] [facility] [id number] Univers 00:00:00 00:00:00 Eileen Yeh 350.1.13.10 ity [place] [phone] [address] 2020-07-29 2020-07-29 Telephone Aniceto [facility] 1.2.955.897 [id number] 00:00:00 00:00:00 Eileen Yeh 350.1.13.10 [place] 4.2.7.2.686 Professio [phone] [address] 2020-07-28 2020-07-28 Telephone CHRISTINE Rose 1.2.840.114 [id number] Univers 00:00:00 00:00:00 Dilciamery BELL 350.1.13.10 it y of [facility] 4.2.7.2.686 [place] [phone] [facility] 007 [place] 2020-07-27 2020-07-27 [facility]ICE [facility] [id number] Co mmon 00:00:00 00:00:00 VISIT NEW Spir it PT LEVEL 4 - [facility] 2020-07-27 2020-07-27 Orders Doctor CHRISTINE 1.2.840.114 [id number] Univers 00:00:00 00:00:00 Only Unassigned, RAY 350.1.13.10 ity of [place] [facility] 4.2.7.2.686 [place] [phone] [facility] 009 Branch 2020-07-27 2020-07-27 Orders Doctor CHRISTINE 1.2.840.114 [id number] 00:00:00 00:00:00 Only Unassigned, RAY 350.1.13.10 [place] [facility] 4.2.7.2.686 [phone] [facility] 2020-07-25 2020-07-25 Office [facility] 1.2.840.114 [id number] Univers 12:49:30 14:02:12 Visit Dilcia Yeh 350.1.13.10 i [place] [phone] [address] 2020-07-25 2020-07-25 Office [facility] 1.2.840.114 [id number] 12:49:30 14:02:12 Visit Dilcia [place] 350.1.13.10 [place] 4.2.7.2.686 Professio [phone] [address] 2020-07-25 2020-07-25 [facility] [id number] Univers 13:00:00 13:00:00 DILCIA ity of [facility] 2020-07-25 2020-07-25 [facility] 1.2.840.114 [id number] Univers 00:00:00 00:00:00 (Out) Dilcia [place] 350.1.13.10 i [place] [phone] [address] 2020-07-19 2020-07-19 Urgent Provider, [facility] 1.2.840.114 [id number] Univers 15:44:32 17:19:36 Care Lainey Britton Health 350.1.13.10 ity of [place] 4.2.7.2.686 [place] Professio [phone] [facility] 044 [facility] 2020-07-19 2020-07-19 [facility] [id number] Univers 16:00:00 16:00:00 LAINEY ity [facility] 2020-07-18 2020-07-18 Telephone [facility] 1.2.211.174 [id number] Univers 00:00:00 00:00:00 Charito A Health 350.1.13.10 i ty of [place] 4.2.7.2.686 [place] Professio [phone] [facility] 044 [facility] 2020-07-08 2020-07-[address] [facility] 1.2.840.114 [id number] Univers 00:00:00 00:00:00 Wentamador Yeh 350.1.13.10 i [place] [phone] [facility] 220 [facility] 2020-07-06 2020-07-06 [place] [facility] 1.2.737.201 [id number] Univers 00:00:00 00:00:00 Lainey Health 350.1.13.10 it y of [place] 4.2.7.2.686 [place] Professio [phone] [facility] 044 [place] Office [facility] 2020-07-05 2020-07-05 [facility] 1.2.840.114 [id number] Univers 11:59:59 23:59:00 Encounter Lainey Yeh 350.1.13.10 ity of [place] [phone] [facility] [address] [place] [address] 2020-07-05 2020-07-05 Urgent Provider, [facility] 1.2.840.114 [id number] Univers 11:02:15 11:35:14 Care Nori Brittonthia Health 350.1.13.10 ity of [place] 4.2.7.2.686 [place] Professio [phone] [address] Office [facility] One 2020-07-05 2020-07-05 Outpatient R [facility] [id number] Univers 11:00:00 11:00:00 ity of [facility] 2020-07-05 2020-07-05 Letter Provider, [facility] 1.2.055.198 [id number] Univers 00:00:00 00:00:00 (Out) [facility] 350.1.13.10 ity of Care [place] 4.2.7.2.686 [place] Professio [phone] [address] One 2020-07-05 2020-07-[address] [facility] [id number] [id number] Univers 00:00:00 00:00:00 Charito A Health 350.1.13.10 i ty of [place] 4.2.7.2.686 [place] Profess[place] [phone] [address] 2020-05-03 2020-05-[address] [facility] 1.2.037.465 [id number] Univers 00:00:00 00:00:00 Charito A Health 350.1.13.10 i ty of [place] 4.2.7.2.686 [place] Professio [phone] [address] 2020-05-02 2020-05-[address] [facility] 1.2.689.843 [id number] Univers 00:00:00 00:00:00 Nydia Yeh 350.1.13.10 [place] [phone] [address] 2020-04-29 2020-04-[address] [facility] 1.2.155.711 [id number] Univers 00:00:00 00:00:00 Nydia Yeh 350.1.13.10 i [place] [phone] La dical nal 044 [facility] 2020-04-27 2020-04-27 Orders Doctor CHRISTINE 1.2.840.114 [id number] Univers 00:00:00 00:00:00 Only Unassigned, RAY 350.1.13.10 ity of [place] [facility] 4.2.7.2.686 [place] [phone] [address] 2020-04-21 2020-04-21 Telephone [facility] 1.2.578.532 [id number] Univers 00:00:00 00:00:00 Nydia Yeh 350.1.13.10 i [place] [phone] La dical nal 044 [facility] 2020-04-13 2020-04-[address] [place] [address] [facility] 1.2.789.603 [id number] Univers 00:00:00 00:00:00 Nydia Yeh 350.1.13.10 i [place] [phone] La dical nal 044 [facility] 2020-03-27 2020-03-[address] [facility] 1.2.840.114 [id number] Univers 00:00:00 00:00:00 Joby Yeh 350.1.13.10 i ty [place]2.[place] [phone] La dical nal 220 [facility] 2020-03-22 2020-03-22 Telephone [facility] 1.2.955.567 [id number] Univers 00:00:00 00:00:00 Nydia Yeh 350.1.13.10 i ty [place]2.[place] [phone] La dical nal 044 [facility] 2020-03-21 2020-03-[address] [facility] 1.2.840.114 [id number] Univers 15:05:54 15:20:54 Visit Nydia Yeh 350.1.13.10 i ty of [place].2.[place] [phone] [facility] 044 [facility] 2020-03-21 2020-03-21 Outpatient R LAURA [facility] [id number] Univers 15:15:00 15:15:00 NYDIA itchau [facility] 2020-03-21 2020-03-[address] [facility] 1.2.840.114 [id number] Univers 00:00:00 00:00:00 (Out) Nydia Rao 350.1.13.10 i ty [place] [phone] [address] 2020-03-10 2020-03-[address] [facility] 1.2.851.202 [id number] Univers 00:00:00 00:00:00 Nydia [facility] 350.1.13.10 it y of [place] 4.2.7.2.686 [place] Professio [phone] [address] One 2020-02-16 2020-02-16 Eddie Eller [facility] 1.2.108.544 [id number] Univers 00:00:00 00:00:00 Joby Albertoton 350.1.13.10 i ty [place] [phone] [facility] 220 [facility] 2020-01-06 2020-01-06 Outpatient R DAPHNIE [facility] [id number] Univers 16:00:00 16:00:00 JOBY fredachau [facility] 2020-01-06 2020-01-[address] [facility] 1.2.840.114 [id number] Univers 08:31:20 09:01:20 ne Visit Joby Yeh 350.1.13.10 ity of [place] [phone] [facility] 220 [facility] 2020-01-05 2020-01-[address] [facility] 1.2.758.165 [id number] Univers 00:00:00 00:00:00 Charito Yeh 350.1.13.10 ity of [place] [phone] Me dical nal 044 [facility] 2019-12-24 2019-12-24 Orders Doctor CHRISTINE 1.2.840.114 [id number] Univers 00:00:00 00:00:00 Only Unassigned, RAY 350.1.13.10 ity of [place] [facility] 4.2.7.2.686 [place] [phone] [facility] haris 009 [place] 2019-11-27 2019-11-27 Refill Eller, [facility] 1.2.840.114 [id number] Univers 00:00:00 00:00:00 Joby Yeh 350.1.13.10 i ty [place] [phone] Me dical nal 220 [facility] Results Test Description Test Time Test Comments Results Result Comments Source POCT URINALYSIS, INSTRUMENT 2020-07-25 19:16:00 Test Item Value Reference Range Interpretation Comme nts POCT U SP GRAV (test code = 3255) 1.010 mg/dl 1.005-1.025 POCT PH U (test code = 3254) 6.5 mg/dl 5-8 POCT U LEUK EST (test code = 3263) Trace Negative - Negative POCT U NIT (test code = 3262) Negative Negative - Negative POCT U PROT (test code = 3259) Negative Negative - Negative POCT U GLU (test code = 3256) Negative - Negative POCT U KETONE (test code = 3258) Negative - Negative POCT U UROBILI (test code = 3260) 0.2 mg/dl 0.2-1 POCT U BILI (test code = 3261) Negative Negative - Negative POCT U BLD (test code = 3257) small Negative - Negative POCT U COLOR (test code = 3266) Yellow POCT U APPEAR (test code = 3267) clear Lab Interpretation (test code = 90447-3) Abnormal [facility] URINALYSIS, [id number] 19:16:00 Test Item Value Reference Range Interpretation Comments POCT U SP GRAV (test code = 1.010 mg/dl 1.005-1.025 3255) POCT PH U (test code = 3254) 6.5 mg/dl 5-8 POCT U LEUK EST (test code = Trace Negative - Negative 3263) POCT U NIT (test code = 3262) Negative Negative - Negative POCT U PROT (test code = Negative Negative - Negative 3259) POCT U GLU (test code = 3256) Negative - Negative POCT U KETONE (test code = Negative - Negative 3258) POCT U UROBILI (test code = 0.2 mg/dl 0.2-1 3260) POCT U BILI (test code = Negative Negative - Negative 3261) POCT U BLD (test code = 3257) small Negative - Negative POCT U COLOR (test code = Yellow 3266) POCT U APPEAR (test code = clear 3267) Lab Interpretation (test code Abnormal = 43461-5) [facility] URINALYSIS, [id number] 19:16:00 Test Item Value Reference Range Interpretation Comments POCT U SP GRAV (test code = 1.010 mg/dl 1.005-1.025 3255) POCT PH U (test code = 3254) 6.5 mg/dl 5-8 POCT U LEUK EST (test code = Trace Negative - Negative 3263) POCT U NIT (test code = 3262) Negative Negative - Negative POCT U PROT (test code = Negative Negative - Negative 3259) POCT U GLU (test code = 3256) Negative - Negative POCT U KETONE (test code = Negative - Negative 3258) POCT U UROBILI (test code = 0.2 mg/dl 0.2-1 3260) POCT U BILI (test code = Negative Negative - Negative 3261) POCT U BLD (test code = 3257) small Negative - Negative POCT U COLOR (test code = Yellow 3266) POCT U APPEAR (test code = clear 3267) Lab Interpretation (test code Abnormal = 18968-3) [facility] URINALYSIS, [id number] 19:16:00 Test Item Value Reference Range Interpretation Comments POCT U SP GRAV (test code = 1.010 mg/dl 1.005-1.025 3255) POCT PH U (test code = 3254) 6.5 mg/dl 5-8 POCT U LEUK EST (test code = Trace Negative - Negative 3263) POCT U NIT (test code = 3262) Negative Negative - Negative POCT U PROT (test code = Negative Negative - Negative 3259) POCT U GLU (test code = 3256) Negative - Negative POCT U KETONE (test code = Negative - Negative 3258) POCT U UROBILI (test code = 0.2 mg/dl 0.2-1 3260) POCT U BILI (test code = Negative Negative - Negative 3261) POCT U BLD (test code = 3257) small Negative - Negative POCT U COLOR (test code = Yellow 3266) POCT U APPEAR (test code = clear 3267) Lab Interpretation (test code Abnormal = 28689-8) [facility] SPECIFIC [id number] 21:27:00 Test Item Value Reference Range Interpretation Comments POCT U SP GRAV (test code = 1.010 mg/dl 1.005-1.025 3255) POCT PH U (test code = 3254) 5 mg/dl 5-8 POCT U LEUK EST (test code = neg Negative - Negative 3263) POCT U NIT (test code = 3262) neg Negative - Negative POCT U PROT (test code = Negative - Negative 3259) POCT U GLU (test code = 3256) Negative - Negative POCT U KETONE (test code = mod ++ Negative - Negative 3258) POCT U UROBILI (test code = norm 0.2-1 3260) POCT U BILI (test code = neg Negative - Negative 3261) POCT U BLD (test code = 3257) Negative - Negative POCT U COLOR (test code = cesar 3266) POCT U APPEAR (test code = cloudy 3267) Lab Interpretation (test code Abnormal = 72623-8) [facility] [id number] 17:46:42 HISTORY: Mid back pain that wraps along into the chest wall. COMPARISON: Chest x-ray dated 08/01/2016. TECHNIQUE: AP x2, lateral and swimmer's x2 of the thoracic spines aresubmitted. FINDINGS: No compression fracture. No aggressive bone lesions orparavertebral soft tissue swelling. Shallow Schmorl's node noted in some ofthe middle and lower thoracic vertebral endplates, likely secondary toremote axialloading trauma. CONCLUSIONS: No acute findings. [facility] [place], Radiant Results Inft User - 07/05/2020 12:47 PM CDTHISTORY: Mid back pain that wraps along into the chest wall.COMPARISON: Chest x-ray dated 08/01/2016.TECHNIQUE: AP x2, lateral and swimmer's x2 of the thoracic spines aresubmitted.FINDINGS: No compression fracture. No aggressive bone lesions orparavertebral soft tissue swelling. Shallow Schmorl's node noted in some ofthe middle and lower thoracic vertebral endplates, likely secondary toremote axial loading trauma.CONCLUSIONS: No acute findings.[facility]
--- NOTE | 2023-05-13 20:37 | RAD REPORT ---
EXAM DESCRIPTION: RAD - Foot Left 3 View - 05/13/2023 8:21 pm CLINICAL HISTORY: Left Foot pain FINDINGS: No fracture or dislocation is seen. A soft tissue ulceration involves the plantar aspect of the hindfoot. There is cortical irregularity involving the inferior posterior calcaneus consistent with osteomyelit is
[2023-05-13] MEDS ORDERED: MORPHINE 2 MG/ML SYR ONE (20:55)
--- NOTE | 2023-05-13 22:03 | EDPHYS ---
Physician Documentation [facility] Name: Maicol Segundo Age: 28 yrs Sex: Male : 1995 Arrival Date: 05/13/2023 Time: 18:21 Bed 14 Private MD: Mark Joseph ED Physician Amari Schmidt HPI: 05/13 20:05 This 28 yrs old Male presents to ER via Ambulatory with complaints of Diabetic Foot cp Ulcer. 20:05 The patient presents with open wound to left heel. cp 20:05 Patient reports being sent to ED by pcp, DR Joseph, for admission. Patient with open cp wound to left heel. Patient denies fever. Historical: - Allergies: 18:44 sulfamethoxazole-trimethoprim; ll1 18:48 Ceclor; ll1 - PMHx: 18:44 Diabetes - IDDM; Hypertension; ll1 - PSHx: 18:48 R foot SX; perirectal abscess; ll1 - Immunization history:: Adult Immunizations up to date. - Social history:: Smoking status: Patient denies any tobacco usage or history of. ROS: 20:10 Constitutional: Negative for body aches, chills, fever, poor PO intake. cp 20:10 Eyes: Negative for injury, pain, redness, and discharge. cp 20:10 Cardiovascular: Negative for chest pain. 20:10 Respiratory: Negative for cough, shortness of breath, wheezing. 20:10 Abdomen/GI: Negative for abdominal pain, vomiting, diarrhea, constipation. 20:10 Neuro: Negative for altered mental status, dizziness, headache, weakness. 20:10 All other systems are negative. Exam: 20:15 Constitutional: The patient appears in no acute distress, alert, awake, cp non-diaphoretic, non-toxic, well developed, well nourished, overweight 20:15 Head/Face: Normocephalic, atraumatic. cp 20:15 Eyes: Periorbital structures: appear normal, Conjunctiva: normal, no exudate, no injection, Sclera: no appreciated abnormality, Lids and lashes: appear normal, bilaterally. 20:15 ENT: External ear(s): are unremarkable, Nose: is normal, Mouth: Lips: moist, Oral mucosa: pink and intact, moist, Posterior pharynx: is normal, airway is patent, no erythema, no exudate. 20:15 Chest/axilla: Inspection: normal. 20:15 Cardiovascular: Rate: tachycardic, Rhythm: regular. 20:15 Respiratory: the patient does not display signs of respiratory distress, Respirations: normal, no use of accessory muscles, no retractions, labored breathing, is not present, Breath sounds: are clear throughout, no decreased breath sounds, no stridor, no wheezing. 20:15 Abdomen/GI: Inspection: abdomen appears normal, Palpation: abdomen is soft and non-tender, in all quadrants. 20:15 Back: pain, is absent, ROM is normal. 20:15 Musculoskeletal/extremity: Pulses: weak dorsalis pedis pulse of left foot, the left foot decreased sensation, large open wound noted medial and lateral side of left heel with foul smelling, purulent drainage noted when dressing removed. 20:15 Neuro: Orientation: to person, place \T\ time. Mentation: is normal. 20:37 ECG was reviewed by the Attending Physician. Vital Signs: 18:44 BP 166 / 101; Pulse 101; Resp 17; Temp 97.8; Pulse Ox 100% ; Weight 96.16 kg; Height 5 ll1 ft. 9 in. ; Pain 3/10; 18:52 BP 142 / 98; ll1 21:00 BP 163 / 105; Pulse 95; Resp 16 S; Pulse Ox 100% on R/A; ko1 22:00 BP 154 / 100; Pulse 87; Resp 18 S; Pulse Ox 100% on R/A; ha1 23:00 BP 150 / 95; Pulse 93; Resp 18 S; Pulse Ox 98% on R/A; ha1 18:44 Body Mass Index 31.31 (96.16 kg, 175.26 cm) ll1 18:44 Pain Scale: Adult ll1 MDM: 19:02 Patient medically screened. cp 22:05 Data reviewed: vital signs, nurses notes, radiologic studies, doppler, plain films. cp 22:05 Differential diagnosis: sepsis, cellulitis, osteomyelitis. Management of patient was cp discussed with the following: Primary Care Provider: DR Joseph who will admit for IV antibiotics and requests podiatry consult. I considered the following discharge prescriptions or medication management in the emergency department Medications were administered in the Emergency Department. See MAR. Care significantly affected by the following chronic conditions: Diabetes, Hypertension. Counseling: I had a detailed discussion with the patient and/or guardian regarding the historical points, exam findings, and any diagnostic results supporting the discharge/admit diagnosis, radiology results, the need for further work-up and treatment in the hospital. 05/13 20:03 Order name: Basic Metabolic Panel; Complete Time: 22:41 cp 05/13 22:41 Interpretation: Normal except: NA 129; CL 95; GLUC 411; BUN 20. cp 05/13 20:03 Order name: CBC with Diff; Complete Time: 22:15 cp 05/13 20:03 Order name: LFT's; Complete Time: 22:41 cp 05/13 20:03 Order name: Magnesium; Complete Time: 22:41 cp 05/13 20:37 Order name: Lactate w/ 2H reflex if indic.; Complete Time: 22:41 ko1 05/13 20:37 Order name: Wound Culture ko 05/13 22:01 Order name: Blood Culture Adult (2) ko 05/13 23:11 Order name: Basic Metabolic Panel EDMD 05/13 23:11 Order name: Basic Metabolic Panel EDMD 05/13 23:11 Order name: CBC with Automated Diff EDMS 05/13 23:11 Order name: CBC with Automated Diff EDMS 05/14 06:20 Order name: Glucose, Ancillary Testing EDMD 05/14 07:59 Order name: Glucose, Ancillary Testing EDMD 05/14 13:18 Order name: Glucose, Ancillary Testing EDMD 05/14 17:03 Order name: Glucose, Ancillary Testing EDMD 05/13 20:03 Order name: XRAY Foot LEFT 3 View; Complete Time: 21:03 cp 05/13 21:03 Interpretation: Reviewed report. 05/13 20:29 Order name: US Extremity Venous Unilateral Ltd; Complete Time: 22:41 cp 05/13 22:41 Interpretation: Report reviewed. 05/13 20:29 Order name: Lower Extremity Artery Uni Ltd ; Complete Time: 22:41 cp 05/13 20:03 Order name: EKG; Complete Time: 20:04 cp 05/13 23:11 Order name: CONS Physician Consult EDMD 05/13 23:11 Order name: 60g Consistent Carbohydrate (ADA 1800/2000) EDMS 05/13 20:03 Order name: Cardiac monitoring; Complete Time: 20:37 cp 05/13 20:03 Order name: EKG - Nurse/Tech; Complete Time: 20:37 cp 05/13 20:03 Order name: IV Saline Lock; Complete Time: 22:24 cp 05/13 20:03 Order name: Labs collected and sent; Complete Time: 22:24 cp 05/13 20:03 Order name: O2 Per Protocol; Complete Time: 21:02 cp 05/13 20:03 Order name: O2 Sat Monitoring; Complete Time: 21:02 cp EC:37 Rate is 92 beats/min. Rhythm is regular. CO interval is normal. QRS interval is normal. cp QT interval is normal. T waves are Inverted in lead aVR. Interpreted by me. Reviewed by me. Administered Medications: 21:59 Drug: morphine IVP or IV 2 mg Route: IVP; Infused Over: 4 mins; Site: left upper arm; ko1 22:00 Drug: NS 0.9% IV 1000 ml Route: IV; Rate: 1 bolus; Site: right upper arm; ko1 22:07 Not Given (Physician Discretion): vancoMYCIN IVPB 1 grams IVPB once over 2 hrs cp 22:18 Drug: Cefepime IVPB 1 grams Route: IVPB; Rate: 200 ml/hr; Infused Over: 30 mins; Site: ko1 right upper arm; 22:45 Follow up: Response: No adverse reaction; IV Status: Completed infusion; IV Intake: ha1 100ml 23:05 Drug: levofloxacin IVPB 750 mg Volume: 150 ml; Route: IVPB; Infused Over: 90 mins; ha1 Site: right upper arm; 05/14 00:30 Follow up: Response: No adverse reaction; IV Status: Completed infusion ha1 Disposition: 05/13 21:15 I agree with the assessment and plan of care. I reviewed the patient's care provided by cp3 the Advanced Practice Provider and agree with the diagnosis and treatment plan. Disposition Summary: 05/13/23 22:02 Hospitalization Ordered Hospitalization Status: Inpatient Admission cp Provider: Mark Joseph cp Condition: Stable cp Problem: an ongoing problem cp Symptoms: have improved cp Bed/Room Type: Standard cp Location: Telemetry/MedSurg (Inpatient)(05/14/23 06:10) Room Assignment: 42(05/14/23 15:56) bd Diagnosis - Osteomyelitis, unspecified - heel of left foot cp - Hypertensive heart disease without heart failure cp - Diabetes mellitus due to underlying condition with hyperglycemia cp Forms: - Medication Reconciliation Form cp - SBAR form cp - Leadership Thank You Letter cp Signatures: Dispatcher [employer] Emily García Cwanza, MD MD cp3 Solomon Petty PA PA cp Yesika Izquierdo RN RN cg Bibiana Mistry RN RN ll1 Rachel Craven RN RN ha1 Gaby Lake RN RN ko1 Corrections: (The following items were deleted from the chart) 18:50 18:44 Allergies: Cefaclor; ll1 ll1 23:48 22:02 Telemetry/MedSurg (Inpatient) cp cg 23:48 22:02 cp cg 05/14 06:10 05/13 23:48 BR ER HOLD cg cg 05/14 06:10 05/13 23:48 ERHOLD- cg cg 05/14 15:56 06:10 cg
--- NOTE | 2023-05-13 22:03 | ER ---
Nurse's Notes [facility] Name: Maicol Segundo Age: 28 yrs Sex: Male : 1995 Arrival Date: 05/13/2023 Time: 18:21 Bed 14 Private MD: Mark Joseph Diagnosis: Osteomyelitis, unspecified-heel of left foot;Hypertensive heart disease without heart failure;Diabetes mellitus due to underlying condition with hyperglycemia Presentation: 05/13 18:44 Ebola Screen: Patient denies travel to an Ebola-affected area in the 21 days before 1 illness onset. Initial Sepsis Screen: Does the patient meet any 2 criteria? No. Patient's initial sepsis screen is negative. Does the patient have a suspected source of infection? Yes: Skin breakdown/wound. Risk Assessment: Do you want to hurt yourself or someone else? Patient reports no desire to harm self or others. 18:44 Method Of Arrival: Ambulatory [facility] 18:44 Chief complaint: Patient states: L foot ulcer tunneled for past two weeks. Dr. Joseph 1 sent him in for further eval. Coronavirus screen: Vaccine status: Patient reports receiving the 2nd dose of the covid vaccine. Client denies travel out of the [place] in the last 14 days. At this time, the client does not indicate any symptoms associated with coronavirus-19. Onset of symptoms was April 29, 2023. 18:44 Acuity: JIMMY 3 ll1 Historical: - Allergies: 18:44 sulfamethoxazole-trimethoprim; ll1 18:48 Ceclor; ll1 - PMHx: 18:44 Diabetes - IDDM; Hypertension; ll1 - PSHx: 18:48 R foot SX; perirectal abscess; ll1 - Immunization history:: Adult Immunizations up to date. - Social history:: Smoking status: Patient denies any tobacco usage or history of. Screenin:00 [facility] ED Fall Risk Assessment (Adult) History of falling in the last 3 months, ko1 including since admission No falls in past 3 months (0 pts) Confusion or Disorientation No (0 pts) Intoxicated or Sedated No (0 pts) Impaired Gait No (0 pts) Mobility Assist Device Used No (0 pt) Altered Elimination No (0 pt) Score/Fall Risk Level 0 - 2 = Low Risk Oriented to surroundings, Maintained a safe environment, Educated pt \T\ family on fall prevention, incl call for assistance when getting out of bed. Abuse screen: Denies threats or abuse. Denies injuries from another. Nutritional screening: No deficits noted. Tuberculosis screening: No symptoms or risk factors identified. Assessment: 20:30 General: Appears comfortable, Behavior is calm, cooperative. ha1 20:30 Pain: Complains of pain in left foot Pain does not radiate. Pain currently is 6 out of ha1 10 on a pain scale. Quality of pain is described as throbbing. Neuro: Level of Consciousness is awake, alert, obeys commands, Oriented to person, place, time, situation. Cardiovascular: Heart tones S1 S2 present Capillary refill < 3 seconds. Respiratory: Airway is patent Trachea midline Respiratory effort is even, unlabored, Respiratory pattern is regular, symmetrical. GI: No signs and/or symptoms were reported involving the gastrointestinal system. Derm: Wound noted left foot Wound is dry , no drainage. Musculoskeletal: Circulation, motion, and sensation intact. Range of motion: intact in all extremities. 20:30 Reassessment: Patient and/or family updated on plan of care and expected duration. Pain ha1 level reassessed. Patient is alert, oriented x 3, equal unlabored respirations, skin warm/dry/pink. 21:15 Reassessment: notified charge nurse of need for ultrasound IV. ha1 21:30 Reassessment: Patient and/or family updated on plan of care and expected duration. Pain ha1 level reassessed. Patient is alert, oriented x 3, equal unlabored respirations, skin warm/dry/pink. 22:30 Reassessment: Patient and/or family updated on plan of care and expected duration. Pain ha1 level reassessed. Patient is alert, oriented x 3, equal unlabored respirations, skin warm/dry/pink. 23:31 Reassessment: Patient and/or family updated on plan of care and expected duration. Pain ha1 level reassessed. Patient is alert, oriented x 3, equal unlabored respirations, skin warm/dry/pink. Vital Signs: 18:44 BP 166 / 101; Pulse 101; Resp 17; Temp 97.8; Pulse Ox 100% ; Weight 96.16 kg; Height 5 ll1 ft. 9 in. ; Pain 3/10; 18:52 BP 142 / 98; ll1 21:00 BP 163 / 105; Pulse 95; Resp 16 S; Pulse Ox 100% on R/A; ko1 22:00 BP 154 / 100; Pulse 87; Resp 18 S; Pulse Ox 100% on R/A; ha1 23:00 BP 150 / 95; Pulse 93; Resp 18 S; Pulse Ox 98% on R/A; ha1 18:44 Body Mass Index 31.31 (96.16 kg, 175.26 cm) ll1 18:44 Pain Scale: Adult ll1 ED Course: 18:23 Patient arrived in ED. rg4 18:23 Mark Joseph MD is Private Physician. rg4 18:24 Solomon Petty PA is PHCP. cp 18:24 Amari Schmidt MD is Attending Physician. cp 18:44 Arm band placed on. ll1 18:48 Triage completed. ll1 20:22 Missed attempt(s): 20 gauge in right forearm. missed attempted by svitlana Nguyen. ha1 20:23 XRAY Foot LEFT 3 View In Process Unspecified. EDMS 20:30 Patient has correct armband on for positive identification. Placed in gown. Bed in low ko1 position. Call light in reach. Side rails up X 1. 20:36 Gaby Lake, ARTURO is Primary Nurse. ko1 20:45 Missed attempt(s): 22 gauge in right antecubital area. ha1 21:00 Missed attempt(s): 22 gauge in left. ha1 21:50 Inserted saline lock: 22 gauge in right upper arm, using aseptic technique. Blood ha1 collected. Inserted by ARTURO Woo by ultrasound. 22:00 Mark Joseph MD is Hospitalizing Provider. cp 22:21 US Extremity Venous Unilateral Ltd In Process Unspecified. EDMS 22:21 Lower Extremity Artery Uni Ltd US In Process Unspecified. EDMS 22:27 Notified Nurse Practitioner and/or Physician Technical Services Coordinator of a critical lab result(s), kl blood sugar 411. 22:59 Blood Culture Adult (2) Sent. ko1 05/14 00:00 No provider procedures requiring assistance completed. ha1 00:00 Patient admitted, IV remains in place. ha1 03:50 Provided Education on: need for admit. ha1 Administered Medications: 05/13 21:59 Drug: morphine IVP or IV 2 mg Route: IVP; Infused Over: 4 mins; Site: left upper arm; ko1 22:00 Drug: NS 0.9% IV 1000 ml Route: IV; Rate: 1 bolus; Site: right upper arm; ko1 22:07 Not Given (Physician Discretion): vancoMYCIN IVPB 1 grams IVPB once over 2 hrs cp 22:18 Drug: Cefepime IVPB 1 grams Route: IVPB; Rate: 200 ml/hr; Infused Over: 30 mins; Site: ko1 right upper arm; 22:45 Follow up: Response: No adverse reaction; IV Status: Completed infusion; IV Intake: ha1 100ml 23:05 Drug: levofloxacin IVPB 750 mg Volume: 150 ml; Route: IVPB; Infused Over: 90 mins; ha1 Site: right upper arm; 05/14 00:30 Follow up: Response: No adverse reaction; IV Status: Completed infusion ha1 Medication: 00:00 VIS not applicable for this client. ha1 Intake: 05/13 22:45 IV: 100ml; Total: 100ml. ha1 Outcome: 22:02 Decision to Hospitalize by Provider. 05/14 00:00 Admitted to ER Hold. Please see [facility] for further documentation. ha1 Condition: stable Discharge instructions given to patient, Instructed on the need for admit, Demonstrated understanding of instructions. 17:41 Patient left the ED. mb9 Signatures: Dispatcher [employer] EDMS Radha Mistry RN RN kl Page, Corey, PA PA cp Garcia, Rubi rg4 Bibiana Mistry RN RN ll1 Ayala, Heidy, RN RN ha1 Oliver, Kathy, RN RN ko1 Breneman, Mary Beth, RN RN mb9 Corrections: (The following items were deleted from the chart) 05/13 18:50 18:44 Allergies: Cefaclor; ll1 ll1 23:19 20:30 Musculoskeletal: Circulation, motion, and sensation intact. Range of motion: ha1 intact in all extremities, ko1 23:20 20:30 General: Appears comfortable, Behavior is calm, cooperative, ko1 ha1 23:20 20:30 Pain: Complains of pain in left foot Pain does not radiate. Pain currently is 6 ha1 out of 10 on a pain scale. Quality of pain is described as throbbing, ko1 23:20 20:30 Neuro: Level of Consciousness is awake, alert, obeys commands, Oriented to ha1 person, place, time, situation, ko1 :20 20:30 Cardiovascular: Heart tones S1 S2 present Capillary refill < 3 seconds ko1 ha1 23:20 20:30 Respiratory: Airway is patent Trachea midline Respiratory effort is even, ha1 unlabored, Respiratory pattern is regular, symmetrical, ko1 :20 20:30 GI: No signs and/or symptoms were reported involving the gastrointestinal system. ha1 ko1 23:20 20:30 Derm: Wound noted left foot Wound is dry , no drainage ko1 1 23:20 20:30 Musculoskeletal: Circulation, motion, and sensation intact. Range of motion: ha1 intact in all extremities, 1 05/14 05:00 05/13 22:00 Inserted saline lock: 22 gauge in right upper arm, using aseptic technique. ha1 Blood collected. ha1
[2023-05-13 22:04] LABS: Absolute Lymphocytes (CBC) 2.8 K/uL (0.7-4.9); Hematocrit 37.6 % (39.6-49.0); Lymphocytes % 23.1 % (15.3-44.8); MCV 78.6 fL (80-100); MPV 8.1 fL (7.6-11.3); Platelets 264 thou/uL (152-406); RBC Red Blood Cell Count 4.79 M/uL (4.33-5.43)
[2023-05-13 22:21] LABS: ALT/SGPT 15 U/L (16-61); AST/SGOT 11 U/L (15-37); Albumin 2.7 g/dL (3.4-5.0); Alkaline Phosphatase 115 U/L (45-117); BUN Blood Urea Nitrogen 20 mg/dL (7-18); Bicarbonate 29 mEq/L (21-32); Bilirubin Total 0.3 mg/dL (0.2-1.0); Glomerular Filtration Rate 106 ml/min (=/>90); Magnesium 1.9 mg/dL (1.6-2.4); Potassium 4.5 mEq/L (3.5-5.1); Protein, Total 8.1 g/dL (6.4-8.2); Sodium Level 129 mEq/L (136-145)
[2023-05-13 22:26] LABS: Bilirubin Direct < 0.1 mg/dL (0-0.2); Bilirubin Indirect, Calculated ND mg/dL (0.2-0.8)
[2023-05-13 22:27] LABS: Glucose Level 411 mg/dL (74-106)
--- NOTE | 2023-05-13 22:27 | RAD REPORT ---
EXAM DESCRIPTION: USExtremity Venous Uni Ltd05/13/2023 10:19 pm CLINICAL HISTORY: left leg swelling COMPARISON: None FINDINGS: Left common femoral, superficial femoral, greater saphenous, popliteal and posterior tibi al veins are compressible and demonstrate augmentation. Doppler demonstrates good flow. Grayscale, color and spectral analysis performed on all vessels IMPRESSION: No evidence of deep venous thrombosis involving the left lower extremity.
--- NOTE | 2023-05-13 22:31 | RAD REPORT ---
EXAM DESCRIPTION: US - Lower Extremity Artery Uni Ltd - 05/13/2023 10:19 pm CLINICAL HISTORY: Leg pain COMPARISON: None FINDINGS: The left common femoral artery demonstrates a biphasic waveform The left superficial femoral, left popliteal, left posterior tibial and left dorsalis pedis arteries demonstrate monophasic signal. No occlusion. No high-grade stenosis visualize Grayscale, color and spectral analysis performed on all vessels IMPRESSION: [id number] diffuse left lower extremity arterial disease No high-grade stenosis/occlusion
[2023-05-13] MEDS ORDERED: NA CHLORIDE 0.9% 100 ML ONE (22:37)
[2023-05-13] MEDS ORDERED: NA CHLORIDE 0.9% 1,000 ML ONE (22:38)
[2023-05-13] MEDS ORDERED: CEFEPIME 1 GM/VIAL ONE (22:38)
[2023-05-13] MEDS ORDERED: ACETAMINOPHEN 500 MG TAB PO PRN (23:03)
[2023-05-13] MEDS ORDERED: ONDANSETRON 4 MG/2 ML VIAL IV PRN (23:03)
[2023-05-13] MEDS ORDERED: Levofloxacin 750mg IV 750 MG/150 ML BAG IV ONE (23:06)
[2023-05-13] MEDS ORDERED: D50W 25 GM/50 ML SYRINGE IV PRN (23:09)
[2023-05-13] MEDS ORDERED: GLUCAGON 1 MG/VIAL IM PRN (23:09)
[2023-05-13] MEDS ORDERED: D10W 125 ML IV PRN (23:48)
[2023-05-14 02:47] LABS: Absolute Lymphocytes (CBC) 2.5 K/uL (0.7-4.9); Hematocrit 33.7 % (39.6-49.0); Lymphocytes % 24.9 % (15.3-44.8); MCV 78.8 fL (80-100); MPV 7.7 fL (7.6-11.3); Platelets 243 thou/uL (152-406); RBC Red Blood Cell Count 4.27 M/uL (4.33-5.43)
[2023-05-14 03:42] LABS: Potassium 3.9 mEq/L (3.5-5.1)
[2023-05-14] MEDS: INSULIN -REGULAR HUMAN 50 UNIT/0.5 ML ML SQ SCH ×4 (04:17→20:30)
[2023-05-14] MEDS ORDERED: INSULIN -REGULAR HUMAN 50 UNIT/0.5 ML ML ONE ×2 (04:23→10:16)
[2023-05-14] MEDS ORDERED: PNEUMOCOCCAL VACCINE 0.5 ML IMVAC ONE (08:00)
[2023-05-14] MEDS: HOME MED 1 EA UNK (Dapagliflozin Propanediol [Farxiga] 10 MG Tablet) PO SCH (09:00)
[2023-05-14] MEDS ORDERED: HOME MED 1 EA UNK (Insulin Glargine,Hum.Rec.Anlog [Basaglar Kwikpen U-100] 100 UNIT/ML Ins SQ SCH (09:00)
[2023-05-14] MEDS: Mupirocin NASAL 2 APPL/1 GM TUBE NAS SCH ×2 (09:00→20:07)
[2023-05-14] MEDS: ASPIRIN EC 81 MG TAB PO SCH (09:00)
[2023-05-14] MEDS: INSULIN GLARGINE 100 UNIT/ML SQ SCH (09:00)
[2023-05-14] MEDS ORDERED: HOME MED 1 EA UNK (Omeprazole [Prilosec] 40 MG Capsule.Dr) PO SCH (09:00)
[2023-05-14] MEDS: PANTOPRAZOLE 40MG TABLET PO SCH (09:00)
[2023-05-14] MEDS ORDERED: INSULIN GLARGINE 100 UNIT/ML SQ ONE (10:15)
[2023-05-14] MEDS ORDERED: ASPIRIN 81 MG CHEWABLE TABLET ONE (10:17)
[2023-05-14] MEDS ORDERED: PANTOPRAZOLE 40MG TABLET PO ONE (10:17)
--- NOTE | 2023-05-14 13:51 | P.HP ---
Certification for Inpatient Patient admitted to: Inpatient With expected LOS: >2 Midnights Patient will require the following post-hospital care: Home Health Services Practitioner: I am a practitioner with admitting privileges, knowledge of patient current condition, hospital course, and medical plan of care. Services: Services provided to patient in accordance with Admission requirements found in Title 42 Section 412.3 of the Code of Federal Regulations Patient History Date of Service: 05/14/23 Primary Care Provider: Jake Reason for admission: diabetic foot. History of Present Illness: Office patient of [facility] with a long history of diabetes. Have been treating him as an outpatient for diabetic foot wounds while he arranged personal insurance. He developed signs of infection in his lateral heal wound and was on clindamycin and doxycyline. His wound was improving. Started seeing him in the wound care center. He developed a left medial foot 2 weeks ago. Was seen on Saturday in the wound center. His left medial wound was much bigger with a smell like a gas leak He was directed to the ER. for admission. The patient wanted to go home and come back. Councilled against, but he promised to come back. Was admitted later that night Allergies cefaclor [From Ceclor] Allergy (Verified 01/09/21 10:20) UNKNOWN sulfamethoxazole [From Bactrim] Allergy (Verified 01/09/21 10:20) UNKNOWN trimethoprim [From Bactrim] Allergy (Verified 01/09/21 10:20) UNKNOWN Home Medications: Insulin Glargine,Hum.rec.anlog [Basaglar Kwikpen U-100] 40 units SQ DAILY 12/15/20 Omeprazole [Prilosec] 40 mg PO DAILY 12/15/20 Dapagliflozin Propanediol [Farxiga] 1 tab PO DAILY 01/03/21 clindamycin HCL [Clindamycin HCl] 300 mg PO TID 07/26/21 - Past Medical/Surgical History Diabetic: Yes -: Diabetes -: HTN -: Tubes in ears -: adnoids removed - Family History Mother -: Diabetes Father -: Heart disease - Social History Smoking Status: Former smoker Alcohol use: No CD- Drugs: No Caffeine use: Yes Review of Systems 10-point ROS is otherwise unremarkable Integumentary: Other (diabetic foot ulcer left foot ) Physical Examination - Vital Signs Temperature: 98.1 F Blood Pressure: 138/94 Pulse: 86 Respirations: 17 Pulse Ox (%): 98 - Physical Exam General: Alert, In no apparent distress HEENT: Atraumatic, PERRLA, Mucous membr. moist/pink, EOMI, Sclerae nonicteric Neck: Supple, 2+ carotid pulse no bruit, No LAD, Without JVD or thyroid abnormality Respiratory: Clear to auscultation bilaterally, Normal air movement Cardiovascular: Regular rate/rhythm, Normal S1 S2 Gastrointestinal: Normal bowel sounds, No tenderness Musculoskeletal: No tenderness Integumentary: No rashes, Diabetic ulcer (left foot ulcer with foul smell ) Neurological: Normal gait, Normal speech, Normal strength at 5/5 x4 extr, Normal tone, Normal affect Lymphatics: No axilla or inguinal lymphadenopathy - Studies Laboratory Data (last 24 hrs) 05/13/23 05/13/23 21:48 21:48 WBC 12.20 H Hgb 12.6 L Hct 37.6 L Plt Count 264 Sodium 129 L Potassium 4.5 BUN 20 H Creatinine 0.98 Glucose 411 H* Magnesium 1.9 Total Bilirubin 0.3 AST 11 L ALT 15 L Alkaline Phosphatase 115 Microbiology Data (last 24 hrs): 05/13/23 21:52 Wound - Left Ankle Gram Stain - Final Assessment and Plan - Problems (Diagnosis) (1) Type 2 diabetes mellitus with foot ulcer Current Visit: Yes Status: Acute Plan: will admit to the hospital. Consult to Dr. Fernando. Will need surgical debridgment Qualifiers: Diabetes mellitus intermodal customer service insulin use: with nursing home use Qualified Code(s): E11.621 - Type 2 diabetes mellitus with foot ulcer; L97.509 - Non- pressure chronic ulcer of other part of unspecified foot with unspecified severity; Z79.4 - [facility] (current) use of insulin (2) Osteomyelitis Current Visit: No Status: Acute Plan: Patient will be started on vanc and cefipime. Will need to get cultures, place a picc line and start the patient on 6 weeks of iv antibiotics Qualifiers: Osteomyelitis type: acute hematogenous Osteomyelitis location: foot Laterality: left Qualified Code(s): M86.072 - Acute hematogenous osteomyelitis, left ankle and foot Discharge Plan: Home Plan to discharge in: Greater than 2 days - Advance Directives Does patient have a Living Will: No Does patient have a Durable POA for Healthcare: No - Code Status/Comfort Care Code Status Assessed: Yes Code Status: Full Code Physician Review: Patient Assessed, Agree with Above Assessment and Plan Critical Care: No Time Spent Managing Pts Care (In Minutes): 70
--- NOTE | 2023-05-14 16:47 | P.CNS ---
Date of Consult: 05/14/23 Reason for Consult: abscess left foot Primary Care Provider: Jake Chief Complaint: diabetic foot. Allergies cefaclor [From Ceclor] Allergy (Verified 01/09/21 10:20) UNKNOWN sulfamethoxazole [From Bactrim] Allergy (Verified 01/09/21 10:20) UNKNOWN trimethoprim [From Bactrim] Allergy (Verified 01/09/21 10:20) UNKNOWN Home Medications: Insulin Glargine,Hum.rec.anlog [Basaglar Kwikpen U-100] 40 units SQ DAILY 12/15/20 Omeprazole [Prilosec] 40 mg PO DAILY 12/15/20 Dapagliflozin Propanediol [Farxiga] 1 tab PO DAILY 01/03/21 clindamycin HCL [Clindamycin HCl] 300 mg PO TID 07/26/21 - Past Medical/Surgical History Diabetic: Yes -: Diabetes -: HTN -: Tubes in ears -: adnoids removed - Family History Mother Medical History: Diabetes Father Medical History: Heart disease - Social History Smoking Status: Current every day smoker Alcohol use: No CD- Drugs: No Caffeine use: Yes Review of Systems 10-point ROS is otherwise unremarkable Physical Examination Temp Pulse Resp BP Pulse Ox 98.1 F 86 17 138/94 H 98 05/14/23 14:06 05/14/23 14:06 05/14/23 14:06 05/14/23 14:06 05/14/23 14:06 General: Alert, In no apparent distress, Oriented x3 Cardiovascular: No edema, Normal pulses Capillary refill: <2 Seconds Musculoskeletal: No clubbing, No swelling, No contractures, No erythema, No tenderness, No warmth Integumentary: Diabetic ulcer (Necrotic ulceration medial aspect of left heel measuring 3.0cmX2.0cmXunknown depth with purulence and foul odor noted. Wound to lateral aspect of left heel with granular base, mild purulence wounds have a high probability of communication. No cellulitis streaking noted) Neurological: Abnormal sensation Laboratory Data (last 24 hrs) 05/13/23 05/13/23 21:48 21:48 WBC 12.20 H Hgb 12.6 L Hct 37.6 L Plt Count 264 Sodium 129 L Potassium 4.5 BUN 20 H Creatinine 0.98 Glucose 411 H* Magnesium 1.9 Total Bilirubin 0.3 AST 11 L ALT 15 L Alkaline Phosphatase 115 Imagings Data: xray positive for cortical irregularity consistent with osteomyelitis left plantar calcaneus - Problems (1) Abscess of left foot Current Visit: Yes Status: Acute (2) Diabetic ulcer of left foot Current Visit: No Status: Acute (3) Osteomyelitis Current Visit: No Status: Acute Qualifiers: Osteomyelitis type: acute hematogenous Osteomyelitis location: foot Laterality: left Qualified Code(s): M86.072 - Acute hematogenous osteomyelitis, left ankle and foot Conclusions/Impression: PAtient to be npo after midnight. Patient will be taken to the OR tomorrow for surgical debridement and bone biopsy with possible partial calcanectomy. Continue current iv antibiotics Physician Review: Patient Assessed, Agree with Above Assessment and Plan Time Spent Managing Pts care (In Minutes): 30
[2023-05-14] MEDS: MORPHINE 2 MG/ML SYR IV PRN (20:10)
[2023-05-14] MEDS: NIACIN 500 MG SR TAB PO SCH (21:00)
[2023-05-15 01:23] LABS: Urine Bacteria None Seen /HPF (<20); Urine Bilirubin NEGATIVE (Negative); Urine Blood 1+ (Negative); Urine Clarity Turbid (Clear); Urine Color Light-Yellow (Yellow); Urine Glucose 3+ (Negative); Urine Mucus Slight /HPF (None Seen); Urine Protein 1+ (Negative); Urine Urobilinogen Normal (Normal)
[2023-05-15] MEDS: Mupirocin NASAL 2 APPL/1 GM TUBE NAS SCH ×2 (08:48→20:36)
[2023-05-15] MEDS: INSULIN GLARGINE 100 UNIT/ML SQ SCH (08:49)
[2023-05-15] MEDS: PANTOPRAZOLE 40MG TABLET PO SCH (08:49)
[2023-05-15] MEDS: ASPIRIN EC 81 MG TAB PO SCH (08:49)
[2023-05-15] MEDS: Levofloxacin500mg IV 500 MG/100 ML BAG IV SCH (08:49)
[2023-05-15] MEDS: INSULIN -REGULAR HUMAN 50 UNIT/0.5 ML ML SQ SCH ×5 (08:49→22:02)
[2023-05-15] MEDS ORDERED: PIPER TAZO 2.25 GM in NA CHLORIDE 0.9% 50 ML IV SCH (09:00)
[2023-05-15] MEDS: PIPER TAZO 3.375 GM in NA CHLORIDE 0.9% 100 ML IV SCH ×2 (09:00→18:38)
[2023-05-15] MEDS ORDERED: NA CHLORIDE 0.9% 500 ML ONE (09:07)
[2023-05-15] MEDS ORDERED: LIDOCAINE 1% MPF 5 ML VIAL ONE (11:22)
[2023-05-15] MEDS ORDERED: dexAMETHasone 10 MG/ML VIAL ONE (11:23)
[2023-05-15] MEDS ORDERED: MIDAZOLAM HCL 2 MG/2 ML INJ ONE (11:23)
[2023-05-15] MEDS ORDERED: FENTANYL CITR 100 MCG/2 ML ONE (11:23)
[2023-05-15] MEDS ORDERED: EPINEPHRINE/PF 1 MG/ML AMP ONE (11:23)
[2023-05-15] MEDS ORDERED: BUPIVACAINE 0.25% PF 30 ML VIAL ONE (11:24)
[2023-05-15] MEDS ORDERED: NA CHLORIDE 0.9% 1,000 ML ONE (11:53)
[2023-05-15] MEDS ORDERED: LIDOCAINE 1% MPF 30 ML VIAL ONE (11:55)
[2023-05-15] MEDS ORDERED: propofoL 200 MG/20 ML VIAL IV ONE (12:37)
[2023-05-15] MEDS ORDERED: LIDOCAINE 2% MPF 5 ML VIAL ONE (12:38)
--- NOTE | 2023-05-15 13:00 | EKG ---
Test Date: 2023-05-13 Test Time: 20:31:37 Auto Driver: [place] MEASUREMENT RESULTS: Intervals: Rate: 92 AK: 162 QRSD: 88 QT: 342 QTc: 422 Oneco: P: 55 AK: 162 QRS: 35 T: 66 INTERPRETIVE STATEMENTS: Normal sinus rhythm Normal ECG Compared to ECG 12/14/2020 23:58:24 T-wave abnormality no longer present Prolonged QT interval no longer present Electronically Signed On 05-15-23 12:58:04 CDT by Daljit Gusman
--- NOTE | 2023-05-15 13:08 | P.OP ---
Preoperative diagnosis: left foot abscess Postoperative diagnosis: same Primary procedure: left foot incision and drainage Secondary procedure: none Anesthesia: general Estimated blood loss: 20 cc Specimen: soft tissue for culture Findings: necrotic tissue with abscess left heel Operative Technique: as dictated Complications: None Implants: none Fluids & blood products: none Transferred to: Recovery Room Condition: Good
[2023-05-15] MEDS: HOME MED 1 EA UNK (Dapagliflozin Propanediol [Farxiga] 10 MG Tablet) PO SCH (14:57)
[2023-05-15] MEDS ORDERED: LIDOCAINE 1% 20 ML MDV ONE (16:01)
--- NOTE | 2023-05-15 16:43 | RAD REPORT ---
EXAM DESCRIPTION: RAD - Chest Single View - 05/15/2023 4:35 pm CLINICAL HISTORY: Picc line placement FINDINGS: Portable chest was obtained following placement of a right upper extremity PICC line. The catheter tip projects over the SVC..
[2023-05-15] MEDS: NIACIN 500 MG SR TAB PO SCH (20:35)
[2023-05-15] MEDS ORDERED: NA CHLORIDE 0.9% 500 ML IV ONE (21:52)
[2023-05-16] MEDS: PIPER TAZO 3.375 GM in NA CHLORIDE 0.9% 100 ML IV SCH ×3 (00:43→17:27)
[2023-05-16 01:53] VITALS: O2SAT 97
--- NOTE | 2023-05-16 02:02 | OP ---
Surgeon: Phuc Fernando Jr, DPM Preoperative Diagnosis: Left foot abscess with osteomyelitis. Postoperative Diagnosis: Left foot abscess with osteomyelitis. Procedure: Left foot incision and drainage with debridement. Pathology: Culture sent for gross and micro. Anesthesia: General with regional and popliteal nerve block to the left side. Hemostasis: None. Estimated Blood Loss: Less than 20 cc. Materials: 1 inch iodoform gauze. Injectables: None. Complications: None. Procedure In Detail: The patient was brought into [facility] Operating Room, placed on the OR table in supine position. The patient was placed under general anesthesia by the anesthesiologist. The patient was prepped and draped in the usual aseptic manner. Before being brought into the OR, popliteal nerve block was performed. Following prepping and draping, attention was directed to the plantar medial aspect of the left heel, at which time, a large necrotic, foul-smelling ulcerations down on the medial aspect of the heel that communicated with an ulceration to the lateral aspect of the heel. There was noted to be necrotic skin changes from the lateral heel wound extending approximately 3 or 4 cm. At this time, utilizing a 10 blade, the necrotic debris of the medial aspect of the left heel was debrided to a bleeding granular base. It was noted to extend from the posterior aspect of the calcaneus to distally approximately 4-5 cm. It was noted to go to the bone of the left calcaneus and the necrotic tissue extended to the plantar aspect of the left heel extending laterally, with communication to the lateral foot wound. At this time, the entire plantar heel was opened up utilizing a 10 blade and all black necrotic tissue was removed both of the plantar heel and the lateral heel ulcer extending proximally. Following this, the wound was irrigated with copious amounts of normal sterile saline with Betadine. Cultures were taken for culture and sensitivity and the wound was packed with 1 inch iodoform gauze, 4 x 4's, ABD pads, Kerlix, and an Alex wrap to the left lower extremity. The patient tolerated the procedure and anesthesia well and was transferred from OR to recovery room with vital signs stable and neurovascular status intact. The patient was noted to have positive osteomyelitis on x-ray preop and in hopes of resolving the osteomyelitis and allowing the patient to have normal gait. No calcanectomy is performed at this time. SYDNEY/FELICE Voice ID: [id number] Report ID: [id number] [email or web address]
[2023-05-16] MEDS: INSULIN -REGULAR HUMAN 50 UNIT/0.5 ML ML SQ SCH ×5 (07:30→20:53)
--- NOTE | 2023-05-16 08:14 | P.PN ---
Subjective Date of Service: 05/16/23 Primary Care Provider: Jake Chief Complaint: diabetic foot. Subjective: Improving, Doing well Review of Systems 10-point ROS is otherwise unremarkable Physical Examination - Vital Signs Temperature: 97.4 F Blood Pressure: 138/79 Pulse: 98 Respirations: 18 Pulse Ox (%): 96 - Physical Exam General: Alert, In no apparent distress, Oriented x3 Cardiovascular: No edema, Normal pulses Capillary refill: <2 Seconds Musculoskeletal: No swelling, No contractures, No erythema, No tenderness, No warmth Integumentary: Other (wound plantar and lateral left heel is improved with large granulation, no odor, no necrotic tissue, no periwound erythema) Neurological: Abnormal sensation - Studies Microbiology Data (last 24 hrs): 05/13/23 21:52 Wound - Left Ankle Gram Stain - Final Assessment And Plan - Current Problems (Diagnosis) (1) Abscess of left foot Current Visit: Yes Status: Acute (2) Diabetic ulcer of left foot Current Visit: No Status: Acute (3) Osteomyelitis Current Visit: No Status: Acute Qualifiers: Osteomyelitis type: acute hematogenous Osteomyelitis location: foot Laterality: left Qualified Code(s): M86.072 - Acute hematogenous osteomyelitis, left ankle and foot - Plan 1. Dressing change performed at bedside with wound being packed with Vashe moistened gauze 2. Wound Vac to be applied by nursing staff Physician Review: Patient Assessed, Agree with Above Assessment and Plan
[2023-05-16] MEDS: PANTOPRAZOLE 40MG TABLET PO SCH (08:24)
[2023-05-16] MEDS: ASPIRIN EC 81 MG TAB PO SCH (08:24)
[2023-05-16] MEDS: Levofloxacin500mg IV 500 MG/100 ML BAG IV SCH (08:25)
[2023-05-16] MEDS: Mupirocin NASAL 2 APPL/1 GM TUBE NAS SCH ×2 (08:26→20:52)
[2023-05-16] MEDS ORDERED: D50W 25 GM/50 ML SYRINGE IV PRN (08:36)
[2023-05-16] MEDS ORDERED: GLUCAGON 1 MG/VIAL IM PRN (08:36)
--- NOTE | 2023-05-16 08:43 | P.PN ---
Subjective Date of Service: 05/16/23 Primary Care Provider: Jake Chief Complaint: diabetic foot. Subjective: No new changes Review of Systems 10-point ROS is otherwise unremarkable Physical Examination - Vital Signs Temperature: 97.4 F Blood Pressure: 138/79 Pulse: 98 Respirations: 18 Pulse Ox (%): 96 - Physical Exam General: Alert, In no apparent distress HEENT: Atraumatic, PERRLA, EOMI Neck: Supple, JVD not distended Respiratory: Clear to auscultation bilaterally, Normal air movement Cardiovascular: Regular rate/rhythm, Normal S1 S2 Gastrointestinal: Normal bowel sounds, No tenderness Musculoskeletal: No tenderness Integumentary: No rashes Neurological: Normal speech, Normal tone, Normal affect Lymphatics: No axilla or inguinal lymphadenopathy - Studies Microbiology Data (last 24 hrs): 05/13/23 21:52 Wound - Left Ankle Gram Stain - Final 05/13/23 21:52 Wound - Left Ankle Culture & Sensitivity - Final Proteus Mirabilis Gram Neg Cl Assessment And Plan - Current Problems (Diagnosis) (1) Type 2 diabetes mellitus with foot ulcer Current Visit: Yes Status: Acute Plan: will admit to the hospital. Consult to Dr. Fernando. Will need surgical debridgment 05/16 a1c is 11.4 Patient reported better controll than that. Perhaps he was embarrassed. Discussed with the patient that we really need to do better. Was close to loosing his foot. Dr Fernando stated the wound was down to the bone. Discussed no sugar in his diet. Will need to have ditch rider see the patient Qualifiers: Diabetes mellitus jail insulin use: with jail use Qualified Code(s): E11.621 - Type 2 diabetes mellitus with foot ulcer; L97.509 - Non- pressure chronic ulcer of other part of unspecified foot with unspecified s everity; Z79.4 - retirement (current) use of insulin (2) Osteomyelitis Current Visit: No Status: Acute Plan: Patient will be started on vanc and cefipime. Will need to get cultures, place a picc line and start the patient on 6 weeks of iv antibiotics 05/16 Proteus in the wound. Sensitive to levaquin. Continue zosyn till we get the cultures back from Dr. Grider surgery. So we can decide on which antibiotics to put him on for 6 weeks. He does have a picc line placed Qualifiers: Osteomyelitis type: acute hematogenous Osteomyelitis location: foot Laterality: left Qualified Code(s): M86.072 - Acute hematogenous osteomyelitis, left ankle and foot Discharge Plan: Home Plan to discharge in: 24 Hours - Code Status/Comfort Care Code Status Assessed: No Physician Review: Patient Assessed, Agree with Above Assessment and Plan Critical Care: No Time Spent Managing PTS Care (In Minutes): 40
[2023-05-16] MEDS: INSULIN GLARGINE 100 UNIT/ML SQ SCH (08:52)
[2023-05-16] MEDS: HOME MED 1 EA UNK (Dapagliflozin Propanediol [Farxiga] 10 MG Tablet) PO SCH ×2 (09:00→18:21)
[2023-05-16 09:26] LABS: Absolute Lymphocytes (CBC) 1.5 K/uL (0.7-4.9); Hematocrit 34.8 % (39.6-49.0); Lymphocytes % 9.5 % (15.3-44.8); MCV 78.3 fL (80-100); MPV 7.9 fL (7.6-11.3); Platelets 264 thou/uL (152-406); RBC Red Blood Cell Count 4.44 M/uL (4.33-5.43)
[2023-05-16] MEDS: NA CHLORIDE 0.9% 1,000 ML IV SCH ×2 (12:21→20:50)
[2023-05-16] MEDS: NIACIN 500 MG SR TAB PO SCH (20:51)
[2023-05-16] MEDS: MORPHINE 2 MG/ML SYR IV PRN (23:45)
[2023-05-17 00:34] VITALS: BMI 31.3
[2023-05-17] MEDS: PIPER TAZO 3.375 GM in NA CHLORIDE 0.9% 100 ML IV SCH ×3 (01:12→17:18)
[2023-05-17] MEDS: NA CHLORIDE 0.9% 1,000 ML IV SCH ×2 (04:55→15:00)
[2023-05-17] MEDS: MORPHINE 2 MG/ML SYR IV PRN (04:55)
--- NOTE | 2023-05-17 08:40 | P.PN ---
Subjective Date of Service: 05/17/23 Primary Care Provider: Jake Chief Complaint: diabetic foot. Subjective: No new changes Review of Systems 10-point ROS is otherwise unremarkable Physical Examination - Vital Signs Temperature: 97.6 F Blood Pressure: 131/84 Pulse: 81 Respirations: 14 Pulse Ox (%): 97 - Physical Exam General: Alert, In no apparent distress HEENT: Atraumatic, PERRLA, EOMI Neck: Supple, JVD not distended Respiratory: Clear to auscultation bilaterally, Normal air movement Cardiovascular: Regular rate/rhythm, Normal S1 S2 Gastrointestinal: Normal bowel sounds, No tenderness Musculoskeletal: No tenderness Integumentary: No rashes Neurological: Normal speech, Normal tone, Normal affect Lymphatics: No axilla or inguinal lymphadenopathy - Studies Microbiology Data (last 24 hrs): 05/13/23 21:52 Wound - Left Ankle Gram Stain - Final 05/13/23 21:52 Wound - Left Ankle Culture & Sensitivity - Final Proteus Mirabilis Gram Neg Cl Assessment And Plan - Current Problems (Diagnosis) (1) Type 2 diabetes mellitus with foot ulcer Current Visit: Yes Status: Acute Plan: will admit to the hospital. Consult to Dr. Fernando. 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 Will need to get cultures, place a picc line and start the patient on 6 weeks of iv antibiotics 05/16 Proteus in the wound. Sensitive to levaquin. Continue zosyn till we get the cultures back from Dr. Grider surgery. So we can decide on which antibiotics to put him on for 6 weeks. He does have a picc line placed Qualifiers: Osteomyelitis type: acute hematogenous Osteomyelitis location: foot Laterality: left Qualified Code(s): M86.072 - Acute hematogenous osteomyelitis, left ankle and foot Discharge Plan: Home Plan to discharge in: 24 Hours - Code Status/Comfort Care Code Status Assessed: No Physician Review: Patient Assessed, Agree with Above Assessment and Plan Critical Care: No Time Spent Managing PTS Care (In Minutes): 20
[2023-05-17] MEDS: INSULIN -REGULAR HUMAN 50 UNIT/0.5 ML ML SQ SCH ×4 (10:04→21:00)
[2023-05-17] MEDS: INSULIN GLARGINE 100 UNIT/ML SQ SCH (10:04)
[2023-05-17] MEDS: Levofloxacin500mg IV 500 MG/100 ML BAG IV SCH (10:05)
[2023-05-17] MEDS: HYDROMORPHONE HCL 0.5 MG/0.5 ML INJ IV PRN ×2 (10:05→18:58)
[2023-05-17] MEDS: PANTOPRAZOLE 40MG TABLET PO SCH (10:06)
[2023-05-17] MEDS: ASPIRIN EC 81 MG TAB PO SCH (10:06)
[2023-05-17] MEDS: HOME MED 1 EA UNK (Dapagliflozin Propanediol [Farxiga] 10 MG Tablet) PO SCH (10:07)
[2023-05-17] MEDS: Mupirocin NASAL 2 APPL/1 GM TUBE NAS SCH ×2 (10:07→22:18)
[2023-05-17] MEDS: ACETAMINOPHEN 500 MG TAB PO SCH ×3 (10:30→22:14)
--- NOTE | 2023-05-17 13:20 | P.PN ---
Subjective Date of Service: 05/17/23 Primary Care Provider: Jake Chief Complaint: diabetic foot. Subjective: Doing well States that he has a wound right heel that has been present for about two weeks. Has been treating with vaseline and guaze Review of Systems 10-point ROS is otherwise unremarkable Physical Examination - Vital Signs Temperature: 98.0 F Blood Pressure: 111/71 Pulse: 85 Respirations: 14 Pulse Ox (%): 97 - Physical Exam General: Alert, In no apparent distress, Oriented x3 Cardiovascular: No edema, Abnormal pulses (diminished pulses bilateral lower extremity) Capillary refill: <2 Seconds Musculoskeletal: No clubbing, No swelling, No contractures, No erythema, No tenderness, No warmth Integumentary: Diabetic ulcer (ulceration plantar right heel measures 4.5cmX1.2cmX0.2cm with large fibrin, slight odor, no purulence , no periwound erythema, no signs of infection. LEft heel wound not visualized due to wound vac being in place.) Neurological: Abnormal sensation - Studies Microbiology Data (last 24 hrs): 05/13/23 21:52 Wound - Left Ankle Gram Stain - Final 05/13/23 21:52 Wound - Left Ankle Culture & Sensitivity - Final Proteus Mirabilis Gram Neg Cl Assessment And Plan - Current Problems (Diagnosis) (1) Abscess of left foot Current Visit: Yes Status: Acute (2) Diabetic ulcer of left foot Current Visit: No Status: Acute (3) Osteomyelitis Current Visit: No Status: Acute Qualifiers: Osteomyelitis type: acute hematogenous Osteomyelitis location: foot Laterality: left Qualified Code(s): M86.072 - Acute hematogenous osteomyelitis, left ankle and foot (4) Diabetic ulcer of right foot Current Visit: No Status: Resolved Qualifiers: Diabetes mellitus type: type 2 Non-pressure ulcer stage: with fat layer exposed - Plan 1. Dressing change performed at bedside with wound being packed with Vashe moistened gauze 2. Wound Vac to be applied by nursing staff will change dressing tomorrow 3. Right heel wound cleansed with vashe and bedside debridement performed with 15 blade and pickup into subcutaneous tissue excisionally. pre and post debridment measurements of 4.5cmX1.3cmX0.2cm. Wet to dry vashe dressing applied. 4. Medihoney to right heel wound daily Physician Review: Patient Assessed, Agree with Above Assessment and Plan Time Spent Managing PTS Care (In Minutes): 30
[2023-05-17] MEDS ORDERED: Levofloxacin 750mg IV 750 MG/150 ML BAG IV SCH (14:00)
[2023-05-17 15:14] LABS: Absolute Lymphocytes (CBC) 3.3 K/uL (0.7-4.9); Hematocrit 33.7 % (39.6-49.0); Lymphocytes % 31.8 % (15.3-44.8); MCV 79.9 fL (80-100); MPV 7.5 fL (7.6-11.3); Platelets 232 thou/uL (152-406); RBC Red Blood Cell Count 4.22 M/uL (4.33-5.43)
[2023-05-17] MEDS ORDERED: Levofloxacin 250mg IV 250 MG/50 ML BAG IV ONE (18:00)
[2023-05-17] MEDS: MEDIHONEY 44 ML TOPICAL TUBE TOP SCH (18:59)
--- NOTE | 2023-05-17 22:14 | RAD REPORT ---
EXAM DESCRIPTION: US - Lower Extremity Artery Uni Ltd - 05/17/2023 6:36 pm CLINICAL HISTORY: Leg pain COMPARISON: None FINDINGS: The right common femoral, superficial femoral, popliteal, posterior tibial and dorsalis pedis arterie s arteries generally demonstrate monophasic waveforms. No occlusion. No high-grade stenosis visualized Grayscale, color and spectral analysis performed on all vessels IMPRESSION: Diffusely abnormal waveforms right lower extremity. This may indicate aorto iliac disease No high-grade stenosis/occlusion seen
[2023-05-17] MEDS: NIACIN 500 MG SR TAB PO SCH (22:17)
[2023-05-18] MEDS: PIPER TAZO 3.375 GM in NA CHLORIDE 0.9% 100 ML IV SCH ×3 (00:35→17:56)
[2023-05-18] MEDS: HYDROMORPHONE HCL 0.5 MG/0.5 ML INJ IV PRN ×3 (00:35→23:04)
[2023-05-18] MEDS: NA CHLORIDE 0.9% 1,000 ML IV SCH (01:00)
[2023-05-18] MEDS: ACETAMINOPHEN 500 MG TAB PO SCH ×4 (03:00→22:26)
[2023-05-18 06:45] LABS: Absolute Lymphocytes (CBC) 3.2 K/uL (0.7-4.9); Hematocrit 33.1 % (39.6-49.0); Lymphocytes % 32.5 % (15.3-44.8); MCV 79.6 fL (80-100); MPV 8.3 fL (7.6-11.3); Platelets 210 thou/uL (152-406); RBC Red Blood Cell Count 4.16 M/uL (4.33-5.43)
[2023-05-18] MEDS ORDERED: OZEMPIC 2 MG/3 ML SQ SCH (09:00)
[2023-05-18] MEDS: Levofloxacin 750mg IV 750 MG/150 ML BAG IV SCH (10:45)
[2023-05-18] MEDS: HOME MED 1 EA UNK (Dapagliflozin Propanediol [Farxiga] 10 MG Tablet) PO SCH (10:45)
[2023-05-18] MEDS: PANTOPRAZOLE 40MG TABLET PO SCH (10:46)
[2023-05-18] MEDS: ASPIRIN EC 81 MG TAB PO SCH (10:47)
[2023-05-18] MEDS: INSULIN -REGULAR HUMAN 50 UNIT/0.5 ML ML SQ SCH ×4 (10:47→22:27)
[2023-05-18] MEDS: INSULIN GLARGINE 100 UNIT/ML SQ SCH (10:48)
[2023-05-18] MEDS: Mupirocin NASAL 2 APPL/1 GM TUBE NAS SCH ×2 (10:49→22:25)
--- NOTE | 2023-05-18 13:23 | P.PN ---
Subjective Date of Service: 05/18/23 Primary Care Provider: Jake Chief Complaint: diabetic foot. Subjective: No new changes Review of Systems 10-point ROS is otherwise unremarkable Physical Examination - Vital Signs Temperature: 97.5 F Blood Pressure: 139/90 Pulse: 85 Respirations: 14 Pulse Ox (%): 98 - Physical Exam General: Alert, In no apparent distress HEENT: Atraumatic, PERRLA, EOMI Neck: Supple, JVD not distended Respiratory: Clear to auscultation bilaterally, Normal air movement Cardiovascular: Regular rate/rhythm, Normal S1 S2 Gastrointestinal: Normal bowel sounds, No tenderness Musculoskeletal: No tenderness Integumentary: No rashes Neurological: Normal speech, Normal tone, Normal affect Lymphatics: No axilla or inguinal lymphadenopathy Assessment And Plan - Current Problems (Diagnosis) (1) Type 2 diabetes mellitus with foot ulcer Current Visit: Yes Status: Acute Plan: will admit to the hospital. Consult to Dr. Fernando. 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 Will need to get cultures, place a picc line and start the patient on 6 weeks of iv antibiotics 05/16 Proteus in the wound. Sensitive to levaquin. Continue zosyn till we get the cultures back from Dr. Grider surgery. So we can decide on which antibiotics to put him on for 6 weeks. He does have a picc line placed Qualifiers: Osteomyelitis type: acute hematogenous Osteomyelitis location: foot Laterality: left Qualified Code(s): M86.072 - Acute hematogenous osteomyelitis, left ankle and foot Discharge Plan: Home Plan to discharge in: Greater than 2 days - Code Status/Comfort Care Code Status Assessed: No Physician Review: Patient Assessed, Agree with Above Assessment and Plan Critical Care: No Time Spent Managing PTS Care (In Minutes): 20
--- NOTE | 2023-05-18 15:20 | P.PN ---
Subjective Date of Service: 05/18/23 Primary Care Provider: Jake Chief Complaint: diabetic foot. Subjective: Improving, Doing well States that he has a wound right heel that has been present for about two weeks. Has been treating with vaseline and guaze Review of Systems 10-point ROS is otherwise unremarkable Physical Examination - Vital Signs Temperature: 97.5 F Blood Pressure: 139/90 Pulse: 85 Respirations: 14 Pulse Ox (%): 98 - Physical Exam General: Alert, In no apparent distress, Oriented x3 Cardiovascular: No edema, Normal pulses (arterial doppler right lower extremity reveals no high grade stenosis or occlusion) Capillary refill: <2 Seconds Musculoskeletal: No clubbing, No swelling, No contractures, No erythema, No tenderness, No warmth Integumentary: Diabetic ulcer (wound plantar left foot was visualized today with removal of vac dressing. Wound bed demonstrates large granulation, no necrotic tissue, minimal fibrin, no odor, no signs of infection) Neurological: Abnormal sensation Assessment And Plan - Current Problems (Diagnosis) (1) Abscess of left foot Current Visit: Yes Status: Acute (2) Diabetic ulcer of left foot Current Visit: No Status: Acute (3) Osteomyelitis Current Visit: No Status: Acute Qualifiers: Osteomyelitis type: acute hematogenous Osteomyelitis location: foot Laterality: left Qualified Code(s): M86.072 - Acute hematogenous osteomyelitis, left ankle and foot (4) Diabetic ulcer of right foot Current Visit: No Status: Resolved Qualifiers: Diabetes mellitus type: type 2 Non-pressure ulcer stage: with fat layer exposed - Plan 1. Continue medihoney to right heel daily by nursing staff 2. Continue Wound Vac to be applied by nursing staff to left heel q48h Physician Review: Patient Assessed, Agree with Above Assessment and Plan
[2023-05-18] MEDS: NIACIN 500 MG SR TAB PO SCH (22:26)
[2023-05-19] MEDS: PIPER TAZO 3.375 GM in NA CHLORIDE 0.9% 100 ML IV SCH ×2 (02:00→08:46)
[2023-05-19] MEDS: ACETAMINOPHEN 500 MG TAB PO SCH ×4 (02:00→21:45)
[2023-05-19] MEDS: HYDROMORPHONE HCL 0.5 MG/0.5 ML INJ IV PRN ×2 (05:33→21:46)
[2023-05-19] MEDS: INSULIN -REGULAR HUMAN 50 UNIT/0.5 ML ML SQ SCH ×4 (07:30→21:46)
[2023-05-19] MEDS: HOME MED 1 EA UNK (Dapagliflozin Propanediol [Farxiga] 10 MG Tablet) PO SCH (08:46)
[2023-05-19] MEDS: Levofloxacin 750mg IV 750 MG/150 ML BAG IV SCH (08:46)
[2023-05-19] MEDS: PANTOPRAZOLE 40MG TABLET PO SCH (08:47)
[2023-05-19] MEDS: ASPIRIN EC 81 MG TAB PO SCH (08:47)
[2023-05-19] MEDS: MEDIHONEY 44 ML TOPICAL TUBE TOP SCH (08:48)
[2023-05-19] MEDS: INSULIN GLARGINE 100 UNIT/ML SQ SCH (08:50)
--- NOTE | 2023-05-19 11:41 | P.PN ---
Subjective Date of Service: 05/19/23 Primary Care Provider: Jake Chief Complaint: diabetic foot. Subjective: No new changes Review of Systems 10-point ROS is otherwise unremarkable Physical Examination - Vital Signs Temperature: 98.0 F Blood Pressure: 131/90 Pulse: 87 Respirations: 18 Pulse Ox (%): 98 - Physical Exam General: Alert, In no apparent distress HEENT: Atraumatic, PERRLA, EOMI Neck: Supple, JVD not distended Respiratory: Clear to auscultation bilaterally, Normal air movement Cardiovascular: Regular rate/rhythm, Normal S1 S2 Gastrointestinal: Normal bowel sounds, No tenderness Musculoskeletal: No tenderness Integumentary: No rashes Neurological: Normal speech, Normal tone, Normal affect Lymphatics: No axilla or inguinal lymphadenopathy - Studies Microbiology Data (last 24 hrs): 05/13/23 22:30 Blood - Blood Aerobic Blood Culture - Final No growth in 5 days. 05/13/23 22:30 Blood - Blood Anaerobic Blood Culture - Final No growth in 5 days. 05/13/23 22:39 Blood - Blood Aerobic Blood Culture - Final No growth in 5 days. 05/13/23 22:39 Blood - Blood Anaerobic Blood Culture - Final No growth in 5 days. Assessment And Plan - Current Problems (Diagnosis) (1) Type 2 diabetes mellitus with foot ulcer Current Visit: Yes Status: Acute Plan: will admit to the hospital. Consult to Dr. Fernando. 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 Will need to get cultures, place a picc line and start the patient on 6 weeks of iv antibiotics 05/18 proteus mirabalis and klebsiella pneomnia in the surgical wound biopsy. Will have mental health social worker arrange 6 weeks of iv antibiotics. Qualifiers: Osteomyelitis type: acute hematogenous Osteomyelitis location: foot Laterality: left Qualified Code(s): M86.072 - Acute hematogenous osteomyelitis, left ankle and foot Discharge Plan: Home Plan to discharge in: 24 Hours - Code Status/Comfort Care Code Status Assessed: No Physician Review: Patient Assessed, Agree with Above Assessment and Plan Critical Care: No Time Spent Managing PTS Care (In Minutes): 25
[2023-05-19] MEDS: NIACIN 500 MG SR TAB PO SCH (21:45)
[2023-05-20] MEDS: ACETAMINOPHEN 500 MG TAB PO SCH ×2 (03:06→08:25)
[2023-05-20] MEDS: HYDROMORPHONE HCL 0.5 MG/0.5 ML INJ IV PRN (03:09)
[2023-05-20] MEDS: INSULIN -REGULAR HUMAN 50 UNIT/0.5 ML ML SQ SCH ×2 (07:30→11:56)
[2023-05-20] MEDS: PANTOPRAZOLE 40MG TABLET PO SCH (08:25)
[2023-05-20] MEDS: ASPIRIN EC 81 MG TAB PO SCH (08:25)
[2023-05-20] MEDS: HOME MED 1 EA UNK (Dapagliflozin Propanediol [Farxiga] 10 MG Tablet) PO SCH (08:26)
[2023-05-20] MEDS: Levofloxacin 750mg IV 750 MG/150 ML BAG IV SCH (08:26)
[2023-05-20] MEDS: INSULIN GLARGINE 100 UNIT/ML SQ SCH (08:26)
--- NOTE | 2023-05-20 08:26 | P.DS ---
Admission Date: 05/13/23 Discharge Date: 05/20/23 Primary Care Provider: Jake Reason for Admission: diabetic foot. - Problems (1) Type 2 diabetes mellitus with foot ulcer Current Visit: Yes Status: Acute Qualifiers: Diabetes mellitus chcf insulin use: with chcf use Qualified Code(s): E11.621 - Type 2 diabetes mellitus with foot ulcer; L97.509 - Non- pressure chronic ulcer of other part of unspecified foot with unspecified severity; Z79.4 - senior living (current) use of insulin (2) Osteomyelitis Current Visit: No Status: Acute Qualifiers: Osteomyelitis type: acute hematogenous Osteomyelitis location: foot Laterality: left Qualified Code(s): M86.072 - Acute hematogenous osteomyelitis, left ankle and foot Brief History of Present Illness: Office 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 Have been treating him as an outpatient for diabetic foot wounds while he arranged personal insurance. He developed signs of infection in his lateral heal wound and was on clindamycin and doxycyline. His wound was improving. Started seeing him in the wound care center. He developed a left medial foot 2 weeks ago. Was seen on Saturday in the wound center. His left medial wound was much bigger with a smell like a gas leak He was directed to the ER. for admission. The patient wanted to go home and come back. Councilled against, but he promised to come back. Was admitted later that night Hospital Course: Patient was admited for diabetic foot ulcer and osteomyelitis. The patient was taken to surgery with Dr. Fernando. Tissue cultures came back positive for klebsiella and proteus. Both sensitive to Levaquin. He has a picc line. The patient will be discharged with 6 weeks of iv antibiotics. Follow up with me in the wound care center in 1 week. Vital Signs/Physical Exam: Temp Pulse Resp BP Pulse Ox 98.5 F 85 16 140/90 98 05/20/23 04:00 05/20/23 04:00 05/20/23 04:00 05/20/23 04:00 05/20/23 04:00 General: Alert, In no apparent distress HEENT: Atraumatic, PERRLA, EOMI Neck: Supple, JVD not distended Respiratory: Clear to auscultation bilaterally, Normal air movement Cardiovascular: Regular rate/rhythm, Normal S1 S2 Gastrointestinal: Normal bowel sounds, No tenderness Musculoskeletal: No tenderness Integumentary: No rashes Neurological: Normal speech, Normal tone, Normal affect Lymphatics: No axilla or inguinal lymphadenopathy Laboratory Data at Discharge: WBC 10.00 thou/uL (4.3-10.9) 05/18/23 05:20 Hgb 11.1 g/dL (13.6-17.9) L 05/18/23 05:20 Hct 33.1 % (39.6-49.0) L 05/18/23 05:20 Plt Count 210 thou/uL (152-406) 05/18/23 05:20 Sodium 131 mEq/L (136-145) L 05/14/23 02:31 Potassium 3.9 mEq/L (3.5-5.1) D 05/14/23 02:31 BUN 19 mg/dL (7-18) H 05/14/23 02:31 Creatinine 0.77 mg/dL (0.70-1.30) 05/14/23 02:31 Glucose 429 mg/dL (74-106) H* 05/14/23 02:31 Magnesium 1.9 mg/dL (1.6-2.4) 05/13/23 21:48 Total Bilirubin 0.3 mg/dL (0.2-1.0) 05/13/23 21:48 AST 11 U/L (15-37) L 05/13/23 21:48 ALT 15 U/L (16-61) L 05/13/23 21:48 Alkaline Phosphatase 115 U/L (45-117) 05/13/23 21:48 Home Medications: Insulin Glargine,Hum.rec.anlog [Basaglar Kwikpen U-100] 40 units SQ DAILY 12/15/20 Omeprazole [Prilosec] 40 mg PO DAILY 12/15/20 Dapagliflozin Propanediol [Farxiga] 1 tab PO DAILY 01/03/21 clindamycin HCL [Clindamycin HCl] 300 mg PO TID 07/26/21 Diet: ADA Activity: Ad margarette Followup: Mark Joseph MD [Primary Care Provider] - Physician Review: Patient Assessed, Agree with Above Assessment and Plan Time spent managing pt's care (in minutes): 30
[2023-05-20] MEDS: MEDIHONEY 44 ML TOPICAL TUBE TOP SCH (08:27)
[2023-05-20 12:45] VITALS: BP 101/60; TEMP 97.4
== END 2023-05-20 15:49 | disposition home health service (06) | DRG 264 ==
LOC: ER 18:21 → ERHOLD 22:58 → 4TH 05-14 17:30
PROVIDERS: ADMIT Internal Medicine; ATTEND Internal Medicine
PROC: 02HV33Z Insertion of Infusion Device into Superior Vena Cava, Percutaneous Approach (ICD-10-PCS; 2023-05-15)
PROC: 0JBR0ZZ Excision of Left Foot Subcutaneous Tissue and Fascia, Open Approach (ICD-10-PCS; principal; 2023-05-15 12:00)
DX: E11.52 Type 2 diabetes mellitus with diabetic peripheral angiopathy with gangrene (principal); M86.072 Acute hematogenous osteomyelitis, left ankle and foot; L02.612 Cutaneous abscess of left foot; E11.69 Type 2 diabetes mellitus with other specified complication; E11.65 Type 2 diabetes mellitus with hyperglycemia; E11.621 Type 2 diabetes mellitus with foot ulcer; L97.522 Non-pressure chronic ulcer of other part of left foot with fat layer exposed; I11.9 Hypertensive heart disease without heart failure; F17.200 Nicotine dependence, unspecified, uncomplicated; B96.4 Proteus (mirabilis) (morganii) as the cause of diseases classified elsewhere; B96.1 Klebsiella pneumoniae [K. pneumoniae] as the cause of diseases classified elsewhere; Z79.4 Long term (current) use of insulin; Z88.1 Allergy status to other antibiotic agents; Z79.899 Other long term (current) drug therapy
CPT/HCPCS: 11042; 36415; 36569; 71045; 80048; 80076; 81001; 82947; 83036; 83605; 83735; 85025; 87040; 87070; 87075; 87077; 87186; 87205; 88304; 93005; 93926; 93971; 96365; 96367; 96375; 97116; 97161; 99213; 99285; J0171; J0692; J1100; J1170; J1815; J2001; J2250; J2270; J2543; J2704; J3010; J3590; J7030; J7040

== ENCOUNTER 2024-05-17 15:06 | Inpatient (IN) | payer BC ==
--- OUTSIDE RECORDS SUMMARY | 2024-05-17 15:10 | XMS REPORT | Continuity of Care Document ---
Author Name Unknown Address [address] [facility] [place] [address] [facility] thconnect Address [address] [facility] [address] [place] [address] Care Team Providers Care Repair Technician Name Role Phone Vianca Joshua Attending Clinician Unavailab le Doctor Unassigned, [facility] Attending Clinician U Dalton Encarnacion MD Attending Clinician [phone]- [phone] DALTON SANDHU Attending Clinician UnavailNYDIA Acosta Attending Clinician Unavailable Nydia Sanchez MD Attending Clinician [phone] Dilcia Rose MD Attending Clinician [phone] DILCIA ROSE Attending Clinician Unavailable Eileen Orellana Attending Clinician + [phone] Provider, [facility] Attending Clinician Un available Lainey Hernandez Attending Clinician + [phone] LAINEY BRITTON Attending Clinician Unavailable Charito Frank Attending Clinician + [phone] Joby Eller MD Attending Clinician [phone] JOBY ELLER Attending Clinician Unavailable HOLLI FITZGERALD Admitting Clinician Unavailable Payers Payer Name Policy Type Policy Number Effective Date Expirati on Date Source TM GBRP CLAIMS [id number] 2019 00:00:00 [facility] GB CLAIMS C1 [id number] [facility] Problems Condition Name Condition Details Condition Category Status Onset Date Resolution Date Last Treatment Date Treating Clinician Comments Source Diabetes Diabetes Disease Active 06-01 00:00: 00 [facility] Asthma Asthma Disease Active Overview: Formattin g of this note might be different from the original. ICD10 Diagnosis Term Offline Cutter Utility [facility] Allergies, Adverse Reactions, Alerts Allergy Name Allergy Type Status Severity Reaction(s) Onset Date Inactive Date Treating Clinician Comments Source sulfamet hoxazole DA Active U 01-15 00:00: 00 [facility] trimetho prim DA Active U 01-15 00:00: 00 [facility] cefaclor DA Active U 01-15 00:00: 00 [facility] Sulfamet hoxazole -Trimeth oprim Propensi ty to adverse reaction s Active Hives 2006-09 00:00: 00 [facility] Cefaclor Propensi ty to adverse reaction s Active Hives 2006-09 00:00: 00 [facility] SULFAMET HOXAZOLE -TRIMETH OPRIM DRUG Active Hives 2006-09- 00:00: 00 [facility] CEFACLOR DRUG INGREDI Active Hives 2006-09 00:00: 00 [facility] sulfamet hoxazole / trimetho prim sulfamet hoxazole / trimetho prim Active Unknown [facility] Social History Social Habit Start Date Stop Date Quantity Comments Source Exposure to SARS-CoV-2 (event) Not sure [facility] History of Tobacco Use [facility] Sex Assigned At [facility] Tobacco use and exposure 2020-07-25 00:00:00 2020-07-25 00:00:00 Never used [facility] Alcohol intake 2020-07-25 00:00:00 2020-07-25 00:00:00 Current drinker of alcohol (finding) [facility] Tobacco Comment 2019-09-09 00:00:00 2019-09-09 00:00:00 quit 4 months ago [facility] Smoking Status Start Date Stop Date Source Never Smoker [facility] Former smoker 2020-07-25 00:00:00 2020-07-25 00:00:00 [facility] Current some day smoker 2020-07-19 00:00:00 [facility] Medications Ordered Medication Name Filled Medication Name Start Date Stop Date Current Medication? Ordering Clinician Indication Dosage Frequency Signature (SIG) Comments Components Source TAMSULOSIN 0.4 mg 24 hr capsule 2019-09 00:00: 00 Yes [id number] TAKE ONE CAPSULE BY MOUTH DAILY [facility] Tamsulosin HCl 0.4 MG Tamsulosin HCl 0.4 MG 2019-09 00:00: 00 09-09 00:00 :00 No 1{capsu le} QD Tamsulosin HCl 0.4 MG tetracyclin e 500 mg capsule 2019-09 00:00: 00 08-03 05:59 :00 No [id number] 500mg Take 1 capsule by mouth 4 (four) times daily for 5 days. [facility] tamsulosin 0.4 mg 24 hr capsule 2019-09 00:00: 00 08-22 00:00 :00 No [id number] .4mg Take 1 capsule by mouth daily for 30 days. [facility] ciprofloxac in HCl (CIPRO) 250 mg tablet 2019-09 00:00: 08-05 05:59 :00 No [id number] 500mg Take 2 tablets by mouth every 12 (twelve) hours for 10 days. [facility] doxycycline hyclate 100 mg tablet 2019-09 00:00: 00 07-27 05:59 :00 No [id number] 100mg Take 1 tablet by mouth 2 (two) times daily for 7 days. [facility] naproxen 500 mg tablet 2019-09 00:00: 00 08-05 05:59 :00 No [id number] 500mg Take 1 tablet by mouth 2 (two) times daily as needed for Pain (scale 4-6) for up to 30 days. [facility] cyclobenzap rine 10 mg tablet 2019-09 0-13 00:00: 00 07-13 04:59 :00 No [id number] 10mg Take 1 tablet by mouth 3 (three) times daily for 7 days. [facility] FARXIGA 5 mg tablet 03-30 00:00: 00 Yes [id number] TAKE ONE TABLET BY MOUTH EVERY MORNING [facility] albuterol 1.25 mg/3 mL nebulizer solution 03-21 00:00: 00 Yes [id number] 1.25mg Use 3 mL as directed every 6 (six) hours as needed for Wheezing. [facility] budesonide- formoteroL 160-4.5 mcg/actuati on inhaler 03-21 00:00: 00 Yes [id number] 2{puff} Inhale 2 Puffs 2 (two) times daily. [facility] amoxicillin -clavulanat e (AUGMENTIN) 875-125 mg per tablet 03-21 00:00: 00 Yes [id number] 1{tbl} Take 1 tablet by mouth 2 (two) times daily. [facility] lisinopril 10 mg tablet 03-21 00:00: 00 Yes [id number] 10mg Take 1 tablet by mouth daily. [facility] LISINOPRIL 2.5 mg tablet 11-26 00:00: 00 03-21 00:00 :00 No [id number] TAKE ONE TABLET BY MOUTH DAILY [facility] Insulin Glargine (LANTUS SOLOSTAR U-100 INSULIN) 100 unit/mL (3 mL) injection 09-30 00:00: 00 Yes 24U inject 24 Units under the skin every morning. [facility] dapaglifloz in (FARXIGA) 5 mg tablet 09-29 00:00: 00 03-30 00:00 :00 No [id number] 5mg Take 1 tablet by mouth every morning. [facility] blood sugar diagnostic (ONETOUCH ULTRA BLUE TEST STRIP) strip 2018-09 00:00: 00 Yes [id number] Use as directed BID E11.65 [facility] lisinopril 2.5 mg tablet 2018-09 00:00: 00 11-26 00:00 :00 No [id number] 2.5mg Take 1 tablet by mouth daily. [facility] aspirin (LO-DOSE ASPIRIN) 81 mg EC tablet 2018-09 21:39: 20 Yes 81mg Take 81 mg by mouth daily. [facility] bromphenira mine-pseudo ephedrine-D M (BROMFED DM) 2-30-10 mg/5 mL syrup 2018-09 00:00: 00 Yes [id number] 5mL Take 5 mL by mouth 4 (four) times daily as needed for Congestion /Allergies or Cough. [facility] Insulin [place], Disposable, 32 gauge x 5/32" Ndle 03-25 00:00: 00 Yes [id number] USE ONCE DAILY [facility] Insulin [place], Disposable, 32 gauge x 5/32" Ndle 03-25 00:00: 00 Yes [id number] USE ONCE DAILY [facility] albuterol 90 mcg/actuati on inhaler 2017-09 00:00: 00 Yes 2{puff} Inhale 2 Puffs every 6 (six) hours as needed for Wheezing or Shortness of Breath. [facility] Tamiflu 75 MG Tamiflu 75 MG No 1{capsu le} BID Tamiflu 75 MG Aspirin Aspirin No Aspirin Vital Signs Vital Name Observation Time Observation Value Comments S ource height 2020-08-17 11:00:00 Commo n [facility] weight 2020-08-17 11:00:00 194.2 [lb_av] Co mmon [facility] temperature 2020-08-17 11:00:00 97.3 [degF] Com mon [facility] bmi 2020-08-17 11:00:00 28.68 kg/m2 Comm on [facility] oximetry 2020-08-17 11:00:00 97 % Commo n [facility] blood pressure systolic 2020-08-17 11:00:00 155 mm[Hg] [facility] blood pressure diastolic 2020-08-17 11:00:00 91 mm[Hg] [facility] height 2020-08-10 09:00:00 Commo n [facility] weight 2020-08-10 09:00:00 195.8 [lb_av] Co mmon [facility] temperature 2020-08-10 09:00:00 98.2 [degF] Com mon [facility] bmi 2020-08-10 09:00:00 28.91 kg/m2 Comm on [facility] oximetry 2020-08-10 09:00:00 95 % Commo n [facility] blood pressure systolic 2020-08-10 09:00:00 134 mm[Hg] Common [facility] blood pressure diastolic 2020-08-10 09:00:00 91 mm[Hg] [facility] height 2020-07-27 09:30:00 Commo n [facility] weight 2020-07-27 09:30:00 195.8 [lb_av] Co mmon [facility] bmi 2020-07-27 09:30:00 28.91 kg/m2 Comm on [facility] oximetry 2020-07-27 09:30:00 98 % Commo n [facility] blood pressure systolic 2020-07-27 09:30:00 119 mm[Hg] [facility] blood pressure diastolic 2020-07-27 09:30:00 92 mm[Hg] [facility] Systolic blood pressure 2020-07-25 19:14:00 132 mm[Hg] [facility] Diastolic blood pressure 2020-07-25 19:14:00 90 mm[Hg] [facility] Heart rate 2020-07-25 19:14:00 95 /min [facility] Respiratory rate 2020-07-25 19:14:00 18 /min [facility] Body height 2020-07-25 19:14:00 175.3 cm [facility] Body weight 2020-07-25 19:14:00 89.721 kg [facility] BMI 2020-07-25 19:14:00 29.21 kg/m2 [facility] Systolic blood pressure 2020-07-25 19:14:00 132 mm[Hg] [facility] Diastolic blood pressure 2020-07-25 19:14:00 90 mm[Hg] [facility] Heart rate 2020-07-25 19:14:00 95 /min Unive [facility] Respiratory rate 2020-07-25 19:14:00 18 /min [facility] Body height 2020-07-25 19:14:00 175.3 cm [facility] Body weight 2020-07-25 19:14:00 89.721 kg [facility] BMI 2020-07-25 19:14:00 29.21 kg/m2 [facility] Systolic blood pressure 2020-07-19 21:20:00 132 mm[Hg] [facility] Diastolic blood pressure 2020-07-19 21:20:00 89 mm[Hg] [facility] Heart rate 2020-07-19 21:20:00 111 /min Unive [facility] Body temperature 2020-07-19 21:20:00 37.06 Marzena [facility] Respiratory rate 2020-07-19 21:20:00 20 /min [facility] Body height 2020-07-19 21:20:00 172.7 cm [facility] Body weight 2020-07-19 21:20:00 95.255 kg [facility] BMI 2020-07-19 21:20:00 31.93 kg/m2 [facility] Oxygen saturation in Arterial blood by Pulse oximetry 2020-07-19 21:20:00 98 /min [facility] Systolic blood pressure 2020-07-05 16:11:00 135 mm[Hg] [facility] Diastolic blood pressure 2020-07-05 16:11:00 86 mm[Hg] [facility] Heart rate 2020-07-05 16:11:00 101 /min [facility] Body temperature 2020-07-05 16:11:00 37.33 Marzena [facility] Respiratory rate 2020-07-05 16:11:00 18 /min [facility] Body height 2020-07-05 16:11:00 175.3 cm [facility] Body weight 2020-07-05 16:11:00 94.348 kg [facility] BMI 2020-07-05 16:11:00 30.72 kg/m2 [facility] Oxygen saturation in Arterial blood by Pulse oximetry 2020-07-05 16:11:00 95 /min [facility] Systolic blood pressure 2020-03-21 20:21:00 150 mm[Hg] [facility] Diastolic blood pressure 2020-03-21 20:21:00 90 mm[Hg] [facility] Body weight 2020-03-21 20:21:00 95.255 kg [facility] BMI 2020-03-21 20:21:00 31.01 kg/m2 [facility] Procedures Procedure Date / Time Performed Performing Clinician Source HOME HEALTH - OTHER 2021-01-24 05:01:00 Doctor Sumi shankar, Barnes [facility] HOME HEALTH - OTHER 2021-01-13 05:01:00 Doctor Sumi shankar, Barnes [facility] HEALTH - OTHER 2021-01-04 05:01:00 Doctor Sumi shankar, Barnes [facility] HOME HEALTH - OTHER 2020-12-26 05:01:00 Doctor Sumi shankar, Barnes [facility] EXTERNAL PROVIDER RECORDS 2020-09-05 06:01:00 Doctor Unassigned, Barnes [facility] AUTHORIZATION FOR RELEASE OF PHI 2020-07-27 06:01:00 Doctor Unassigned, Barnes [facility] URINE CULTURE 2020-07-25 22:00:00 Dilcia Rose [facility] POCT URINALYSIS AUTO 2020-07-25 19:15:00 Zay Rose h [facility] POCT URINALYSIS 2020-07-19 00:00:00 [facility] XR SPINE THORACIC 3 VW 2020-07-05 17:24:03 Rupinder Britton [facility] NOTICE OF PRIVACY PRACTICES 2020-07-05 17:02:00 Doctor Unassigned, Barnes [facility] CONSENT/REFUSAL FOR DIAGNOSIS AND TREATMENT 2020-07-05 17:01:47 Doctor Unassigned, Barnes [facility] ASSIGNMENT OF BENEFITS 2020-07-05 17:01:32 Docto r Unassigned, Barnes [facility] AUTHORIZATION FOR RELEASE OF PHI 2020-04-27 05:01:00 Doctor Unassigned, Barnes [facility] REFERRAL- REQUEST/RESPONSE 2019-12-24 05:01:00 Doctor Unassigned, Barnes [facility] Encounters Start Date/Time End Date/Time Encounter Type Admission Type Attending [facility] Facility Care Department Encounter ID Source 2021-12-05 14:35:00 Outpatient Tres Vianca [facility] [id number] [facility] 2021-10-18 12:01:53 Outpatient Vianca Potter [facility] [id number] [facility] 2021-01-27 00:00:00 2021-01-27 00:00:00 Outpatient [facility] [id number] [facility] 2021-01-24 00:00:00 2021-01-24 00:00:00 Outpatient [facility] [id number] [facility] 2021-01-24 00:00:00 2021-01-24 00:00:00 Orders Only Doctor Unassigned, Barnes [facility] [id number] 350.1.13.10 4.2.7.2.686 [id number] [id number] [facility] 2021-01-21 00:00:00 2021-01-21 00:00:00 Outpatient [facility] [id number] [facility] 2021-01-17 00:00:00 2021-01-17 00:00:00 Outpatient [facility] [id number] [facility] 2021-01-13 00:00:00 2021-01-13 00:00:00 Outpatient [facility] [id number] [facility] 2021-01-13 00:00:00 2021-01-13 00:00:00 Orders Only Doctor Unassigned, Barnes [facility] [id number] 350.1.13.10 4.2.7.2.686 [id number] [id number] [facility] 2021-01-10 00:00:00 2021-01-10 00:00:00 Outpatient [facility] [id number] [facility] 2021-01-07 00:00:00 2021-01-07 00:00:00 Outpatient [facility] [id number] [facility] 2021-01-07 00:00:00 2021-01-07 00:00:00 Outpatient R [facility] [id number] [facility] 2021-01-04 00:00:00 2021-01-04 00:00:00 Outpatient [facility] [id number] [facility] 2021-01-04 00:00:00 2021-01-04 00:00:00 Orders Only Doctor Unassigned, Barnes [facility] [id number] 350.1.13.10 4.2.7.2.686 [id number] [id number] [facility] 2021-01-01 10:28:00 2021-01-01 23:59:00 [facility] [id number] 350.1.13.10 4.2.7.2.686 [id number] [facility] 2021-01-01 00:00:00 2021-01-01 00:00:00 Outpatient R DALTON SANDHU [facility] [id number] [facility] 2020-12-29 00:00:00 2020-12-29 00:00:00 Outpatient [facility] [id number] [facility] 2020-12-26 00:00:00 2020-12-26 00:00:00 Outpatient [facility] [id number] [facility] 2020-12-26 00:00:00 2020-12-26 00:00:00 Orders Only Doctor Unassigned, Barnes [facility] 1..114 350.1.13.10 4.2.7.2.686 [id number] [id number] [facility] 2020-09-12 12:45:00 2020-09-12 12:45:00 Outpatient R SANCHEZNYDIA BURDEN [facility] [id number] [facility] 2020-09-05 00:00:00 2020-09-05 00:00:00 Orders Only Doctor Unassigned, Barnes [facility] 1..114 350.1.13.10 4.2.7.2.686 [id number] [facility] 2020-09-05 00:00:00 2020-09-05 00:00:00 Orders Only Doctor Unassigned, Barnes [facility] 1.0.114 350.1.13.10 4.2.7.2.686 [id number] 2020-08-30 00:00:00 2020-08-30 00:00:00 Telephone [facility] .84.114 350.1.13.10 4.2.7.2.686 [id number] [facility] 2020-08-30 00:00:00 2020-08-30 00:00:00 Telephone [facility] ..114 350.1.13.10 4.2.7.2.686 [id number] 2020-08-21 00:00:00 2020-08-21 00:00:00 Dilcia Núñez [facility] Building 1.2840.114 350.1.13.10 4.2.7.2.686 [id number] [facility] 2020-08-21 00:00:00 2020-08-21 00:00:00 [facility] 1.2840.114 350.1.13.10 4.2.7.2.686 [id number] 2020-08-17 00:00:00 2020-08-17 00:00:00 OFFICE VISIT ESTAB PT LEVEL 4 STLMLC ST[facility]MLC [id number] [facility] 2020-08-12 00:00:00 2020-08-12 00:00:00 (TEL) STLMLC STLMLC [id number] [facility] 2020-08-11 15:45:00 2020-08-11 15:45:00 Outpatient R MILTON [facility] [id number] [facility] 2020-08-10 00:00:00 2020-08-10 00:00:00 OFFICE VISIT EST PT LEVEL 3 STLMLC STLMLC [id number] [facility] 2020-07-29 00:00:00 2020-07-29 00:00:00 Telephone Eileen Moreland [facility] 1.2840.114 350.1.13.10 4.2.7.2.686 [id number] [facility] 2020-07-29 00:00:00 2020-07-29 00:00:00 Telephone Eileen Moreland [facility] Building 1.2840.114 350.1.13.10 4.2.7.2.686 [id number] 2020-07-28 00:00:00 2020-07-28 00:00:00 Telephone Dilcia Rose [facility] 1.2840.114 350.1.13.10 4.2.7.2.686 [id number] [facility] 2020-07-27 00:00:00 2020-07-27 00:00:00 OFFICE VISIT NEW PT LEVEL 4 STLMLC STLMLC [id number] [facility] 2020-07-27 00:00:00 2020-07-27 00:00:00 Orders Only Doctor Unassigned, Barnes [facility] 1.2.840.114 350.1.13.10 4.2.7.2.686 [id number] [id number] [facility] 2020-07-27 00:00:00 2020-07-27 00:00:00 Orders Only Doctor Unassigned, Barnes [facility] 1.2.840.114 350.1.13.10 4.2.7.2.686 [id number] [id number] 2020-07-25 12:49:30 2020-07-25 14:02:12 Office Visit Milton [facility] 1.2.840.114 350.1.13.10 4.2.7.2.686 [id number] [facility] 2020-07-25 12:49:30 2020-07-25 14:02:12 Office Visit Milton [facility] 1.2.840.114 350.1.13.10 4.2.7.2.686 [id number] 2020-07-25 13:00:00 2020-07-25 13:00:00 Outpatient R MILTON [facility] [id number] [facility] 2020-07-25 00:00:00 2020-07-25 00:00:00 Letter (Out) Milton [facility] Building 1.2.840.114 350.1.13.10 4.2.7.2.686 [id number] [facility] 2020-07-19 15:44:32 2020-07-19 17:19:36 [facility] 1.2840.114 350.1.13.10 4.2.7.2.686 [id number] [facility] 2020-07-19 16:00:00 2020-07-19 16:00:00 Outpatient R LAINEY BRITTON [facility] [id number] [facility] 2020-07-18 00:00:00 2020-07-18 00:00:00 Telephone Tonio Charito Jaymie [facility] 1.840.114 350.1.13.10 4.2.7.2.686 [id number] [facility] 2020-07-08 00:00:00 2020-07-08 00:00:00 Refill Joby Eller [facility] Building 1.2840.114 350.1.13.10 4.2.7.2.686 [id number] [facility] 2020-07-06 00:00:00 2020-07-06 00:00:00 Telephone Nori Brittonthia [facility] 1.2840.114 350.1.13.10 4.2.7.2.686 [id number] [facility] 2020-07-05 11:59:59 2020-07-05 23:59:00 Hospital Encounter Lainey Britton [facility] 1.2.840.114 350.1.13.10 4.2.7.2.686 [id number] [facility] 2020-07-05 11:02:15 2020-07-05 11:35:14 Urgent Care Provider, [facility] 1.2840.114 350.1.13.10 4.2.7.2.686 [id number] [facility] 2020-07-05 11:00:00 2020-07-05 11:00:00 Outpatient R [facility] [id number] [facility] 2020-07-05 00:00:00 2020-07-05 00:00:00 Letter (Out) Provider, [facility] 1..114 350.1.13.10 4.2.7.2.686 [id number] [facility] 2020-07-05 00:00:00 2020-07-05 00:00:00 Telephone Charito Elizalde [facility] 1.114 350.1.13.10 4.2.7.2.686 [id number] [facility] 2020-05-03 00:00:00 2020-05-03 00:00:00 Telephone Charito Elizalde [facility] 1..114 350.1.13.10 4.2.7.2.686 [id number] [facility] 2020-05-02 00:00:00 2020-05-02 00:00:[address] [facility] Building 1.0.114 350.1.13.10 4.2.7.2.686 [id number] [facility] 2020-04-29 00:00:00 2020-04-29 00:00:00 Telephone Sanchez Nydia [facility] Building 1..114 350.1.13.10 4.2.7.2.686 [id number] [facility] 2020-04-27 00:00:00 2020-04-27 00:00:00 Orders Only Doctor Unassigned, Barnes [facility] 1.2.840.114 350.1.13.10 4.2.7.2.686 [id number] [facility] 2020-04-21 00:00:00 2020-04-21 00:00:00 Telephone Nydia Sanchez [facility] Building 1.2.840.114 350.1.13.10 4.2.7.2.686 [id number] [facility] 2020-04-13 00:00:00 2020-04-13 00:00:00 Telephone Nydia Sanchez [facility] Building 1.2.840.114 350.1.13.10 4.2.7.2.686 [id number] [facility] 2020-03-27 00:00:00 2020-03-27 00:00:00 Refill Joby Eller [facility] Building 1.2.840.114 350.1.13.10 4.2.7.2.686 [id number] [facility] 2020-03-22 00:00:00 2020-03-22 00:00:00 Telephone Nydia Sanchez [facility] Building 1.2.840.114 350.1.13.10 4.2.7.2.686 [id number] [facility] 2020-03-21 15:05:54 2020-03-21 15:20:54 Office Visit Nydia Sanchez [facility] Building 1.2.840.114 350.1.13.10 4.2.7.2.686 [id number] [facility] 2020-03-21 15:15:00 2020-03-21 15:15:00 Outpatient R NYDIA SANCHEZ [facility] [id number] [facility] 2020-03-21 00:00:00 2020-03-21 00:00:00 Letter (Out) Nydia Sanchez [facility] Building [id number] [facility] 2020-03-10 00:00:00 2020-03-10 00:00:00 Telephone Nydia Sanchez [facility] Office Building One [id number] [id number] [facility] 2020-02-16 00:00:00 2020-02-16 00:00:00 Telephone Joby Eller [facility] [id number] [facility] 2020-01-06 16:00:00 2020-01-06 16:00:00 Outpatient R ELLER [facility] [id number] [facility] 2020-01-06 08:31:20 2020-01-06 09:01:20 Telemedici ne Visit Chetan [facility] Building [id number] [facility] 2020-01-05 00:00:00 2020-01-05 00:00:00 Telephone Charito Elizalde [facility] Building [id number] [facility] 2019-12-24 00:00:00 2019-12-24 00:00:00 Orders Only Doctor Unassigned, Barnes [facility] [id number] [facility] 2019-11-27 00:00:00 2019-11-27 00:00:00 Refill Joby Eller [facility] [id number] [facility] Results Test Description Test Time Test Comments Results Result Co mments Source [facility] URINALYSIS, [id number] 19:16:00 * Test Item Value Reference Range Interpretation Comme nts POCT U SP GRAV (test code = 3255) 1.010 mg/dl 1.005-1.025 POCT PH U (test code = 3254) 6.5 mg/dl 5-8 POCT U LEUK EST (test code = 3263) Trace Negative - Negative POCT U NIT (test code = 3262) Negative Negative - Negati ve POCT U PROT (test code = 3259) Negative Negative - Negative POCT U GLU (test code = 3256) Negative - Negati ve POCT U KETONE (test code = 3258) Negative - Negative POCT U UROBILI (test code = 3260) 0.2 mg/dl 0.2-1 POCT U BILI (test code = 3261) Negative Negative - Negative POCT U BLD (test code = 3257) small Negative - Negati ve POCT U COLOR (test code = 3266) Yellow POCT U APPEAR (test code = 3267) clear Lab Interpretation (test cod e = 11633-3) Abnormal [facility] URINALYSIS, [id number] 19:16:00 * Test Item Value Reference Range Interpretation Comme nts POCT U SP GRAV (test code = 3255) 1.010 mg/dl 1.005-1.025 POCT PH U (test code = 3254) 6.5 mg/dl 5-8 POCT U LEUK EST (test code = 3263) Trace Negative - Negative POCT U NIT (test code = 3262) Negative Negative - Negati ve POCT U PROT (test code = 3259) Negative Negative - Negative POCT U GLU (test code = 3256) Negative - Negati ve POCT U KETONE (test code = 3258) Negative - Negative POCT U UROBILI (test code = 3260) 0.2 mg/dl 0.2-1 POCT U BILI (test code = 3261) Negative Negative - Negative POCT U BLD (test code = 3257) small Negative - Negati ve POCT U COLOR (test code = 3266) Yellow POCT U APPEAR (test code = 3267) clear Lab Interpretation (test cod e = 48924-1) Abnormal [facility] URINALYSIS, [id number] 19:16:00 * Test Item Value Reference Range Interpretation Comme nts POCT U SP GRAV (test code = 3255) 1.010 mg/dl 1.005-1.025 POCT PH U (test code = 3254) 6.5 mg/dl 5-8 POCT U LEUK EST (test code = 3263) Trace Negative - Negative POCT U NIT (test code = 3262) Negative Negative - Negati ve POCT U PROT (test code = 3259) Negative Negative - Negative POCT U GLU (test code = 3256) Negative - Negati ve POCT U KETONE (test code = 3258) Negative - Negative POCT U UROBILI (test code = 3260) 0.2 mg/dl 0.2-1 POCT U BILI (test code = 3261) Negative Negative - Negative POCT U BLD (test code = 3257) small Negative - Negati ve POCT U COLOR (test code = 3266) Yellow POCT U APPEAR (test code = 3267) clear Lab Interpretation (test cod e = 88343-7) Abnormal [facility] URINALYSIS W SPECIFIC [id number] 21:27:00* Test Item Value Reference Range Interpretation Comme nts POCT U SP GRAV (test code = 3255) 1.010 mg/dl 1.005-1.025 POCT PH U (test code = 3254) 5 mg/dl 5-8 POCT U LEUK EST (test code = 3263) neg Negative - Negative POCT U NIT (test code = 3262) neg Negative - Negati ve POCT U PROT (test code = 3259) Negative - Negative POCT U GLU (test code = 3256) Negative - Negati ve POCT U KETONE (test code = 3258) mod ++ Negative - Negative POCT U UROBILI (test code = 3260) norm 0.2-1 POCT U BILI (test code = 3261) neg Negative - Negative POCT U BLD (test code = 3257) Negative - Negati ve POCT U COLOR (test code = 3266) cesar POCT U APPEAR (test code = 3267) cloudy Lab Interpretation (test cod e = [id number]) [facility]normal [facility] [id number] 17:46:42 HISTORY: Mid back pain that wraps along into the chest wall. COMPARISON: Chest x-ray dated 08/01/2016. TECHNIQUE: AP x2, lateral and swimmer's x2 of the thoracic spines aresubmitted. FINDINGS: No compression fracture. No aggressive bone lesions orparavertebral soft tissue swelling. Shallow Schmorl'snode noted in some ofthe middle and lower thoracic vertebral endplates, likely secondary toremote axial loading trauma. CONCLUSIONS: No acute findings. [facility], Radiant Results Inft User - 07/05/2020 12:47 [...] secondary toremote axial loading trauma.CONCLUSIONS: No acute findings.[facility]
[2024-05-17] MEDS ORDERED: ACETAMINOPHEN 500 MG TAB ONE (19:28)
[2024-05-17 19:44] LABS: Absolute Basophils 0.1 K/uL (0-0.5); Absolute Lymphocytes (CBC) 1.3 K/uL (0.7-4.9); Absolute Monocytes 0.8 K/uL (0.1-1.3); Absolute Neutrophil 13.7 K/uL (1.8-8.0); Basophils % 0.3 % (0-1.3); Eosinophils % 0.1 % (0-4.4); Hematocrit 31.7 % (39.6-49.0); Hemoglobin 10.8 g/dL (13.6-17.9); Lymphocytes % 8.1 % (15.3-44.8); MCH 26.8 pg (27.0-35.0); MCV 78.8 fL (80-100); MPV 7.7 fL (7.6-11.3); Monocytes % 4.8 % (3.3-12.3); Neutrophils % 86.7 % (41.7-73.7); Nucleated Red Blood Cells % 0.1 % (0-0); Platelets 314 thou/uL (152-406); RBC Red Blood Cell Count 4.03 M/uL (4.33-5.43); Red Cell Distribution Width 14.4 % (12.1-15.2)
[2024-05-17 19:59] LABS: PT Prothrombin Time 14.9 SECONDS (9.4-12.5); PTT, Activated Partial Thromb 33.2 SECONDS (24.3-36.9); Protime INR 1.34
[2024-05-17] MEDS ORDERED: NA CHLORIDE 0.9% 0 ML ONE (20:01)
[2024-05-17] MEDS ORDERED: VANCOMYCIN 1 GM/VIAL ONE (20:01)
[2024-05-17] MEDS ORDERED: NA CHLORIDE 0.9% 2,000 ML ONE (20:02)
[2024-05-17 20:06] LABS: Albumin/Globulin Ratio 0.4 (1.1-1.8); Alkaline Phosphatase 81 U/L (45-117); Anion Gap 11.8 mEq/L (5.0-15.0); BUN Blood Urea Nitrogen 32 mg/dL (7-18); Bicarbonate 23 mEq/L (21-32); Bilirubin Total 0.4 mg/dL (0.2-1.0); Globulin 5.4 g/dL (2.3-3.5); Glomerular Filtration Rate 96 ml/min (=/>90); Glucose Level 358 mg/dL (74-106); Potassium 3.8 mEq/L (3.5-5.1); Protein, Total 7.4 g/dL (6.4-8.2); Sodium Level 131 mEq/L (136-145)
[2024-05-17 20:07] LABS: ALT/SGPT < 14 U/L (16-61); AST/SGOT < 10 U/L (15-37)
[2024-05-17] MEDS ORDERED: NA CHLORIDE 0.9% 100 ML ONE (20:18)
[2024-05-17] MEDS ORDERED: Levofloxacin 750mg IV 750 MG/150 ML BAG IV ONE (20:19)
[2024-05-17] MEDS ORDERED: CEFEPIME 1 GM/VIAL ONE (20:19)
[2024-05-17] MEDS ORDERED: IBUPROFEN 200 MG TAB PO ONE (20:55)
[2024-05-17 22:03] LABS: Blood Morphology Comment NOT SEEN (NOT SEEN); Platelet Estimate ADEQ; White Blood Cell Scan OK (OK)
--- NOTE | 2024-05-17 22:40 | RAD REPORT ---
EXAM DESCRIPTION: RAD - Foot Left 3 View - 05/17/2024 8:12 pm CLINICAL HISTORY: PAIN COMPARISON: Foot Left 3 View dated 07/01/2023; Foot Left 3 View dated 05/13/2023 TECHNIQUE: Left foot, 3 views. FINDINGS: Lateral soft tissue wound, with some mineralized components adjacent to the base of the fi fth metatarsal. Suspected triangular mildly displaced fragment at the base of the fifth metatarsal. E xtensive soft tissue gas in this region reaching the dorsum of the foot. No dislocation or periosteal reaction. No air or foreign body in the soft tissues. IMPRESSION: Soft tissue abnormalities as above, with a suspected triangular mildly displaced fractur e fragment at the base of the fifth metatarsal. Underlying osteomyelitis should be considered.
--- NOTE | 2024-05-17 22:56 | EDPHYS ---
Physician Documentation [facility] Name: Maicol Segundo Age: 29 yrs Sex: Male : 1995 Arrival Date: 05/17/2024 Time: 15:06 Bed 20 Private MD: ED Physician Felicity Dorantes HPI: 05/17 22:56 This 29 yrs old Male presents to ER via Ambulatory with complaints of Fever, Wound kb Check, Urinary Problem. 22:56 Pt is a 29 year old male who presents for wound to left foot that started 2 weeks ago. kb Was seen by Dr Fernando who did a procedure on the wound on Saturday. Developed fever with foul smelling urine and urinary frequency on . . Historical: - Allergies: 15:33 Ceclor; aa5 15:33 sulfamethoxazole-trimethoprim; aa5 20:11 Vancomycin; cm10 - Home Meds: 19:54 acetaminophen-codeine 300-15 mg Oral tab 1 tab prn every 4-6 hours [Active]; Cipro 500 kj2 mg Oral tab 1 tab every 12 hours [Active]; Farxiga 5 mg Oral tab 1 tab once daily [Active]; Lantus 100 unit/mL Sub-Q soln [Active]; lisinopril 2.5 mg Oral tab 1 tab once daily [Active]; - PMHx: 15:33 Diabetes - IDDM; Hypertension; aa5 - PSHx: 15:33 perirectal abscess; R foot SX; aa5 - Immunization history:: Adult Immunizations unknown. - Infectious Disease History:: Denies. - Social history:: Smoking status: Patient denies any tobacco usage or history of. ROS: 23:01 Constitutional: As per HPI kb Exam: 19:43 ECG was reviewed by the Attending Physician. kb 23:03 Constitutional: This is a well developed, well nourished patient who is awake, alert, kb and in no acute distress. Head/Face: Normocephalic, atraumatic. ENT: Moist Mucous membranes Cardiovascular: Regular rate Respiratory: Respirations even and unlabored. No increased work of breathing. Talking in full sentences Neuro: Awake and alert, GCS 15, oriented to person, place, time, and situation. Moves all extremities. Normal gait. 23:03 Skin: cellulitis, that is moderate, on the left foot, open wound left foot. Vital Signs: 15:33 BP 155 / 103; Pulse 124; Resp 17 S; Temp 100.2(O); Pulse Ox 100% on R/A; Weight 95.25 aa5 kg (R); Height 5 ft. 8 in. (R); 19:32 BP 151 / 91; Pulse 117; Resp 22; Pulse Ox 99% on R/A; kj2 19:43 Temp 100.1; kj2 20:39 BP 140 / 93; Pulse 113; Resp 14; Temp 101.9; Pulse Ox 99% on R/A; kj2 05/18 00:32 BP 114 / 74; Pulse 96; Resp 20; Temp 98.4; Pulse Ox 98% ; Weight 95.25 kg; Height 5 ft. bm8 8 in. ; Pain 0/10; 00:32 Body Mass Index 31.93 (95.25 kg, 172.72 cm) bm8 05/18 00:32 Pain Scale: Adult bm8 [place] Coma Score: 00:32 Eye Response: spontaneous(4). Motor Response: obeys commands(6). Verbal Response: bm8 oriented(5). Total: 15. MDM: 05/17 18:37 Patient medically screened. 22:53 Differential diagnosis: osteomyelitis, diabetic ulcer, cellulitis, uti. Data reviewed: vital signs, nurses notes. Consideration of Admission/Observation Patient was admitted/placed on observation. Escalation of care including admission/observation considered. Management of patient was discussed with the following: Primary Care Provider: Dr Joseph accepts pt for admission. Wants zosyn 3.375gm IV Q 6 hours, doxycycyline 100mg PO BID and consult to Dr Fernando. Historians other than the Patient: Parent: mother. Counseling: I had a detailed discussion with the patient and/or guardian regarding the historical points, exam findings, and any diagnostic results supporting the discharge/admit diagnosis, lab results, radiology results, the need for further work-up and treatment in the hospital. 23:21 Admission orders: after a detailed discussion of the patient's condition and case, the admit orders are written by me. 05/17 16:45 Order name: Urinalysis w/ reflexes; Complete Time: 01:14 sd2 05/17 18:38 Order name: Blood Culture Adult (2) 05/17 18:38 Order name: CBC with Diff; Complete Time: 22:19 kb 05/17 18:38 Order name: CMP; Complete Time: 20:09 kb 05/17 18:38 Order name: Lactate w/ 2H reflex if indic.; Complete Time: 20:00 kb 05/17 18:38 Order name: Protime (+inr); Complete Time: 20:00 kb 05/17 18:38 Order name: Ptt, Activated; Complete Time: 20:00 kb 05/17 22:03 Order name: CBC Smear Scan; Complete Time: 22:19 EDMS 05/17 22:44 Order name: Glucose, Ancillary Testing; Complete Time: 22:50 EDMS 05/18 05:50 Order name: CBC with Automated Diff EDMS 05/18 06:00 Order name: Basic Metabolic Panel EDMS 05/18 10:00 Order name: Hemoglobin A1c EDMS 05/18 12:08 Order name: Glucose, Ancillary Testing EDMS 05/18 14:25 Order name: Gram Stain--Aerobic Bottle EDMS 05/17 18:38 Order name: Foot Left 3 View XRAY; Complete Time: 22:41 kb 05/17 18:38 Order name: Accucheck; Complete Time: 22:39 kb 05/17 18:38 Order name: Cardiac monitoring; Complete Time: 19:49 kb 05/17 18:38 Order name: EKG - Nurse/Tech; Complete Time: 19:49 kb 05/17 18:38 Order name: IV Saline Lock - Large Bore; Complete Time: 19:24 kb 05/17 18:38 Order name: Labs collected and sent; Complete Time: 19:24 kb 05/17 18:38 Order name: O2 Per Protocol; Complete Time: 19:24 kb 05/17 18:38 Order name: O2 Sat Monitoring; Complete Time: 19:24 kb 05/17 18:38 Order name: Vital Signs; Complete Time: 19:49 kb EC:43 Rate is 115 beats/min. Rhythm is regular. QRS Steger is Normal. MN interval is normal at kb 164 msec. QRS interval is normal at 88 msec. QT interval is normal at 453 msec. Administered Medications: 19:30 Drug: Acetaminophen PO 1000 mg PO once Route: PO; kj2 20:30 Follow up: Response: No adverse reaction; Temperature is increased kj2 20:11 Not Given (Other Intervention Used): vancomycin1 grams IVPB once over 2 hrs kb 20:35 Drug: Cefepime IVPB 1 grams IVPB at 200 ml/hr once over 30 mins; (mix in NS 100 mL) kj2 Route: IVPB; Rate: 200 ml/hr; Infused Over: 30 mins; Site: right forearm; 21:05 Follow up: IV Status: Completed infusion; IV Intake: 100ml kj2 20:36 Drug: NS 0.9% IV (30 ml/kg) 30 ml/kg IV at bolus once; Sepsis Protocol {Note: kj2 administer 2000 ml, instead of 2857.5, as ordered .} Route: IV; Rate: bolus; Site: left antecubital; 22:17 Follow up: Response: No adverse reaction; IV Status: Completed infusion; IV Intake: kj2 2000ml 21:02 Not Given (Patient Refused): mg PO once kj2 21:05 Drug: levofloxacin IVPB 750 mg 150 ml IVPB once over 90 mins Volume: 150 ml; Route: kj2 IVPB; Infused Over: 90 mins; Site: right forearm; 05/18 00:34 Follow up: Response: No adverse reaction; IV Status: Completed infusion; IV Intake: bm8 150ml Point of Care Testing: Blood Glucose: 05/17 22:31 Blood Glucose: 313 mg/dL; al5 Ranges: Critical Glucose Levels:Adult <50 mg/dl or >400 mg/dl <40 mg/dl or >180 mg/dl Disposition Summary: 05/17/24 22:56 Hospitalization Ordered Notes: Hospitalization Status: Inpatient Admission kb Provider: Mark Joseph Condition: Stable kb Problem: new kb Symptoms: are unchanged kb Bed/Room Type: Standard kb Location: Telemetry/MedSurg (Inpatient)(05/18/24 13:03) bd Room Assignment: 409(05/18/24 13:03) bd Diagnosis - Osteomyelitis, unspecified kb - Sepsis, unspecified organism kb Forms: - Medication Reconciliation Form kb - SBAR form kb - Leadership Thank You Letter kb Signatures: Dispatcher [employer] Chari Schrader, Emily Haro Audri RN RN aa5 Glenys Guadalupe RN RN vc1 Melita Pearson RN RN cm10 Melany sAhraf, RN RN kj2 Sena Escobar RN bm8 Corrections: (The following items were deleted from the chart) 16:46 16:46 Urinalysis+U.LAB.BRZ ordered. EDMS EDMS 18:39 18:38 BLOOD CULTURE*+BA.LAB.BRZ ordered. EDMS EDMS 18:39 18:38 CBC+H.LAB.BRZ ordered. EDMS EDMS 18:39 18:38 COMPREHENSIVE METABOLIC PANEL+C.LAB.BRZ ordered. EDMS EDMS 18:39 18:38 LACTATE+C.LAB.BRZ ordered. EDMS EDMS 18:39 18:38 PROTIME (+INR)+COAG.LAB.BRZ ordered. EDMS EDMS 18:39 18:38 PTT, ACTIVATED+COAG.LAB.BRZ ordered. EDMS EDMS 18:39 18:39 Foot Left 3 View+RAD.RAD.BRZ ordered. EDMS EDMS 23:53 22:56 Telemetry/MedSurg (Inpatient) kb vc1 23:53 22:56 kb vc1 05/18 13:03 05/17 23:53 [facility] ER HOLD vc1 bd 05/18 13:03 05/17 23:53 ERHOLD- vc1 bd
--- NOTE | 2024-05-17 22:56 | ER ---
Nurse's Notes [facility] Name: Maicol Segundo Age: 29 yrs Sex: Male : 1995 Arrival Date: 05/17/2024 Time: 15:06 Bed 20 Private MD: Diagnosis: Osteomyelitis, unspecified;Sepsis, unspecified organism Presentation: 05/17 15:33 Chief complaint: Patient states: wants left foot wound checked, reports urinary aa5 frequency and foul smelling x 3-4 days, reports fever up to 102.0*F. Reports had covid 2 weeks ago. 15:33 Coronavirus screen: fever. Ebola Screen: No symptoms or risks identified at this time. aa5 Initial Sepsis Screen: Does the patient meet any 2 criteria? HR > 90 bpm. Does the patient have a suspected source of infection? No. Patient's initial sepsis screen is negative. Risk Assessment: Do you want to hurt yourself or someone else? Patient reports no desire to harm self or others. Onset of symptoms was April 2024. 15:33 Acuity: JIMMY 3 aa5 15:33 Method Of Arrival: Ambulatory aa5 Historical: - Allergies: 15:33 Ceclor; aa5 15:33 sulfamethoxazole-trimethoprim; aa5 20:11 Vancomycin; cm10 - Home Meds: 19:54 acetaminophen-codeine 300-15 mg Oral tab 1 tab prn every 4-6 hours [Active]; Cipro 500 kj2 mg Oral tab 1 tab every 12 hours [Active]; Farxiga 5 mg Oral tab 1 tab once daily [Active]; Lantus 100 unit/mL Sub-Q soln [Active]; lisinopril 2.5 mg Oral tab 1 tab once daily [Active]; - PMHx: 15:33 Diabetes - IDDM; Hypertension; aa5 - PSHx: 15:33 perirectal abscess; R foot SX; aa5 - Immunization history:: Adult Immunizations unknown. - Infectious Disease History:: Denies. - Social history:: Smoking status: Patient denies any tobacco usage or history of. Screenin:51 [facility] ED Fall Risk Assessment (Adult) History of falling in the last 3 months, kj2 including since admission No falls in past 3 months (0 pts) Confusion or Disorientation No (0 pts) Intoxicated or Sedated No (0 pts) Impaired Gait Yes (1 pt) Mobility Assist Device Used Yes (1 pt) Altered Elimination No (0 pt) Score/Fall Risk Level 0 - 2 = Low Risk Maintained a safe environment, Educated pt \\T\\ family on fall prevention, incl call for assistance when getting out of bed, Hourly rounding (assess needs \\T\\ fall precautionary measures) done. Abuse screen: Denies threats or abuse. Denies injuries from another. Nutritional screening: No deficits noted. Tuberculosis screening: No symptoms or risk factors identified. Assessment: 19:43 General: Appears uncomfortable, Behavior is calm, cooperative. Pain: Complains of pain kj2 in left foot Pain currently is 7 out of 10 on a pain scale. Neuro: Level of Consciousness is awake, alert, obeys commands, Oriented to person, place, time, situation. Cardiovascular: Capillary refill < 3 seconds. Respiratory: Airway is patent Respiratory effort is even, unlabored. GI: No deficits noted. 20:40 Reassessment:. kj2 20:48 Reassessment: EVELYN Rascon notified of increased temp 101.9. kj2 21:27 Derm: Wound noted left foot Wound is has drainage and foul odor to it. cm10 05/18 00:32 Reassessment: wound dressed with 4x4 and robert, pt admitted to er hold. bm8 Vital Signs: 05/17 15:33 BP 155 / 103; Pulse 124; Resp 17 S; Temp 100.2(O); Pulse Ox 100% on R/A; Weight 95.25 aa5 kg (R); Height 5 ft. 8 in. (R); 19:32 BP 151 / 91; Pulse 117; Resp 22; Pulse Ox 99% on R/A; kj2 19:43 Temp 100.1; kj2 20:39 BP 140 / 93; Pulse 113; Resp 14; Temp 101.9; Pulse Ox 99% on R/A; kj2 05/18 00:32 BP 114 / 74; Pulse 96; Resp 20; Temp 98.4; Pulse Ox 98% ; Weight 95.25 kg; Height 5 ft. bm8 8 in. ; Pain 0/10; 00:32 Body Mass Index 31.93 (95.25 kg, 172.72 cm) bm8 05/18 00:32 Pain Scale: Adult bm8 [place] Coma Score: 00:32 Eye Response: spontaneous(4). Motor Response: obeys commands(6). Verbal Response: bm8 oriented(5). Total: 15. ED Course: 05/17 15:10 Patient arrived in ED. mr 15:23 Patient's name was called from ER lobby. No response. aa5 15:39 Triage completed. aa5 16:45 Felicity Dorantes MD is Attending Physician. sd2 17:50 Patient's name was called from ER lobby. No response. aa5 18:37 Chari Matthews, VALARIE is PHCP. kb 18:37 Felicity Dorantes MD is Attending Physician. kb 19:24 CBC with Diff Sent. cm10 19:24 CMP Sent. cm10 19:24 Lactate w/ 2H reflex if indic. Sent. cm10 19:24 Protime (+inr) Sent. cm10 19:24 Ptt, Activated Sent. cm10 19:25 Inserted saline lock: 20 gauge in left antecubital area, using aseptic technique. Blood cm10 collected. Flushed with 10 mL NS. 19:25 Initial lab(s) drawn, by me, sent to lab. First set of blood cultures drawn by me. cm10 19:25 Missed attempt(s): 20 gauge in left antecubital area. Bleeding controlled, band aid cm10 applied, catheter tip intact. 19:52 Patient has correct armband on for positive identification. Bed in low position. Call kj2 light in reach. Adult w/ patient. Provided Education on: call light, fall precautions. 19:53 Arm band placed on. kj2 19:54 No provider procedures requiring assistance completed. kj2 19:54 EKG done, by ED staff. kj2 20:11 Inserted saline lock: 22 gauge in right hand, using aseptic technique. Flushed with 10 cm10 mL NS. 20:14 Foot Left 3 View XRAY In Process Unspecified. EDMS 20:38 Melany Ashraf, ARTURO is Primary Nurse. kj2 22:55 Mark Joseph MD is Hospitalizing Provider. kb 05/18 00:32 Patient admitted, IV remains in place. bm8 11:40 Attempted initial assessment, patient not in exam room. Patient at MRI. ane 11:56 CM met with patient at bedside in the ED exam room. Patient identified by name and . ane Demographic confirmed. states he lives alone in a travel trailer. He states prior to admission, he performs ADLs independently. DME in his home includes a medical scooter and a hands free iwalker crutch. No HH, home oxygen or other medical services at this time, however has had a previous service of HH through [facility]. expresses concern that if he needs HH again, he owes [facility] "$1000" and is concerned they may not accept him. [facility] service included wound care. Patient reports he also has had to have IV ABX previously and that he after awhile, he was able to "self administer". Patient concerned about cost of medications, community resource packet provided to patient, to include information about medication assistance. ' plan is to return home upon discharge and states his mother or his girlfriend are able to transport him home upon discharge. CM team will continue to follow and coordinate care. Administered Medications: 05/17 19:30 Drug: Acetaminophen PO 1000 mg PO once Route: PO; kj2 20:30 Follow up: Response: No adverse reaction; Temperature is increased kj2 20:11 Not Given (Other Intervention Used): vancomycin1 grams IVPB once over 2 hrs kb 20:35 Drug: Cefepime IVPB 1 grams IVPB at 200 ml/hr once over 30 mins; (mix in NS 100 mL) kj2 Route: IVPB; Rate: 200 ml/hr; Infused Over: 30 mins; Site: right forearm; 21:05 Follow up: IV Status: Completed infusion; IV Intake: 100ml kj2 20:36 Drug: NS 0.9% IV (30 ml/kg) 30 ml/kg IV at bolus once; Sepsis Protocol {Note: kj2 administer 2000 ml, instead of 2857.5, as ordered .} Route: IV; Rate: bolus; Site: left antecubital; 22:17 Follow up: Response: No adverse reaction; IV Status: Completed infusion; IV Intake: kj2 2000ml 21:02 Not Given (Patient Refused): [id number] mg PO once kj2 21:05 Drug: levofloxacin IVPB 750 mg 150 ml IVPB once over 90 mins Volume: 150 ml; Route: kj2 IVPB; Infused Over: 90 mins; Site: right forearm; 05/18 00:34 Follow up: Response: No adverse reaction; IV Status: Completed infusion; IV Intake: bm8 150ml Medication: 05/17 19:52 VIS not applicable for this client. kj2 Point of Care Testing: Blood Glucose: 22:31 Blood Glucose: 313 mg/dL; al5 Ranges: Intake: 21:05 IV: 100ml; Total: 100ml. kj2 22:17 IV: 2000ml; Total: 2100ml. kj2 05/18 00:34 IV: 150ml; Total: 2250ml. bm8 Outcome: 05/17 22:56 Decision to Hospitalize by Provider. kb 05/18 00:32 Admitted to ER Hold. Please see [facility] for further documentation. bm8 Condition: stable Instructed on discharge instructions, follow up and referral plans. the need for admit, Demonstrated understanding of instructions, follow-up care, 14:34 Patient left the ED. bp Signatures: Dispatcher [employer] EDMS Chari Matthews, GEOTHERMAL PRODUCTION MANAGER-C GEOTHERMAL PRODUCTION MANAGER-CkSheila Torre, Reg Reg mr MckinleyAntonia, RN RN aa5 Mario Molina, RN RN bp Felicity Dorantes MD MD sd2 Melita Pearson RN RN cm10 Sean Escobar RN ARTURO bm8 Jessa Varner RN RN al5 Melany Ashraf, ARTURO MORRIS kj2 Kareen Ruiz RN RN gen
[2024-05-18 00:55] VITALS: BMI 31.9
[2024-05-18 01:05] LABS: Specific Gravity 1.026 (1.005-1.030); Sqamous Epithelial None Seen /HPF (None Seen); Urine Bacteria <20 /HPF (<20); Urine Bilirubin NEGATIVE (Negative); Urine Blood 1+ (Negative); Urine Clarity Turbid (Clear); Urine Color Yellow (Yellow); Urine Culture Reflex Order NOT NEEDED; Urine Glucose 3+ (Negative); Urine Ketones 1+ (Negative); Urine Microscopic Reflex YN ORDER UMIC; Urine Mucus Slight /HPF (None Seen); Urine Nitrite NEGATIVE (Negative); Urine Protein 3+ (Negative); Urine Urobilinogen Normal (Normal); Urine WBC Clump Rare /HPF (None Seen)
[2024-05-18] MEDS: PIPER TAZO 3.375 GM in NA CHLORIDE 0.9% 100 ML IV SCH (02:08)
[2024-05-18] MEDS ORDERED: ACETAMINOPHEN 500 MG TAB PO PRN (02:08)
[2024-05-18] MEDS ORDERED: PIPERACIL/TAZO 3.375 GM VIAL IV ONE (02:52)
[2024-05-18] MEDS ORDERED: NA CHLORIDE 0.9% 100 ML ONE ×2 (02:52→09:01)
[2024-05-18 05:42] LABS: Absolute Lymphocytes (CBC) 1.6 K/uL (0.7-4.9); Absolute Monocytes 0.8 K/uL (0.1-1.3); Absolute Neutrophil 11.9 K/uL (1.8-8.0); Basophils % 0.2 % (0-1.3); Eosinophils % 0.2 % (0-4.4); Hemoglobin 9.3 g/dL (13.6-17.9); MCH 26.7 pg (27.0-35.0); MCHC 33.4 g/dL (32.0-36.0); MCV 80.2 fL (80-100); MPV 8.6 fL (7.6-11.3); Monocytes % 5.6 % (3.3-12.3); Platelets 242 thou/uL (152-406); RBC Red Blood Cell Count 3.49 M/uL (4.33-5.43); Red Cell Distribution Width 14.5 % (12.1-15.2)
[2024-05-18 05:59] LABS: Anion Gap 9.7 mEq/L (5.0-15.0); Potassium 3.7 mEq/L (3.5-5.1)
[2024-05-18] MEDS ORDERED: ONDANSETRON 4 MG/2 ML VIAL IV PRN (08:55)
[2024-05-18] MEDS: ACETAMINOPHEN 500 MG TAB PO SCH (09:00)
[2024-05-18] MEDS: **PT MED**Dapagliflozin Propanediol [Farxiga] 10 MG Tablet) PO SCH (09:00)
[2024-05-18] MEDS: INSULIN GLARGINE 100 UNIT/ML SQ SCH (09:00)
[2024-05-18] MEDS ORDERED: SEMAGLUTIDE 0.25 MG/0.368 ML SQ SCH (09:00)
[2024-05-18] MEDS: DOXYCYCLINE 100 MG CAP PO SCH (09:00)
[2024-05-18] MEDS ORDERED: DOXYCYCLINE 100 MG CAP PO ONE (09:01)
[2024-05-18] MEDS: PANTOPRAZOLE 40MG TABLET PO SCH (10:00)
[2024-05-18] MEDS ORDERED: ACETAMINOPHEN 500 MG TAB ONE (10:11)
[2024-05-18] MEDS ORDERED: INSULIN GLARGINE 100 UNIT/ML SQ ONE (10:11)
--- NOTE | 2024-05-18 10:11 | P.CNS ---
Date of Consult: 05/18/24 Reason for Consult: Sepsis and left foot ulceration History of Present Illness: Patient presents to ER with nausea and fever. Has been seen in wound care and placed on Augmentin on week previous. States that his foot was looking better but a few days ago worsened and presented to the ER for treatment yesterday. Patient has been applying iodosorb to wound daily Allergies cefaclor [From Ceclor] Allergy (Verified 01/09/21 10:20) UNKNOWN sulfamethoxazole [From Bactrim] Allergy (Verified 01/09/21 10:20) UNKNOWN trimethoprim [From Bactrim] Allergy (Verified 01/09/21 10:20) UNKNOWN Home Medications: Insulin Glargine,Hum.rec.anlog [Basaglar Kwikpen U-100] 40 units SQ DAILY 12/15/20 Omeprazole [Prilosec] 40 mg PO DAILY 12/15/20 Dapagliflozin Propanediol [Farxiga] 1 tab PO DAILY 01/03/21 clindamycin HCL [Clindamycin HCl] 300 mg PO TID 07/26/21 Semaglutide [Ozempic] 0.25 mg SQ WMP 30 Days #6 ml 05/20/23 - Past Medical/Surgical History Diabetic: Yes -: Diabetes -: HTN -: Tubes in ears -: adnoids removed - Family History Mother History Unknown: Yes Medical History: Diabetes Father History Unknown: Yes Medical History: Heart disease - Social History Smoking Status: Current every day smoker Alcohol use: No CD- Drugs: No Caffeine use: Yes Place of Residence: Home Review of Systems 10-point ROS is otherwise unremarkable Physical Examination Temp Pulse Resp BP Pulse Ox 98.3 F 95 H 18 124/90 99 05/18/24 04:00 05/18/24 08:00 05/18/24 08:00 05/18/24 08:00 05/18/24 08:00 General: Alert, In no apparent distress, Oriented x3 Cardiovascular: No edema, Normal pulses Capillary refill: <2 Seconds Musculoskeletal: No clubbing, No swelling, No contractures, No erythema, No tenderness, No warmth Integumentary: No rashes, No erythema, No warmth, No cyanosis, Diabetic ulcer (Ulceration lateral left foot has malodor, large fibrin/eschar, no periwound erythema measuring 7.0cmX5.0cm. Bilateral plantar heel wounds are stable with granular bases) Neurological: Abnormal sensation Laboratory Data (last 24 hrs) 05/17/24 05/17/24 05/17/24 19:23 19:23 19:23 WBC 15.80 H Hgb 10.8 L Hct 31.7 L Plt Count 314 PT 14.9 H INR 1.34 APTT 33.2 Sodium 131 L Potassium 3.8 BUN 32 H Creatinine 1.06 Glucose 358 H Total Bilirubin 0.4 AST < 10 L ALT < 14 L Alkaline Phosphatase 81 Imagings Data: xray three views demonstrate possible fracture of the base left fifth metatarsal and gas on xray. - Problems (1) Abscess of left foot Current Visit: No Status: Acute (2) Abscess of muscle Current Visit: No Status: Acute (3) Osteomyelitis Current Visit: No Status: Acute Qualifiers: Osteomyelitis type: acute hematogenous Osteomyelitis location: foot Laterality: left Qualified Code(s): M86.072 - Acute hematogenous osteomyeliti s, left ankle and foot (4) Type 2 diabetes mellitus with foot ulcer Current Visit: No Status: Acute Qualifiers: Diabetes mellitus fci insulin use: with fci use Qualified Code(s): E11.621 - Type 2 diabetes mellitus with foot ulcer; L97.509 - Non- pressure chronic ulcer of other part of unspecified foot with unspecified severity; Z79.4 - [facility] (current) use of insulin (5) Diabetes Current Visit: No Status: Chronic Qualifiers: Diabetes mellitus type: type 1 Diabetes mellitus complication status: with skin complications Diabetes mellitus complication detail: with foot ulcer Qualified Code(s): E10.621 - Type 1 diabetes mellitus with foot ulcer; L97.509 - Non-pressure chronic ulcer of other part of unspecified foot with unspecified severity Conclusions/Impression: Iodosorb to left foot daily Wound culture left lateral foot wound MRI left foot to evaluate for osteomyelitis
[2024-05-18] MEDS ORDERED: ALPRAZOLAM 1 MG TABLET ONE (10:59)
[2024-05-18] MEDS: ALPRAZOLAM 1 MG TABLET PO SCH (11:00)
--- NOTE | 2024-05-18 12:33 | P.HP ---
Certification for Inpatient Patient admitted to: Inpatient With expected LOS: >2 Midnights Practitioner: I am a practitioner with admitting privileges, knowledge of patient current condition, hospital course, and medical plan of care. Services: Services provided to patient in accordance with Admission requirements found in Title 42 Section 412.3 of the Code of Federal Regulations Patient History Date of Service: 05/18/24 Primary Care Provider: Jake Reason for admission: Osteomyelitis, dm2 Allergies cefaclor [From Ceclor] Allergy (Verified 01/09/21 10:20) UNKNOWN sulfamethoxazole [From Bactrim] Allergy (Verified 01/09/21 10:20) UNKNOWN trimethoprim [From Bactrim] Allergy (Verified 01/09/21 10:20) UNKNOWN Home Medications: Insulin Glargine,Hum.rec.anlog [Basaglar Kwikpen U-100] 40 units SQ DAILY 12/15/20 Omeprazole [Prilosec] 40 mg PO DAILY 12/15/20 Dapagliflozin Propanediol [Farxiga] 1 tab PO DAILY 01/03/21 clindamycin HCL [Clindamycin HCl] 300 mg PO TID 07/26/21 Semaglutide [Ozempic] 0.25 mg SQ WMP 30 Days #6 ml 05/20/23 - Past Medical/Surgical History Has patient received pneumonia vaccine in the past: No Diabetic: Yes -: Diabetes -: HTN -: Tubes in ears -: adnoids removed - Family History Mother History Unknown: Yes -: Diabetes Father History Unknown: Yes -: Heart disease - Social History Smoking Status: Never smoker Alcohol use: No CD- Drugs: No Caffeine use: Yes Place of Residence: Home Review of Systems 10-point ROS is otherwise unremarkable General: Fever, Chills Musculoskeletal: Other (diabetic ulcer with drainage. ) Physical Examination - Vital Signs Temperature: 98.7 F Blood Pressure: 124/90 Pulse: 95 Respirations: 18 Pulse Ox (%): 99 - Physical Exam General: Alert, In no apparent distress HEENT: Atraumatic, PERRLA, Mucous membr. moist/pink, EOMI, Sclerae nonicteric Neck: Supple, 2+ carotid pulse no bruit, No LAD, Without JVD or thyroid abnormality Respiratory: Clear to auscultation bilaterally, Normal air movement Cardiovascular: Regular rate/rhythm, Normal S1 S2 Gastrointestinal: Normal bowel sounds, No tenderness Musculoskeletal: No tenderness Integumentary: No rashes Neurological: Normal gait, Normal speech, Normal strength at 5/5 x4 extr, Normal tone, Normal affect Lymphatics: No axilla or inguinal lymphadenopathy - Studies Laboratory Data (last 24 hrs) 05/17/24 05/17/24 05/17/24 19:23 19:23 19:23 WBC 15.80 H Hgb 10.8 L Hct 31.7 L Plt Count 314 PT 14.9 H INR 1.34 APTT 33.2 Sodium 131 L Potassium 3.8 BUN 32 H Creatinine 1.06 Glucose 358 H Total Bilirubin 0.4 AST < 10 L ALT < 14 L Alkaline Phosphatase 81 Assessment and Plan - Problems (Diagnosis) (1) Diabetic ulcer of left foot Current Visit: No Status: Acute Plan: Patient has been seeing Dr. Fernando in the wound care center. He is restarting the iodaform on the patient Qualifiers: Diabetic foot ulcer location: unspecified part of foot Diabetes mellitus type: type 2 Non-pressure ulcer stage: limited to breakdown of skin Qualified Code(s): E11.621 - Type 2 diabetes mellitus with foot ulcer; L97.521 - Non-pressure chronic ulcer of other part of left foot limited to breakdown of skin (2) Osteomyelitis Current Visit: No Status: Acute Plan: start the patient on zosyn. doxycycline for MRSA coverage. He has multiple allergies. Will await blood cultures. Qualifiers: Osteomyelitis type: acute hematogenous Osteomyelitis location: foot Laterality: left Qualified Code(s): M86.072 - Acute hematogenous osteomyelitis, left ankle and foot (3) Type 2 diabetes mellitus with foot ulcer Current Visit: No Status: Acute Plan: start him on a lower dose of his lantus as he is not eating well. Order a sliding scale. 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: with custodial use Qualified Code(s): E11.621 - Type 2 diabetes mellitus with foot ulcer; L97.509 - Non- pressure chronic ulcer of other part of unspecified foot with unspecified severity; Z79.4 - [facility] (current) use of insulin Discharge Plan: Home Plan to discharge in: Greater than 2 days - Advance Directives Does patient have a Living Will: No Does patient have a Durable POA for Healthcare: No - Code Status/Comfort Care Code Status Assessed: Yes Code Status: Full Code Physician Review: Patient Assessed, Agree with Above Assessment and Plan Critical Care: No Time Spent Managing Pts Care (In Minutes): 50
[2024-05-18] MEDS: HYDROMORPHONE HCL 0.5 MG/0.5 ML INJ IV PRN (15:11)
--- NOTE | 2024-05-18 16:49 | RAD REPORT ---
EXAM DESCRIPTION: MRI - Foot Left Wo Cont - 05/18/2024 12:37 pm CLINICAL HISTORY: Foot pain and swelling COMPARISON: X-ray January 16, 2024 TECHNIQUE: Axial, sagittal and coronal magnetic resonance imaging left foot FINDINGS: Lateral forefoot soft tissue ulceration Abnormal signal involves almost all of metatarsal compatible with osteomyelitis. Air is present withi n the surrounding tissue. Abnormal signal involves base fourth metatarsal Abnormal signal involves most of inferior calcaneus. Additional abnormal signal involves the midfoot. A edema throughout the subcutaneous tissues IMPRESSION: Extensive osteomyelitis fifth metatarsal. Air is present within the adjacent tissues. Small area of osteomyelitis base of the fourth metatarsal Large area of abnormal signal calcaneus probably additional osteomyelitis Abnormal signal midfoot could be secondary to degenerative changes or osteomyelitis.
[2024-05-18] MEDS: ENOXAPARIN 40 MG/0.4 ML SQ SCH (17:00)
[2024-05-18] MEDS: INSULIN REGULAR (HUMAN) 100 UNIT/ML SQ SCH (22:14)
[2024-05-19] MEDS: PIPERACIL/TAZO 3.375 GM VIAL IV ONE (06:52)
[2024-05-19] MEDS: NA CHLORIDE 0.9% 1,000 ML ONE (06:55)
[2024-05-19] MEDS: LIDOCAINE 1% MPF 30 ML VIAL ONE (07:10)
[2024-05-19] MEDS ORDERED: FENTANYL CITR 100 MCG/2 ML ONE (07:27)
[2024-05-19] MEDS ORDERED: propofoL 200 MG/20 ML VIAL IV ONE (07:27)
[2024-05-19] MEDS ORDERED: MIDAZOLAM HCL 2 MG/2 ML INJ ONE (07:27)
[2024-05-19] MEDS ORDERED: LIDOCAINE 1% MPF 5 ML VIAL ONE (07:27)
[2024-05-19] MEDS ORDERED: KETOROLAC 30 MG/ML INJ ONE (07:29)
[2024-05-19] MEDS ORDERED: ONDANSETRON 4 MG/2 ML VIAL ONE (07:29)
[2024-05-19] MEDS: MEDIHONEY 44 ML TOPICAL TUBE TOP SCH (08:11)
--- NOTE | 2024-05-19 08:33 | P.OP ---
Preoperative diagnosis: Left foot abscess with osteomyelitis Postoperative diagnosis: sme Primary procedure: left foot incision and drainage Secondary procedure: left fifth ray resection Other procedure(s): bone biopsy left fourth metatarsal and cuboid Anesthesia: general Estimated blood loss: 20cc Specimen: bone for gross, wound culture for micro Findings: as above Operative Technique: I&D left foot with fifth ray resection. Extensive purulence and necrotic tissue Complications: None Complications: none Transferred to: Recovery Room Condition: Good
--- NOTE | 2024-05-19 09:23 | OP ---
Surgeon: Phuc Fernando Jr, DPM Preoperative Diagnosis: Left foot abscess with osteomyelitis. Postoperative Diagnosis: Left foot abscess with osteomyelitis. Procedures: Left foot incision and drainage with 5th ray resection, bone biopsy of the 4th metatarsal and cuboid. Pathology: Bone sent for gross, wound cultures sent for micro for aerobic and anaerobic sensitivities. Anesthesia: General. Hemostasis: None. Estimated Blood Loss: 20 cc. Materials: 1 inch iodoform gauze. Injectables: None. Complications: None. Procedure In Detail: The patient was brought into [facility] Operating Room, placed on the OR table in the supine position. The patient was placed under general anesthesia by anesthesiologist. The patient was prepped and draped in the usual aseptic manner. Attention was directed to the lateral aspect of the left foot at which time a large necrotic foul-smelling purulent ulcer was noted to the plantar lateral aspect of the left foot extending from the dorsum of the 5th metatarsal plantarly to the mid foot and distally midshaft of the 5th metatarsal proximally over the cuboid. Utilizing a 15 blade, incision and drainage was performed. There was extensive aviles black necrotic tissue noted and this was excised down to bone. After this was removed, the base of the 5th metatarsal was noted to have a pathologic fracture with osteo with porous bone and purulence extending from the dorsal pocket over the 4th and 5th metatarsals. This was opened. At this time, the incision was extended distally and the entire 5th metatarsal was resected. Following this, there was noted to be necrotic tissue in the interspace between the 4th and 5th metatarsal. This was removed utilizing sharp dissection. Following this, all debridement was taken and was performed to get down to bleeding tissue. Following this, wound cultures were taken and then bone biopsies of the 4th metatarsal base and cuboid were performed utilizing a rongeur. Next, wound was irrigated with copious amounts of normal sterile saline utilizing pulse lavage and the wound was packed with 1 inch iodoform gauze. Upon taking bone biopsies, the 4th metatarsal base was noted to be somewhat soft and the cuboid was noted to appear porous as well. Sterile dressing consisting of 1 inch iodoform gauze, 4 x 4's, ABD, Kerlix, and Alex wrap was applied. The patient tolerated the procedure and anesthesia well, was transferred from OR to recovery with vital signs stable and neurovascular status unchanged. This may very well be a staged procedure with probable return to the OR for further intervention RS/MODKadi Voice ID: [id number] Report ID: [id number] [facility]
--- NOTE | 2024-05-19 12:08 | RAD REPORT ---
EXAM DESCRIPTION: RAD - Fluoroscopy <1 Hour - 05/19/2024 9:57 am CLINICAL HISTORY: DEBRIDEMENT OF A FOOT COMPARISON: None available. FINDINGS: Four Images were sent to PACS, documenting fluoroscopy use during image guided foot debrid ement procedure. No radiologist was available for the procedure, nor will any image interpretation he provided. Please refer to the procedural report for additional details. Fluoroscopy time: Less than 0.1 Minutes. IMPRESSION: Documentation of fluoroscopy utilization as above.
--- NOTE | 2024-05-19 12:30 | P.PN ---
Subjective Date of Service: 05/19/24 Primary Care Provider: Jake Chief Complaint: Osteomyelitis, dm2 Subjective: New changes (post surgery he has diaphoresis) Review of Systems 10-point ROS is otherwise unremarkable General: Sweats Physical Examination - Vital Signs Temperature: 96.2 F Blood Pressure: 141/88 Pulse: 85 Respirations: 16 Pulse Ox (%): 97 - Physical Exam General: Alert, In no apparent distress HEENT: Atraumatic, PERRLA, EOMI Neck: Supple, JVD not distended Respiratory: Clear to auscultation bilaterally, Normal air movement Cardiovascular: Regular rate/rhythm, Normal S1 S2 Gastrointestinal: Normal bowel sounds, No tenderness Musculoskeletal: No tenderness Integumentary: No rashes Neurological: Normal speech, Normal tone, Normal affect Lymphatics: No axilla or inguinal lymphadenopathy Assessment And Plan - Current Problems (Diagnosis) (1) Diabetic ulcer of left foot Current Visit: No Status: Acute Plan: Patient has been seeing Dr. Fernando in the wound care center. He is restarting the iodaform on the patient Qualifiers: Diabetic foot ulcer location: unspecified part of foot Diabetes mellitus type: type 2 Non-pressure ulcer stage: limited to breakdown of skin Qualified Code(s): E11.621 - Type 2 diabetes mellitus with foot ulcer; L97.521 - Non-pressure chronic ulcer of other part of left foot limited to breakdown of skin (2) Osteomyelitis Current Visit: No Status: Acute Plan: start the patient on zosyn. doxycycline for MRSA coverage. He has multiple allergies. Will await blood cultures. Qualifiers: Osteomyelitis type: acute hematogenous Osteomyelitis location: foot Laterality: left Qualified Code(s): M86.072 - Acute hematogenous osteomyelitis, left ankle and foot (3) Type 2 diabetes mellitus with foot ulcer Current Visit: No Status: Acute Plan: start him on a lower dose of his lantus as he is not eating well. Order a sliding scale. Will check his a1c increase the glargine to 35 units. He has been in the 300s Qualifiers: Diabetes mellitus mcc insulin use: with terminal gauger use Qualified Code(s): E11.621 - Type 2 diabetes mellitus with foot ulcer; L97.509 - Non- pressure chronic ulcer of other part of unspecified foot with unspecified severity; Z79.4 - longterm (current) use of insulin Discharge Plan: Home Plan to discharge in: 48 Hours - Code Status/Comfort Care Code Status Assessed: No Physician Review: Patient Assessed, Agree with Above Assessment and Plan Critical Care: No Time Spent Managing PTS Care (In Minutes): 20
--- NOTE | 2024-05-19 12:43 | EKG ---
Test Date: 2024-05-17 Test Time: 19:40:24 Mortgage Processor: MAY MEASUREMENT RESULTS: Intervals: Rate: 115 OK: 164 QRSD: 88 QT: 328 QTc: 453 Julian: P: 47 OK: 164 QRS: 26 T: -28 INTERPRETIVE STATEMENTS: Sinus tachycardia Inferior infarct, age undetermined Marked ST abnormality, possible lateral subendocardial injury Abnormal ECG Compared to ECG 05/13/2023 20:31:37 Myocardial infarct finding now present ST (T wave) deviation now present Sinus rhythm no longer present Electronically Signed On 05-19-24 12:40:47 CDT by Anthony Leung
[2024-05-19] MEDS: ENSURE HIGH PROTEIN 237 ML CAN PO SCH (14:56)
[2024-05-19] MEDS: JUVEN PACKET PO SCH (21:00)
[2024-05-19] MEDS ORDERED: INSULIN REGULAR (HUMAN) 100 UNIT/ML SQ SCH (22:00)
[2024-05-20 06:59] LABS: Absolute Lymphocytes (CBC) 1.1 K/uL (0.7-4.9); Absolute Monocytes 0.5 K/uL (0.1-1.3); Basophils % 0.2 % (0-1.3); Eosinophils % 0.1 % (0-4.4); Hematocrit 37.9 % (39.6-49.0); Hemoglobin 12.4 g/dL (13.6-17.9); Lymphocytes % 5.9 % (15.3-44.8); MCH 26.5 pg (27.0-35.0); MCHC 32.9 g/dL (32.0-36.0); MCV 80.6 fL (80-100); MPV 8.7 fL (7.6-11.3); Monocytes % 2.8 % (3.3-12.3); Nucleated Red Blood Cells % 0.1 % (0-0); Platelets 231 thou/uL (152-406); Red Cell Distribution Width 14.6 % (12.1-15.2)
[2024-05-20 08:13] LABS: Albumin 1.6 g/dL (3.4-5.0); Albumin/Globulin Ratio 0.3 (1.1-1.8); Alkaline Phosphatase 69 U/L (45-117); Anion Gap 10.3 mEq/L (5.0-15.0); BUN Blood Urea Nitrogen 25 mg/dL (7-18); Bicarbonate 23 mEq/L (21-32); Bilirubin Total 0.3 mg/dL (0.2-1.0); Globulin 5.1 g/dL (2.3-3.5); Glomerular Filtration Rate 120 ml/min (=/>90); Potassium 4.3 mEq/L (3.5-5.1); Protein, Total 6.7 g/dL (6.4-8.2); Sodium Level 132 mEq/L (136-145); Thyroid Stimulating Hormone 0.786 uIU/mL (0.358-3.740)
[2024-05-20 08:14] LABS: ALT/SGPT < 14 U/L (16-61); AST/SGOT < 10 U/L (15-37)
[2024-05-20 08:15] LABS: Glucose Level 433 mg/dL (74-106)
[2024-05-20] MEDS: INSULIN GLARGINE 100 UNIT/ML SQ SCH (09:12)
[2024-05-20 10:42] LABS: Blood Morphology Comment NOT SEEN (NOT SEEN); Platelet Estimate ADEQ; Platelets Clumped PRESENT; White Blood Cell Scan OK (OK)
--- NOTE | 2024-05-20 11:49 | P.PN ---
Subjective Date of Service: 05/20/24 Primary Care Provider: Jake Chief Complaint: Osteomyelitis, dm2 Subjective: No new changes Review of Systems 10-point ROS is otherwise unremarkable Physical Examination - Vital Signs Temperature: 96.9 F Blood Pressure: 120/77 Pulse: 78 Respirations: 16 Pulse Ox (%): 97 - Physical Exam General: Alert, In no apparent distress HEENT: Atraumatic, PERRLA, EOMI Neck: Supple, JVD not distended Respiratory: Clear to auscultation bilaterally, Normal air movement Cardiovascular: Regular rate/rhythm, Normal S1 S2 Gastrointestinal: Normal bowel sounds, No tenderness Musculoskeletal: No tenderness Integumentary: No rashes Neurological: Normal speech, Normal tone, Normal affect Lymphatics: No axilla or inguinal lymphadenopathy - Studies Microbiology Data (last 24 hrs): 05/17/24 19:55 Blood - Blood Blood Culture Gram Stain - Final Assessment And Plan - Current Problems (Diagnosis) (1) Diabetic ulcer of left foot Current Visit: No Status: Acute Plan: Patient has been seeing Dr. Fernando in the wound care center. He is restarting the iodaform on the patient 8.28 s/p amputation. I&D of the wound. Will await cultures and sensitivity. Will order PICC line. He should be on 6 weeks of IV antibiotics as he is a brittle diabetic. Will order PT due to his needing to relearn to walk Qualifiers: Diabetic foot ulcer location: unspecified part of foot Diabetes mellitus type: type 2 Non-pressure ulcer stage: limited to breakdown of skin Qualified Code(s): E11.621 - Type 2 diabetes mellitus with foot ulcer; L97.521 - Non-pressure chronic ulcer of other part of left foot limited to breakdown of skin (2) Osteomyelitis Current Visit: No Status: Acute Plan: start the patient on zosyn. doxycycline for MRSA coverage. He has multiple allergies. Will await blood cultures. Qualifiers: Osteomyelitis type: acute hematogenous Osteomyelitis location: foot Laterality: left Qualified Code(s): M86.072 - Acute hematogenous osteomyelitis, left ankle and foot (3) Type 2 diabetes mellitus with foot ulcer Current Visit: No Status: Acute Plan: start him on a lower dose of his lantus as he is not eating well. Order a sliding scale. Will check his a1c increase the glargine to 35 units. 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
[2024-05-20] MEDS: Mupirocin NASAL 2 APPL/1 GM TUBE NAS SCH ×2 (12:00→17:05)
--- NOTE | 2024-05-20 12:35 | P.PN ---
Subjective Date of Service: 05/20/24 Primary Care Provider: Jake Chief Complaint: Osteomyelitis, dm2 Subjective: Improving Review of Systems 10-point ROS is otherwise unremarkable Physical Examination - Vital Signs Temperature: 96.9 F Blood Pressure: 99/54 Pulse: 89 Respirations: 16 Pulse Ox (%): 99 - Physical Exam General: Alert, In no apparent distress, Oriented x3 Cardiovascular: No edema, Normal pulses Capillary refill: <2 Seconds Musculoskeletal: No clubbing, No swelling, No contractures, No erythema, No tenderness, No warmth Integumentary: Other (Wound lateral left foot examined with removal of dressing, no purulence noted, no foul odor, decreased periwound erythema) Neurological: Abnormal sensation - Studies WBC increased to 18+ Microbiology Data (last 24 hrs): 05/17/24 19:55 Blood - Blood Blood Culture Gram Stain - Final Assessment And Plan - Current Problems (Diagnosis) (1) Abscess of left foot Current Visit: No Status: Acute (2) Abscess of muscle Current Visit: No Status: Acute (3) Osteomyelitis Current Visit: No Status: Acute Qualifiers: Osteomyelitis type: acute hematogenous Osteomyelitis location: foot Lat erality: left Qualified Code(s): M86.072 - Acute hematogenous osteomyelitis, left ankle and foot (4) Type 2 diabetes mellitus with foot ulcer Current Visit: No Status: Acute Qualifiers: 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 insulin use: with fdc use Qualified Code(s): E11.621 - Type 2 diabetes mellitus with foot ulcer; L97.509 - Non- pressure chronic ulcer of other part of unspecified foot with unspecified severity; Z79.4 - extermination 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 PAcking of wound with vashe wet to dry gauze bid by nursing staff 2. Awaiting wound cultures and pathology reports 2. Will follow Physician Review: Patient Assessed, Agree with Above Assessment and Plan
--- NOTE | 2024-05-20 13:48 | RAD REPORT ---
EXAM DESCRIPTION: RAD - Chest Single View - 05/20/2024 1:42 pm CLINICAL HISTORY: PICC placement Verification COMPARISON: Chest Single View dated 05/15/2023; Chest Single View dated 07/27/2021; Chest Single View dated 01/09/2021; Chest Single View dated 12/19/2020 FINDINGS: Portable chest was obtained following placement of a left upper extremity PICC line. The c atheter tip projects over the SVC.
[2024-05-21 06:11] LABS: Absolute Lymphocytes (CBC) 2.1 K/uL (0.7-4.9); Absolute Monocytes 0.7 K/uL (0.1-1.3); Absolute Neutrophil 10.7 K/uL (1.8-8.0); Basophils % 0.2 % (0-1.3); Eosinophils % 0.1 % (0-4.4); Hematocrit 31.9 % (39.6-49.0); Hemoglobin 10.4 g/dL (13.6-17.9); Lymphocytes % 15.9 % (15.3-44.8); MCH 26.5 pg (27.0-35.0); MCHC 32.6 g/dL (32.0-36.0); MCV 81.1 fL (80-100); MPV 7.9 fL (7.6-11.3); Monocytes % 4.9 % (3.3-12.3); Neutrophils % 78.9 % (41.7-73.7); Platelets 359 thou/uL (152-406); RBC Red Blood Cell Count 3.94 M/uL (4.33-5.43); Red Cell Distribution Width 14.6 % (12.1-15.2)
[2024-05-21 06:24] LABS: Albumin 1.6 g/dL (3.4-5.0); Albumin/Globulin Ratio 0.4 (1.1-1.8); Alkaline Phosphatase 57 U/L (45-117); Anion Gap 8.8 mEq/L (5.0-15.0); BUN Blood Urea Nitrogen 30 mg/dL (7-18); Bicarbonate 25 mEq/L (21-32); Bilirubin Total 0.2 mg/dL (0.2-1.0); Globulin 4.4 g/dL (2.3-3.5); Glomerular Filtration Rate 120 ml/min (=/>90); Glucose Level 230 mg/dL (74-106); Potassium 3.8 mEq/L (3.5-5.1); Sodium Level 137 mEq/L (136-145)
[2024-05-21 06:31] LABS: ALT/SGPT < 14 U/L (16-61); AST/SGOT < 10 U/L (15-37)
--- NOTE | 2024-05-21 08:32 | P.PN ---
Subjective Date of Service: 05/21/24 Primary Care Provider: Jake Chief Complaint: Osteomyelitis, dm2 Subjective: Improving Review of Systems 10-point ROS is otherwise unremarkable Physical Examination - Vital Signs Temperature: 96.9 F Blood Pressure: 101/58 Pulse: 79 Respirations: 16 Pulse Ox (%): 99 - Physical Exam General: Alert, In no apparent distress, Oriented x3 Cardiovascular: No edema, Normal pulses Capillary refill: <2 Seconds Musculoskeletal: No clubbing, No swelling, No contractures, No erythema, No tenderness, No warmth Integumentary: Other (Operative site is improving with increased granulation, no purulence, no foul odor. Small areas of necrosis noted at the dorsal and posterior aspects of the lateral left foot wound) Neurological: Abnormal sensation - Studies WBC decreased to 13.5 Microbiology Data (last 24 hrs): 05/17/24 19:55 Blood - Blood Blood Culture Gram Stain - Final Assessment And Plan - Current Problems (Diagnosis) (1) Abscess of left foot Current Visit: No Status: Acute (2) Abscess of muscle Current Visit: No Status: Acute (3) Osteomyelitis Current Visit: No Status: Acute Qualifiers: Osteomyelitis type: acute hematogenous Osteomyelitis location: foot Laterality: left Qualified Code(s): M86.072 - Acute hematogenous osteomyelitis, left ankle and foot (4) Type 2 diabetes mellitus with foot ulcer Current Visit: No Status: Acute Qualifiers: Diabetes mellitus custodial insulin use: with custodial use Qualified Code(s): E11.621 - Type 2 diabetes mellitus with foot ulcer; L97.509 - Non- pressure chronic ulcer of other part of unspecified foot with unspecified severity; Z79.4 - care home (current) 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 PAcking of wound with vashe wet to dry gauze bid by nursing staff 2. Awaiting wound cultures and pathology reports 3. NPO after midnight 4. Will take the patient to the OR tomorrow for further I&D and partial closure of wound Physician Review: Patient Assessed, Agree with Above Assessment and Plan
--- NOTE | 2024-05-21 11:20 | P.PN ---
Subjective Date of Service: 05/21/24 Primary Care Provider: Jake Chief Complaint: Osteomyelitis, dm2 Subjective: No new changes (plans for surgery tomorrow) Review of Systems 10-point ROS is otherwise unremarkable Musculoskeletal: Foot Pain (pain in the left foot) Physical Examination - Vital Signs Temperature: 95.7 F Blood Pressure: 101/58 Pulse: 79 Respirations: 16 Pulse Ox (%): 99 - Physical Exam General: Alert, In no apparent distress HEENT: Atraumatic, PERRLA, EOMI Neck: Supple, JVD not distended Respiratory: Clear to auscultation bilaterally, Normal air movement Cardiovascular: Regular rate/rhythm, Normal S1 S2 Gastrointestinal: Normal bowel sounds, No tenderness Musculoskeletal: No tenderness Integumentary: No rashes Neurological: Normal speech, Normal tone, Normal affect Lymphatics: No axilla or inguinal lymphadenopathy - Studies Microbiology Data (last 24 hrs): 05/17/24 19:55 Blood - Blood Blood Culture Gram Stain - Final Assessment And Plan - Current Problems (Diagnosis) (1) Diabetic ulcer of left foot Current Visit: No Status: Acute Plan: Patient has been seeing Dr. Fernando in the wound care center. He is restarting the iodaform on the patient 8. will order arterial dopplers to rule out pvd. We can refer him to Dr. Alex as an outpatient if he has it. Culture are positive for proteus and morganni. Both sensitive to Levaquin. Will arrange for 6 weeks of IV levaquin. Will d/c zozyn Qualifiers: Diabetic foot ulcer location: unspecified part of foot Diabetes mellitus type: type 2 Non-pressure ulcer stage: limited to breakdown of skin Qualified Code(s): E11.621 - Type 2 diabetes mellitus with foot ulcer; L97.521 - Non-pressure chronic ulcer of other part of left foot limited to breakdown of skin (2) Osteomyelitis Current Visit: No Status: Acute Plan: start the patient on zosyn. doxycycline for MRSA coverage. He has multiple allergies. Will await blood cultures. Qualifiers: Osteomyelitis type: acute hematogenous Osteomyelitis location: foot Laterality: left Qualified Code(s): M86.072 - Acute hematogenous osteomyelitis, left ankle and foot (3) Type 2 diabetes mellitus with foot ulcer Current Visit: No Status: Acute Plan: start him on a lower dose of his lantus as he is not eating well. Order a sliding scale. Will check his a1c increase the glargine to 35 units. 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
[2024-05-21] MEDS: Levofloxacin 750mg IV 750 MG/150 ML BAG IV SCH (13:05)
--- NOTE | 2024-05-21 13:11 | RAD REPORT ---
EXAM DESCRIPTION: US - Lower Extremity Arterial Bilat - 05/21/2024 12:27 pm CLINICAL HISTORY: Leg pain COMPARISON: 2022 FINDINGS: Occlusion involves mid right and left superficial femoral arteries. Diminished amplitude distal right and left superficial femoral arteries. Common femoral, superficial femoral, popliteal, posterior tibial and dorsalis pedis arteries demonstr ate monophasic waveforms Grayscale, color and spectral analysis performed on all vessels IMPRESSION: Occlusion mid aspect right and left superficial femoral artery
[2024-05-22] MEDS ORDERED: ALTEPLASE 2 MG/VIAL IV SCH (05:00)
[2024-05-22 06:38] LABS: Absolute Basophils 0.1 K/uL (0-0.5); Absolute Lymphocytes (CBC) 2.7 K/uL (0.7-4.9); Basophils % 0.6 % (0-1.3); Eosinophils % 0.2 % (0-4.4); Hematocrit 33.6 % (39.6-49.0); Hemoglobin 11.2 g/dL (13.6-17.9); Lymphocytes % 19.6 % (15.3-44.8); MCH 26.6 pg (27.0-35.0); MCHC 33.3 g/dL (32.0-36.0); MPV 7.1 fL (7.6-11.3); Monocytes % 7.4 % (3.3-12.3); Neutrophils % 72.2 % (41.7-73.7); Nucleated Red Blood Cells % 0.1 % (0-0); Platelets 425 thou/uL (152-406); Red Cell Distribution Width 14.2 % (12.1-15.2)
[2024-05-22 06:55] LABS: Albumin 1.8 g/dL (3.4-5.0); Albumin/Globulin Ratio 0.4 (1.1-1.8); Alkaline Phosphatase 56 U/L (45-117); Anion Gap 9.2 mEq/L (5.0-15.0); BUN Blood Urea Nitrogen 28 mg/dL (7-18); Bicarbonate 26 mEq/L (21-32); Bilirubin Total 0.2 mg/dL (0.2-1.0); Globulin 4.7 g/dL (2.3-3.5); Glomerular Filtration Rate 127 ml/min (=/>90); Glucose Level 150 mg/dL (74-106); Potassium 4.2 mEq/L (3.5-5.1); Protein, Total 6.5 g/dL (6.4-8.2); Sodium Level 137 mEq/L (136-145)
[2024-05-22 06:58] LABS: ALT/SGPT < 14 U/L (16-61); AST/SGOT < 10 U/L (15-37)
[2024-05-22] MEDS ORDERED: propofoL 200 MG/20 ML VIAL IV ONE (07:04)
[2024-05-22] MEDS ORDERED: MIDAZOLAM HCL 2 MG/2 ML INJ ONE (07:04)
[2024-05-22] MEDS ORDERED: FENTANYL CITR 100 MCG/2 ML ONE (07:04)
[2024-05-22] MEDS ORDERED: LIDOCAINE 1% MPF 5 ML VIAL ONE (07:04)
[2024-05-22] MEDS ORDERED: KETOROLAC 30 MG/ML INJ ONE (07:05)
[2024-05-22] MEDS: LIDOCAINE 1% MPF 30 ML VIAL ONE (07:07)
[2024-05-22] MEDS: NA CHLORIDE 0.9% 1,000 ML ONE (07:13)
[2024-05-22] MEDS ORDERED: ONDANSETRON 4 MG/2 ML VIAL ONE (07:52)
--- NOTE | 2024-05-22 08:24 | P.OP ---
Primary procedure: left foot incision and drainage Findings: as above Operative Technique: I&D left foot with partial closure of wound Complications: None Complications: none
[2024-05-22] MEDS: ONDANSETRON 4 MG/2 ML VIAL ONE (08:34)
[2024-05-22] MEDS: ALTEPLASE 2 MG/VIAL IV SCH (09:39)
--- NOTE | 2024-05-22 09:54 | OP ---
Surgeon: Phuc Fernando Jr, DPM Preoperative Diagnosis: Left foot abscess. Postoperative Diagnosis: Left foot abscess. Procedure: Incision and drainage of left foot with partial closure of wound. Pathology: None. Anesthesia: General. Hemostasis: None. Estimated Blood Loss: Less than 20 cc. Materials: 2-0 Prolene. Injectables: None. Complications: None. Procedure In Detail: The patient was brought into [facility] Operating Room and place d on the OR table in the supine position. The patient was placed under general anesthesia by anesthe siologist and the patient was prepped and draped in the usual aseptic manner. Attention was directed to the lateral aspect of the left foot, at which time, incision and drainage with partial fifth ray resection was explored. There was nonviable tissue in the dorsal aspect of the wound. This was exci sed of bleeding base as well as at the more proximal aspect of the wound. Once again, this was excis ed to a bleeding base. Wound was then irrigated with copious amounts of sterile saline and pulse lav age. Closure of the distal aspect was obtained utilizing 2-0 Prolene and a sterile dressing consisti ng of Vashe-soaked gauze, 4x4s, Kerlix, and an Alex wrap was applied to the left lower extremity. The patient tolerated the procedure and anesthesia well, was transferred to recovery with vital signs stable and neurovascular status intact. SYDNEY/FELICE Voice ID: [id number] Report ID: [id number]
--- NOTE | 2024-05-22 12:54 | P.PN ---
Subjective Date of Service: 05/22/24 Primary Care Provider: Jake Chief Complaint: Osteomyelitis, dm2 Subjective: No new changes (post operation) Review of Systems 10-point ROS is otherwise unremarkable Physical Examination - Vital Signs Temperature: 97.6 F Blood Pressure: 127/77 Pulse: 94 Respirations: 16 Pulse Ox (%): 96 - Physical Exam General: Alert, In no apparent distress HEENT: Atraumatic, PERRLA, EOMI Neck: Supple, JVD not distended Respiratory: Clear to auscultation bilaterally, Normal air movement Cardiovascular: Regular rate/rhythm, Normal S1 S2 Gastrointestinal: Normal bowel sounds, No tenderness Musculoskeletal: No tenderness Integumentary: No rashes Neurological: Normal speech, Normal tone, Normal affect Lymphatics: No axilla or inguinal lymphadenopathy Assessment And Plan - Current Problems (Diagnosis) (1) Diabetic ulcer of left foot Current Visit: No Status: Acute Plan: Patient has been seeing Dr. Fernando in the wound care center. He is restarting the iodaform on the patient 8.30 will need to arrange, wound care, wound vacc. iv antibiotics. He would benefit with hyperbaric treatments. Will discuss this with the wound care center Qualifiers: Diabetic foot ulcer location: unspecified part of foot Diabetes mellitus type: type 2 Non-pressure ulcer stage: limited to breakdown of skin Qualified Code(s): E11.621 - Type 2 diabetes mellitus with foot ulcer; L97.521 - Non-pressure chronic ulcer of other part of left foot limited to breakdown of skin (2) Osteomyelitis Current Visit: No Status: Acute Plan: start the patient on zosyn. doxycycline for MRSA coverage. He has multiple allergies. Will await blood cultures. Qualifiers: Osteomyelitis type: acute hematogenous Osteomyelitis location: foot Laterality: left Qualified Code(s): M86.072 - Acute hematogenous osteomyelitis, left ankle and foot (3) Type 2 diabetes mellitus with foot ulcer Current Visit: No Status: Acute Plan: start him on a lower dose of his lantus as he is not eating well. Order a sliding scale. Will check his a1c increase the glargine to 35 units. He has been in the 300s Qualifiers: Diabetes mellitus intermediate insulin use: with intermediate use Qualified Code(s): E11.621 - Type 2 diabetes mellitus with foot ulcer; L97.509 - Non- pressure chronic ulcer of other part of unspecified foot with unspecified severity; Z79.4 - buttermaker (current) use of insulin (4) Amputation of fifth toe of right foot Current Visit: Yes Status: Acute Plan: conslult PT Discharge Plan: Home Plan to discharge in: 24 Hours - Code Status/Comfort Care Code Status Assessed: No Physician Review: Patient Assessed, Agree with Above Assessment and Plan Critical Care: No Time Spent Managing PTS Care (In Minutes): 30
--- NOTE | 2024-05-23 12:44 | P.PN ---
Subjective Date of Service: 05/23/24 Primary Care Provider: Jake Chief Complaint: Osteomyelitis, dm2 Subjective: No new changes (discharge planning is proving difficult) Review of Systems 10-point ROS is otherwise unremarkable Physical Examination - Vital Signs Temperature: 97.2 F Blood Pressure: 112/65 Pulse: 91 Respirations: 17 Pulse Ox (%): 96 - Physical Exam General: Alert, In no apparent distress HEENT: Atraumatic, PERRLA, EOMI Neck: Supple, JVD not distended Respiratory: Clear to auscultation bilaterally, Normal air movement Cardiovascular: Regular rate/rhythm, Normal S1 S2 Gastrointestinal: Normal bowel sounds, No tenderness Musculoskeletal: No tenderness Integumentary: No rashes Neurological: Normal speech, Normal tone, Normal affect Lymphatics: No axilla or inguinal lymphadenopathy - Studies Microbiology Data (last 24 hrs): 05/17/24 19:55 Blood - Blood Aerobic Blood Culture - Final Morganella Morganii 05/17/24 19:55 Blood - Blood Blood Culture Gram Stain - Final 05/17/24 19:55 Blood - Blood Anaerobic Blood Culture - Final No growth in 5 days. 05/17/24 19:23 Blood - Blood Aerobic Blood Culture - Final No growth in 5 days. 05/17/24 19:23 Blood - Blood Anaerobic Blood Culture - Final No growth in 5 days. Assessment And Plan - Current Problems (Diagnosis) (1) Diabetic ulcer of left foot Current Visit: No Status: Acute Plan: Patient has been seeing Dr. Fernando in the wound care center. He is restarting the iodaform on the patient 8.31 Patient is capable of hanging his own antibiotics. Will have nursing review it with him He has a wound vac at home. Will see if we can arrange just home wound care. Qualifiers: Diabetic foot ulcer location: unspecified part of foot Diabetes mellitus type: type 2 Non-pressure ulcer stage: limited to breakdown of skin Qualified Code(s): E11.621 - Type 2 diabetes mellitus with foot ulcer; L97.521 - Non-pressure chronic ulcer of other part of left foot limited to breakdown of skin (2) Osteomyelitis Current Visit: No Status: Acute Plan: start the patient on zosyn. doxycycline for MRSA coverage. He has multiple allergies. Will await blood cultures. Qualifiers: Osteomyelitis type: acute hematogenous Osteomyelitis location: foot Laterality: left Qualified Code(s): M86.072 - Acute hematogenous osteomyelitis, left ankle and foot (3) Type 2 diabetes mellitus with foot ulcer Current Visit: No Status: Acute Plan: start him on a lower dose of his lantus as he is not eating well. Order a sliding scale. Will check his a1c increase the glargine to 35 units. He has been in the 300s Qualifiers: Diabetes mellitus terminal computer operator insulin use: with fpc use Qualified C ode(s): E11.621 - Type 2 diabetes mellitus with foot ulcer; L97.509 - Non- pressure chronic ulcer of other part of unspecified foot with unspecified severity; Z79.4 - assistant terminal manager (current) use of insulin (4) Amputation of fifth toe of right foot Current Visit: Yes Status: Acute Plan: conslult PT Discharge Plan: Home Plan to discharge in: 24 Hours - Code Status/Comfort Care Code Status Assessed: No Physician Review: Patient Assessed, Agree with Above Assessment and Plan Critical Care: No Time Spent Managing PTS Care (In Minutes): 20
--- NOTE | 2024-05-24 13:05 | P.PN ---
Subjective Date of Service: 05/24/24 Primary Care Provider: Jake Chief Complaint: Osteomyelitis, dm2 Subjective: No new changes Review of Systems 10-point ROS is otherwise unremarkable Physical Examination - Vital Signs Temperature: 97.0 F Blood Pressure: 113/64 Pulse: 91 Respirations: 12 Pulse Ox (%): 97 - Physical Exam General: Alert, In no apparent distress HEENT: Atraumatic, PERRLA, EOMI Neck: Supple, JVD not distended Respiratory: Clear to auscultation bilaterally, Normal air movement Cardiovascular: Regular rate/rhythm, Normal S1 S2 Gastrointestinal: Normal bowel sounds, No tenderness Musculoskeletal: No tenderness Integumentary: No rashes Neurological: Normal speech, Normal tone, Normal affect Lymphatics: No axilla or inguinal lymphadenopathy Assessment And Plan - Current Problems (Diagnosis) (1) Diabetic ulcer of left foot Current Visit: No Status: Acute Plan: Patient has been seeing Dr. Fernando in the wound care center. He is restarting the iodaform on the patient 8.31 Patient is capable of hanging his own antibiotics. Will have nursing review it with him He has a wound vac at home. Will see if we can arrange just home wound care. Qualifiers: Diabetic foot ulcer location: unspecified part of foot Diabetes mellitus type: type 2 Non-pressure ulcer stage: limited to breakdown of skin Qualified Code(s): E11.621 - Type 2 diabetes mellitus with foot ulcer; L97.521 - Non-pressure chronic ulcer of other part of left foot limited to breakdown of skin (2) Osteomyelitis Current Visit: No Status: Acute Plan: start the patient on zosyn. doxycycline for MRSA coverage. He has multiple allergies. Will await blood cultures. Qualifiers: Osteomyelitis type: acute hematogenous Osteomyelitis location: foot Laterality: left Qualified Code(s): M86.072 - Acute hematogenous osteomyelitis, left ankle and foot (3) Type 2 diabetes mellitus with foot ulcer Current Visit: No Status: Acute Plan: start him on a lower dose of his lantus as he is not eating well. Order a sliding scale. Will check his a1c increase the glargine to 35 units. He has been in the 300s Qualifiers: Diabetes mellitus terminologist insulin use: with terminologist use Qualified Code(s): E11.621 - Type 2 diabetes mellitus with foot ulcer; L97.509 - Non- pressure chronic ulcer of other part of unspecified foot with unspecified severity; Z79.4 - jail (current) use of insulin (4) Amputation of fifth toe of right foot Current Visit: Yes Status: Acute Plan: conslult PT Discharge Plan: Home Plan to discharge in: Greater than 2 days - Code Status/Comfort Care Code Status Assessed: No Physician Review: Patient Assessed, Agree with Above Assessment and Plan Critical Care: No Time Spent Managing PTS Care (In Minutes): 20
--- NOTE | 2024-05-25 12:40 | P.PN ---
Subjective Date of Service: 05/25/24 Primary Care Provider: Jake Chief Complaint: Osteomyelitis, dm2 Subjective: No new changes Review of Systems 10-point ROS is otherwise unremarkable Musculoskeletal: Foot Pain (after changing wound vac) Physical Examination - Vital Signs Temperature: 97.2 F Blood Pressure: 116/72 Pulse: 91 Respirations: 16 Pulse Ox (%): 98 - Physical Exam General: Alert, In no apparent distress HEENT: Atraumatic, PERRLA, EOMI Neck: Supple, JVD not distended Respiratory: Clear to auscultation bilaterally, Normal air movement Cardiovascular: Regular rate/rhythm, Normal S1 S2 Gastrointestinal: Normal bowel sounds, No tenderness Musculoskeletal: No tenderness Integumentary: No rashes Neurological: Normal speech, Normal tone, Normal affect Lymphatics: No axilla or inguinal lymphadenopathy Assessment And Plan - Current Problems (Diagnosis) (1) Diabetic ulcer of left foot Current Visit: No Status: Acute Plan: Patient has been seeing Dr. Fernando in the wound care center. He is restarting the iodaform on the patient 9.2 Patient has pain after changing the wound vac. Will start him on prn hydrocodone. This he can take 30ming before changing the vac or wound care visits. Qualifiers: Diabetic foot ulcer location: unspecified part of foot Diabetes mellitus type: type 2 Non-pressure ulcer stage: limited to breakdown of skin Qu alified Code(s): E11.621 - Type 2 diabetes mellitus with foot ulcer; L97.521 - Non-pressure chronic ulcer of other part of left foot limited to breakdown of skin (2) Osteomyelitis Current Visit: No Status: Acute Plan: start the patient on zosyn. doxycycline for MRSA coverage. He has multiple allergies. Will await blood cultures. Qualifiers: Osteomyelitis type: acute hematogenous Osteomyelitis location: foot Late rality: left Qualified Code(s): M86.072 - Acute hematogenous osteomyelitis, left ankle and foot (3) Type 2 diabetes mellitus with foot ulcer Current Visit: No Status: Acute Plan: start him on a lower dose of his lantus as he is not eating well. Order a sliding scale. Will check his a1c increase the glargine to 35 units. He has been in the 300s Qualifiers: Diabetes mellitus intermediate project manager insulin use: with senior living use Qualified Code(s): E11.621 - Type 2 diabetes mellitus with foot ulcer; L97.509 - Non- pressure chronic ulcer of other part of unspecified foot with unspecified severity; Z79.4 - custodial (current) use of insulin (4) Amputation of fifth toe of right foot Current Visit: Yes Status: Acute Plan: conslult PT Discharge Plan: Home Plan to discharge in: 24 Hours - Code Status/Comfort Care Code Status Assessed: No Physician Review: Patient Assessed, Agree with Above Assessment and Plan Critical Care: No Time Spent Managing PTS Care (In Minutes): 30
[2024-05-26] MEDS: HYDROCODONE/APAP 5/325 MG TAB PO PRN (06:00)
--- NOTE | 2024-05-26 08:51 | P.PN ---
Subjective Date of Service: 05/26/24 Primary Care Provider: Jake Chief Complaint: Osteomyelitis, dm2 Subjective: No new changes (patient complaining of shocking pain. He refuses gabapentin) Review of Systems 10-point ROS is otherwise unremarkable Neurological: Other (electric pain in his feet) Physical Examination - Vital Signs Temperature: 97.1 F Blood Pressure: 124/77 Pulse: 96 Respirations: 18 Pulse Ox (%): 97 - Physical Exam General: Alert, In no apparent distress HEENT: Atraumatic, PERRLA, EOMI Neck: Supple, JVD not distended Respiratory: Clear to auscultation bilaterally, Normal air movement Cardiovascular: Regular rate/rhythm, Normal S1 S2 Gastrointestinal: Normal bowel sounds, No tenderness Musculoskeletal: No tenderness Integumentary: No rashes Neurological: Normal speech, Normal tone, Normal affect Lymphatics: No axilla or inguinal lymphadenopathy Assessment And Plan - Current Problems (Diagnosis) (1) Diabetic ulcer of left foot Current Visit: No Status: Acute Plan: Patient has been seeing Dr. Fernando in the wound care center. He is restarting the iodaform on the patient 9.3 Awaiting home wound care and the antibiotics Qualifiers: Diabetic foot ulcer location: unspecified part of foot Diabetes mellitus type: type 2 Non-pressure ulcer stage: limited to breakdown of skin Qualified Code(s): E11.621 - Type 2 diabetes mellitus with foot ulcer; L97.521 - Non-pressure chronic ulcer of other part of left foot limited to breakdown of skin (2) Osteomyelitis Current Visit: No Status: Acute Plan: start the patient on zosyn. doxycycline for MRSA coverage. He has multiple allergies. Will await blood cultures. Qualifiers: Osteomyelitis type: acute hematogenous Osteomyelitis location: foot Laterality: left Qualified Code(s): M86.072 - Acute hematogenous osteomyelitis, left ankle and foot (3) Amputation of fifth toe of right foot Current Visit: Yes Status: Acute Plan: conslult PT (4) Diabetic neuropathy Current Visit: Yes Status: Chronic Plan: patient is having shocking feeling in his leg. He refuses gabapentin and pregablin. He states it made his mother confused. Will need to educate on PT and lidocaine Qualifiers: Diabetes mellitus type: type 1 Diabetes mellitus complication detail: diabetic mononeuropathy Qualified Code(s): E10.41 - Type 1 diabetes mellitus with diabetic mononeuropathy Discharge Plan: Home Plan to discharge in: 24 Hours - Code Status/Comfort Care Code Status Assessed: No Physician Review: Patient Assessed, Agree with Above Assessment and Plan Critical Care: No Time Spent Managing PTS Care (In Minutes): 20
[2024-05-26] MEDS: LIDOCAINE 4% PATCH TOP SCH (10:12)
[2024-05-26] MEDS: DAPAGLIFLOZIN PROPANEDIOL 10 MG PO SCH (11:43)
[2024-05-26] MEDS: AMINO ACIDS/PROTEIN HYDROLYS 30 ML LIQUID.PKT PO SCH (20:32)
--- NOTE | 2024-05-27 08:53 | P.DS ---
Admission Date: 05/17/24 Discharge Date: 05/27/24 Primary Care Provider: Jake Disposition: ROUTINE DISCHARGE Discharge Condition: GOOD Reason for Admission: Osteomyelitis, dm2 - Problems (1) Diabetic ulcer of left foot Current Visit: No Status: Acute Qualifiers: Diabetic foot ulcer location: unspecified part of foot Diabetes mellitus type: type 2 Non-pressure ulcer stage: limited to breakdown of skin Qualified Code(s): E11.621 - Type 2 diabetes mellitus with foot ulcer; L97.521 - Non-pressure chronic ulcer of other part of left foot limited to breakdown of skin (2) Osteomyelitis Current Visit: No Status: Acute Qualifiers: Osteomyelitis type: acute hematogenous Osteomyelitis location: foot Lat erality: left Qualified Code(s): M86.072 - Acute hematogenous osteomyelitis, left ankle and foot (3) Amputation of fifth toe of right foot Current Visit: Yes Status: Acute (4) Diabetic neuropathy Current Visit: Yes Status: Chronic Qualifiers: Diabetes mellitus type: type 1 Diabetes mellitus complication detail: diabetic mononeuropathy Qualified Code(s): E10.41 - Type 1 diabetes mellitus with diabetic mononeuropathy Brief History of Present Illness: Patient was admitted for osteomyelitis of the left 5th toe. He has been having drainage and puss. Seen in the ER. Has missed a few wound care appointment Hospital Course: Patient had [address] Fernando. Had an amputation of the 5th toe. cultures showed 2 bacteria Both sensitive to Levaquin. He has a negative pressure device. He was kept for arrangement of antibiotic and wound care. we have that arranged today. Will d/c him home. Have discussed diabetic care with him at length. He has an a1c of 9.3 Increased his farxiga. Will increase ozempic as well. Will most likely never get off insulin. However we can decrease his insulin requirements. He does not tolerate metformin. He has some PVD in his femoral. Will start the patient on xarelto and have an outpatient referral to Dr. Alex. Thank you for allowing me to take part in the patients care Vital Signs/Physical Exam: Temp Pulse Resp BP Pulse Ox 97.2 F 99 H 18 137/79 99 05/27/24 08:00 05/27/24 08:00 05/27/24 08:00 05/27/24 08:00 05/27/24 08:00 General: Alert, In no apparent distress HEENT: Atraumatic, PERRLA, EOMI Neck: Supple, JVD not distended Respiratory: Clear to auscultation bilaterally, Normal air movement Cardiovascular: Regular rate/rhythm, Normal S1 S2 Gastrointestinal: Normal bowel sounds, No tenderness Musculoskeletal: No tenderness Integumentary: No rashes Neurological: Normal speech, Normal tone, Normal affect Lymphatics: No axilla or inguinal lymphadenopathy Laboratory Data at Discharge: WBC 13.90 thou/uL (4.3-10.9) H 05/22/24 06:21 Hgb 11.2 g/dL (13.6-17.9) L 05/22/24 06:21 Hct 33.6 % (39.6-49.0) L 05/22/24 06:21 Plt Count 425 thou/uL (152-406) H 05/22/24 06:21 PT 14.9 SECONDS (9.4-12.5) H 05/17/24 19:23 INR 1.34 05/17/24 19:23 APTT 33.2 SECONDS (24.3-36.9) 05/17/24 19:23 Sodium 137 mEq/L (136-145) 05/22/24 06:21 Potassium 4.2 mEq/L (3.5-5.1) 05/22/24 06:21 BUN 28 mg/dL (7-18) H 05/22/24 06:21 Creatinine 0.69 mg/dL (0.70-1.30) L 05/22/24 06:21 Glucose 150 mg/dL (74-106) H 05/22/24 06:21 Total Bilirubin 0.2 mg/dL (0.2-1.0) 05/22/24 06:21 AST < 10 U/L (15-37) L 05/22/24 06:21 ALT < 14 U/L (16-61) L 05/22/24 06:21 Alkaline Phosphatase 56 U/L (45-117) 05/22/24 06:21 Home Medications: Insulin Glargine,Hum.rec.anlog [Basaglar Kwikpen U-100] 40 units SQ DAILY 12/15/20 Omeprazole [Prilosec] 40 mg PO DAILY 12/15/20 Dapagliflozin Propanediol [Farxiga] 1 tab PO DAILY 01/03/21 clindamycin HCL [Clindamycin HCl] 300 mg PO TID 07/26/21 Semaglutide [Ozempic] 0.25 mg SQ WMP 30 Days #6 ml 05/20/23 Rivaroxaban [Xarelto] 2.5 mg PO BID 90 Days #180 tab 05/27/24 New Medications: Rivaroxaban [Xarelto] 2.5 mg PO BID 90 Days #180 tab Diet: ADA Activity: Ad margarette Followup: Mark Joseph MD [Primary Care Provider] - Physician Review: Patient Assessed, Agree with Above Assessment and Plan Time spent managing pt's care (in minutes): 40
[2024-05-27 09:42] VITALS: O2SAT 99
[2024-05-27 16:18] VITALS: BP 108/62; TEMP 97.5
== END 2024-05-27 18:20 | disposition home health service (06) | DRG 854 ==
LOC: ER 15:06 → ERHOLD 23:18 → 4TH 05-18 13:13
PROVIDERS: ADMIT Internal Medicine; ATTEND Internal Medicine
PROC: 0Y6N0ZF Detachment at Left Foot, Partial 5th Ray, Open Approach (ICD-10-PCS; principal; 2024-05-19 07:30)
PROC: 02HV33Z Insertion of Infusion Device into Superior Vena Cava, Percutaneous Approach (ICD-10-PCS; 2024-05-20)
PROC: 0QBP0ZX Excision of Left Metatarsal, Open Approach, Diagnostic (ICD-10-PCS; 2024-05-21)
PROC: 0QBM0ZX Excision of Left Tarsal, Open Approach, Diagnostic (ICD-10-PCS; 2024-05-21)
PROC: 0Y9N0ZZ Drainage of Left Foot, Open Approach (ICD-10-PCS; 2024-05-21)
PROC: 0Y9N0ZZ Drainage of Left Foot, Open Approach (ICD-10-PCS; 2024-05-22)
DX: A41.9 Sepsis, unspecified organism (principal); E11.52 Type 2 diabetes mellitus with diabetic peripheral angiopathy with gangrene; L02.612 Cutaneous abscess of left foot; M60.009 Infective myositis, unspecified site; M86.072 Acute hematogenous osteomyelitis, left ankle and foot; E11.69 Type 2 diabetes mellitus with other specified complication; E11.621 Type 2 diabetes mellitus with foot ulcer; L97.529 Non-pressure chronic ulcer of other part of left foot with unspecified severity; I10 Essential (primary) hypertension; F17.200 Nicotine dependence, unspecified, uncomplicated; Z79.4 Long term (current) use of insulin; Z88.1 Allergy status to other antibiotic agents; Z88.8 Allergy status to other drugs, medicaments and biological substances; Z79.01 Long term (current) use of anticoagulants; Z79.899 Other long term (current) drug therapy
CPT/HCPCS: 36415; 71045; 76000; 80048; 80053; 81001; 82947; 83036; 83605; 84443; 85025; 85610; 85730; 87040; 87070; 87075; 87077; 87186; 87205; 88305; 88311; 93005; 93925; 97110; 97161; 99285; J0692; J1170; J1650; J2001; J2250; J2405; J2543; J2704; J2997; J3010; J7030; J7050

== ENCOUNTER 2024-06-23 13:55 | Emergency (ER) | payer BC ==
--- OUTSIDE RECORDS SUMMARY | 2024-06-23 14:00 | XMS REPORT | Continuity of Care Document ---
Author Name Unknown Address [address] [place] [address] [facility] thconnect Address [address] [place] [address] Care Team Providers Care [employer] Team Member Name Role Phone PCP, PATIENT DOES NOT HAVE A Primary Care Physic ramo Unavailable Vianca Joshua Attending Clinician Unavailab le Doctor Unassigned, [place] Attending Clinician U Dalton Encarnacion MD Attending Clinician [phone]- [phone] DALTON SANDHU Attending Clinician UnavailNYDIA Acosta Attending Clinician Unavailable Nydia Sanchez MD Attending Clinician + [phone] Dilcia Rose MD Attending Clinician [phone] DILCIA ROSE Attending Clinician Unavailable Eileen Orellana A Attending Clinician + [phone] Provider, [facility] Attending Clinician Un available Lainey Hernandez Attending Clinician + [phone] LAINEY BRITTON Attending Clinician Unavailable Charito Frank Attending Clinician + [phone] Joby Eller MD Attending Clinician [phone] JOBY ELLER Attending Clinician Unavailable HOLLI FITZGERALD Admitting Clinician Unavailable Payers Payer Name Policy Type Policy Number Effective Date Expirati on Date Source TML GBRP CLAIMS [id number] 2019 00:00:00 [facility] GBRP CLAIMS C1 [id number] [facility] Problems Condition Name Condition Details Condition Category Status Onset Date Resolution Date Last Treatment Date Treating Clinician Comments Source Diabetes Diabetes Disease Active 06-01 00:00: 00 [facility] Asthma Asthma Disease Active Overview: Formattin g of this note might be different from the original. 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 [facility] Allergies, Adverse Reactions, Alerts Allergy Name Allergy Type Status Severity Reaction(s) Onset Date Inactive Date Treating Clinician Comments Source sulfamet hoxazole DA Active U 01-15 00:00: 00 [facility] trimetho prim DA Active U 01-15 00:00: 00 [facility] cefaclor DA Active U 01-15 00:00: 00 [facility] Sulfamet hoxazole -Trimeth oprim Propensi ty to adverse reaction s Active Hives 2006-09 00:00: 00 [facility] Cefaclor Propensi ty to adverse reaction s Active Hives 2006-09 00:00: 00 [facility] SULFAMET HOXAZOLE -TRIMETH OPRIM DRUG Active Hives 2006-09 00:00: 00 [facility] CEFACLOR DRUG INGREDI Active Hives 2006-09 00:00: 00 [facility] sulfamet hoxazole / trimetho prim sulfamet hoxazole / trimetho prim Active Unknown [facility] Social History Social Habit Start Date Stop Date Quantity Comments Source Exposure to SARS-CoV-2 (event) Not sure [facility] History of Tobacco Use [facility] Sex Assigned At [facility] Tobacco use and exposure 2020-07-25 00:00:00 2020-07-25 00:00:00 Never used [facility] Alcohol intake 2020-07-25 00:00:2020-07-25 00:00:00 Current drinker of alcohol (finding) [facility] Tobacco Comment 2019-09-09 00:00:00 2019-09-09 00:00:00 quit 4 months ago [facility] Smoking Status Start Date Stop Date Source Never Smoker [facility] Former smoker 2020-07-25 00:00:00 2020-07-25 00:00:00 [facility] Current some day smoker 2020-07-19 00:00:00 [facility] Medications Ordered Medication Name Filled Medication Name Start Date Stop Date Current Medication? Ordering Clinician Indication Dosage Frequency Signature (SIG) Comments Components Source TAMSULOSIN 0.4 mg 24 hr capsule 2019-09 00:00: 00 Yes [id number] TAKE ONE CAPSULE BY MOUTH DAILY [facility] Tamsulosin HCl 0.4 MG Tamsulosin HCl 0.4 MG 2019-09 00:00: 00 09-09 00:00 :00 No 1{capsu le} QD Tamsulosin HCl 0.4 MG tetracyclin e 500 mg capsule 2019-09 00:00: 00 08-03 05:59 :00 No [id number] 500mg Take 1 capsule by mouth 4 (four) times daily for 5 days. [facility] tamsulosin 0.4 mg 24 hr capsule 2019-09 00:00: 00 08-22 00:00 :00 No [id number] .4mg Take 1 capsule by mouth daily for 30 days. [facility] ciprofloxac in HCl (CIPRO) 250 mg tablet 2019-09 00:00: 00 08-05 05:59 :00 No [id number] 500mg Take 2 tablets by mouth every 12 (twelve) hours for 10 days. [facility] doxycycline hyclate 100 mg tablet 2019-09 00:00: 00 07-27 05:59 :00 No [id number] 100mg Take 1 tablet by mouth 2 (two) times daily for 7 days. [facility] naproxen 500 mg tablet 2019-09 00:00: 00 08-05 05:59 :00 No [id number] 500mg Take 1 tablet by mouth 2 (two) times daily as needed for Pain (scale 4-6) for up to 30 days. [facility] cyclobenzap rine 10 mg tablet 2019-09 0-13 00:00: 00 07-13 04:59 :00 No [id number] 10mg Take 1 tablet by mouth 3 (three) times daily for 7 days. [facility] FARXIGA 5 mg tablet 03-30 00:00: 00 Yes [id number] TAKE ONE TABLET BY MOUTH EVERY MORNING [facility] albuterol 1.25 mg/3 mL nebulizer solution 03-21 00:00: 00 Yes [id number] 1.25mg Use 3 mL as directed every 6 (six) hours as needed for Wheezing. [facility] budesonide- formoteroL 160-4.5 mcg/actuati on inhaler 03-21 00:00: 00 Yes [id number] 2{puff} Inhale 2 Puffs 2 (two) times daily. [facility] amoxicillin -clavulanat e (AUGMENTIN) 875-125 mg per tablet 03-21 00:00: 00 Yes [id number] 1{tbl} Take 1 tablet by mouth 2 (two) times daily. [facility] lisinopril 10 mg tablet 03-21 00:00: 00 Yes [id number] 10mg Take 1 tablet by mouth daily. [facility] LISINOPRIL 2.5 mg tablet 11-26 00:00: 00 03-21 00:00 :00 No [id number] TAKE ONE TABLET BY MOUTH DAILY [facility] Insulin Glargine (LANTUS SOLOSTAR U-100 INSULIN) 100 unit/mL (3 mL) injection 09-30 00:00: 00 Yes 24U inject 24 Units under the skin every morning. [facility] dapaglifloz in (FARXIGA) 5 mg tablet 09-29 00:00: 00 03-30 00:00 :00 No [id number] 5mg Take 1 tablet by mouth every morning. [facility] blood sugar diagnostic (ONETOUCH ULTRA BLUE TEST STRIP) strip 2018-09 00:00: 00 Yes [id number] Use as directed BID E11.65 [facility] lisinopril 2.5 mg tablet 2018-09 00:00: 00 11-26 00:00 :00 No [id number] 2.5mg Take 1 tablet by mouth daily. [facility] aspirin (LO-DOSE ASPIRIN) 81 mg EC tablet 2018-09 21:39: 20 Yes 81mg Take 81 mg by mouth daily. [facility] bromphenira mine-pseudo ephedrine-D M (BROMFED DM) 2-30-10 mg/5 mL syrup 2018-09 00:00: 00 Yes [id number] 5mL Take 5 mL by mouth 4 (four) times daily as needed for Congestion /Allergies or Cough. [facility] Insulin Porter, Disposable, 32 gauge x 5/32" Ndle 03-25 00:00: 00 Yes [id number] USE ONCE DAILY [facility] Insulin Porter, Disposable, 32 gauge x 5/32" Ndle 03-25 00:00: 00 Yes [id number] USE ONCE DAILY [facility] albuterol 90 mcg/actuati on inhaler 2017-09 00:00: 00 Yes 2{puff} Inhale 2 Puffs every 6 (six) hours as needed for Wheezing or Shortness of Breath. [facility] Tamiflu 75 MG Tamiflu 75 MG No 1{capsu le} BID Tamiflu 75 MG Aspirin Aspirin No Aspirin Vital Signs Vital Name Observation Time Observation Value Comments S ource height 2020-08-17 11:00:[address] [facility] weight 2020-08-17 11:00:00 194.2 [lb_av] Co mmon [facility] temperature 2020-08-17 11:00:00 97.3 [degF] Com mon [facility] bmi 2020-08-17 11:00:00 28.68 kg/m2 Comm on [facility] oximetry 2020-08-17 11:00:00 97 % Commo n [facility] blood pressure systolic 2020-08-17 11:00:00 155 mm[Hg] [facility] blood pressure diastolic 2020-08-17 11:00:00 91 mm[Hg] [facility] height 2020-08-10 09:00:[address] [facility] weight 2020-08-10 09:00:00 195.8 [lb_av] Co mmon [facility] temperature 2020-08-10 09:00:00 98.2 [degF] Com mon [facility] bmi 2020-08-10 09:00:00 28.91 kg/m2 Comm on [facility] oximetry 2020-08-10 09:00:00 95 % Commo n [facility] blood pressure systolic 2020-08-10 09:00:00 134 mm[Hg] [facility] blood pressure diastolic 2020-08-10 09:00:00 91 mm[Hg] [facility] height 2020-07-27 09:30:[address] [facility] weight 2020-07-27 09:30:00 195.8 [lb_av] Co mmon [facility] bmi 2020-07-27 09:30:00 28.91 kg/m2 Comm on [facility] oximetry 2020-07-27 09:30:00 98 % Commo n [facility] blood pressure systolic 2020-07-27 09:30:00 119 mm[Hg] [facility] blood pressure diastolic 2020-07-27 09:30:00 92 mm[Hg] [facility] Systolic blood pressure 2020-07-25 19:14:00 132 mm[Hg] [facility] Diastolic blood pressure 2020-07-25 19:14:00 90 mm[Hg] [facility] Heart rate 2020-07-25 19:14:00 95 /min [facility] Respiratory rate 2020-07-25 19:14:00 18 /min [facility] Body height 2020-07-25 19:14:00 175.3 cm [facility] Body weight 2020-07-25 19:14:00 89.721 kg [facility] BMI 2020-07-25 19:14:00 29.21 kg/m2 [facility] Systolic blood pressure 2020-07-25 19:14:00 132 mm[Hg] [facility] Diastolic blood pressure 2020-07-25 19:14:00 90 mm[Hg] [facility] Heart rate 2020-07-25 19:14:00 95 /min [facility] Respiratory rate 2020-07-25 19:14:00 18 /min [facility] Body height 2020-07-25 19:14:00 175.3 cm [facility] Body weight 2020-07-25 19:14:00 89.721 kg [facility] BMI 2020-07-25 19:14:00 29.21 kg/m2 [facility] Systolic blood pressure 2020-07-19 21:20:00 132 mm[Hg] [facility] Diastolic blood pressure 2020-07-19 21:20:00 89 mm[Hg] [facility] Heart rate 2020-07-19 21:20:00 111 /min [facility] Body temperature 2020-07-19 21:20:00 37.06 Marzena [facility] Respiratory rate 2020-07-19 21:20:00 20 /min [facility] Body height 2020-07-19 21:20:00 172.7 cm [facility] Body weight 2020-07-19 21:20:00 95.255 kg [facility] BMI 2020-07-19 21:20:00 31.93 kg/m2 [facility] Oxygen saturation in Arterial blood by Pulse oximetry 2020-07-19 21:20:00 98 /min [facility] Systolic blood pressure 2020-07-05 16:11:00 135 mm[Hg] [facility] Diastolic blood pressure 2020-07-05 16:11:00 86 mm[Hg] [facility] Heart rate 2020-07-05 16:11:00 101 /min [facility] Body temperature 2020-07-05 16:11:00 37.33 Marzena [facility] Respiratory rate 2020-07-05 16:11:00 18 /min [facility] Body height 2020-07-05 16:11:00 175.3 cm [facility] Body weight 2020-07-05 16:11:00 94.348 kg [facility] BMI 2020-07-05 16:11:00 30.72 kg/m2 [facility] Oxygen saturation in Arterial blood by Pulse oximetry 2020-07-05 16:11:00 95 /min [facility] Systolic blood pressure 2020-03-21 20:21:00 150 mm[Hg] [facility] Diastolic blood pressure 2020-03-21 20:21:00 90 mm[Hg] [facility] Body weight 2020-03-21 20:21:00 95.255 kg [facility] BMI 2020-03-21 20:21:00 31.01 kg/m2 [facility] Procedures Procedure Date / Time Performed Performing Clinician Source HOME HEALTH - OTHER 2021-01-24 05:01:00 Doctor Sumi shankar, [place] [facility] HOME HEALTH - OTHER 2021-01-13 05:01:00 Doctor Sumi shankar, [place] [facility] HEALTH - OTHER 2021-01-04 05:01:00 Doctor Sumi shankar, [place] [facility] HOME HEALTH - OTHER 2020-12-26 05:01:00 Doctor Sumi shankar, [place] [facility] EXTERNAL PROVIDER RECORDS 2020-09-05 06:01:00 Doctor Unassigned, [place] [facility] AUTHORIZATION FOR RELEASE OF PHI 2020-07-27 06:01:00 Doctor Unassigned, [place] [facility] URINE CULTURE 2020-07-25 22:00:00 Dilcia Rose [facility] POCT URINALYSIS AUTO 2020-07-25 19:15:00 Zay Rose [facility] POCT URINALYSIS 2020-07-19 00:00:00 Dhara Tarango [facility] XR SPINE THORACIC 3 VW 2020-07-05 17:24:03 Rupinder Britton [facility] NOTICE OF PRIVACY PRACTICES 2020-07-05 17:02:00 Doctor Unassigned, [place] [facility] CONSENT/REFUSAL FOR DIAGNOSIS AND TREATMENT 2020-07-05 17:01:47 Doctor Unassigned, [place] [facility] ASSIGNMENT OF BENEFITS 2020-07-05 17:01:32 Docto r Unassigned, [place] [facility] AUTHORIZATION FOR RELEASE OF PHI 2020-04-27 05:01:00 Doctor Unassigned, [place] [facility] REFERRAL- REQUEST/RESPONSE 2019-12-24 05:01:00 Doctor Unassigned, [place] [facility] Encounters Start Date/Time End Date/Time Encounter Type Admission Type Attending [facility] Facility Care Department Encounter ID Source 2021-12-05 14:35:00 Outpatient Vianca Joshua [facility] [id number] [facility] 2021-10-18 12:01:53 Outpatient Vianca Potter [facility] [id number] [facility] 2024-06-23 00:00:00 2024-06-23 00:00:00 Outpatient [facility] [id number] [facility] 2024-06-17 00:00:00 2024-06-17 00:00:00 Outpatient R [facility] [id number] [facility] 2021-01-27 00:00:00 2021-01-27 00:00:00 Outpatient [facility] [id number] [facility] 2021-01-24 00:00:00 2021-01-24 00:00:00 Outpatient [facility] [id number] [facility] 2021-01-24 00:00:00 2021-01-24 00:00:00 Orders Only Doctor Unassigned, [place] [facility] 1.2.840.114 350.1.13.10 4.2.7.2.686 [id number] [facility] 2021-01-21 00:00:00 2021-01-21 00:00:00 Outpatient [facility] [id number] [facility] 2021-01-17 00:00:00 2021-01-17 00:00:00 Outpatient [facility] [id number] [facility] 2021-01-13 00:00:00 2021-01-13 00:00:00 Outpatient [facility] [id number] [facility] 2021-01-13 00:00:00 2021-01-13 00:00:00 Orders Only Doctor Unassigned, [place] [facility] 1.840.114 350.1.13.10 4.2.7.2.686 [id number] [facility] 2021-01-10 00:00:00 2021-01-10 00:00:00 Outpatient [facility] [id number] [facility] 2021-01-07 00:00:00 2021-01-07 00:00:00 Outpatient [facility] [id number] [facility] 2021-01-07 00:00:00 2021-01-07 00:00:00 Outpatient R [facility] [id number] [facility] 2021-01-04 00:00:00 2021-01-04 00:00:00 Outpatient [facility] [id number] [facility] 2021-01-04 00:00:00 2021-01-04 00:00:00 Orders Only Doctor Unassigned, [place] [facility] 1.840.114 350.1.13.10 4.2.7.2.686 [id number] [facility] 2021-01-01 10:28:00 2021-01-01 23:59:00 Hospital Encounter Dalton Sandhu [facility] 1.840.114 350.1.13.10 4.2.7.2.686 [id number] [facility] 2021-01-01 00:00:00 2021-01-01 00:00:00 Outpatient [facility] [id number] [facility] 2020-12-29 00:00:00 2020-12-29 00:00:00 Outpatient [facility] [id number] [facility] 2020-12-26 00:00:00 2020-12-26 00:00:00 Outpatient [facility] [id number] [facility] 2020-12-26 00:00:00 2020-12-26 00:00:00 Orders Only Doctor Unassigned, [place] [facility] 1.114 350.1.13.10 4.2.7.2.686 [id number] [facility] 2020-09-12 12:45:00 2020-09-12 12:45:00 Outpatient NYDIA BEAR [facility] [id number] [facility] 2020-09-05 00:00:00 2020-09-05 00:00:00 Orders Only Doctor Unassigned, [place] [facility] 1.114 350.1.13.10 4.2.7.2.686 [id number] [facility] 2020-09-05 00:00:00 2020-09-05 00:00:00 Orders Only Doctor Unassigned, [place] [facility] 1.114 350.1.13.10 4.2.7.2.686 [id number] 2020-08-30 00:00:00 2020-08-30 00:00:00 Telephone Nydia Sanchez [facility] One 1.84.114 350.1.13.10 4.2.7.2.686 [id number] [facility] 2020-08-30 00:00:00 2020-08-30 00:00:00 Telephone Nydia Sanchez [facility] One 1..840.114 350.1.13.10 4.2.7.2.686 [id number] 2020-08-21 00:00:00 2020-08-21 00:00:00 Refill [place] [facility] Building 1.840.114 350.1.13.10 4.2.7.2.686 [id number] [facility] 2020-08-21 00:00:00 2020-08-21 00:00:00 Refill [place] [facility] Building 1..840.114 350.1.13.10 4.2.7.2.686 [id number] 2020-08-17 00:00:00 2020-08-17 00:00:00 OFFICE VISIT ESTAB PT LEVEL 4 STLMLC STLMLC [id number] [facility] 2020-08-12 00:00:00 2020-08-12 00:00:00 (TEL) STLMLC STLMLC [id number] [facility] 2020-08-11 15:45:00 2020-08-11 15:45:00 Outpatient R [facility] [id number] [facility] 2020-08-10 00:00:00 2020-08-10 00:00:00 OFFICE VISIT EST PT LEVEL 3 STLMLC STLMLC [id number] [facility] 2020-07-29 00:00:00 2020-07-29 00:00:00 Telephone Eileen Moreland [facility] Building 1.2.840.114 350.1.13.10 4.2.7.2.686 [id number] [facility] 2020-07-29 00:00:00 2020-07-29 00:00:00 Telephone Eileen Moreland [facility] 1.2.840.114 350.1.13.10 4.2.7.2.686 [id number] 2020-07-28 00:00:00 2020-07-28 00:00:00 [facility] 1.2.840.114 350.1.13.10 4.2.7.2.686 [id number] [facility] 2020-07-27 00:00:00 2020-07-27 00:00:00 OFFICE VISIT NEW PT LEVEL 4 STLMLC STLMLC [id number] [facility] 2020-07-27 00:00:00 2020-07-27 00:00:00 Orders Only Doctor Unassigned, [place] [facility] 1.2.840.114 350.1.13.10 4.2.7.2.686 [id number] [facility] 2020-07-27 00:00:00 2020-07-27 00:00:00 Orders Only Doctor Unassigned, [place] [facility] 1.2.840.114 350.1.13.10 4.2.7.2.686 [id number] 2020-07-25 12:49:30 2020-07-25 14:02:12 Office Visit [place] [facility] Building 1.2.840.114 350.1.13.10 4.2.7.2.686 [id number] [facility] 2020-07-25 12:49:30 2020-07-25 14:02:12 [facility] 1.2.840.114 350.1.13.10 4.2.7.2.686 [id number] 2020-07-25 13:00:00 2020-07-25 13:00:00 Outpatient R [facility] [id number] [facility] 2020-07-25 00:00:00 2020-07-25 00:00:00 Letter (Out) Dilcia Rose [facility] Building 1.2840.114 350.1.13.10 4.2.7.2.686 [id number] [facility] 2020-07-19 15:44:32 2020-07-19 17:19:36 Urgent Care Provider, [facility] Lluvializette [facility] Building One 1.2840.114 350.1.13.10 4.2.7.2.686 [id number] [facility] 2020-07-19 16:00:00 2020-07-19 16:00:00 [id number] 2020-07-18 00:00:00 2020-07-18 00:00:00 Telephone Charito Elizalde [facility] One 1.2.114 350.1.13.10 4.2.7.2.686 [id number] [facility] 2020-07-08 00:00:00 2020-07-08 00:00:00 Refill Joby Eller [facility] 1.2840.114 350.1.13.10 4.2.7.2.686 [id number] [facility] 2020-07-06 00:00:00 2020-07-06 00:00:00 Telephone Lainey Britton [facility] One 1.2840.114 350.1.13.10 4.2.7.2.686 [id number] [facility] 2020-07-05 11:59:59 2020-07-05 23:59:00 Hospital Encounter Lainey Britton [facility] 1.2840.114 350.1.13.10 4.2.7.2.686 [id number] [facility] 2020-07-05 11:02:15 2020-07-05 11:35:14 Urgent Care Provider, [facility] Lainey Britton [facility] One 1.114 350.1.13.10 4.2.7.2.686 [id number] [facility] 2020-07-05 11:00:00 2020-07-05 11:00:00 Outpatient R [facility] [id number] [facility] 2020-07-05 00:00:00 2020-07-05 00:00:00 Letter (Out) Provider, [facility] One 1.114 350.1.13.10 4.2.7.2.686 [id number] [facility] 2020-07-05 00:00:00 2020-07-05 00:00:00 Telephone Charito Elizalde [facility] One 1.114 350.1.13.10 4.2.7.2.686 [id number] [facility] 2020-05-03 00:00:00 2020-05-03 00:00:00 Telephone Charito Elizalde [facility] One 1.114 350.1.13.10 4.2.7.2.686 [id number] [facility] 2020-05-02 00:00:00 2020-05-02 00:00:00 Telephone Nydia Sanchez [facility] 1.114 350.1.13.10 4.2.7.2.686 [id number] [facility] 2020-04-29 00:00:00 2020-04-29 00:00:00 Telephone Nydia Sanchez [facility] 1.2.840.114 350.1.13.10 4.2.7.2.686 [id number] [facility] 2020-04-27 00:00:00 2020-04-27 00:00:00 Orders Only Doctor Unassigned, [place] [facility] 1.2.840.114 350.1.13.10 4.2.7.2.686 [id number] [facility] 2020-04-21 00:00:00 2020-04-21 00:00:00 Telephone Nydia Sanchez [facility] 1.2.840.114 350.1.13.10 4.2.7.2.686 [id number] [facility] 2020-04-13 00:00:00 2020-04-13 00:00:00 Telephone Nydia Sanchez [facility] 1.2.840.114 350.1.13.10 4.2.7.2.686 [id number] [facility] 2020-03-27 00:00:00 2020-03-27 00:00:00 Refill Joby Eller [facility] 1.2.840.114 350.1.13.10 4.2.7.2.686 [id number] [facility] 2020-03-22 00:00:00 2020-03-22 00:00:00 Telephone Nydia Sanchez [facility] [id number] 350.1.13.10 [id number] [id number] [facility] 2020-03-21 15:05:54 2020-03-21 15:20:54 Office Visit Nydia Sanchez [facility] [id number] 350.1.13.10 4.2.7.2.686 [id number] [facility] 2020-03-21 15:15:00 2020-03-21 15:15:00 Outpatient R [facility] [id number] [facility] 2020-03-21 00:00:00 2020-03-21 00:00:00 Letter (Out) Nydia Sanchez [facility] [id number] 350.1.13.10 4.2.7.2.686 [id number] [facility] 2020-03-10 00:00:00 2020-03-10 00:00:00 Telephone Nydia Sanchez [facility] [id number] 350.1.13.10 4.2.7.2.686 [id number] [facility] 2020-02-16 00:00:00 2020-02-16 00:00:00 Telephone Daphnie [facility] [id number] 350.1.13.10 4.2.7.2.686 [id number] [facility] 2020-01-06 16:00:00 2020-01-06 16:00:00 Outpatient R [facility] [id number] [facility] 2020-01-06 08:31:20 2020-01-06 09:01:20 Telemedici ne Visit Daphnie [facility] [id number] 350.1.13.10 4.2.7.2.686 [id number] [facility] 2020-01-05 00:00:00 2020-01-05 00:00:00 Telephone Charito Elizalde [facility] [id number] 350.1.13.10 4.2.7.2.686 [id number] [facility] 2019-12-24 00:00:00 2019-12-24 00:00:00 Orders Only Doctor Unassigned, [place] [facility] 1.840.114 350.1.13.10 4.2.7.2.686 [id number] [facility] 2019-11-27 00:00:00 2019-11-27 00:00:00 [facility] 1.840.114 350.1.13.10 4.2.7.2.686 [id number] [facility] Results Test Description Test Time Test Comments Results Result Co mments Source [facility], [id number] 19:16:00 * Test Item Value Reference Range [...] clear Lab Interpretation (test cod e = [id number]) Abnormal [facility], [id number] 19:16:00 * Test Item Value Reference Range [...] clear Lab Interpretation (test cod e = [id number]) Abnormal [facility] URINALYSIS, [id number] 19:16:00 * Test Item Value Reference Range [...] clear Lab Interpretation (test cod e = [id number]) Abnormal [facility] URINALYSIS W SPECIFIC [id number] 21:27:00* Test Item Value Reference Range Interpretation [...] cloudy Lab Interpretation (test cod e = [id number]) Abnormal [facility] 3 [id number] 17:46:42 HISTORY: Mid back pain that wraps along into the chest wall. COMPARISON: Chest x-ray dated 08/01/2016. TECHNIQUE: AP x2, lateral and swimmer's x2 of the thoracic spines aresubmitted. FINDINGS: No compression fracture. No aggressive bone lesions orparavertebral soft tissue swelling. Shallow Schmorl'snode noted in some ofthe middle and lower thoracic vertebral endplates, likely secondary toremote axial loading trauma. CONCLUSIONS: No acute findings. [facility], Radiant Results Inft User - 07/05/2020 12:47 [...] axial loading trauma.CONCLUSIONS: No acute findings.[facility]
--- NOTE | 2024-06-23 16:48 | ER ---
Nurse's Notes [facility] Name: Maicol Segundo Age: 29 yrs Sex: Male : 1995 Arrival Date: 06/23/2024 Time: 13:55 Bed 11 Private MD: Diagnosis: Encounter for adjustment and management of vascular access device-REPLACE PICC Presentation: 06/23 14:37 Chief complaint: Patient states: this morning my home health nurse went to change my tm6 PICC dressing, but she said my PICC has been pulled out quite a bit. Coronavirus screen: Client denies travel out of the [place] in the last 14 days. Ebola Screen: Patient negative for fever greater than or equal to 101.5 degrees Fahrenheit, and additional compatible Ebola Virus Disease symptoms Patient denies exposure to infectious person. Patient denies travel to an Ebola-affected area in the 21 days before illness onset. No symptoms or risks identified at this time. Initial Sepsis Screen: Does the patient have a suspected source of infection? No. Patient's initial sepsis screen is negative. Risk Assessment: Do you want to hurt yourself or someone else? Patient reports no desire to harm self or others. Onset of symptoms was June 23, 2024. 14:37 Method Of Arrival: Ambulatory tm6 14:37 Acuity: JIMMY 3 tm6 14:55 Initial Sepsis Screen: Does the patient meet any 2 criteria? No. Patient's initial tm6 sepsis screen is negative. Triage Assessment: 14:37 General: Appears in no apparent distress. Behavior is calm, cooperative. Pain: Denies tm6 pain. EENT: No signs and/or symptoms were reported regarding the EENT system. Neuro: Level of Consciousness is awake, alert, obeys commands, Oriented to person, place, time, situation. Cardiovascular: Respiratory: Airway is patent Respiratory effort is even, unlabored, Respiratory pattern is regular, symmetrical. GI: No signs and/or symptoms were reported involving the gastrointestinal system. Abdomen is flat, non-distended. : No signs and/or symptoms were reported regarding the genitourinary system. Derm: No signs and/or symptoms reported regarding the dermatologic system. Musculoskeletal: No signs and/or symptoms reported regarding the musculoskeletal system. Historical: - Allergies: 14:56 Ceclor; tm6 14:56 sulfamethoxazole-trimethoprim; tm6 14:56 Vancomycin; tm6 - PMHx: 14:56 Diabetes - IDDM; Hypertension; tm6 - PSHx: 14:56 perirectal abscess; R foot SX; tm6 - Infectious Disease History:: Denies. - Social history:: Smoking status: Patient denies any tobacco usage or history of. - Family history:: not pertinent. Screenin:56 [facility] ED Fall Risk Assessment (Adult) History of falling in the last 3 months, jb4 including since admission No falls in past 3 months (0 pts) Confusion or Disorientation No (0 pts) Intoxicated or Sedated No (0 pts) Impaired Gait No (0 pts) Mobility Assist Device Used No (0 pt) Altered Elimination No (0 pt) Score/Fall Risk Level 0 - 2 = Low Risk Oriented to surroundings, Maintained a safe environment. Abuse screen: Denies threats or abuse. Nutritional screening: No deficits noted. Tuberculosis screening: No symptoms or risk factors identified. Assessment: 15:44 Reassessment: pt consented for PICC line replacement , PICC nurse at bedside. iw 16:56 Reassessment: Patient appears in no apparent distress at this time. Patient and/or jb4 family updated on plan of care and expected duration. Pain level reassessed. Patient is alert, oriented x 3, equal unlabored respirations, skin warm/dry/pink. Vital Signs: 14:55 BP 125 / 89; Pulse 99; Resp 19; Temp 98.5(O); Pulse Ox 100% on R/A; MAP 98 mmHg; Weight tm6 91.17 kg; Height 5 ft. 8 in. ; Pain 0/10; 14:55 Body Mass Index 30.56 (91.17 kg, 172.72 cm) tm6 14:55 Pain Scale: Adult tm6 ED Course: 13:58 Patient arrived in ED. mg5 14:38 Triage completed. tm6 14:56 Arm band placed on right wrist. tm6 14:59 Solomon Santos MD is Attending Physician. tyrese 15:44 Ruth Weber, RN is Primary Nurse. iw 16:34 Chest Single View XRAY In Process Unspecified. EDMS 16:55 Roberto Spicer, RN is Primary Nurse. jb4 16:56 Patient has correct armband on for positive identification. Bed in low position. Call jb4 light in reach. Side rails up X 1. Provided Education on: discharge instructions.. 16:56 No provider procedures requiring assistance completed. Picc line remains in place. jb4 06/24 12:58 Inserted. kb3 Administered Medications: No medications were administered Medication: 06/23 16:56 VIS not applicable for this client. jb4 Outcome: 16:48 Discharge ordered by . tyrese 16:56 Discharged to home ambulatory, jb4 16:56 Condition: stable 16:56 Discharge instructions given to patient, Instructed on discharge instructions, follow up and referral plans. Demonstrated understanding of instructions, follow-up care, 16:59 Patient left the ED. jb4 Signatures: Dispatcher [employer] EDMS Solomon Santos MD MD cha Williams, Irene, RN Roberto Hurd RN RN jb4 Vicky Hughes, ARTURO RN kb3 Gina Sims mg5 Raghu Barfield, ARTURO RN tm6
--- NOTE | 2024-06-23 16:48 | EDPHYS ---
Physician Documentation [facility] Name: Maicol Segundo Age: 29 yrs Sex: Male : 1995 Arrival Date: 06/23/2024 Time: 13:55 Bed 11 Private MD: ED Physician Solomon Santos HPI: 06/23 16:39 This 29 yrs old Male presents to ER via Ambulatory with complaints of Picc tyrese Line. 16:39 The patient or guardian complains of picc placed. The complaints affect the left bicep tyrese and left tricep. Context: The problem was sustained at home, resulted from lifting or pulling, unknown cause. Onset: The symptoms/episode began/occurred just prior to arrival, this morning. Treatment prior to arrival includes: no previous treatment. Severity of symptoms: At their worst the symptoms were very mild, in the emergency department the symptoms are unchanged. The patient has not experienced similar symptoms in the past. Historical: - Allergies: 14:56 Ceclor; tm6 14:56 sulfamethoxazole-trimethoprim; tm6 14:56 Vancomycin; tm6 - PMHx: 14:56 Diabetes - IDDM; Hypertension; tm6 - PSHx: 14:56 perirectal abscess; R foot SX; tm6 - Infectious Disease History:: Denies. - Social history:: Smoking status: Patient denies any tobacco usage or history of. - Family history:: not pertinent. ROS: 16:39 Constitutional: Negative for fever, chills, and weight loss, Eyes: Negative for injury, tyrese pain, redness, and discharge, ENT: Negative for injury, pain, and discharge, Neck: Negative for injury, pain, and swelling, Cardiovascular: Negative for chest pain, palpitations, and edema, Respiratory: Negative for shortness of breath, cough, wheezing, and pleuritic chest pain, Abdomen/GI: Negative for abdominal pain, nausea, vomiting, diarrhea, and constipation, Back: Negative for injury and pain, : Negative for injury, bleeding, discharge, and swelling, Skin: Negative for injury, rash, and discoloration, Neuro: Negative for headache, weakness, numbness, tingling, and seizure, Psych: Negative for depression, anxiety, suicide ideation, homicidal ideation, and hallucinations, Allergy/Immunology: Negative for hives, rash, and allergies, Endocrine: Negative for neck swelling, polydipsia, polyuria, polyphagia, and marked weight changes, Hematologic/Lymphatic: Negative for swollen nodes, abnormal bleeding, and unusual bruising, 16:39 MS/extremity: Positive for picc pulled partial out, Exam: 16:39 Constitutional: This is a well developed, well nourished patient who is awake, alert, tyrese and in no acute distress. Head/Face: Normocephalic, atraumatic. Eyes: Pupils equal round and reactive to light, extra-ocular motions intact. Lids and lashes normal. Conjunctiva and sclera are non-icteric and not injected. Cornea within normal limits. Periorbital areas with no swelling, redness, or edema. ENT: Nares patent. No nasal discharge, no septal abnormalities noted. Tympanic membranes are normal and external auditory canals are clear. Oropharynx with no redness, swelling, or masses, exudates, or evidence of obstruction, uvula midline. Mucous membranes moist. Neck: Trachea midline, no thyromegaly or masses palpated, and no cervical lymphadenopathy. Supple, full range of motion without nuchal rigidity, or vertebral point tenderness. No Meningismus. Chest/axilla: Normal chest wall appearance and motion. Nontender with no deformity. No lesions are appreciated. Cardiovascular: Regular rate and rhythm with a normal S1 and S2. No gallops, murmurs, or rubs. Normal PMI, no JVD. No pulse deficits. Respiratory: Lungs have equal breath sounds bilaterally, clear to auscultation and percussion. No rales, rhonchi or wheezes noted. No increased work of breathing, no retractions or nasal flaring. Abdomen/GI: Soft, non-tender, with normal bowel sounds. No distension or tympany. No guarding or rebound. No evidence of tenderness throughout. Back: No spinal tenderness. No costovertebral tenderness. Full range of motion. Male : Normal genitalia with no discharge or lesions. Skin: Warm, dry with normal turgor. Normal color with no rashes, no lesions, and no evidence of cellulitis. Neuro: Awake and alert, GCS 15, oriented to person, place, time, and situation. Cranial nerves II-XII grossly intact. Motor strength 5/5 in all extremities. Sensory grossly intact. Cerebellar exam normal. Normal gait. Psych: Awake, alert, with orientation to person, place and time. Behavior, mood, and affect are within normal limits. 16:39 Musculoskeletal/extremity: ROM: no acute changes, Circulation is intact in all extremities. Sensation intact. Compartment Syndrome exam of affected extremity: is normal. Vital Signs: 14:55 BP 125 / 89; Pulse 99; Resp 19; Temp 98.5(O); Pulse Ox 100% on R/A; MAP 98 mmHg; Weight tm6 91.17 kg; Height 5 ft. 8 in. ; Pain 0/10; 14:55 Body Mass Index 30.56 (91.17 kg, 172.72 cm) tm6 14:55 Pain Scale: Adult tm6 MDM: 14:59 Patient medically screened. [facility] 16:44 Data reviewed: vital signs, nurses notes, radiologic studies, plain films. tyrese Consideration of Admission/Observation Escalation of care including admission/observation considered. I considered the following discharge prescriptions or medication management in the emergency department Medications were administered in the Emergency Department. See MAR. Independent interpretation of the following test(s) in the Emergency Department X-Ray: My interpretation is chest good placement. 10 15:59 Order name: Chest Single View XRAY jb4 06/23 15:00 Order name: Misc. Order: picc line replacement; Complete Time: 16:05 tyrese Administered Medications: No medications were administered Disposition Summary: 06/23/24 16:48 Discharge Ordered Notes: Location: Home tyrese Problem: new tyrese Symptoms: have improved tyrese Condition: Stable tyrese Diagnosis - Encounter for adjustment and management of vascular access device - REPLACE PICC tyrese Followup: tyrese - With: Private Physician - When: 2 - 3 days - Reason: Recheck today's complaints, Continuance of care, Re-evaluation by your physician Discharge Instructions: - Discharge Summary Sheet tyrese - Peripheral Intravenous Catheter Placement, Adult tyrese - PICC Removal, Adult tyrese - Peripheral Intravenous Catheter Placement, Adult, Care After tyrese Forms: - Medication Reconciliation Form tyrese - Antibiotic Education tyrese - Prescription Opioid Use tyrese - Patient Portal Instructions tyrese - Leadership Thank You Letter tyrese Signatures: Dispatcher [employer] EDMS Solomon Santos MD MD cha Masterson, Tawney RN RN tm6 Corrections: (The following items were deleted from the chart) 15:59 15:59 Chest Single View+RAD.RAD.BRZ ordered. EDTN EDMS
--- NOTE | 2024-06-23 17:24 | RAD REPORT ---
EXAMINATION: ONE VIEW CHEST XR CLINICAL INDICATION: Male, 29 years old.,Picc placement verification. TECHNIQUE: Frontal chest projection is submitted. Examination is limited by patient positioning and t echnique. COMPARISON: 06/09/2024 FINDINGS: Left arm PICC with catheter tip in the mid to distal SVC. The lungs are well inflated and clear. No pneumothorax or sizable effusion. The heart is normal in size. IMPRESSION: Left arm PICC with catheter tip in the mid to distal SVC.
[2024-06-23] MEDS ORDERED: Mupirocin NASAL 2 APPL/1 GM TUBE NAS SCH (21:00)
== END 2024-06-23 16:59 | disposition home or self-care (01) ==
LOC: ER 13:55
DX: Z45.2 Encounter for adjustment and management of vascular access device (principal)
CPT/HCPCS: 71045; 99282

== ENCOUNTER 2024-06-26 15:25 | Inpatient (IN) | payer BC ==
--- OUTSIDE RECORDS SUMMARY | 2024-06-26 15:52 | XMS REPORT | Continuity of Care Document ---
Author Name Unknown Address [address] [facility] [address] [place] [address] [facility] thconnect Address [address] [facility] [address] [place] [address] Care Team Providers Care Scientific Programmer Name Role Phone PCP, PATIENT DOES NOT HAVE A Primary Care Physic ramo Unavailable Vianca Joshua Attending Clinician Unavailab le Doctor Unassigned, [place] Attending Clinician U Dalton Encarnacion MD Attending Clinician [phone]- [phone] DALTON SANDHU Attending Clinician UnavailNYDIA Acosta Attending Clinician Unavailable Nydia Sanchez MD Attending Clinician + [phone] Dilcia Rose MD Attending Clinician [phone] DILCIA ROSE Attending Clinician Unavailable Eileen Orellana A Attending Clinician + [phone] Provider, [facility] Attending Clinician Un available Lainey Hernandez Attending Clinician + [phone] LAINEY BRITTON Attending Clinician Unavailable Charito Frank Attending Clinician + [phone] Joby Eller MD Attending Clinician [phone] JOBY ELLER Attending Clinician Unavailable HOLLI FITZGERALD Admitting Clinician Unavailable Payers Payer Name Policy Type Policy Number Effective Date Expirati on Date Source TML [facility] CLAIMS [id number] 2019 00:00[facility] C1 [id number] [facility] Problems Condition Name Condition Details Condition Category Status Onset Date Resolution Date Last Treatment Date Treating Clinician Comments Source Diabetes Diabetes Disease Active 06-01 00:00: 00 [facility] Asthma Asthma Disease Active Overview: Formattin g of this note might be different from the original. 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 [facility] Allergies, Adverse Reactions, Alerts Allergy Name Allergy Type Status Severity Reaction(s) Onset Date Inactive Date Treating Clinician Comments Source sulfamet hoxazole DA Active U 01-15 00:00: 00 [facility] trimetho prim DA Active U 01-15 00:00: 00 [facility] cefaclor DA Active U 01-15 00:00: 00 [facility] Sulfamet hoxazole -Trimeth oprim Propensi ty to adverse reaction s Active Hives 2006-09 00:00: 00 [facility] Cefaclor Propensi ty to adverse reaction s Active Hives 2006-09 00:00: 00 [facility] SULFAMET HOXAZOLE -TRIMETH OPRIM DRUG Active Hives 2006-09 00:00: 00 [facility] CEFACLOR DRUG INGREDI Active Hives 2006-09 00:00: 00 [facility] sulfamet hoxazole / trimetho prim sulfamet hoxazole / trimetho prim Active Unknown [facility] Social History Social Habit Start Date Stop Date Quantity Comments Source Exposure to SARS-CoV-2 (event) Not sure [facility] History of Tobacco Use [facility] Sex Assigned At [facility] Tobacco use and exposure 2020-07-25 00:00:00 2020-07-25 00:00:00 Never used [facility] Alcohol intake 2020-07-25 00:00:2020-07-25 00:00:00 Current drinker of alcohol (finding) [facility] Tobacco Comment 2019-09-09 00:00:00 2019-09-09 00:00:00 quit 4 months ago [facility] Smoking Status Start Date Stop Date Source Never Smoker [facility] Former smoker 2020-07-25 00:00:00 2020-07-25 00:00:00 [facility] Current some day smoker 2020-07-19 00:00:00 [facility] Medications Ordered Medication Name Filled Medication Name Start Date Stop Date Current Medication? Ordering Clinician Indication Dosage Frequency Signature (SIG) Comments Components Source TAMSULOSIN 0.4 mg 24 hr capsule 2019-09 00:00: 00 Yes [id number] TAKE ONE CAPSULE BY MOUTH DAILY [facility] Tamsulosin HCl 0.4 MG Tamsulosin HCl 0.4 MG 2019-09 00:00: 00 09-09 00:00 :00 No 1{capsu le} QD Tamsulosin HCl 0.4 MG tetracyclin e 500 mg capsule 2019-09 00:00: 00 08-03 05:59 :00 No [id number] 500mg Take 1 capsule by mouth 4 (four) times daily for 5 days. [facility] tamsulosin 0.4 mg 24 hr capsule 2019-09 00:00: 00 08-22 00:00 :00 No [id number] .4mg Take 1 capsule by mouth daily for 30 days. [facility] ciprofloxac in HCl (CIPRO) 250 mg tablet 2019-09 00:00: 00 08-05 05:59 :00 No [id number] 500mg Take 2 tablets by mouth every 12 (twelve) hours for 10 days. [facility] doxycycline hyclate 100 mg tablet 2019-09 00:00: 00 07-27 05:59 :00 No [id number] 100mg Take 1 tablet by mouth 2 (two) times daily for 7 days. [facility] naproxen 500 mg tablet 2019-09 00:00: 00 08-05 05:59 :00 No [id number] 500mg Take 1 tablet by mouth 2 (two) times daily as needed for Pain (scale 4-6) for up to 30 days. [facility] cyclobenzap rine 10 mg tablet 2019-09 0-13 00:00: 00 07-13 04:59 :00 No [id number] 10mg Take 1 tablet by mouth 3 (three) times daily for 7 days. [facility] FARXIGA 5 mg tablet 03-30 00:00: 00 Yes [id number] TAKE ONE TABLET BY MOUTH EVERY MORNING [facility] albuterol 1.25 mg/3 mL nebulizer solution 03-21 00:00: 00 Yes [id number] 1.25mg Use 3 mL as directed every 6 (six) hours as needed for Wheezing. [facility] budesonide- formoteroL 160-4.5 mcg/actuati on inhaler 03-21 00:00: 00 Yes [id number] 2{puff} Inhale 2 Puffs 2 (two) times daily. [facility] amoxicillin -clavulanat e (AUGMENTIN) 875-125 mg per tablet 03-21 00:00: 00 Yes [id number] 1{tbl} Take 1 tablet by mouth 2 (two) times daily. [facility] lisinopril 10 mg tablet 03-21 00:00: 00 Yes [id number] 10mg Take 1 tablet by mouth daily. [facility] LISINOPRIL 2.5 mg tablet 11-26 00:00: 00 03-21 00:00 :00 No [id number] TAKE ONE TABLET BY MOUTH DAILY [facility] Insulin Glargine (LANTUS SOLOSTAR U-100 INSULIN) 100 unit/mL (3 mL) injection 09-30 00:00: 00 Yes 24U inject 24 Units under the skin every morning. [facility] dapaglifloz in (FARXIGA) 5 mg tablet 09-29 00:00: 00 03-30 00:00 :00 No [id number] 5mg Take 1 tablet by mouth every morning. [facility] blood sugar diagnostic (ONETOUCH ULTRA BLUE TEST STRIP) strip 2018-09 00:00: 00 Yes [id number] Use as directed BID E11.65 [facility] lisinopril 2.5 mg tablet 2018-09 00:00: 00 11-26 00:00 :00 No [id number] 2.5mg Take 1 tablet by mouth daily. [facility] aspirin (LO-DOSE ASPIRIN) 81 mg EC tablet 2018-09 21:39: 20 Yes 81mg Take 81 mg by mouth daily. [facility] bromphenira mine-pseudo ephedrine-D M (BROMFED DM) 2-30-10 mg/5 mL syrup 2018-09 00:00: 00 Yes [id number] 5mL Take 5 mL by mouth 4 (four) times daily as needed for Congestion /Allergies or Cough. [facility] Insulin [place], Disposable, 32 gauge x 5/32" Ndle 03-25 00:00: 00 Yes [id number] USE ONCE DAILY [facility] Insulin [place], Disposable, 32 gauge x 5/32" Ndle 03-25 00:00: 00 Yes [id number] USE ONCE DAILY [facility] albuterol 90 mcg/actuati on inhaler 2017-09 00:00: 00 Yes 2{puff} Inhale 2 Puffs every 6 (six) hours as needed for Wheezing or Shortness of Breath. [facility] Tamiflu 75 MG Tamiflu 75 MG No 1{capsu le} BID Tamiflu 75 MG Aspirin Aspirin No Aspirin Vital Signs Vital Name Observation Time Observation Value Comments S ource height 2020-08-17 11:00:00 Commo n [facility] weight 2020-08-17 11:00:00 194.2 [lb_av] Co mmon [facility] temperature 2020-08-17 11:00:00 97.3 [degF] Com mon [facility] bmi 2020-08-17 11:00:00 28.68 kg/m2 Comm on [facility] oximetry 2020-08-17 11:00:00 97 % Commo n [facility] blood pressure systolic 2020-08-17 11:00:00 155 mm[Hg] [facility] blood pressure diastolic 2020-08-17 11:00:00 91 mm[Hg] [facility] height 2020-08-10 09:00:00 Commo n [facility] weight 2020-08-10 09:00:00 195.8 [lb_av] Co mmon [facility] temperature 2020-08-10 09:00:00 98.2 [degF] Com mon [facility] bmi 2020-08-10 09:00:00 28.91 kg/m2 Comm on [facility] oximetry 2020-08-10 09:00:00 95 % Commo n [facility] blood pressure systolic 2020-08-10 09:00:00 134 mm[Hg] [facility] blood pressure diastolic 2020-08-10 09:00:00 91 mm[Hg] [facility] height 2020-07-27 09:30:00 Commo n [facility] weight 2020-07-27 09:30:00 195.8 [lb_av] Co mmon [facility] bmi 2020-07-27 09:30:00 28.91 kg/m2 Comm on [facility] oximetry 2020-07-27 09:30:00 98 % Commo n [facility] blood pressure systolic 2020-07-27 09:30:00 119 mm[Hg] [facility] blood pressure diastolic 2020-07-27 09:30:00 92 mm[Hg] [facility] Systolic blood pressure 2020-07-25 19:14:00 132 mm[Hg] [facility] Diastolic blood pressure 2020-07-25 19:14:00 90 mm[Hg] [facility] Heart rate 2020-07-25 19:14:00 95 /min [facility] Respiratory rate 2020-07-25 19:14:00 18 /min [facility] Body height 2020-07-25 19:14:00 175.3 cm [facility] Body weight 2020-07-25 19:14:00 89.721 kg [facility] BMI 2020-07-25 19:14:00 29.21 kg/m2 [facility] Systolic blood pressure 2020-07-25 19:14:00 132 mm[Hg] [facility] Diastolic blood pressure 2020-07-25 19:14:00 90 mm[Hg] [facility] Heart rate 2020-07-25 19:14:00 95 /min [facility] Respiratory rate 2020-07-25 19:14:00 18 /min [facility] Body height 2020-07-25 19:14:00 175.3 cm [facility] Body weight 2020-07-25 19:14:00 89.721 kg [facility] BMI 2020-07-25 19:14:00 29.21 kg/m2 [facility] Systolic blood pressure 2020-07-19 21:20:00 132 mm[Hg] [facility] Diastolic blood pressure 2020-07-19 21:20:00 89 mm[Hg] [facility] Heart rate 2020-07-19 21:20:00 111 /min [facility] Body temperature 2020-07-19 21:20:00 37.06 Marzena [facility] Respiratory rate 2020-07-19 21:20:00 20 /min [facility] Body height 2020-07-19 21:20:00 172.7 cm [facility] Body weight 2020-07-19 21:20:00 95.255 kg [facility] BMI 2020-07-19 21:20:00 31.93 kg/m2 [facility] Oxygen saturation in Arterial blood by Pulse oximetry 2020-07-19 21:20:00 98 /min [facility] Systolic blood pressure 2020-07-05 16:11:00 135 mm[Hg] [facility] Diastolic blood pressure 2020-07-05 16:11:00 86 mm[Hg] [facility] Heart rate 2020-07-05 16:11:00 101 /min [facility] Body temperature 2020-07-05 16:11:00 37.33 Marzena [facility] Respiratory rate 2020-07-05 16:11:00 18 /min [facility] Body height 2020-07-05 16:11:00 175.3 cm [facility] Body weight 2020-07-05 16:11:00 94.348 kg [facility] BMI 2020-07-05 16:11:00 30.72 kg/m2 [facility] Oxygen saturation in Arterial blood by Pulse oximetry 2020-07-05 16:11:00 95 /min [facility] Systolic blood pressure 2020-03-21 20:21:00 150 mm[Hg] [facility] Diastolic blood pressure 2020-03-21 20:21:00 90 mm[Hg] [facility] Body weight 2020-03-21 20:21:00 95.255 kg [facility] BMI 2020-03-21 20:21:00 31.01 kg/m2 [facility] Procedures Procedure Date / Time Performed Performing Clinician Source HOME HEALTH - OTHER 2021-01-24 05:01:00 Doctor Sumi shankar, [place] [facility] HOME HEALTH - OTHER 2021-01-13 05:01:00 Doctor Sumi shankar, Keizer [facility] HEALTH - OTHER 2021-01-04 05:01:00 Doctor Sumi shankar, [place] [facility] HOME HEALTH - OTHER 2020-12-26 05:01:00 Doctor Sumi shankar, [place] [facility] EXTERNAL PROVIDER RECORDS 2020-09-05 06:01:00 Doctor Unassigned, [place] [facility] AUTHORIZATION FOR RELEASE OF PHI 2020-07-27 06:01:00 Doctor Unassigned, [place] [facility] URINE CULTURE 2020-07-25 22:00:00 Dilcia Rose [facility] POCT URINALYSIS AUTO 2020-07-25 19:15:00 Zay Rose [facility] POCT URINALYSIS 2020-07-19 00:00:00 Dhara Tarango [facility] XR SPINE THORACIC 3 VW 2020-07-05 17:24:03 Rupinder Britton [facility] NOTICE OF PRIVACY PRACTICES 2020-07-05 17:02:00 Doctor Unassigned, [place] [facility] CONSENT/REFUSAL FOR DIAGNOSIS AND TREATMENT 2020-07-05 17:01:47 Doctor Unassigned, [place] [facility] ASSIGNMENT OF BENEFITS 2020-07-05 17:01:32 Docto r Unassigned, Keizer [facility] AUTHORIZATION FOR RELEASE OF PHI 2020-04-27 05:01:00 Doctor Unassigned, [place] [facility] REFERRAL- REQUEST/RESPONSE 2019-12-24 05:01:00 Doctor Unassigned, Ke[place] [facility] Encounters Start Date/Time End Date/Time Encounter Type Admission Type Attending [facility] Facility Care Department Encounter ID Source 2021-12-05 14:35:00 Outpatient Vianca Joshua [facility] [id number] [facility] 2021-10-18 12:01:53 Outpatient Vianca Potter [facility] [id number] [facility] 2024-06-23 00:00:00 2024-06-23 00:00:00 Outpatient [facility] [id number] [facility] 2024-06-17 00:00:00 2024-06-17 00:00:00 Outpatient R [facility] [id number] [facility] 2021-01-27 00:00:00 2021-01-27 00:00:00 Outpatient [facility] [id number] [facility] 2021-01-24 00:00:00 2021-01-24 00:00:00 Outpatient [facility] [id number] [facility] 2021-01-24 00:00:00 2021-01-24 00:00:00 Orders Only Doctor Unassigned, [place] [facility] [id number] 350.1.13.10 4.2.7.2.686 [id number] [id number] [facility] 2021-01-21 00:00:00 2021-01-21 00:00:00 Outpatient [facility] [id number] [facility] 2021-01-17 00:00:00 2021-01-17 00:00:00 Outpatient [facility] [id number] [facility] 2021-01-13 00:00:00 2021-01-13 00:00:00 Outpatient [facility] [id number] [facility] 2021-01-13 00:00:00 2021-01-13 00:00:00 Orders Only Doctor Unassigned, Keizer [facility] 1.840.114 350.1.13.10 4.2.7.2.686 [id number] [id number] [facility] 2021-01-10 00:00:00 2021-01-10 00:00:00 Outpatient [facility] [id number] [facility] 2021-01-07 00:00:00 2021-01-07 00:00:00 Outpatient [facility] [id number] [facility] 2021-01-07 00:00:00 2021-01-07 00:00:00 Outpatient R [facility] [id number] [facility] 2021-01-04 00:00:00 2021-01-04 00:00:00 Outpatient [facility] [id number] [facility] 2021-01-04 00:00:00 2021-01-04 00:00:00 Orders Only Doctor Unassigned, Keizer [facility] 1.840.114 350.1.13.10 4.2.7.2.686 [id number] [id number] [facility] 2021-01-01 10:28:00 2021-01-01 23:59:00 Hospital Encounter Dalton Sandhu [facility] 1.840.114 350.1.13.10 4.2.7.2.686 [id number] [facility] 2021-01-01 00:00:00 2021-01-01 00:00:00 Outpatient Juan [facility] [id number] [facility] 2020-12-29 00:00:00 2020-12-29 00:00:00 Outpatient [facility] [id number] [facility] 2020-12-26 00:00:00 2020-12-26 00:00:00 Outpatient [facility] [id number] [facility] 2020-12-26 00:00:00 2020-12-26 00:00:00 Orders Only Doctor Unassigned, Keizer [facility] 1.114 350.1.13.10 4.2.7.2.686 [id number] [id number] [facility] 2020-09-12 12:45:00 2020-09-12 12:45:00 Outpatient NYDIA BEAR [facility] [id number] [facility] 2020-09-05 00:00:00 2020-09-05 00:00:00 Orders Only Doctor Unassigned, [place]izer [facility] 1.114 350.1.13.10 4.2.7.2.686 [id number] [facility] 2020-09-05 00:00:00 2020-09-05 00:00:00 Orders Only Doctor Unassigned, [place]izer [facility] 1.114 350.1.13.10 4.2.7.2.686 [id number] [id number] 2020-08-30 00:00:00 2020-08-30 00:00:00 Telephone Nydia Sanchez [facility] One 1.84.114 350.1.13.10 4.2.7.2.686 [id number] [facility] 2020-08-30 00:00:00 2020-08-30 00:00:00 Telephone Nydia Sanchez [facility] Building One 1..840.114 350.1.13.10 4.2.7.2.686 [id number] 2020-08-21 00:00:00 2020-08-21 00:00:00 Refill [place] [facility] Building 1.840.114 350.1.13.10 4.2.7.2.686 [id number] [facility] 2020-08-21 00:00:00 2020-08-21 00:00:00 Refill [place] [facility] Building 1..840.114 350.1.13.10 4.2.7.2.686 [id number] 2020-08-17 00:00:00 2020-08-17 00:00:00 OFFICE VISIT ESTAB PT LEVEL 4 STLMLC STLMLC [id number] [facility] 2020-08-12 00:00:00 2020-08-12 00:00:00 (TEL) STLMLC STLMLC [id number] [facility] 2020-08-11 15:45:00 2020-08-11 15:45:00 Outpatient R [facility] [id number] [facility] 2020-08-10 00:00:00 2020-08-10 00:00:00 OFFICE VISIT EST PT LEVEL 3 STLMLC STLMLC [id number] [facility] 2020-07-29 00:00:00 2020-07-29 00:00:00 Telephone Eileen Moreland [facility] Building 1.2.840.114 350.1.13.10 4.2.7.2.686 [id number] [facility] 2020-07-29 00:00:00 2020-07-29 00:00:00 Telephone Eileen Moreland [facility] Building 1.2.840.114 350.1.13.10 4.2.7.2.686 [id number] 2020-07-28 00:00:00 2020-07-28 00:00:[address] [facility] 1.2.840.114 350.1.13.10 4.2.7.2.686 [id number] [facility] 2020-07-27 00:00:00 2020-07-27 00:00:00 OFFICE VISIT NEW PT LEVEL 4 STLMLC STLMLC [id number] [facility] 2020-07-27 00:00:00 2020-07-27 00:00:00 Orders Only Doctor Unassigned, Keizer [facility] 1.2.840.114 350.1.13.10 4.2.7.2.686 [id number] [facility] 2020-07-27 00:00:00 2020-07-27 00:00:00 Orders Only Doctor Unassigned, [place] [facility] 1.2.840.114 350.1.13.10 4.2.7.2.686 [id number] 2020-07-25 12:49:30 2020-07-25 14:02:12 Office Visit [place] [facility] Building 1.2.840.114 350.1.13.10 4.2.7.2.686 [id number] [facility] 2020-07-25 12:49:30 2020-07-25 14:02:[address] [facility] 1.2.840.114 350.1.13.10 4.2.7.2.686 [id number] 2020-07-25 13:00:00 2020-07-25 13:00:00 Outpatient R [facility] [id number] [facility] 2020-07-25 00:00:00 2020-07-25 00:00:00 Letter (Out) Dilcia Rose [facility] Building 1.2840.114 350.1.13.10 4.2.7.2.686 [id number] [facility] 2020-07-19 15:44:32 2020-07-19 17:19:36 Urgent Care Provider, [facility] Lluvializette [facility] Office Building One 1.2840.114 350.1.13.10 4.2.7.2.686 [id number] [facility] 2020-07-19 16:00:00 2020-07-19 16:00:00 [id number] 2020-07-18 00:00:00 2020-07-18 00:00:00 Telephone Charito Elizalde [facility] One 1.2.114 350.1.13.10 4.2.7.2.686 [id number] [facility] 2020-07-08 00:00:00 2020-07-08 00:00:00 Refill Joby Eller [facility] Building 1.2840.114 350.1.13.10 4.2.7.2.686 [id number] [facility] 2020-07-06 00:00:00 2020-07-06 00:00:00 Telephone Lainey Britton [facility] One 1.2840.114 350.1.13.10 4.2.7.2.686 [id number] [facility] 2020-07-05 11:59:59 2020-07-05 23:59:00 Hospital Encounter Lainey Britton [facility] 1.2840.114 350.1.13.10 4.2.7.2.686 [id number] [facility] 2020-07-05 11:02:15 2020-07-05 11:35:14 Urgent Care Provider, [facility] Lainey Britton [facility] Building One 1.114 350.1.13.10 4.2.7.2.686 [id number] [facility] 2020-07-05 11:00:00 2020-07-05 11:00:00 Outpatient R [facility] [id number] [facility] 2020-07-05 00:00:00 2020-07-05 00:00:00 Letter (Out) Provider, [facility] Building One 1.114 350.1.13.10 4.2.7.2.686 [id number] [facility] 2020-07-05 00:00:00 2020-07-05 00:00:00 Telephone Charito Elizalde [facility] Building One 1.114 350.1.13.10 4.2.7.2.686 [id number] [facility] 2020-05-03 00:00:00 2020-05-03 00:00:00 Telephone Charito Elizalde [facility] One 1.114 350.1.13.10 4.2.7.2.686 [id number] [facility] 2020-05-02 00:00:00 2020-05-02 00:00:00 Telephone Nydia Sanchez [facility] Building 1.114 350.1.13.10 4.2.7.2.686 [id number] [facility] 2020-04-29 00:00:00 2020-04-29 00:00:00 Telephone Nydia Sanchez [facility] Building 1.2.840.114 350.1.13.10 4.2.7.2.686 [id number] [facility] 2020-04-27 00:00:00 2020-04-27 00:00:00 Orders Only Doctor Unassigned, [place] [facility] 1.2.840.114 350.1.13.10 4.2.7.2.686 [id number] [facility] 2020-04-21 00:00:00 2020-04-21 00:00:00 Telephone Nydia Sanchez [facility] Building 1.2.840.114 350.1.13.10 4.2.7.2.686 [id number] [facility] 2020-04-13 00:00:00 2020-04-13 00:00:00 Telephone Nydia Sanchez [facility] Building 1.2.840.114 350.1.13.10 4.2.7.2.686 [id number] [facility] 2020-03-27 00:00:00 2020-03-27 00:00:00 Refill Joby Eller [facility] 1.2.840.114 350.1.13.10 4.2.7.2.686 [id number] [facility] 2020-03-22 00:00:00 2020-03-22 00:00:00 Telephone Nydia Sanchez [facility] 1.2.840.114 350.1.13.10 4.2.7.2.686 [id number] [facility] 2020-03-21 15:05:54 2020-03-21 15:20:54 Office Visit Nydia Sanchez [facility] Building 1.2.840.114 350.1.13.10 4.2.7.2.686 [id number] [facility] 2020-03-21 15:15:00 2020-03-21 15:15:00 Outpatient R NYDIA SANCHEZ [facility] [id number] [facility] 2020-03-21 00:00:00 2020-03-21 00:00:00 Letter (Out) Nydia Sanchez [facility] 1.2.840.114 350.1.13.10 4.2.7.2.686 [id number] [facility] 2020-03-10 00:00:00 2020-03-10 00:00:00 Telephone Nydia Sanchez [facility] Building [facility] 1.2.840.114 350.1.13.10 4.2.7.2.686 [id number] [facility] 2020-02-16 00:00:00 2020-02-16 00:00:00 Telephone Daphnie [facility] Building 1.2.840.114 350.1.13.10 4.2.7.2.686 [id number] [facility] 2020-01-06 16:00:00 2020-01-06 16:00:00 Outpatient R [facility] [id number] [facility] 2020-01-06 08:31:20 2020-01-06 09:01:20 Telemedici ne Visit Daphnie [facility] Building 1.2.840.114 350.1.13.10 4.2.7.2.686 [id number] [facility] 2020-01-05 00:00:00 2020-01-05 00:00:00 Telephone Charito Elizalde [facility] Building 1.2.840.114 350.1.13.10 4.2.7.2.686 [id number] [facility] 2019-12-24 00:00:00 2019-12-24 00:00:00 Orders Only Doctor Unassigned, [facility] 1.840.114 350.1.13.10 4.2.7.2.686 [id number] [facility] 2019-11-27 00:00:00 2019-11-27 00:00:00 [facility] 1.840.114 350.1.13.10 4.2.7.2.686 [id number] [facility] Results Test Description Test Time Test Comments Results Result Co mments Source [facility] [id number] 19:16:00 * Test Item Value Reference Range [...] clear Lab Interpretation (test cod e = [id number]) Abnormal [facility] [id number] 19:16:00 * Test Item Value Reference Range [...] clear Lab Interpretation (test cod e = 91433-8) Abnormal [facility] URINALYSIS, [id number] 19:16:00 * Test Item Value Reference Range [...] clear Lab Interpretation (test cod e = [id number]) Abnormal [facility] URINALYSIS W SPECIFIC [id number] 21:27:00* Test Item Value Reference Range Interpretation [...] cloudy Lab Interpretation (test cod e = [id number]) Abnormal [facility] 3 [id number] 17:46:42 HISTORY: Mid back pain that wraps along into the chest wall. COMPARISON: Chest x-ray dated 08/01/2016. TECHNIQUE: AP x2, lateral and swimmer's x2 of the thoracic spines aresubmitted. FINDINGS: No compression fracture. No aggressive bone lesions orparavertebral soft tissue swelling. Shallow Schmorl'snode noted in some ofthe middle and lower thoracic vertebral endplates, likely secondary toremote axial loading trauma. CONCLUSIONS: No acute findings. [facility], Radiant Results Inft User - 07/05/2020 [...] secondary toremote axial loading trauma.CONCLUSIONS: No acute findings.[facility]
[2024-06-26] MEDS ORDERED: ONDANSETRON 4 MG/2 ML VIAL IV PRN (16:09)
--- NOTE | 2024-06-26 16:24 | P.HP ---
Certification for Inpatient Patient admitted to: Inpatient With expected LOS: >2 Midnights Patient will require the following post-hospital care: Home Health Services Practitioner: I am a practitioner with admitting privileges, knowledge of patient current condition, hospital course, and medical plan of care. Services: Services provided to patient in accordance with Admission requirements found in Title 42 Section 412.3 of the Code of Federal Regulations Patient History Date of Service: 06/26/24 Primary Care Provider: Jake Reason for admission: worseing diabetic foot History of Present Illness: Patient is a 29 year old with a history of dm1 with PVD. He recently was admitted for Osteomyleitis. Is on IV antbiotics and is seeing Dr. Fernando in the wound care center. The patient was seen today by home health. He seems to be worsening. Dr. Fernando was called and directed the patient to the Hospital I have spoken to Dr. Fernando. He states the patient had a worsening foot this past Saturday. Does not feel the foot has a good prognosis Allergies cefaclor [From Ceclor] Allergy (Verified 01/09/21 10:20) UNKNOWN sulfamethoxazole [From Bactrim] Allergy (Verified 01/09/21 10:20) UNKNOWN trimethoprim [From Bactrim] Allergy (Verified 01/09/21 10:20) UNKNOWN vancomycin Adverse Reaction (Intermediate, Verified 05/19/24 07:25) Ototoxicity Home Medications: Insulin Glargine,Hum.rec.anlog [Basaglar Kwikpen U-100] 40 units SQ DAILY 12/15/20 Omeprazole [Prilosec] 40 mg PO DAILY 12/15/20 Dapagliflozin Propanediol [Farxiga] 1 tab PO DAILY 01/03/21 Semaglutide [Ozempic] 0.25 mg SQ WMP 30 Days #6 ml 05/20/23 Rivaroxaban [Xarelto] 2.5 mg PO BID 90 Days #180 tab 05/27/24 DAPTOmycin in 0.9 % sod chlor [Daptomycin 500 mg/50 ml-Ns Bag] 500 mg IV DAILY #28 bag 06/11/24 - Past Medical/Surgical History Diabetic: Yes -: Diabetes -: HTN -: Tubes in ears -: adnoids removed - Family History Mother -: Diabetes Father -: Heart disease - Social History Alcohol use: No CD- Drugs: No Caffeine use: Yes Review of Systems 10-point ROS is otherwise unremarkable Musculoskeletal: Foot Pain (right ) Physical Examination - Physical Exam General: Alert, In no apparent distress HEENT: Atraumatic, PERRLA, Mucous membr. moist/pink, EOMI, Sclerae nonicteric Neck: Supple, 2+ carotid pulse no bruit, No LAD, Without JVD or thyroid abnormality Respiratory: Clear to auscultation bilaterally, Normal air movement Cardiovascular: Regular rate/rhythm, Normal S1 S2 Gastrointestinal: Normal bowel sounds, No tenderness Musculoskeletal: No tenderness Integumentary: No rashes Neurological: Normal gait, Normal speech, Normal strength at 5/5 x4 extr, Normal tone, Normal affect Lymphatics: No axilla or inguinal lymphadenopathy Assessment and Plan - Problems (Diagnosis) (1) Diabetic ulcer of right foot Current Visit: No Status: Resolved Plan: discussed with Dr. Fernando. We may need to do a BKA. Will have him seen by Dr. Fernando and Dr. 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 Will order blood cultures. Discharge Plan: Home Plan to discharge in: Greater than 2 days - Advance Directives Does patient have a Living Will: No Does patient have a Durable POA for Healthcare: No - Code Status/Comfort Care Code Status Assessed: Yes Code Status: Full Code Physician Review: Patient Assessed, Agree with Above Assessment and Plan Critical Care: No Time Spent Managing Pts Care (In Minutes): 70
[2024-06-26] MEDS: INSULIN REGULAR (HUMAN) 100 UNIT/ML SQ SCH (16:30)
[2024-06-26 17:20] VITALS: BMI 30.4
[2024-06-26] MEDS: HYDROMORPHONE HCL 0.5 MG/0.5 ML INJ IV PRN (17:21)
[2024-06-26] MEDS: NA CHLORIDE 0.9% 1,000 ML IV SCH (17:21)
--- NOTE | 2024-06-26 17:21 | RAD REPORT ---
EXAMINATION: XR LEFT FOOT CLINICAL INDICATION: OSTEOMYELITIS OF THE LEFT FOOT TECHNIQUE: Multiple projections of the left foot were obtained. COMPARISON: 06/08/2024 FINDINGS: Charcot arthropathy is present likely caused by infection/osteomyelitis. Marked subluxation s at the intertarsal and tarsometatarsal articulations. Large calcaneal spurs. Large soft tissue wounds midfoot. Collapse of the midfoot arch present.
[2024-06-26] MEDS: Levofloxacin500mg IV 500 MG/100 ML BAG IV SCH (17:33)
[2024-06-26] MEDS: ENOXAPARIN 40 MG/0.4 ML SQ SCH (17:33)
--- NOTE | 2024-06-26 17:39 | P.CNS ---
Date of Consult: 06/26/24 Reason for Consult: abscess/ osteomyelitis left foot Primary Care Provider: Jake Chief Complaint: worsening diabetic foot History of Present Illness: Patient developed an abscess with osteomyelitis resulting in left fifth ray resection and large open wound of the lateral aspect of the left foot approximately 5 weeks ago. IV antibiotics, wound vac and local wound care has been attempted with home health and treatment in the wound care center. Patient has worsened with abscess noted in the dorsal aspect of the left foot with patient being admitted for evaluation and treatment Allergies cefaclor [From Ceclor] Allergy (Verified 01/09/21 10:20) UNKNOWN sulfamethoxazole [From Bactrim] Allergy (Verified 01/09/21 10:20) UNKNOWN trimethoprim [From Bactrim] Allergy (Verified 01/09/21 10:20) UNKNOWN vancomycin Adverse Reaction (Intermediate, Verified 05/19/24 07:25) Ototoxicity Home Medications: Insulin Glargine,Hum.rec.anlog [Basaglar Kwikpen U-100] 40 units SQ DAILY 0 12/15/20 Omeprazole [Prilosec] 40 mg PO DAILY 12/15/20 Dapagliflozin Propanediol [Farxiga] 1 tab PO DAILY 01/03/21 Semaglutide [Ozempic] 0.25 mg SQ WMP 30 Days #6 ml 05/20/23 Rivaroxaban [Xarelto] 2.5 mg PO BID 90 Days #180 tab 05/27/24 DAPTOmycin in 0.9 % sod chlor [Daptomycin 500 mg/50 ml-Ns Bag] 500 mg IV DAILY #28 bag 06/11/24 - Past Medical/Surgical History Diabetic: Yes -: Diabetes -: HTN -: Tubes in ears -: adnoids removed - Family History Mother Medical History: Diabetes Father Medical History: Heart disease - Social History Smoking Status: Current every day smoker Alcohol use: No CD- Drugs: No Caffeine use: Yes Review of Systems 10-point ROS is otherwise unremarkable Physical Examination Temp Pulse Resp BP Pulse Ox 98.1 F 92 H 20 136/89 100 06/26/24 16:45 06/26/24 16:45 06/26/24 16:45 06/26/24 16:45 06/26/24 16:45 General: Alert, In no apparent distress, Oriented x3 Cardiovascular: No edema, Normal pulses Capillary refill: <2 Seconds Musculoskeletal: No clubbing, No swelling, No contractures, No erythema, No tenderness, No warmth Integumentary: Diabetic ulcer (Large open wound to the lateral aspect of the left foot with fibrinous tissue, a sinus tract at the dorsal aspect of the wound extending medially with copious purulence and a new wound dorsal medially with purulent drainage) Neurological: Abnormal sensation Imagings Data: xray three views left foot reveal ostoemyelitis extending throughout the entire midfoot as well as the cuboid and calcaneus left foot - Problems (1) Abscess of left foot Current Visit: No Status: Acute (2) Diabetic ulcer of left foot Current Visit: No Status: Acute Qualifiers: Diabetic foot ulcer location: unspecified part of foot Diabetes mellitus type: type 2 Non-pressure ulcer stage: limited to breakdown of skin Qualified Code(s): E11.621 - Type 2 diabetes mellitus with foot ulcer; L97.521 - Non-pressure chronic ulcer of other part of left foot limited to breakdown of sk in (3) Osteomyelitis Current Visit: No Status: Acute Qualifiers: Osteomyelitis type: acute hematogenous Osteomyelitis location: foot Laterality: left Qualified Code(s): M86.072 - Acute hematogenous osteomyelitis, left ankle and foot (4) Type 2 diabetes mellitus with foot ulcer Current Visit: No Status: Acute Qualifiers: Diabetes mellitus group home insulin use: with exterminator use Qualified Code(s): E11.621 - Type 2 diabetes mellitus with foot ulcer; L97.509 - Non- pressure chronic ulcer of other part of unspecified foot with unspecified severity; Z79.4 - custodial (current) use of insulin Conclusions/Impression: Due to the extent and worsening of the soft tissue and osseous infection left foot and failed conservative treatment including iv antibiotics, wound vac and wound care, the patient needs to be evaluated for possible below knee amputation left lower extremity Physician Review: Patient Assessed, Agree with Above Assessment and Plan
--- NOTE | 2024-06-26 17:46 | P.CNS ---
Date of Consult: 06/26/24 PC: I was asked to see this patient in regards to an open wound on his left foot and need for possible amputation, surgery. HPC: Patient apparently underwent a amputation a while ago. Has been having trouble with his wound at home. Presents now with some pus draining out of it. PSHx: Recently underwent a revascularization procedure to his left leg. Is supposed to be going back for a follow-up in a week or so. PMHx: Diabetes Social Hx: Drug allergies noted Sys R: Says he is otherwise in relatively good health O/E: Awake alert, not in any discomfort, remains afebrile HEENT: Not jaundiced Chest: Chest movement equal bilaterally Abd: NAD [employer]: Has an area on his foot that when pressed on shows drainage out of 2 size. I believe that this needs to be opened up and let drain to the outside. An x- ray of his foot has been ordered. Data: [] Impression: This patient, has pus draining from the dorsum of his foot. He is not afebrile or septic at the moment. He recently underwent a revascularization procedure, with supposed be going back for a second 1 soon. Plan: This young man, who is diabetic, has threatened limb loss. He does have a wound that is draining purulent material at the moment. I believe that we should try to get the infection a little bit more under control. It would be interesting to see if we will be able to limit the amount of tissue loss this patient will have. Continue current therapy.
--- NOTE | 2024-06-26 17:51 | P.CNS ---
Date of Consult: 06/26/24
[2024-06-26] MEDS ORDERED: DAPTOMYCIN IVPB SCH (18:00)
[2024-06-26] MEDS ORDERED: NA CHLORIDE 0.9% IVPB SCH (18:00)
[2024-06-26] MEDS: DAPTOmycin 500 MG in NA CHLORIDE 0.9% 100 ML IVPB SCH (19:06)
[2024-06-27] MEDS: PANTOPRAZOLE 40MG TABLET PO SCH (05:51)
[2024-06-27 06:35] LABS: Absolute Eosinophils 0.2 K/uL (0-0.5); Absolute Monocytes 0.5 K/uL (0.1-1.3); Absolute Neutrophil 5.5 K/uL (1.8-8.0); Basophils % 0.4 % (0-1.3); Eosinophils % 2.2 % (0-4.4); Hematocrit 29.3 % (39.6-49.0); Hemoglobin 9.8 g/dL (13.6-17.9); Lymphocytes % 24.4 % (15.3-44.8); MCHC 33.4 g/dL (32.0-36.0); MCV 77.7 fL (80-100); MPV 6.7 fL (7.6-11.3); Monocytes % 6.1 % (3.3-12.3); Neutrophils % 66.9 % (41.7-73.7); Platelets 295 thou/uL (152-406); RBC Red Blood Cell Count 3.77 M/uL (4.33-5.43); Red Cell Distribution Width 16.6 % (12.1-15.2)
[2024-06-27 06:46] LABS: Albumin 2.1 g/dL (3.4-5.0); Albumin/Globulin Ratio 0.5 (1.1-1.8); Alkaline Phosphatase 88 U/L (45-117); Anion Gap 7.4 mEq/L (5.0-15.0); BUN Blood Urea Nitrogen 9 mg/dL (7-18); Bicarbonate 29 mEq/L (21-32); Bilirubin Total 0.3 mg/dL (0.2-1.0); Globulin 4.2 g/dL (2.3-3.5); Glomerular Filtration Rate 140 ml/min (=/>90); Glucose Level 130 mg/dL (74-106); Potassium 3.4 mEq/L (3.5-5.1); Protein, Total 6.3 g/dL (6.4-8.2); Sodium Level 137 mEq/L (136-145)
[2024-06-27 06:47] LABS: ALT/SGPT < 14 U/L (16-61); AST/SGOT < 10 U/L (15-37)
[2024-06-27] MEDS: INSULIN GLARGINE 100 UNIT/ML SQ SCH (08:15)
--- NOTE | 2024-06-27 13:19 | P.PN ---
Subjective Date of Service: 06/27/24 Primary Care Provider: Jake Chief Complaint: worsening diabetic foot Subjective: No new changes Review of Systems 10-point ROS is otherwise unremarkable Musculoskeletal: Foot Pain (left foot pain ) Physical Examination - Vital Signs Temperature: 97.6 F Blood Pressure: 134/81 Pulse: 88 Respirations: 15 Pulse Ox (%): 96 - Physical Exam General: Alert, In no apparent distress HEENT: Atraumatic, PERRLA, EOMI Neck: Supple, JVD not distended Respiratory: Clear to auscultation bilaterally, Normal air movement Cardiovascular: Regular rate/rhythm, Normal S1 S2 Gastrointestinal: Normal bowel sounds, No tenderness Musculoskeletal: No tenderness Integumentary: No rashes Neurological: Normal speech, Normal tone, Normal affect Lymphatics: No axilla or inguinal lymphadenopathy - Studies Laboratory Data (last 24 hrs) 06/27/24 06/27/24 05:47 05:47 WBC 8.30 Hgb 9.8 L Hct 29.3 L Plt Count 295 Sodium 137 Potassium 3.4 L BUN 9 Creatinine 0.50 L Glucose 130 H Total Bilirubin 0.3 AST < 10 L ALT < 14 L Alkaline Phosphatase 88 Assessment And Plan - Current Problems (Diagnosis) (1) Diabetic ulcer of right foot Current Visit: No Status: Resolved Plan: discussed with Dr. Fernando. We may need to do a BKA. Will have him seen by Dr. Fernando and Dr. 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 Will order blood cultures. Discharge Plan: Home Plan to discharge in: Greater than 2 days - Code Status/Comfort Care Code Status Assessed: No Physician Review: Patient Assessed, Agree with Above Assessment and Plan Critical Care: No Time Spent Managing PTS Care (In Minutes): 20
[2024-06-28 06:29] LABS: Absolute Eosinophils 0.1 K/uL (0-0.5); Absolute Lymphocytes (CBC) 2.3 K/uL (0.7-4.9); Absolute Monocytes 0.4 K/uL (0.1-1.3); Absolute Neutrophil 3.1 K/uL (1.8-8.0); Basophils % 0.5 % (0-1.3); Eosinophils % 2.4 % (0-4.4); Hematocrit 29.6 % (39.6-49.0); Hemoglobin 9.7 g/dL (13.6-17.9); Lymphocytes % 37.6 % (15.3-44.8); MCH 25.8 pg (27.0-35.0); MCHC 32.6 g/dL (32.0-36.0); MCV 78.9 fL (80-100); MPV 6.7 fL (7.6-11.3); Monocytes % 7.4 % (3.3-12.3); Neutrophils % 52.1 % (41.7-73.7); Platelets 251 thou/uL (152-406); RBC Red Blood Cell Count 3.75 M/uL (4.33-5.43); Red Cell Distribution Width 16.7 % (12.1-15.2)
[2024-06-28 06:43] LABS: AST/SGOT 11 U/L (15-37); Albumin 1.9 g/dL (3.4-5.0); Albumin/Globulin Ratio 0.5 (1.1-1.8); Alkaline Phosphatase 83 U/L (45-117); Anion Gap 7.4 mEq/L (5.0-15.0); BUN Blood Urea Nitrogen 9 mg/dL (7-18); Bicarbonate 27 mEq/L (21-32); Bilirubin Total 0.3 mg/dL (0.2-1.0); Glomerular Filtration Rate 142 ml/min (=/>90); Glucose Level 140 mg/dL (74-106); Potassium 3.4 mEq/L (3.5-5.1); Protein, Total 5.9 g/dL (6.4-8.2); Sodium Level 139 mEq/L (136-145)
[2024-06-28 06:45] LABS: ALT/SGPT < 14 U/L (16-61)
--- NOTE | 2024-06-28 12:35 | P.PN ---
Subjective Date of Service: 06/28/24 Primary Care Provider: Jake Chief Complaint: worsening diabetic foot Subjective: Improving Review of Systems 10-point ROS is otherwise unremarkable Physical Examination - Vital Signs Temperature: 97.7 F Blood Pressure: 110/69 Pulse: 90 Respirations: 16 Pulse Ox (%): 97 - Physical Exam General: Alert, In no apparent distress HEENT: Atraumatic, PERRLA, EOMI Neck: Supple, JVD not distended Respiratory: Clear to auscultation bilaterally, Normal air movement Cardiovascular: Regular rate/rhythm, Normal S1 S2 Gastrointestinal: Normal bowel sounds, No tenderness Musculoskeletal: No tenderness Integumentary: No rashes Neurological: Normal speech, Normal tone, Normal affect Lymphatics: No axilla or inguinal lymphadenopathy - Studies Laboratory Data (last 24 hrs) 06/28/24 06/28/24 06:14 06:14 WBC 6.00 Hgb 9.7 L Hct 29.6 L Plt Count 251 Sodium 139 Potassium 3.4 L BUN 9 Creatinine 0.47 L Glucose 140 H Total Bilirubin 0.3 AST 11 L ALT < 14 L Alkaline Phosphatase 83 Assessment And Plan - Current Problems (Diagnosis) (1) Diabetic ulcer of right foot Current Visit: No Status: Resolved Plan: discussed with Dr. Fernando. We may need to do a BKA. Will have him seen by Dr. Fernando and Dr. 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 Will order blood cultures. Discharge Plan: Home Plan to discharge in: Greater than 2 days - Code Status/Comfort Care Code Status Assessed: No Physician Review: Patient Assessed, Agree with Above Assessment and Plan Critical Care: No Time Spent Managing PTS Care (In Minutes): 20
[2024-06-28] MEDS: Levofloxacin 750mg IV 750 MG/150 ML BAG IV SCH (13:11)
--- NOTE | 2024-06-28 14:04 | P.PN ---
Date of Service: 06/28/24 S: Patient has no specific complaints, seems rather indifferent today about the whole situation. Tried to discuss ongoing care, but not a lot of input from his side. O: Wound slightly improved less drainage A: Patient is going to need a BKA, we are trying to get the timing of this right. I would prefer not to be pouring pus and no signs of any lymphedema on his anterior lower leg. P: Patient is on antibiotics, appears to be proving. Drainage is becoming somewhat less. I would like to do this as a 1 stage procedure,. I tried to discussed with the patient today however he was not in a receptive mood. Will try again tomorrow to explain the surgery, the risks and benefits again, his requirements postoperatively, ongoing care etc.
[2024-06-28] MEDS: DAPTOmycin 500 MG in NA CHLORIDE 0.9% 100 ML IVPB SCH (15:27)
[2024-06-29 05:22] LABS: Absolute Eosinophils 0.1 K/uL (0-0.5); Absolute Lymphocytes (CBC) 1.9 K/uL (0.7-4.9); Absolute Monocytes 0.6 K/uL (0.1-1.3); Absolute Neutrophil 6.2 K/uL (1.8-8.0); Basophils % 0.3 % (0-1.3); Eosinophils % 1.3 % (0-4.4); Hematocrit 31.1 % (39.6-49.0); Hemoglobin 10.4 g/dL (13.6-17.9); Lymphocytes % 21.8 % (15.3-44.8); MCH 25.9 pg (27.0-35.0); MCHC 33.5 g/dL (32.0-36.0); MCV 77.4 fL (80-100); MPV 6.6 fL (7.6-11.3); Monocytes % 6.5 % (3.3-12.3); Neutrophils % 70.1 % (41.7-73.7); Platelets 266 thou/uL (152-406); RBC Red Blood Cell Count 4.02 M/uL (4.33-5.43); Red Cell Distribution Width 16.5 % (12.1-15.2)
[2024-06-29 05:39] LABS: Albumin 2.1 g/dL (3.4-5.0); Albumin/Globulin Ratio 0.5 (1.1-1.8); Alkaline Phosphatase 94 U/L (45-117); Anion Gap 5.9 mEq/L (5.0-15.0); BUN Blood Urea Nitrogen 12 mg/dL (7-18); Bicarbonate 29 mEq/L (21-32); Bilirubin Total 0.4 mg/dL (0.2-1.0); Globulin 4.2 g/dL (2.3-3.5); Glomerular Filtration Rate 136 ml/min (=/>90); Glucose Level 127 mg/dL (74-106); Potassium 3.9 mEq/L (3.5-5.1); Protein, Total 6.3 g/dL (6.4-8.2); Sodium Level 135 mEq/L (136-145)
[2024-06-29 05:41] LABS: ALT/SGPT < 14 U/L (16-61); AST/SGOT < 10 U/L (15-37)
--- NOTE | 2024-06-29 13:18 | P.PN ---
Subjective Date of Service: 06/29/24 Primary Care Provider: Jake Chief Complaint: worsening diabetic foot Subjective: No new changes Review of Systems 10-point ROS is otherwise unremarkable Physical Examination - Vital Signs Temperature: 98.1 F Blood Pressure: 116/76 Pulse: 94 Respirations: 16 Pulse Ox (%): 97 - Physical Exam General: Alert, In no apparent distress HEENT: Atraumatic, PERRLA, EOMI Neck: Supple, JVD not distended Respiratory: Clear to auscultation bilaterally, Normal air movement Cardiovascular: Regular rate/rhythm, Normal S1 S2 Gastrointestinal: Normal bowel sounds, No tenderness Musculoskeletal: No tenderness Integumentary: No rashes Neurological: Normal speech, Normal tone, Normal affect Lymphatics: No axilla or inguinal lymphadenopathy - Studies Laboratory Data (last 24 hrs) 06/29/24 06/29/24 05:03 05:03 WBC 8.90 Hgb 10.4 L Hct 31.1 L Plt Count 266 Sodium 135 L Potassium 3.9 D BUN 12 Creatinine 0.55 L Glucose 127 H Total Bilirubin 0.4 AST < 10 L ALT < 14 L Alkaline Phosphatase 94 Assessment And Plan - Current Problems (Diagnosis) (1) Diabetic ulcer of right foot Current Visit: No Status: Resolved Plan: discussed with Dr. Fernando. We may need to do a BKA. Will have him seen by Dr. Fernando and Dr. 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 Will order blood cultures. Discharge Plan: Home Plan to discharge in: Greater than 2 days - Code Status/Comfort Care Code Status Assessed: No Physician Review: Patient Assessed, Agree with Above Assessment and Plan Critical Care: No Time Spent Managing PTS Care (In Minutes): 20
--- NOTE | 2024-06-30 08:51 | P.PN ---
Subjective Date of Service: 06/30/24 Primary Care Provider: Jake Chief Complaint: worsening diabetic foot Subjective: No new changes (plans for surgery on Sat) Review of Systems 10-point ROS is otherwise unremarkable Physical Examination - Vital Signs Temperature: 97.7 F Blood Pressure: 132/80 Pulse: 90 Respirations: 17 Pulse Ox (%): 97 - Physical Exam General: Alert, In no apparent distress HEENT: Atraumatic, PERRLA, EOMI Neck: Supple, JVD not distended Respiratory: Clear to auscultation bilaterally, Normal air movement Cardiovascular: Regular rate/rhythm, Normal S1 S2 Gastrointestinal: Normal bowel sounds, No tenderness Musculoskeletal: No tenderness Integumentary: No rashes Neurological: Normal speech, Normal tone, Normal affect Lymphatics: No axilla or inguinal lymphadenopathy Assessment And Plan - Current Problems (Diagnosis) (1) Diabetic ulcer of right foot Current Visit: No Status: Resolved Plan: discussed with Dr. Fernando. We may need to do a BKA. Will have him seen by Dr. Fernando and Dr. 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 Will order blood cultures. Discharge Plan: Home - Code Status/Comfort Care Code Status Assessed: No Physician Review: Patient Assessed, Agree with Above Assessment and Plan Critical Care: No Time Spent Managing PTS Care (In Minutes): 20
[2024-06-30] MEDS: HOME MED 1 EA UNK (Insulin Glargine,Hum.Rec.Anlog [Basaglar Kwikpen U-100] 100 UNIT/ML Ins SQ SCH (09:00)
[2024-06-30] MEDS ORDERED: HOME MED 1 EA UNK (Omeprazole [Prilosec] 40 MG Capsule.Dr) PO SCH (09:00)
[2024-06-30] MEDS: **PT MED**Dapagliflozin Propanediol [Farxiga] 10 MG Tablet PO SCH (09:00)
--- NOTE | 2024-06-30 16:24 | CON ---
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 History Of Present Illness: This is the case of a 29-year-old patient who has been having followup w ith his destructive osteomyelitis and multiple open wounds in the left foot for quite sometime. [facility] He has been under service of Dr. Fernando, a podia trist, around the area and the service of Dr. Saleh, service of Dr. Joseph. They have been doing ev erything they can to try and to save that foot, but it does not matter how much antibiotics he is will ing and wound care, it has been unsuccessful to the point that even on antibiotics and acute treatmen t that he has to be admitted recently with pus from an abscess still coming from the foot and a below -knee amputation was recommended. He had some issues with that, obviously he is only 29 years old. I was asked by Dr. Fernando and Dr. Joseph and the patient himself to go through his chart and review and if possible do the surgery. I have no problems with that. Apparently, he knows me from the past an d he mentioned many times how he trust me to do the surgery. He has no issues with other doctors. Nayana matias just want me to do this and I understand his situation at that age with this unfortunate diagnosis and just facing amputation, I am not surprised by his behavior and his responses to this. So, we dec ided just to talk to the patient and during the process of that, we also had discussion with his Dr. Joseph about his medical treatments, what he has been doing. I also talked to his safety intern for a lo ng time that he trust Dr. Fernando and once again everything comes to the conclusion that at least below -knee amputation is needed. Allergies: CEFACLOR, BACTRIM, AND VANCOMYCIN. Medications: Include Prilosec, Farxiga, subcu Ozempic, Xarelto, and daptomycin. Family History: Include diabetes and heart disease. Past Surgical History: Include tube in his ears. Social History: He does not smoke. He does not drink alcohol. He use caffeine. Review of Systems: Obviously, pus coming from the left foot with foul smelling coming from that area, erythema, and tend erness. Review of systems, 10 points, otherwise unremarkable. Physical Examination: Vital Signs: Reviewed. General: Patient is awake and alert. HEENT: Pupils are equal and reactive. Anicteric. Neck: Supple. Chest: Clear. Heart: S1, S2. Abdomen: Soft and depressible. Extremities: Stable capillary refill, but the left foot has multiple wounds in the base of the area in the plantar surface and those wounds connect into the ulcer wound with multiple ulcers with purule nt discharge coming through them despite the medical treatment. Neuropathy is present. Laboratory Data: Blood work shows WBC count of 8.9 with hemoglobin of 10.4, and platelets of 266. S odium is 135, glucose 127. On reviewing his imaging, we went to a recent foot MRI that was done in [place] ugust 2023, shows extensive osteomyelitis of fifth metatarsal present at that moment. There was also osteomyelitis of different metatarsal bones and calcaneal bones. Once again, that was on 05/18. Af ter that, he still had treatment and he still has purulent discharge and getting worse. Recently, in 06/26/2024, he had just a simple x-ray showing Charcot arthropathy with infection, osteomyelitis, ma rked subluxations at the intertarsal and tarsometatarsal articulations. Collapse of the midfoot arch present. Large soft tissue wound, mid foot. Assessment: 29-year-old patient, despite all the efforts by the primary doctors, wound centers, podi atrist trying to save that foot, it has been unsuccessful. Still the person has an active process, d estructive osteomyelitis of that foot. So they are even working on him and trying to work in his circulation, but it got to the point that with that pus going in that area, discussion of at least left below-knee amputation was introduced. He requested me to come here and talk to him about the surgery itself. He wants me to do the surgery. He has specified he has nothing against the othe r doctors. He just want me to do it and with his consent and the rest of the medical doctors involve d in the case, then we did explain to him the benefits, alternatives, and risks of left below-knee am putation which include, but not limited to, infection, bleeding, damage to adjacent structures, anest hesia complication, nonhealing wound, [place], and even . He also understands this may not relieve a ny symptoms. He might need more than one surgical intervention. He understands the process. I also spent with him almost an hour just trying to explain the process and what to expect over the next ye ar that include keeping his glucose under control, avoiding damage to that area, avoiding complicatio ns, taking his antibiotics, and may require wound care and also his rehabilitation and the process of obtaining his prosthetic. Our goal is to make sure not too long from now see him walking again, but still he has the big problem on his hands, which he is still trying to control his medical issues an d taking his glucose medications the way the medical doctors prescribe to him. We discussed with him few options for the surgery. He has selected this Saturday morning as a day that he will allow me to do this. So it was booked in OR. BERRY/FELICE Voice ID: [id number] Report ID: [id number]
[2024-07-01 05:52] LABS: Albumin/Globulin Ratio 0.4 (1.1-1.8); Alkaline Phosphatase 86 U/L (45-117); Anion Gap 8.6 mEq/L (5.0-15.0); BUN Blood Urea Nitrogen 11 mg/dL (7-18); Bicarbonate 27 mEq/L (21-32); Bilirubin Total 0.4 mg/dL (0.2-1.0); Globulin 4.7 g/dL (2.3-3.5); Glomerular Filtration Rate 135 ml/min (=/>90); Glucose Level 145 mg/dL (74-106); Potassium 3.6 mEq/L (3.5-5.1); Protein, Total 6.7 g/dL (6.4-8.2); Sodium Level 136 mEq/L (136-145)
[2024-07-01 05:53] LABS: ALT/SGPT < 14 U/L (16-61); AST/SGOT < 10 U/L (15-37)
[2024-07-01 06:01] LABS: Absolute Eosinophils 0.2 K/uL (0-0.5); Absolute Lymphocytes (CBC) 2.3 K/uL (0.7-4.9); Absolute Monocytes 0.7 K/uL (0.1-1.3); Absolute Neutrophil 8.1 K/uL (1.8-8.0); Basophils % 0.3 % (0-1.3); Eosinophils % 1.9 % (0-4.4); Hematocrit 32.1 % (39.6-49.0); Hemoglobin 10.6 g/dL (13.6-17.9); Lymphocytes % 20.4 % (15.3-44.8); MCH 25.6 pg (27.0-35.0); MCHC 32.8 g/dL (32.0-36.0); MCV 77.9 fL (80-100); Monocytes % 6.5 % (3.3-12.3); Neutrophils % 70.9 % (41.7-73.7); Platelets 253 thou/uL (152-406); RBC Red Blood Cell Count 4.13 M/uL (4.33-5.43); Red Cell Distribution Width 16.6 % (12.1-15.2)
[2024-07-01] MEDS ORDERED: ONDANSETRON 4 MG/2 ML VIAL ONE (08:34)
[2024-07-01] MEDS ORDERED: LIDOCAINE 2% MPF 5 ML VIAL ONE (08:34)
[2024-07-01] MEDS ORDERED: propofoL 200 MG/20 ML VIAL IV ONE (08:34)
[2024-07-01] MEDS ORDERED: MIDAZOLAM HCL 2 MG/2 ML INJ ONE (08:34)
[2024-07-01] MEDS ORDERED: FENTANYL CITR 100 MCG/2 ML ONE (08:35)
[2024-07-01] MEDS: BUPIVACAINE 0.25% PF 30 ML VIAL ONE (08:45)
[2024-07-01] MEDS: LIDOCAINE 1% MPF 5 ML VIAL ONE (08:46)
[2024-07-01] MEDS: dexAMETHasone 10 MG/ML VIAL ONE (08:46)
[2024-07-01] MEDS: EPINEPHRINE 1 MG/ML VIAL ONE ×2 (08:46→08:47)
--- NOTE | 2024-07-01 08:57 | P.PN ---
Subjective Date of Service: 07/01/24 Primary Care Provider: Jake Chief Complaint: worsening diabetic foot Subjective: No new changes (amputation of the left foot today) Review of Systems 10-point ROS is otherwise unremarkable Physical Examination - Vital Signs Temperature: 97.6 F Blood Pressure: 137/84 Pulse: 95 Respirations: 16 Pulse Ox (%): 99 - Physical Exam General: Alert, In no apparent distress HEENT: Atraumatic, PERRLA, EOMI Neck: Supple, JVD not distended Respiratory: Clear to auscultation bilaterally, Normal air movement Cardiovascular: Regular rate/rhythm, Normal S1 S2 Gastrointestinal: Normal bowel sounds, No tenderness Musculoskeletal: No tenderness Integumentary: No rashes Neurological: Normal speech, Normal tone, Normal affect Lymphatics: No axilla or inguinal lymphadenopathy - Studies Laboratory Data (last 24 hrs) 07/01/24 07/01/24 05:15 05:15 WBC 11.40 H Hgb 10.6 L Hct 32.1 L Plt Count 253 Sodium 136 Potassium 3.6 BUN 11 Creatinine 0.56 L Glucose 145 H Total Bilirubin 0.4 AST < 10 L ALT < 14 L Alkaline Phosphatase 86 Assessment And Plan - Current Problems (Diagnosis) (1) Diabetic ulcer of right foot Current Visit: No Status: Resolved Plan: discussed with Dr. Fernando. We may need to do a BKA. Will have him seen by Dr. Fernando and Dr. 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 Will order blood cultures. Discharge Plan: Home Plan to discharge in: Greater than 2 days - Code Status/Comfort Care Code Status Assessed: No Physician Review: Patient Assessed, Agree with Above Assessment and Plan Critical Care: No Time Spent Managing PTS Care (In Minutes): 20
[2024-07-01] MEDS ORDERED: dexAMETHasone 4 MG/ML VIAL ONE (10:30)
--- NOTE | 2024-07-01 11:44 | P.BOP ---
Preoperative diagnosis: destructive osteomylitia, cellulitis abscess left foot Postoperative diagnosis: same Primary procedure: Left BKA Estimated blood loss: <50cc Specimen: foot Findings: as above Anesthesia: General Complications: None Drain(s): QING drain Transferred to: Recovery Room Condition: Good
[2024-07-02 05:15] LABS: Absolute Lymphocytes (CBC) 1.2 K/uL (0.7-4.9); Absolute Monocytes 0.7 K/uL (0.1-1.3); Absolute Neutrophil 11.5 K/uL (1.8-8.0); Basophils % 0.2 % (0-1.3); Hematocrit 31.6 % (39.6-49.0); Hemoglobin 10.4 g/dL (13.6-17.9); Lymphocytes % 8.8 % (15.3-44.8); MCH 25.6 pg (27.0-35.0); MCHC 32.8 g/dL (32.0-36.0); MCV 77.9 fL (80-100); MPV 6.7 fL (7.6-11.3); Monocytes % 5.3 % (3.3-12.3); Neutrophils % 85.7 % (41.7-73.7); Platelets 330 thou/uL (152-406); RBC Red Blood Cell Count 4.06 M/uL (4.33-5.43); Red Cell Distribution Width 16.9 % (12.1-15.2)
[2024-07-02 05:32] LABS: Albumin 2.1 g/dL (3.4-5.0); Albumin/Globulin Ratio 0.5 (1.1-1.8); Alkaline Phosphatase 84 U/L (45-117); Anion Gap 11.9 mEq/L (5.0-15.0); BUN Blood Urea Nitrogen 21 mg/dL (7-18); Bicarbonate 24 mEq/L (21-32); Bilirubin Total 0.3 mg/dL (0.2-1.0); Globulin 4.6 g/dL (2.3-3.5); Glomerular Filtration Rate 128 ml/min (=/>90); Glucose Level 280 mg/dL (74-106); Potassium 3.9 mEq/L (3.5-5.1); Protein, Total 6.7 g/dL (6.4-8.2); Sodium Level 135 mEq/L (136-145)
[2024-07-02 05:34] LABS: ALT/SGPT < 14 U/L (16-61); AST/SGOT < 10 U/L (15-37)
[2024-07-02 05:44] LABS: Band Neutrophils 16 % (0-1); Blood Morphology Comment NOT SEEN (NOT SEEN); Differential Total Cells Count 100; Lymphocytes 10 % (15-42); Monocytes 1 % (0-10); Platelet Estimate ADEQ; Segmented Neutrophils 73 % (40-80)
[2024-07-02] MEDS: HOME MED 1 EA UNK (Rivaroxaban [Xarelto] 2.5 MG Tablet) PO SCH (09:00)
--- NOTE | 2024-07-02 09:46 | P.PN ---
Subjective Date of Service: 07/02/24 Primary Care Provider: Jake Chief Complaint: worsening diabetic foot Subjective: New changes (left bka) reports phantom pain and wound pain 04/01 Review of Systems pain 04/01 Physical Examination - Vital Signs Temperature: 97.1 F Blood Pressure: 125/68 Pulse: 98 Respirations: 15 Pulse Ox (%): 98 - Physical Exam General: Alert, In no apparent distress HEENT: Atraumatic, PERRLA, EOMI Neck: Supple, JVD not distended Respiratory: Clear to auscultation bilaterally, Normal air movement Cardiovascular: Regular rate/rhythm, Normal S1 S2 Gastrointestinal: Normal bowel sounds, No tenderness Musculoskeletal: No tenderness Integumentary: No rashes Neurological: Normal speech, Normal tone, Normal affect Lymphatics: No axilla or inguinal lymphadenopathy - Studies Laboratory Data (last 24 hrs) 07/02/24 07/02/24 05:00 05:00 WBC 13.40 H Hgb 10.4 L Hct 31.6 L Plt Count 330 D Sodium 135 L Potassium 3.9 BUN 21 H Creatinine 0.67 L Glucose 280 H Total Bilirubin 0.3 AST < 10 L ALT < 14 L Alkaline Phosphatase 84 Microbiology Data (last 24 hrs): 06/26/24 16:45 Blood - Blood Aerobic Blood Culture - Final No growth in 5 days. 06/26/24 16:45 Blood - Blood Anaerobic Blood Culture - Final No growth in 5 days. Assessment And Plan - Current Problems (Diagnosis) (1) Unilateral complete BKA Current Visit: Yes Status: Acute Plan: will consult PT. Wound care per Dr. Pearson.. Drain in place. Will start him on MS contin as the patinet states the dilaudid does not last. Qualifiers: Encounter type: subsequent encounter Qualified Code(s): S88.119D - Complete traumatic amputation at level between knee and ankle, unspecified lower leg, subsequent encounter (2) Diabetic ulcer of right foot Current Visit: No Status: Resolved Plan: discussed with Dr. Fernando. We may need to do a BKA. Will have him seen by Dr. Fernando and Dr. 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 Will order blood cultures. 10.10 continue IV antibiotics for another week and we can stop Discharge Plan: LTAC - Code Status/Comfort Care Code Status Assessed: No Physician Review: Patient Assessed, Agree with Above Assessment and Plan Critical Care: No Time Spent Managing PTS Care (In Minutes): 20
[2024-07-02] MEDS: MORPHINE *EXTENDED RELEASE* 15 MG TAB PO SCH (10:04)
--- NOTE | 2024-07-02 19:33 | PN ---
Subjective: Status post below-knee amputation. The patient is doing great. He is doing so great th at he is right now ambulating around the hallways with the assistance while rehabilitation. Therefor e, he looks excited and also motivated to eventually get his prosthetic. Surgical site is still inta ct. QING is minimal. Plan: Continue rehabilitation. Transfer to rehab may be an option if they accept him. BERRY/FELICE Voice ID: [id number] Report ID: [id number]
[2024-07-02] MEDS: RIVAROXABAN 2.5 MG PO SCH (20:58)
--- NOTE | 2024-07-03 04:11 | OP ---
Date of Procedure: 07/02/2024 Surgeon: Josh Pearson MD Preoperative Diagnosis: Destructive osteomyelitis with cellulitis and abscess of the left foot. Postoperative Diagnosis: Destructive osteomyelitis with cellulitis and abscess of the left foot. Procedure: Left below-knee amputation. Estimated Blood Loss: Less than 50 cc. Drain: QING #10. Anesthesia: General plus local plus anesthesia block. Indications: This is a case of a 29-year-old patient who unfortunately has history of diabetes and d eveloped cellulitis and osteomyelitis of the left foot. There have been numbers of encounters by the primary doctors, director of clinical applications trying to save that foot and every attempt to treat osteomyelitis result ed in failure. They have been talking to the patient also about being compliant with treatment and d iabetes, but despite all that effort, unfortunately osteomyelitis looks , so his joints bet ween the metatarsal bones are destructive to the point that they are disarticulated. There is despit e antibiotics he is receiving expression of pus coming from the dorsum and the plantar area of the fo ot and they believe the sepsis may be coming if this is not removed, so then we discussed with him th e options of below-knee amputation, he thought over the weekend, he discussed the case also with his other surgeon Dr. Melchor, but the patient wants an opinion from us too and we gave an opinion and he wants us to do the procedure. I discussed the case with Dr. Joseph and Dr. Fernando who are the podiatr ists. They all agree. So, we offered him left below-knee amputation with benefits, alternatives, an d risks including, but not limited to infection, bleeding, damage to adjacent structures, anesthesia complication, nonhealing wound, failure of the flaps, [place], and even . They also understands this may not relieve any symptoms. He might need more than one surgical intervention. He understood, si gned a consent. Description Of Procedure: The patient brought to the operating room, placed in supine position, anes thesia was done without complication. A time-out was called. The patient had a general anesthesia b lock by the Anesthesia Department before the procedure to help with the postoperative pain. With the patient in supine position, a time-out was called. We prepped the leg in the usual sterile fashion. We then proceeded to outline anterior and posterior of skin. The anterior incision was made about 4 fingerbreadths 12 cm below the tibial tuberosity and the travis was extended medially and laterally t oward the edge of the gastrocnemius muscle. The skin incision was then extended distally for about 1 2 cm creating a posterior flap. The skin and subcutaneous tissues were then incised with the help of the knife up to the fascia. Saphenous veins were identified and ligated. The fascia and the muscle were then divided with the Bovie cauterizer at the same level of the anterior skin. The muscles in the anterior and lateral compartments were divided exposing the anterior tibial vessels, which were l igated. Interosseous membrane was then incised. The tibial periosteum was incised circumferentially and then using the periosteal elevator, the tibial periosteum was stripped proximally about 2 cm. T he tibia was then transected with the help of a Gigli saw about 2 cm proximal to the skin incision wi th an anterior bevel. The fistula was then exposed circumferentially and transected with a bone cutt er about 2 cm proximal to the tibia. The amputation was then completed with the help of the Bovie ca uterizer transecting the soleus muscle obliquely and the gastrocnemius muscle. The blood vessels wer e carefully ligated. We proceeded to file the bone eliminating the bony prominence in the tibia anamaria on and the fibula. After that, I proceeded then to a put a QING drain in that region, secured in place with 3-0 nylon through a different incision. The fascia of the anterior and posterior muscles was c arefully approximated with the help of Vicryl and then the skin was approximated with rose with st erile dressings on top. The patient tolerated the procedure well. Patient sent to Recovery in stabl e condition. Sponge count and instrument count are correct. HM/MODL Voice ID: [id number] Report ID: [id number]
[2024-07-03 06:15] LABS: Absolute Basophils 0.1 K/uL (0-0.5); Absolute Eosinophils 0.1 K/uL (0-0.5); Absolute Lymphocytes (CBC) 2.8 K/uL (0.7-4.9); Absolute Monocytes 0.5 K/uL (0.1-1.3); Absolute Neutrophil 7.3 K/uL (1.8-8.0); Basophils % 0.5 % (0-1.3); Eosinophils % 0.9 % (0-4.4); Hematocrit 30.8 % (39.6-49.0); Hemoglobin 9.8 g/dL (13.6-17.9); Lymphocytes % 25.8 % (15.3-44.8); MCH 25.4 pg (27.0-35.0); MCV 79.5 fL (80-100); Neutrophils % 67.8 % (41.7-73.7); Nucleated Red Blood Cells % 0.1 % (0-0); Platelets 273 thou/uL (152-406); RBC Red Blood Cell Count 3.87 M/uL (4.33-5.43)
[2024-07-03 06:32] LABS: Albumin 2.1 g/dL (3.4-5.0); Albumin/Globulin Ratio 0.5 (1.1-1.8); Alkaline Phosphatase 80 U/L (45-117); Anion Gap 9.2 mEq/L (5.0-15.0); BUN Blood Urea Nitrogen 17 mg/dL (7-18); Bicarbonate 25 mEq/L (21-32); Bilirubin Total 0.2 mg/dL (0.2-1.0); Globulin 4.3 g/dL (2.3-3.5); Glomerular Filtration Rate 127 ml/min (=/>90); Glucose Level 220 mg/dL (74-106); Potassium 4.2 mEq/L (3.5-5.1); Protein, Total 6.4 g/dL (6.4-8.2); Sodium Level 138 mEq/L (136-145)
[2024-07-03 06:35] LABS: ALT/SGPT < 14 U/L (16-61); AST/SGOT < 10 U/L (15-37)
[2024-07-03] MEDS: PANTOPRAZOLE 40MG TABLET PO SCH (08:13)
--- NOTE | 2024-07-03 08:56 | P.PN ---
Subjective Date of Service: 07/03/24 Primary Care Provider: Jake Chief Complaint: worsening diabetic foot reports phantom pain and wound pain 5.01/30 Review of Systems 10-point ROS is otherwise unremarkable Physical Examination - Vital Signs Temperature: 98.1 F Blood Pressure: 141/83 Pulse: 98 Respirations: 20 Pulse Ox (%): 98 - Physical Exam General: Alert, In no apparent distress HEENT: Atraumatic, PERRLA, EOMI Neck: Supple, JVD not distended Respiratory: Clear to auscultation bilaterally, Normal air movement Cardiovascular: Regular rate/rhythm, Normal S1 S2 Gastrointestinal: Normal bowel sounds, No tenderness Musculoskeletal: No tenderness Integumentary: No rashes Neurological: Normal speech, Normal tone, Normal affect Lymphatics: No axilla or inguinal lymphadenopathy - Studies Laboratory Data (last 24 hrs) 07/03/24 07/03/24 05:55 05:55 WBC 10.80 Hgb 9.8 L Hct 30.8 L Plt Count 273 Sodium 138 Potassium 4.2 BUN 17 Creatinine 0.68 L Glucose 220 H Total Bilirubin 0.2 AST < 10 L ALT < 14 L Alkaline Phosphatase 80 Assessment And Plan - Current Problems (Diagnosis) (1) Unilateral complete BKA Current Visit: Yes Status: Acute Plan: will consult PT. Wound care per Dr. Pearson.. Drain in place. Will start him on MS contin as the patinet states the dilaudid does not last. 07/03 consult for inpatient rehab Qualifiers: Encounter type: subsequent encounter Qualified Code(s): S88.119D - Complete traumatic amputation at level between knee and ankle, unspecified lower leg, subsequent encounter (2) Diabetic ulcer of right foot Current Visit: No Status: Resolved Plan: discussed with Dr. Fernando. We may need to do a BKA. Will have him seen by Dr. Fernando and Dr. 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 Will order blood cultures. 10.10 continue IV antibiotics for another week and we can stop Discharge Plan: LTAC Plan to discharge in: 48 Hours - Code Status/Comfort Care Code Status Assessed: No Physician Review: Patient Assessed, Agree with Above Assessment and Plan Critical Care: No Time Spent Managing PTS Care (In Minutes): 20
[2024-07-03] MEDS: INSULIN GLARGINE 100 UNIT/ML SQ ONE (09:37)
[2024-07-03] MEDS ORDERED: INSULIN GLARGINE 100 UNIT/ML SQ SCH (10:00)
[2024-07-03] MEDS: IBUPROFEN 600 MG TAB PO PRN (15:19)
--- NOTE | 2024-07-03 19:41 | PN ---
Date of Progress Note: 07/03/2024 Reason For Service: Status post BKA. Subjective: The patient is doing great. I saw him moving yesterday, walking around the nursing stat ion, very motivated. He wants to improve. He wants to walk again. We applaud that. He is also try ing to be compliant with the diabetes control as Dr. Joseph is managing that area. Objective: Chest: Clear. Abdomen: Soft and depressible. Extremities: Intact surgical site. QING drain is minimal. Plan: We will like to continue the antibiotics for 1 more week. If he goes to rehab over the weeken d, then we will remove the knee immobilizer and remove the QING drain. The rose will remain there u ntil we believe this is safe to do so. Keep the dressings intact. Once again, we discussed with him the importance of not falling. And as soon as he is in rehab area, the Wound will try to contact [employer] to see that least they can start guiding him in the process of walking again. BERRY/FELICE Voice ID: [id number] Report ID: [id number]
--- NOTE | 2024-07-04 11:52 | P.PN ---
Subjective Date of Service: 07/04/24 Primary Care Provider: Jake Chief Complaint: worsening diabetic foot Subjective: No new changes (awaiting placement) reports phantom pain and wound pain 5.5 Physical Examination - Vital Signs Temperature: 97.0 F Blood Pressure: 134/84 Pulse: 82 Respirations: 16 Pulse Ox (%): 95 - Physical Exam General: Alert, In no apparent distress HEENT: Atraumatic, PERRLA, EOMI Neck: Supple, JVD not distended Respiratory: Clear to auscultation bilaterally, Normal air movement Cardiovascular: Regular rate/rhythm, Normal S1 S2 Gastrointestinal: Normal bowel sounds, No tenderness Musculoskeletal: No tenderness Integumentary: No rashes Neurological: Normal speech, Normal tone, Normal affect Lymphatics: No axilla or inguinal lymphadenopathy Assessment And Plan - Current Problems (Diagnosis) (1) Unilateral complete BKA Current Visit: Yes Status: Acute Plan: will consult PT. Wound care per Dr. Pearson.. Drain in place. Will start him on MS contin as the patinet states the dilaudid does not last. 07/03 consult for inpatient rehab Qualifiers: Encounter type: subsequent encounter Qualified Code(s): S88.119D - Complete traumatic amputation at level between knee and ankle, unspecified lower leg, subsequent encounter (2) Diabetic ulcer of right foot Current Visit: No Status: Resolved Plan: discussed with Dr. Fernando. We may need to do a BKA. Will have him seen by Dr. Fernando and Dr. 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 Will order blood cultures. 10.10 continue IV antibiotics for another week and we can stop Discharge Plan: Home - Code Status/Comfort Care Code Status Assessed: No Physician Review: Patient Assessed, Agree with Above Assessment and Plan Critical Care: No Time Spent Managing PTS Care (In Minutes): 20
--- NOTE | 2024-07-04 12:39 | PN ---
Date of Progress Note: 07/04/2024 Diagnosis: Status post below-knee amputation. Subjective: Doing well, great, very cooperative, very excited about the future. He has been coopera ting with rehab, ambulating, trying to do everything he can to eventually get his prosthetic, so he c an walk again in the future. We applauded that. The extremities shows good capillary refill. QING mi nimal. Intact surgical site. Plan: Continue rehab treatment when he gets discharged. Follow up in [facility]. We may remove the QING drain on Saturday. BERRY/FELICE Voice ID: [id number] Report ID: [id number]
--- NOTE | 2024-07-05 13:59 | P.PN ---
Subjective Date of Service: 07/05/24 Primary Care Provider: Jake Chief Complaint: worsening diabetic foot Subjective: No new changes reports phantom pain and wound pain 5.01/30 Review of Systems 10-point ROS is otherwise unremarkable Physical Examination - Vital Signs Temperature: 97.0 F Blood Pressure: 127/80 Pulse: 89 Respirations: 18 Pulse Ox (%): 98 - Physical Exam General: Alert, In no apparent distress HEENT: Atraumatic, PERRLA, EOMI Neck: Supple, JVD not distended Respiratory: Clear to auscultation bilaterally, Normal air movement Cardiovascular: Regular rate/rhythm, Normal S1 S2 Gastrointestinal: Normal bowel sounds, No tenderness Musculoskeletal: No tenderness Integumentary: No rashes Neurological: Normal speech, Normal tone, Normal affect Lymphatics: No axilla or inguinal lymphadenopathy Assessment And Plan - Current Problems (Diagnosis) (1) Unilateral complete BKA Current Visit: Yes Status: Acute Plan: will consult PT. Wound care per Dr. Pearson.. Drain in place. Will start him on MS contin as the patinet states the dilaudid does not last. 07/04 consult for inpatient rehab Qualifiers: Encounter type: subsequent encounter Qualified Code(s): S88.119D - Complete traumatic amputation at level between knee and ankle, unspecified lower leg, subsequent encounter (2) Diabetic ulcer of right foot Current Visit: No Status: Resolved Plan: discussed with Dr. Fernando. We may need to do a BKA. Will have him seen by Dr. Fernando and Dr. 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 Will order blood cultures. 10 continue IV antibiotics for another week and we can stop Discharge Plan: Home Plan to discharge in: 24 Hours - Code Status/Comfort Care Code Status Assessed: No Physician Review: Patient Assessed, Agree with Above Assessment and Plan Critical Care: No Time Spent Managing PTS Care (In Minutes): 20
[2024-07-06 01:36] VITALS: O2SAT 97
--- NOTE | 2024-07-06 09:04 | P.PN ---
Subjective Date of Service: 07/06/24 Primary Care Provider: Jake Chief Complaint: worsening diabetic foot Subjective: No new changes reports phantom pain and wound pain 5.01/30 Review of Systems 10-point ROS is otherwise unremarkable Physical Examination - Vital Signs Temperature: 97.4 F Blood Pressure: 110/75 Pulse: 99 Respirations: 14 Pulse Ox (%): 99 - Physical Exam General: Alert, In no apparent distress HEENT: Atraumatic, PERRLA, EOMI Neck: Supple, JVD not distended Respiratory: Clear to auscultation bilaterally, Normal air movement Cardiovascular: Regular rate/rhythm, Normal S1 S2 Gastrointestinal: Normal bowel sounds, No tenderness Musculoskeletal: No tenderness Integumentary: No rashes Neurological: Normal speech, Normal tone, Normal affect Lymphatics: No axilla or inguinal lymphadenopathy Assessment And Plan - Current Problems (Diagnosis) (1) Unilateral complete BKA Current Visit: Yes Status: Acute Plan: will consult PT. Wound care per Dr. Pearson.. Drain in place. Will start him on MS contin as the patinet states the dilaudid does not last. 07/06 awaiting inpatient rehab placement. Not likely to happen today as it is [facility] Qualifiers: Encounter type: subsequent encounter Qualified Code(s): S88.119D - Complete traumatic amputation at level between knee and ankle, unspecified lower leg, subsequent encounter (2) Diabetic ulcer of right foot Current Visit: No Status: Resolved Plan: discussed with Dr. Fernando. We may need to do a BKA. Will have him seen by Dr. Fernando and Dr. 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 Will order blood cultures. 07.02 continue IV antibiotics for another week and we can stop Discharge Plan: Home Plan to discharge in: 24 Hours - Code Status/Comfort Care Code Status Assessed: No Physician Review: Patient Assessed, Agree with Above Assessment and Plan Critical Care: No Time Spent Managing PTS Care (In Minutes): 20
--- NOTE | 2024-07-06 14:02 | PN ---
Date of Progress Note: 07/06/2024 Subjective: Status post BKA. Doing great, good spirits. No complaint. Objective: Vital Signs: Afebrile. Chest: Clear. Abdomen: Soft and depressible. Extremities: 100% flaps. No erythema. No necrosis. QING was removed. Plan: Rehab transfer, if possible. QING was removed. BERRY/FELICE Voice ID: [id number] Report ID: [id number]
[2024-07-07 06:35] LABS: Absolute Eosinophils 0.4 K/uL (0-0.5); Absolute Lymphocytes (CBC) 2.8 K/uL (0.7-4.9); Absolute Monocytes 0.7 K/uL (0.1-1.3); Absolute Neutrophil 6.8 K/uL (1.8-8.0); Basophils % 0.4 % (0-1.3); Eosinophils % 3.5 % (0-4.4); Hematocrit 35.3 % (39.6-49.0); Hemoglobin 11.6 g/dL (13.6-17.9); MCH 25.7 pg (27.0-35.0); MCHC 32.7 g/dL (32.0-36.0); MCV 78.6 fL (80-100); MPV 7.5 fL (7.6-11.3); Monocytes % 6.4 % (3.3-12.3); Neutrophils % 63.7 % (41.7-73.7); Nucleated Red Blood Cells % 0.1 % (0-0); Platelets 287 thou/uL (152-406); Red Cell Distribution Width 17.5 % (12.1-15.2)
[2024-07-07 06:52] LABS: ALT/SGPT 15 U/L (16-61); Albumin 2.5 g/dL (3.4-5.0); Albumin/Globulin Ratio 0.6 (1.1-1.8); Alkaline Phosphatase 84 U/L (45-117); Anion Gap 8.1 mEq/L (5.0-15.0); BUN Blood Urea Nitrogen 20 mg/dL (7-18); Bicarbonate 30 mEq/L (21-32); Bilirubin Total 0.3 mg/dL (0.2-1.0); Globulin 4.1 g/dL (2.3-3.5); Glomerular Filtration Rate 123 ml/min (=/>90); Glucose Level 218 mg/dL (74-106); Potassium 4.1 mEq/L (3.5-5.1); Protein, Total 6.6 g/dL (6.4-8.2); Sodium Level 136 mEq/L (136-145)
[2024-07-07 06:53] LABS: AST/SGOT < 10 U/L (15-37)
--- NOTE | 2024-07-07 08:56 | P.DS ---
Admission Date: 06/26/24 Discharge Date: 07/07/24 Primary Care Provider: Jake Disposition: TRANSFER TO INPATIENT REHAB Discharge Condition: GOOD Reason for Admission: worsening diabetic foot - Problems (1) Unilateral complete BKA Current Visit: Yes Status: Acute Qualifiers: Encounter type: subsequent encounter Qualified Code(s): S88.119D - Complete traumatic amputation at level between knee and ankle, unspecified lower leg, subsequent encounter (2) Diabetic ulcer of right foot Current Visit: No Status: Resolved Qualifiers: Diabetic foot ulcer location: midfoot Diabetes mellitus type: type 1 Non- pressure ulcer stage: with fat layer exposed Qualified Code(s): E10.621 - Type 1 diabetes mellitus with foot ulcer; L97.412 - Non-pressure chronic ulcer of right heel and midfoot with fat layer exposed (3) 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 He recently was admitted for Osteomyleitis. Is on IV antbiotics and is seeing Dr. Fernando in the wound care center. The patient was seen today by home health. He seems to be worsening. Dr. Fernando was called and directed the patient to the Hospital I have spoken to Dr. Fernando. He states the patient had a worsening foot this past Saturday. Does not feel the foot has a good prognosis Hospital Course: Patient was admitted for worsening wound and osteomyelitis of the left foot. He has been trying to save the foot for the past 2 months. Unfortunately was not responding and the decision was made for a left BKA. He was kept on antibioti cs. Responded well to PT. Will transfer him to inpatient PT. The patient seems to accept it. Thank you for allowing me to take part in the patients Vital Signs/Physical Exam: Temp Pulse Resp BP Pulse Ox 97.6 F 100 H 18 140/82 99 07/07/24 04:00 07/07/24 04:00 07/07/24 04:49 07/07/24 04:00 07/07/24 04:49 General: Alert, In no apparent distress HEENT: Atraumatic, PERRLA, EOMI Neck: Supple, JVD not distended Respiratory: Clear to auscultation bilaterally, Normal air movement Cardiovascular: Regular rate/rhythm, Normal S1 S2 Gastrointestinal: Normal bowel sounds, No tenderness Musculoskeletal: No tenderness Integumentary: No rashes Neurological: Normal speech, Normal tone, Normal affect Lymphatics: No axilla or inguinal lymphadenopathy Laboratory Data at Discharge: WBC 10.60 thou/uL (4.3-10.9) 07/07/24 06:27 Hgb 11.6 g/dL (13.6-17.9) L 07/07/24 06:27 Hct 35.3 % (39.6-49.0) L 07/07/24 06:27 Plt Count 287 thou/uL (152-406) 07/07/24 06:27 Sodium 136 mEq/L (136-145) 07/07/24 06:27 Potassium 4.1 mEq/L (3.5-5.1) 07/07/24 06:27 BUN 20 mg/dL (7-18) H 07/07/24 06:27 Creatinine 0.77 mg/dL (0.70-1.30) 07/07/24 06:27 Glucose 218 mg/dL (74-106) H 07/07/24 06:27 Total Bilirubin 0.3 mg/dL (0.2-1.0) 07/07/24 06:27 AST < 10 U/L (15-37) L 07/07/24 06:27 ALT 15 U/L (16-61) L 07/07/24 06:27 Alkaline Phosphatase 84 U/L (45-117) 07/07/24 06:27 Home Medications: Insulin Glargine,Hum.rec.anlog [Basaglar Kwikpen U-100] 40 units SQ DAILY 12/15/20 Omeprazole [Prilosec] 40 mg PO DAILY 12/15/20 Dapagliflozin Propanediol [Farxiga] 1 tab PO DAILY 01/03/21 Rivaroxaban [Xarelto] 2.5 mg PO BID 90 Days #180 tab 05/27/24 DAPTOmycin in 0.9 % sod chlor [Daptomycin 500 mg/50 ml-Ns Bag] 500 mg IV DAILY #28 bag 06/11/24 Semaglutide [Ozempic] 0.5 mg SQ WMP 06/26/24 Diet: ADA Activity: Ad margarette Followup: Mark Joseph MD [Primary Care Provider] - Physician Review: Patient Assessed, Agree with Above Assessment and Plan Time spent managing pt's care (in minutes): 30
[2024-07-07 09:31] VITALS: BP 115/71; TEMP 98.3
== END 2024-07-07 10:18 | DRG 240 ==
LOC: 2ND 15:25
PROVIDERS: ADMIT Internal Medicine; ATTEND Internal Medicine
PROC: 0Y6J0Z2 Detachment at Left Lower Leg, Mid, Open Approach (ICD-10-PCS; principal; 2024-07-01 10:15)
DX: E10.52 Type 1 diabetes mellitus with diabetic peripheral angiopathy with gangrene (principal); L03.116 Cellulitis of left lower limb; M86.172 Other acute osteomyelitis, left ankle and foot; L97.412 Non-pressure chronic ulcer of right heel and midfoot with fat layer exposed; E10.69 Type 1 diabetes mellitus with other specified complication; E10.621 Type 1 diabetes mellitus with foot ulcer; E10.610 Type 1 diabetes mellitus with diabetic neuropathic arthropathy; F17.210 Nicotine dependence, cigarettes, uncomplicated; Z79.4 Long term (current) use of insulin
CPT/HCPCS: 36415; 80053; 82947; 84134; 85025; 87040; 88307; 88311; 97110; 97116; 97161; 97530; J0171; J0878; J1100; J1170; J1650; J2001; J2250; J2405; J2704; J3010; J7030

== ENCOUNTER 2024-07-07 08:25 | Inpatient (IN) | payer BC ==
--- OUTSIDE RECORDS SUMMARY | 2024-07-07 10:23 | XMS REPORT | Continuity of Care Document ---
Author Name Unknown Address [address] [facility] [address] [place] [address] [facility] thconnect Address [address] [facility] [address] [place] [address] Care Team Providers Care Nailer Operator Name Role Phone PCP, PATIENT DOES NOT HAVE A Primary Care Physic ramo Unavailable Vianca Joshua Attending Clinician Unavailab le Doctor Unassigned, [place] Attending Clinician U Dalton Encarnacion MD Attending Clinician [phone]- [phone] DALTON SANDHU Attending Clinician Unavailabl NYDIA Jules Attending Clinician Unavailable Nydia Sanchez MD Attending Clinician [phone] Dilcia Rose MD Attending Clinician [phone] DILCIA ROSE Attending Clinician Unavailable Eileen Orellana Attending Clinician + [phone] Provider, [facility] Attending Clinician Un available Lainey Hernandez Attending Clinician + [phone] LAINEY BRITTON Attending Clinician Unavailable Charito Frank Attending Clinician + [phone] Joby Eller MD Attending Clinician [phone] JOBY ELLER Attending Clinician Unavailable BECCA MONTERO JR Admitting Clinician Unavailab le ILA, HOLLI C Admitting Clinician Unavailable Payers Payer Name Policy Type Policy Number Effective Date Expirati on Date Source TM [facility]BR[facility] CLAIMS [id number] 2019 00:00:00 [facility] C1 [id number] [facility] Problems Condition Name Condition Details Condition Category Status Onset Date Resolution Date Last Treatment Date Treating Clinician Comments Source Diabetes Diabetes Disease Active 06-01 00:00: 00 [facility] acute hospital Asthma Asthma Disease Active Overview: Formattin g of this note might be different from the original. ICD10 Diagnosis Term Volunteer Services Coordinator Utility General acute hospital Allergies, Adverse Reactions, Alerts Allergy Name Allergy Type Status Severity Reaction(s) Onset Date Inactive Date Treating Clinician Comments Source cefaclor DA Active U 01-15 00:00: 00 [facility] sulfamet hoxazole DA Active U 01-15 00:00: 00 [facility] trimetho prim DA Active U 01-15 00:00: 00 [facility] Sulfamet hoxazole -Trimeth oprim Propensi ty to adverse reaction s Active Hives 2006-09 00:00: 00 [facility] acute hospital Cefaclor Propensi ty to adverse reaction s Active Hives 2006-09 00:00: 00 General acute hospital SULFAMET HOXAZOLE -TRIMETH OPRIM DRUG Active Hives 2006-09- 00:00: 00 [facility] acute hospital CEFACLOR DRUG INGREDI Active Hives 2006-09- 00:00: 00 [facility] acute hospital sulfamet hoxazole / trimetho prim sulfamet hoxazole / trimetho prim Active Unknown [facility] Social History Social Habit Start Date Stop Date Quantity Comments Source Exposure to SARS-CoV-2 (event) Not sure [facility] History of Tobacco Use [facility] Sex Assigned At [facility] Tobacco use and exposure 2020-07-25 00:00:00 2020-07-25 00:00:00 Never used [facility] Alcohol intake 2020-07-25 00:00:00 2020-07-25 00:00:00 Current drinker of alcohol (finding) [facility] Tobacco Comment 2019-09-09 00:00:00 2019-09-09 00:00:00 quit 4 months ago [facility] Smoking Status Start Date Stop Date Source Never Smoker [facility] Former smoker 2020-07-25 00:00:00 2020-07-25 00:00:00 [facility] Current some day smoker 2020-07-19 00:00:00 [facility] Medications Ordered Medication Name Filled Medication Name Start Date Stop Date Current Medication? Ordering Clinician Indication Dosage Frequency Signature (SIG) Comments Components Source TAMSULOSIN 0.4 mg 24 hr capsule 2019-09 00:00: 00 Yes [id number] TAKE ONE CAPSULE BY MOUTH DAILY [facility] acute hospital Tamsulosin HCl 0.4 MG Tamsulosin HCl 0.4 MG 2019-09 00:00: 00 09-09 00:00 :00 No 1{capsu le} QD Tamsulosin HCl 0.4 MG tetracyclin e 500 mg capsule 2019-09 00:00: 00 08-03 05:59 :00 No [id number] 500mg Take 1 capsule by mouth 4 (four) times daily for 5 days. [facility] acute hospital tamsulosin 0.4 mg 24 hr capsule 2019-09 00:00: 00 08-22 00:00 :00 No [id number] .4mg Take 1 capsule by mouth daily for 30 days. [facility] acute hospital ciprofloxac in HCl (CIPRO) 250 mg tablet 2019-09 00:00: 00 08-05 05:59 :00 No [id number] 500mg Take 2 tablets by mouth every 12 (twelve) hours for 10 days. [facility] acute hospital doxycycline hyclate 100 mg tablet 2019-09 00:00: 00 07-27 05:59 :00 No [id number] 100mg Take 1 tablet by mouth 2 (two) times daily for 7 days. [facility] acute hospital naproxen 500 mg tablet 2019-09 00:00: 00 08-05 05:59 :00 No [id number] 500mg Take 1 tablet by mouth 2 (two) times daily as needed for Pain (scale 4-6) for up to 30 days. [facility] acute hospital cyclobenzap rine 10 mg tablet 2019-09 0-13 00:00: 00 07-13 04:59 :00 No [id number] 10mg Take 1 tablet by mouth 3 (three) times daily for 7 days. [facility] acute hospital FARXIGA 5 mg tablet 03-30 00:00: 00 Yes [id number] TAKE ONE TABLET BY MOUTH EVERY MORNING [facility] acute hospital albuterol 1.25 mg/3 mL nebulizer solution 03-21 00:00: 00 Yes [id number] 1.25mg Use 3 mL as directed every 6 (six) hours as needed for Wheezing. [facility] acute hospital budesonide- formoteroL 160-4.5 mcg/actuati on inhaler 03-21 00:00: 00 Yes [id number] 2{puff} Inhale 2 Puffs 2 (two) times daily. [facility] acute hospital amoxicillin -clavulanat e (AUGMENTIN) 875-125 mg per tablet 03-21 00:00: 00 Yes [id number] 1{tbl} Take 1 tablet by mouth 2 (two) times daily. [facility] acute hospital lisinopril 10 mg tablet 03-21 00:00: 00 Yes [id number] 10mg Take 1 tablet by mouth daily. [facility] acute hospital LISINOPRIL 2.5 mg tablet 11-26 00:00: 00 03-21 00:00 :00 No [id number] TAKE ONE TABLET BY MOUTH DAILY [facility] acute hospital Insulin Glargine (LANTUS SOLOSTAR U-100 INSULIN) 100 unit/mL (3 mL) injection 09-30 00:00: 00 Yes 24U inject 24 Units under the skin every morning. [facility] acute hospital dapaglifloz in (FARXIGA) 5 mg tablet 09-29 00:00: 00 03-30 00:00 :00 No [id number] 5mg Take 1 tablet by mouth every morning. [facility] acute hospital blood sugar diagnostic (ONETOUCH ULTRA BLUE TEST STRIP) strip 2018-09 00:00: 00 Yes [id number] Use as directed BID E11.65 [facility] acute hospital lisinopril 2.5 mg tablet 2018-09 00:00: 00 11-26 00:00 :00 No [id number] 2.5mg Take 1 tablet by mouth daily. [facility] acute hospital aspirin (LO-DOSE ASPIRIN) 81 mg EC tablet 2018-09 21:39: 20 Yes 81mg Take 81 mg by mouth daily. [facility] acute hospital bromphenira mine-pseudo ephedrine-D M (BROMFED DM) 2-30-10 mg/5 mL syrup 2018-09 00:00: 00 Yes [id number] 5mL Take 5 mL by mouth 4 (four) times daily as needed for Congestion /Allergies or Cough. [facility] acute hospital Insulin [place], Disposable, 32 gauge x 5/32" Ndle 03-25 00:00: 00 Yes [id number] USE ONCE DAILY [facility] acute hospital Insulin [place], Disposable, 32 gauge x 5/32" Ndle 03-25 00:00: 00 Yes [id number] USE ONCE DAILY [facility] acute hospital albuterol 90 mcg/actuati on inhaler 2017-09 00:00: 00 Yes 2{puff} Inhale 2 Puffs every 6 (six) hours as needed for Wheezing or Shortness of Breath. [facility] acute hospital Tamiflu 75 MG Tamiflu 75 MG No 1{capsu le} BID Tamiflu 75 MG Aspirin Aspirin No Aspirin Vital Signs Vital Name Observation Time Observation Value Comments S ource height 2020-08-17 11:00:00 Commo n [facility] weight 2020-08-17 11:00:00 194.2 [lb_av] Co mmon [facility] temperature 2020-08-17 11:00:00 97.3 [degF] Com mon [facility] bmi 2020-08-17 11:00:00 28.68 kg/m2 Comm on [facility] oximetry 2020-08-17 11:00:00 97 % Commo n [facility] blood pressure systolic 2020-08-17 11:00:00 155 mm[Hg] [facility] blood pressure diastolic 2020-08-17 11:00:00 91 mm[Hg] [facility] height 2020-08-10 09:00:00 Commo n [facility] weight 2020-08-10 09:00:00 195.8 [lb_av] Co mmon [facility] temperature 2020-08-10 09:00:00 98.2 [degF] Com mon [facility] bmi 2020-08-10 09:00:00 28.91 kg/m2 Comm on [facility] oximetry 2020-08-10 09:00:00 95 % Commo n [facility] blood pressure systolic 2020-08-10 09:00:00 134 mm[Hg] Common [facility] blood pressure diastolic 2020-08-10 09:00:00 91 mm[Hg] [facility] height 2020-07-27 09:30:00 Commo n [facility] weight 2020-07-27 09:30:00 195.8 [lb_av] Co mmon [facility] bmi 2020-07-27 09:30:00 28.91 kg/m2 Comm on [facility] oximetry 2020-07-27 09:30:00 98 % Commo n [facility] blood pressure systolic 2020-07-27 09:30:00 119 mm[Hg] [facility] blood pressure diastolic 2020-07-27 09:30:00 92 mm[Hg] [facility] Systolic blood pressure 2020-07-25 19:14:00 132 mm[Hg] [facility] Diastolic blood pressure 2020-07-25 19:14:00 90 mm[Hg] [facility] Heart rate 2020-07-25 19:14:00 95 /min [facility] Respiratory rate 2020-07-25 19:14:00 18 /min [facility] Body height 2020-07-25 19:14:00 175.3 cm [facility] Body weight 2020-07-25 19:14:00 89.721 kg [facility] BMI 2020-07-25 19:14:00 29.21 kg/m2 [facility] Systolic blood pressure 2020-07-25 19:14:00 132 mm[Hg] [facility] Diastolic blood pressure 2020-07-25 19:14:00 90 mm[Hg] [facility] Heart rate 2020-07-25 19:14:00 95 /min [facility] Respiratory rate 2020-07-25 19:14:00 18 /min [facility] Body height 2020-07-25 19:14:00 175.3 cm [facility] Body weight 2020-07-25 19:14:00 89.721 kg [facility] BMI 2020-07-25 19:14:00 29.21 kg/m2 [facility] Systolic blood pressure 2020-07-19 21:20:00 132 mm[Hg] [facility] Diastolic blood pressure 2020-07-19 21:20:00 89 mm[Hg] [facility] Heart rate 2020-07-19 21:20:00 111 /min [facility] Body temperature 2020-07-19 21:20:00 37.06 Marzena [facility] Respiratory rate 2020-07-19 21:20:00 20 /min [facility] Body height 2020-07-19 21:20:00 172.7 cm [facility] Body weight 2020-07-19 21:20:00 95.255 kg [facility] BMI 2020-07-19 21:20:00 31.93 kg/m2 [facility] Oxygen saturation in Arterial blood by Pulse oximetry 2020-07-19 21:20:00 98 /min [facility] Systolic blood pressure 2020-07-05 16:11:00 135 mm[Hg] [facility] Diastolic blood pressure 2020-07-05 16:11:00 86 mm[Hg] [facility] Heart rate 2020-07-05 16:11:00 101 /min [facility] Body temperature 2020-07-05 16:11:00 37.33 Marzena [facility] Respiratory rate 2020-07-05 16:11:00 18 /min [facility] Body height 2020-07-05 16:11:00 175.3 cm [facility] Body weight 2020-07-05 16:11:00 94.348 kg [facility] BMI 2020-07-05 16:11:00 30.72 kg/m2 [facility] Oxygen saturation in Arterial blood by Pulse oximetry 2020-07-05 16:11:00 95 /min [facility] Systolic blood pressure 2020-03-21 20:21:00 150 mm[Hg] [facility] Diastolic blood pressure 2020-03-21 20:21:00 90 mm[Hg] [facility] Body weight 2020-03-21 20:21:00 95.255 kg [facility] BMI 2020-03-21 20:21:00 31.01 kg/m2 [facility] Procedures Procedure Date / Time Performed Performing Clinician Source HOME HEALTH - OTHER 2021-01-24 05:01:00 Doctor Sumi shankar, [place] [facility] HOME HEALTH - OTHER 2021-01-13 05:01:00 Doctor Sumi shankar, [place] [facility] HEALTH - OTHER 2021-01-04 05:01:00 Doctor Sumi shankar, [place] [facility] HOME HEALTH - OTHER 2020-12-26 05:01:00 Doctor Suim shankar, [place] [facility] EXTERNAL PROVIDER RECORDS 2020-09-05 06:01:00 Doctor Unassigned, [place] [facility] AUTHORIZATION FOR RELEASE OF PHI 2020-07-27 06:01:00 Doctor Unassigned, [place] [facility] URINE CULTURE 2020-07-25 22:00:00 Dilcia Rose [facility] POCT URINALYSIS AUTO 2020-07-25 19:15:00 Zay Rose [facility] POCT URINALYSIS 2020-07-19 00:00:00 Green, Dhara [facility] XR SPINE THORACIC 3 VW 2020-07-05 17:24:03 Rupinder Britton [facility] NOTICE OF PRIVACY PRACTICES 2020-07-05 17:02:00 Doctor Unassigned, [place] [facility] CONSENT/REFUSAL FOR DIAGNOSIS AND TREATMENT 2020-07-05 17:01:47 Doctor Unassigned, [place] [facility] ASSIGNMENT OF BENEFITS 2020-07-05 17:01:32 Docto r Unassigned, [place] [facility] AUTHORIZATION FOR RELEASE OF PHI 2020-04-27 05:01:00 Doctor Unassigned, [place] [facility] REFERRAL- REQUEST/RESPONSE 2019-12-24 05:01:00 Doctor Unassigned, [place] [facility] Encounters Start Date/Time End Date/Time Encounter Type Admission Type Attending [facility] Care Facility Care Department Encounter ID Source 2021-12-05 14:35:00 Outpatient Vianca Joshua [facility] [id number] [facility] 2021-10-18 12:01:53 Outpatient Vianca Potter [facility] [id number] [facility] 2024-06-23 00:00:00 2024-06-23 00:00:00 Outpatient R [facility] [id number] General acute hospital 2024-06-17 00:00:00 2024-06-17 00:00:00 Outpatient R [facility] [id number] General acute hospital 2021-01-27 00:00:00 2021-01-27 00:00:00 Outpatient [facility] [id number] General acute hospital 2021-01-24 00:00:00 2021-01-24 00:00:00 Outpatient [facility] [id number] General acute hospital 2021-01-24 00:00:00 2021-01-24 00:00:00 Orders Only Doctor Unassigned, [place] [facility] [id number] 350.1.13.10 4.2.7.2.686 [id number] General acute hospital 2021-01-21 00:00:00 2021-01-21 00:00:00 Outpatient [facility] [id number] General acute hospital 2021-01-17 00:00:00 2021-01-17 00:00:00 Outpatient [facility] [id number] General acute hospital 2021-01-13 00:00:00 2021-01-13 00:00:00 Outpatient [facility] [id number] General acute hospital 2021-01-13 00:00:00 2021-01-13 00:00:00 Orders Only Doctor Unassigned, [place] [facility] 1.840.114 350.1.13.10 4.2.7.2.686 [id number] General acute hospital 2021-01-10 00:00:00 2021-01-10 00:00:00 Outpatient [facility] [id number] General acute hospital 2021-01-07 00:00:00 2021-01-07 00:00:00 Outpatient [facility] [id number] General acute hospital 2021-01-07 00:00:00 2021-01-07 00:00:00 Outpatient R [facility] [id number] General acute hospital 2021-01-04 00:00:00 2021-01-04 00:00:00 Outpatient [facility] [id number] General acute hospital 2021-01-04 00:00:00 2021-01-04 00:00:00 Orders Only Doctor Unassigned, [place] [facility] 1.840.114 350.1.13.10 4.2.7.2.686 [id number] General acute hospital 2021-01-01 10:28:00 2021-01-01 23:59:00 Hospital Encounter Dalton Sandhu [facility] 1.840.114 350.1.13.10 4.2.7.2.686 [id number] General acute hospital 2021-01-01 00:00:00 2021-01-01 00:00:00 Outpatient Juan SANDHU [facility] [id number] General acute hospital 2020-12-29 00:00:00 2020-12-29 00:00:00 Outpatient [facility] [id number] General acute hospital 2020-12-26 00:00:00 2020-12-26 00:00:00 Outpatient [facility] [id number] General acute hospital 2020-12-26 00:00:00 2020-12-26 00:00:00 Orders Only Doctor Unassigned, [place] [facility] 1.114 350.1.13.10 4.2.7.2.686 [id number] General acute hospital 2020-09-12 12:45:00 2020-09-12 12:45:00 Outpatient NYDIA BEAR [facility] [id number] General acute hospital 2020-09-05 00:00:00 2020-09-05 00:00:00 Orders Only Doctor Unassigned, [place] [facility] 1.114 350.1.13.10 4.2.7.2.686 [id number] General acute hospital 2020-09-05 00:00:00 2020-09-05 00:00:00 Orders Only Doctor Unassigned, [place] [facility] 1.114 350.1.13.10 4.2.7.2.686 [id number] 2020-08-30 00:00:00 2020-08-30 00:00:00 Telephone [facility] 1.84.114 350.1.13.10 4.2.7.2.686 [id number] General acute hospital 2020-08-30 00:00:00 2020-08-30 00:00:00 Telephone Kana [facility] [id number] 350.1.13.10 4.2.7.2.686 [id number] 2020-08-21 00:00:00 2020-08-21 00:00:00 Refill [facility] 1.2840.114 350.1.13.10 4.2.7.2.686 [id number] General acute hospital 2020-08-21 00:00:00 2020-08-21 00:00:00 Refill [facility] 1.284.114 350.1.13.10 4.2.7.2.686 [id number] 2020-08-17 00:00:00 2020-08-17 00:00:00 OFFICE VISIT ESTAB PT LEVEL 4 STLMLC STLMLC [id number] [facility] 2020-08-12 00:00:00 2020-08-12 00:00:00 (TEL) STLMLC STLMLC [id number] [facility] 2020-08-11 15:45:00 2020-08-11 15:45:00 Outpatient R [facility] [id number] General acute hospital 2020-08-10 00:00:00 2020-08-10 00:00:00 OFFICE VISIT EST PT LEVEL 3 STLMLC STLMLC [id number] [facility] 2020-07-29 00:00:00 2020-07-29 00:00:00 Telephone Eileen [facility] Building 1.2840.114 350.1.13.10 4.2.7.2.686 [id number] General acute hospital 2020-07-29 00:00:00 2020-07-29 00:00:00 Telephone Eileen [facility] Building 1.2840.114 350.1.13.10 4.2.7.2.686 [id number] 2020-07-28 00:00:00 2020-07-28 00:00:00 Telephone [facility] 1.2.840.114 350.1.13.10 4.2.7.2.686 [id number] General acute hospital 2020-07-27 00:00:00 2020-07-27 00:00:00 Orders Only Doctor Unassigned, [place] [facility] 1.2.840.114 350.1.13.10 4.2.7.2.686 [id number] General acute hospital 2020-07-27 00:00:00 2020-07-27 00:00:00 Orders Only Doctor Unassigned, [place] [facility] 1.2.840.114 350.1.13.10 4.2.7.2.686 [id number] 2020-07-27 00:00:00 2020-07-27 00:00:00 OFFICE VISIT NEW PT LEVEL 4 STLMLC STLMLC [id number] [facility] 2020-07-25 12:49:30 2020-07-25 14:02:12 Office Visit [facility] 1.2.840.114 350.1.13.10 4.2.7.2.686 [id number] General acute hospital 2020-07-25 12:49:30 2020-07-25 14:02:12 Office Visit [facility] 1.2.840.114 350.1.13.10 4.2.7.2.686 [id number] 2020-07-25 13:00:00 2020-07-25 13:00:00 Outpatient R [facility] [id number] General acute hospital 2020-07-25 00:00:00 2020-07-25 00:00:00 Letter (Out) Dilcia Rose [facility] Building 1.2840.114 350.1.13.10 4.2.7.2.686 [id number] General acute hospital 2020-07-19 15:44:32 2020-07-19 17:19:36 Urgent Care Provider, [facility] 1.2840.114 350.1.13.10 4.2.7.2.686 [id number] General acute hospital 2020-07-19 16:00:00 2020-07-19 16:00:00 Outpatient R [facility] [id number] General acute hospital 2020-07-18 00:00:00 2020-07-18 00:00:00 Telephone Charito Elizalde [facility] Office [facility] One 1.20.114 350.1.13.10 4.2.7.2.686 [id number] General acute hospital 2020-07-08 00:00:00 2020-07-08 00:00:00 Refill Joby Eller [facility] Building 1.2840.114 350.1.13.10 4.2.7.2.686 [id number] General acute hospital 2020-07-06 00:00:00 2020-07-06 00:00:00 Telephone Nori Brittonthia [facility] Office [facility] One 1.2840.114 350.1.13.10 4.2.7.2.686 [id number] General acute hospital 2020-07-05 11:59:59 2020-07-05 23:59:00 Hospital Encounter Lainey Britton [facility] 1.2840.114 350.1.13.10 4.2.7.2.686 [id number] General acute hospital 2020-07-05 11:02:15 2020-07-05 11:35:14 Urgent Care Provider, [facility] Lainey Britton [facility] Office [facility] One 1.114 350.1.13.10 4.2.7.2.686 [id number] General acute hospital 2020-07-05 11:00:00 2020-07-05 11:00:00 Outpatient R [facility] [id number] General acute hospital 2020-07-05 00:00:00 2020-07-05 00:00:00 Letter (Out) Provider, [facility] Office [facility] One 1.114 350.1.13.10 4.2.7.2.686 [id number] General acute hospital 2020-07-05 00:00:00 2020-07-05 00:00:00 Telephone Charito Elizalde [facility] Office [facility] One 1.114 350.1.13.10 4.2.7.2.686 [id number] General acute hospital 2020-05-03 00:00:00 2020-05-03 00:00:00 Telephone Charito Elizalde [facility] One 1.114 350.1.13.10 4.2.7.2.686 [id number] General acute hospital 2020-05-02 00:00:00 2020-05-02 00:00:00 Telephone Nydia Sanchez [facility] Building 1.114 350.1.13.10 4.2.7.2.686 [id number] General acute hospital 2020-04-29 00:00:00 2020-04-29 00:00:00 Telephone Nydia Sanchez [facility] Building 1.2.840.114 350.1.13.10 4.2.7.2.686 [id number] General acute hospital 2020-04-27 00:00:00 2020-04-27 00:00:00 Orders Only Doctor Unassigned, [place] [facility] 1.2.840.114 350.1.13.10 4.2.7.2.686 [id number] General acute hospital 2020-04-21 00:00:00 2020-04-21 00:00:00 Telephone Nydia Sanchez [facility] 1.2.840.114 350.1.13.10 4.2.7.2.686 [id number] General acute hospital 2020-04-13 00:00:00 2020-04-13 00:00:00 Telephone Nydia Sanchez [facility] 1.2.840.114 350.1.13.10 4.2.7.2.686 [id number] General acute hospital 2020-03-27 00:00:00 2020-03-27 00:00:00 Refill Joby Eller [facility] 1.2.840.114 350.1.13.10 4.2.7.2.686 [id number] General acute hospital 2020-03-22 00:00:00 2020-03-22 00:00:00 Telephone Nydia Sanchez [facility] 1.2.840.114 350.1.13.10 4.2.7.2.686 [id number] General acute hospital 2020-03-21 15:05:54 2020-03-21 15:20:54 Office Visit Nydia Sanchez [facility] 1.2.840.114 350.1.13.10 4.2.7.2.686 [id number] General acute hospital 2020-03-21 15:15:00 2020-03-21 15:15:00 Outpatient R NYDIA SANCHEZ [facility] [id number] General acute hospital 2020-03-21 00:00:00 2020-03-21 00:00:00 Letter (Out) [facility] [facility] Building [id number] 350.1.13.10 [id number] [id number] General acute hospital 2020-03-10 00:00:00 2020-03-10 00:00:00 Telephone Nydia Sanchez [facility] Office Building One [id number] [id number] [id number] [id number] General acute hospital 2020-02-16 00:00:00 2020-02-16 00:00:00 Telephone [facility] Building [id number] [id number] 4.2.7.2.686 [id number] General acute hospital 2020-01-06 16:00:00 2020-01-06 16:00:00 Outpatient R [facility] [id number] General acute hospital 2020-01-06 08:31:20 2020-01-06 09:01:20 Telemedici ne Visit [facility] Building [id number] [id number] 4.2.7.2.686 [id number] General acute hospital 2020-01-05 00:00:00 2020-01-05 00:00:00 Telephone Charito Elizalde [facility] Building [id number] [id number] 4.2.7.2.686 [id number] General acute hospital 2019-12-24 00:00:00 2019-12-24 00:00:00 Orders Only Doctor Unassigned, [place] [facility] [id number] [id number] 4.2.7.2.686 [id number] General acute hospital 2019-11-27 00:00:00 2019-11-27 00:00:00 Refill Joby Eller [facility] [place] [facility] [id number] [id number] [id number] [id number] General acute hospital Results Test Description Test Time Test Comments Results Result Co mments Source [facility] [id number] 19:16:00 * Test Item Value Reference Range [...] clear Lab Interpretation (test cod e = 40239-6) [facility]normal [facility], [id number] 19:16:00 * Test Item Value Reference Range [...] clear Lab Interpretation (test cod e = 41035-8) Abnormal [facility] URINALYSIS, [id number] 19:16:00 * Test Item Value Reference Range [...] clear Lab Interpretation (test cod e = [id number]) Abnormal [facility] URINALYSIS W SPECIFIC [id number] 21:27:00* Test Item Value Reference Range Interpretation [...] cloudy Lab Interpretation (test cod e = 11683-8) [facility]normal [facility] 3 [id number] 17:46:42 HISTORY: Mid back pain that wraps along into the chest wall. COMPARISON: Chest x-ray dated 08/01/2016. TECHNIQUE: AP x2, lateral and swimmer's x2 of the thoracic spines aresubmitted. FINDINGS: No compression fracture. No aggressive bone lesions orparavertebral soft tissue swelling. Shallow Schmorl'snode noted in some ofthe middle and lower thoracic vertebral endplates, likely secondary toremote axial loading trauma. CONCLUSIONS: No acute findings. [facility], Radiant Results Inft User - 07/05/2020 12:47 [...] secondary toremote axial loading trauma.CONCLUSIONS: No acute findings.[facility]
[2024-07-07 11:20] VITALS: BMI 30.4
[2024-07-07] MEDS ORDERED: DAPTOmycin 500 MG in NA CHLORIDE 0.9% 100 ML IVPB SCH (12:00)
[2024-07-07] MEDS: INSULIN REGULAR (HUMAN) 100 UNIT/ML SQ SCH (12:15)
[2024-07-07] MEDS ORDERED: DOCUSATE NA/SENNA CONC 1 TAB PO PRN (13:12)
[2024-07-07] MEDS: ONDANSETRON 4 MG (ODT) TAB PO PRN (13:39)
[2024-07-07] MEDS: RIVAROXABAN 2.5 MG PO SCH (21:24)
[2024-07-07] MEDS: DULOXETINE 20 MG CAP PO SCH (21:24)
[2024-07-07] MEDS: MAGNESIUM OXIDE 400 MG TAB PO SCH (21:25)
--- NOTE | 2024-07-08 03:47 | HP ---
Date of Admission: 07/07/2024 Time Of Service: 1 p.m. Chief Complaint: "I lost my left leg." History Of Present Illness: Mr. Segundo is a 29-year-old patient with type 1 diabetes mellitus and az story of uncontrolled blood sugars, who developed osteomyelitis of the left lower extremity and was t reated at home conservatively, but the diabetic ulcers and infection did not improve. He also had at herosclerosis of the vessels in the lower extremity. The patient then had elective amputation of the right below the knee to address the osteomyelitis as it was not responding to antibiotic therapy. F ollowing treatment, he did continue with antibiotic treatment along with insulin via sliding scale an d per schedule and otherwise had significant decline in his capacity to perform his ordinary activiti es, transfers, mobilization, and therefore when he was evaluated by Physical and Occupational Therapy Service, found to be well below his baseline level of functioning. He does at this point want to re turn to an independent living alone and back to work. He at this point needs contact guard assistanc e for sit to stand. Ambulation of about 300 feet, contact guard assistance and is again performing w ell below baseline. He is now admitted to the inpatient rehabilitation unit to help him return to [facility] prior level of functioning and to reduce his risk of rehospitalization. Past Medical History: Hypertension, diabetes mellitus, adenoids, ear tubes, and left nxeej-lcb-mios amputation. His imaging studies of the foot shows Charcot arthropathy present likely from infection and osteomyelitis. On the left, there is subluxation, intertarsal and tarsometatarsal articulations, subluxation noted there. Large calcaneal spurs noted. Large soft tissue wounds in the midfoot, col lapse of the midfoot arch present. Allergies: CEFACLOR, SULFAMETHOXAZOLE, TRIMETHOPRIM, VANCOMYCIN. Medications: Duloxetine 20 mg twice daily, Semglee insulin 20 units daily, he is on mild insulin sli ding scale, he has the lidocaine patch apply 2 patches above the stump where he has pain and some mil d phantom limb pain, magnesium oxide 400 mg twice daily, Zofran 4 mg every 6 hours as needed, Protoni x 40 mg daily, and Senokot-S 2 at bedtime due to constipation related to his pain medications he rece ived after the amputation. Laboratory Studies: Blood sugars did range from 216 to 248. White blood cell count 10.6, hemoglobin 11.6, hematocrit 35.3, platelets 287. Sodium 136, potassium 4.1, glucose as noted above, BUN 20, cr eatinine 0.77, calcium 9.3. Family History: Noncontributory. Social History: No alcohol, tobacco, or IV drug use. The patient lives alone and was working indepe ndently. Current Level Of Functioning: Supervision for eating, oral hygiene, contact guard assistance for darinel let hygiene. Bathing, contact guard assistance. Upper body dressing, contact guard. Lower body letty ssing, contact guard. Donning and doffing footwear, contact guard assistance. In addition, rolling vjpnw-df-hgtl, qlto-ke-fkwow min assist, going from lying to sitting and from sitting to standing, co ntact guard assistance. Transfer from bed to chair to toilet to shower, contact guard assistance. A mbulation 350 feet with supervision. Physical Examination: Vital Signs: Blood pressure 127/88, pulse up to 108, respiratory rate 16 to 20, temperature 98.1, O2 saturation 99%. Weight 200 pounds, height 5 feet, BMI 30.4. General: Mr. Segundo is a 29-year-old patient. HEENT: He is normocephalic, atraumatic. Sclerae anicteric. Oropharynx is pink and moist. Neck: Supple. Chest: Clear. Heart: Regular. Extremities: No significant edema, cyanosis, or clubbing in the upper extremities, right which is in tact. No significant cyanosis or clubbing. He has left xvfxe-imd-pokd amputation. There is an immo bilizer in place. Good hemostasis at the stump on the left with rose. Neurologic: No focal deficits in upper and lower extremities, just he has phantom limb pain, moderat e to severe at times and the left lower extremity stump. Rehab And Medical Assessment And Plan: Mr. Segundo is admitted to inpatient rehabilitation unit with impairment category 10, amputation of the left lower extremity yncnd-gai-ctuu. Impairment group code is 08.4, unilateral bfher-ggl-ggnu amputation on the left. Etiologic diagnosis, left foot osteomyel itis. His comorbidities are decreased mobility, decreased physical functioning, diabetes mellitus, o steomyelitis, status post treatment, low hemoglobin and hematocrit, atherosclerosis of the lower extr emity arteries. Plan: 1.He will have physical and occupational therapy 3 hours a day, 5 of 7 days. 2.Continue with Semglee insulin as noted. May make adjustments appropriately as blood sugars are do ne over the next 1 to 2 days. We will continue with sliding scale. May adjust to moderate sliding s vannesa, Senokot for constipation, Protonix for GE reflux, Zofran for nausea, magnesium oxide for muscle spasms and Semglee insulin 20 units daily, but again may adjust after a few days. He has Cymbalta 2 0 mg daily for neuropathic pain. He did say he does not want to be on gabapentin, but be on duloxeti ne instead. Comorbidities That Are Impacting Rehabilitation: His biggest comorbidities of course diabetes mellit us which has led to the osteomyelitis which is uncontrolled, this is type 1. His blood sugars again will be adjusted carefully to minimize the need for very low or very high levels. He does of course have the left below-knee amputation standing and trying to step on the left leg. This has been reinforced at every step of the way as he does his therapy, will be ambulating with a 2-wheeled walker and hopping with the right leg. Rehab Specific Plan: Mr. Segundo will use a rolling walker to transfer with the right leg hopping fro m sit to stand. He will be able to work on his balance, coordination, on and off toileting, in and o ut of the shower, up and down steps. He will have Occupational Therapy to help him with his upper an d lower body dressing, donning and doffing footwear. At this point, his cognitive functioning is int act, but if need be, Speech will be working with him. Mr. Segundo has a good understanding of the process of admission to the inpatient rehabilitation [place] [facility] and how he will benefit from physical and occupational therapy. He will have 24 hours a day, 7 d ays a week skilled rehabilitation and nursing, daily physician evaluation and management, and social service evaluation and management prior to his discharge. If need be, additional help from the Ortho pedic Service, Infectious Disease Service, and Hospitalist Service will be consulted. Barriers To Discharge: He does have left suvkq-oyg-hwll amputation and lives alone and may require s ome help with some activities of daily living. However, he is very young person with otherwise intac t right leg and both upper extremities and may be able to function on his own. He will be in touch w ith the prosthesis folks to help him and down the road to have the clubhouse manager in place, prepare for a p rosthesis. Length Of Stay: About 10 days. Disposition: Home with home health and family to be there to help him. Prognosis: Good. Rehab Specific Goals: 1.Become independent with upper and lower body dressing, donning and doffing footwear on the right f oot. 2.Independently ambulate 250 feet with a rolling walker, having on the right leg. 3.Independent propel a wheelchair 250 feet. 4.Independently go up and down 5 steps with bilateral handrails. 5.Independently perform cognitive functioning. The above goals were reviewed with Mr. Segundo and he is in agreement. By signing this document, I acknowledge I personally performed a full physical examination on Mr. Romario huddlestons no later than 24 hours after his admission to the inpatient rehabilitation unit and determined th at he is able to tolerate the above course of treatment at an intensive level for a reasonable period of time. A detailed individualized plan of care for him will be completed by hospital day 4 based o n the preadmission screen, history and physical, and therapy evaluations. PAM/FELICE Voice ID: [id number]
[2024-07-08 04:17] LABS: Specific Gravity 1.018 (1.005-1.030); Sqamous Epithelial None Seen /HPF (None Seen); Urine Bacteria None Seen /HPF (<20); Urine Bilirubin NEGATIVE (Negative); Urine Blood Negative (Negative); Urine Clarity Clear (Clear); Urine Color Light-Yellow (Yellow); Urine Culture Reflex Order NOT NEEDED; Urine Glucose 4+ (Over) (Negative); Urine Ketones NEGATIVE (Negative); Urine Micro Reflex YN NO BILL MICROSCOPIC; Urine Nitrite NEGATIVE (Negative); Urine Protein 1+ (Negative); Urine RBC None Seen /HPF (None Seen); Urine Sperm Present (None Seen); Urine Urobilinogen Normal (Normal); Urine WBC None Seen /HPF (<5); Urine Yeast (Budding) Trace /HPF (None Seen); Urine pH 6.5 (5.0-7.0)
[2024-07-08 06:55] LABS: Absolute Eosinophils 0.4 K/uL (0-0.5); Absolute Lymphocytes (CBC) 2.7 K/uL (0.7-4.9); Absolute Monocytes 0.6 K/uL (0.1-1.3); Absolute Neutrophil 6.4 K/uL (1.8-8.0); Basophils % 0.2 % (0-1.3); Eosinophils % 3.9 % (0-4.4); Hemoglobin 11.8 g/dL (13.6-17.9); Lymphocytes % 26.3 % (15.3-44.8); MCH 25.7 pg (27.0-35.0); MCHC 32.6 g/dL (32.0-36.0); MCV 78.7 fL (80-100); MPV 7.3 fL (7.6-11.3); Monocytes % 6.3 % (3.3-12.3); Neutrophils % 63.3 % (41.7-73.7); Nucleated Red Blood Cells % 0.1 % (0-0); Platelets 290 thou/uL (152-406); RBC Red Blood Cell Count 4.58 M/uL (4.33-5.43); Red Cell Distribution Width 17.5 % (12.1-15.2)
[2024-07-08 07:10] LABS: Albumin 2.5 g/dL (3.4-5.0); Anion Gap 8.3 mEq/L (5.0-15.0); Magnesium 2.1 mg/dL (1.6-2.4); Potassium 4.3 mEq/L (3.5-5.1); Prealbumin 19.6 mg/dL (20-40)
[2024-07-08] MEDS: PANTOPRAZOLE 40MG TABLET PO SCH (07:57)
[2024-07-08] MEDS: INSULIN GLARGINE 100 UNIT/ML SQ SCH (07:59)
[2024-07-08] MEDS: FARXIGA PO SCH (07:59)
[2024-07-08] MEDS: LIDOCAINE 4% PATCH TOP SCH (08:00)
[2024-07-08] MEDS: HYDROCODONE/APAP 7.5/325 MG TAB PO PRN (12:29)
[2024-07-08] MEDS ORDERED: MORPHINE *EXTENDED RELEASE* 15 MG TAB PO PRN (13:26)
[2024-07-08] MEDS ORDERED: MORPHINE *EXTENDED RELEASE* 15 MG TAB PO SCH (20:00)
--- NOTE | 2024-07-08 22:09 | PN ---
Date of Progress Note: 07/08/2024 Time Of Service: 1:35 p.m. Subjective: Mr. Segundo is doing therapy in the gym, lying on the low table, lifting the left leg, wh ere there is an amputation decqs-qsq-qyeo. He says there is some improvement in the phantom limb chon n and the sharp pains that he has at the edge of the left foot and on the left thigh. No other compl aints. Objective: No fevers, chills. Again, mild myalgias, arthralgias. No rash. No psychiatric issues o r complaints. Physical Examination: Vital Signs: Blood pressure 153/97, pulse 97, respiratory rate of 18, temperature 97.7, oxygen satur ation 98%. General: Mr. Segundo again is resting comfortably. He is lying and doing his physical therapy sessio n. HEENT: He is normocephalic, atraumatic. Sclerae anicteric. Oropharynx pink, moist. Neck: Supple. Extremities: In his right lower extremity, no significant edema or cyanosis. He has good hemostasis . At the left lower extremity stump, rose noted to be in place with again good hemostasis. Laboratory Studies: White blood cell count 10.2, hemoglobin 11.8, platelets 290. Sodium 136, potass ium 4.3, chloride 103, BUN 23, creatinine 0.69, glucose ranged from 194 to 233, calcium 8.9, magnesiu m 2.1, prealbumin 2.5, albumin 19.6. Urinalysis, 4+ glucose, trace budding yeast present, and total protein 1+. X-ray/imaging: No new x-rays or imaging. Medications: Novi 7.5/325 every 6 hours as needed, Cymbalta 20 mg twice daily, Semglee insulin 20 m g daily, lidocaine patch apply 2 topically daily as needed, magnesium oxide 400 mg twice daily. He d oes have morphine 30 mg twice daily as needed, Zofran 4 mg every 6 hours, Protonix 40 mg daily, Senok ot 2 at bedtime. X-ray/imaging: No new x-rays or imaging done. Progress Made With Physical And Occupational Therapy: Today with physical therapy, he was able to am bulate with a rolling walker 250 feet with a single prong cane, another 50 feet with a rolling walker , ambulating to the gym. With occupational therapy, performed glv-sv-iobqggwwry transfer with setup assistance, sink side hygiene and grooming done with independence. ADLs improving close to being ind ependent. Mr. Segundo is a 29-year-old patient with osteomyelitis of the left foot, status post amputation of th e left foot. Pain is well managed with current regimen. There are p.r.n. medications available if p ain is worse. Comorbidities are decreased mobility, decreased physical functioning, diabetes mellitu s, osteomyelitis of course, anemia with low hemoglobin and hematocrit, atherosclerosis of the left lo wer extremity. Plan: He will continue with physical and occupational therapy 3 hours a day, 5 of 7 days. Continue with insulin for diabetes mellitus, Zofran for nausea, Protonix for GE reflux, magnesium oxide for mu scle spasms, Semglee insulin again for diabetes mellitus, Cymbalta for neuropathic pain and depressio n. LB/LETYL Voice ID: [id number] Report ID: [id number]
[2024-07-10 08:07] VITALS: BP 134/95; TEMP 98.1
--- NOTE | 2024-07-10 08:41 | P.PN ---
Subjective Date of Service: 07/10/24 Subjective: Improving (ambulating. Able to use stairs.) Review of Systems 10-point ROS is otherwise unremarkable Physical Examination - Vital Signs Temperature: 98.1 F Blood Pressure: 134/95 Pulse: 102 Respirations: 17 Pulse Ox (%): 98 - Physical Exam General: Alert, In no apparent distress HEENT: Atraumatic, PERRLA, EOMI Neck: Supple, JVD not distended Respiratory: Clear to auscultation bilaterally, Normal air movement Cardiovascular: Regular rate/rhythm, Normal S1 S2 Gastrointestinal: Normal bowel sounds, No tenderness Musculoskeletal: No tenderness Integumentary: No rashes Neurological: Normal speech, Normal tone, Normal affect Lymphatics: No axilla or inguinal lymphadenopathy - Studies Microbiology Data (last 24 hrs): 07/08/24 01:15 Clean Catch Urine Duncan Count - Final <10,000 CFU/ML. 07/08/24 01:15 Clean Catch Urine - Final MIXED DANIEL. Assessment And Plan - Current Problems (Diagnosis) (1) Hx of left BKA Current Visit: Yes Status: Acute Plan: Patient is doing well. States pain is well managed. He follows up with Dr. Pearson next week as an out patient. Will then work on getting him a prosthesis. (2) Diabetes type 1 with atherosclerosis of arteries of extremities Current Visit: No Status: Chronic Plan: Plans to follow up with Dr. Pearson. He also needs to get an insulin pump. Will need him to follow up with Me for this Discharge Plan: Home Plan to discharge in: 24 Hours - Code Status/Comfort Care Code Status Assessed: No Physician Review: Patient Assessed, Agree with Above Assessment and Plan Critical Care: No Time Spent Managing PTS Care (In Minutes): 20
--- NOTE | 2024-07-10 13:36 | P.RH.PN ---
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: Mobility, Transfers, Self Care Vital Signs: Last Vital Signs Temp 98.1 F 07/10/24 08:41 Pulse 102 H 07/10/24 08:41 Resp 17 07/10/24 08:41 BP 134/95 H 07/10/24 08:41 Pulse Ox 98 07/10/24 08:41 Laboratory: Laboratory Last Values WBC 10.20 thou/uL (4.3-10.9) 07/08/24 05:10 RBC 4.58 M/uL (4.33-5.43) 07/08/24 05:10 Hgb 11.8 g/dL (13.6-17.9) L 07/08/24 05:10 Hct 36.0 % (39.6-49.0) L 07/08/24 05:10 MCV 78.7 fL (80-100) L 07/08/24 05:10 MCH 25.7 pg (27.0-35.0) L 07/08/24 05:10 MCHC 32.6 g/dL (32.0-36.0) 07/08/24 05:10 RDW 17.5 % (12.1-15.2) H 07/08/24 05:10 Plt Count 290 thou/uL (152-406) 07/08/24 05:10 MPV 7.3 fL (7.6-11.3) L 07/08/24 05:10 Neutrophils % 63.3 % (41.7-73.7) 07/08/24 05:10 Lymphocytes % 26.3 % (15.3-44.8) 07/08/24 05:10 Monocytes % 6.3 % (3.3-12.3) 07/08/24 05:10 Eosinophils % 3.9 % (0-4.4) 07/08/24 05:10 Basophils % 0.2 % (0-1.3) 07/08/24 05:10 Absolute Neutrophils 6.4 K/uL (1.8-8.0) 07/08/24 05:10 Absolute Lymphocytes 2.7 K/uL (0.7-4.9) 07/08/24 05:10 Absolute Monocytes 0.6 K/uL (0.1-1.3) 07/08/24 05:10 Absolute Eosinophils 0.4 K/uL (0-0.5) 07/08/24 05:10 Absolute Basophils 0.0 K/uL (0-0.5) 07/08/24 05:10 Sodium 136 mEq/L (136-145) 07/08/24 05:10 Potassium 4.3 mEq/L (3.5-5.1) 07/08/24 05:10 Chloride 103 mEq/L (98-107) 07/08/24 05:10 Carbon Dioxide 29 mEq/L (21-32) 07/08/24 05:10 Anion Gap 8.3 mEq/L (5.0-15.0) 07/08/24 05:10 BUN 23 mg/dL (7-18) H 07/08/24 05:10 Creatinine 0.69 mg/dL (0.70-1.30) L 07/08/24 05:10 Est GFR (CKD-EPI) 127 ml/min (=/>90) 07/08/24 05:10 Glucose 209 mg/dL (74-106) H 07/08/24 05:10 POC Glucose 153 mg/dL (65-120) H 07/10/24 12:18 Calcium 8.9 mg/dL (8.5-10.1) 07/08/24 05:10 Magnesium 2.1 mg/dL (1.6-2.4) 07/08/24 05:10 Albumin 2.5 g/dL (3.4-5.0) L 07/08/24 05:10 Prealbumin 19.6 mg/dL (20-40) L 07/08/24 05:10 Urine Color Light-yellow (Yellow) 07/08/24 01:15 Urine Clarity Clear (Clear) 07/08/24 01:15 Urine pH 6.5 (5.0-7.0) 07/08/24 01:15 Ur Specific Bonham 1.018 (1.005-1.030) 07/08/24 01:15 Glucose (UA)(Auto) 4+ (over) (Negative) H 07/08/24 01:15 Urine Ketones Negative (Negative) 07/08/24 01:15 Urine Blood Negative (Negative) 07/08/24 01:15 Urine Nitrite Negative (Negative) 07/08/24 01:15 Urine Bilirubin Negative (Negative) 07/08/24 01:15 Urine Urobilinogen Normal (Normal) 07/08/24 01:15 Ur Leukocyte Esterase Negative Janes/uL (Negative) 07/08/24 01:15 Urine RBC None seen /HPF (None Seen) 07/08/24 01:15 Urine WBC None seen /HPF (<5) 07/08/24 01:15 Ur Squamous Epith Cells None seen /HPF (None Seen) 07/08/24 01:15 Urine Bacteria None seen /HPF (<20) 07/08/24 01:15 Urine Yeast (Budding) Trace /HPF (None Seen) H 07/08/24 01:15 Urine Sperm Present (None Seen) H 07/08/24 01:15 Urine Culture Reflexed Not needed 07/08/24 01:15 Urine Total Protein 1+ (Negative) H 07/08/24 01:15 Weight: 200 lb Wound Present: No Negative Pressure Wound Therapy Present: No Physician Update: Labs reviewed and are stable. Pain is at 7/10 and covered with Drury and magnesium. Independent with ambulation of 50', bed mobility, from ground to wheelchair, up and down 13 stairs. Independent with OT, showering, in the kitchen, upper and lower body. D/C home today. 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 Please see the Rehabilitation Signature page for all necessary signatures.
[2024-07-14] MEDS ORDERED: OZEMPIC 0.5 MG SQ SCH (08:00)
--- NOTE | 2024-07-27 05:56 | DS ---
Date of Discharge: 07/10/2024 Allergies: CEFACLOR, SULFAMETHOXAZOLE, TRIMETHOPRIM, VANCOMYCIN, AND EXTERNAL ALLERGIES. Discharge Diagnoses: Osteomyelitis, left lower extremity, status post wthzy-kxr-ebaz amputation; dec reased mobility; decreased physical functioning; diabetes mellitus; anemia with low hemoglobin and he matocrit; atherosclerosis of lower extremity. Condition: Good. Diet: Diabetic diet. Weightbearing: Nonweightbearing with left lower extremity stump. Discharge Medications: Ozempic 0.5 mg every 7th day, Prilosec 40 mg daily, glargine insulin __ units subcutaneously daily, Farxiga 1 daily, Xarelto 2.5 mg twice daily, [place] 7.5/325 every 6 mindy rs as needed, Cymbalta 20 mg twice daily. Laboratory Studies: White blood cell count 10.2, hemoglobin 11.8, platelets 290. Blood sugars range d from 158 to 255. Sodium 136, potassium 4.3, chloride 103, carbon dioxide 29, BUN 23, creatinine 0. 69, prealbumin 19.6, albumin 2.5, magnesium 2.1, calcium 8.9. X-ray/imaging: No x-rays or imaging done. Synopsis Of Events That Led To Admission: Mr. Segundo is a 29-year-old patient with uncontrolled diab etes mellitus, who developed osteomyelitis of left lower extremity and was initially treated conserva tively, but was not successfully treated. As a result, the patient had progressive infection with os teomyelitis resulting in an amputation below the knee. His postoperative course required continuing antibiotics and eventually switched to oral antibiotics along with management of his comorbid conditi ons. He was evaluated by the therapy service and determined that he requires significant help to be able to return to his prior level of functioning and was therefore admitted to the inpatient rehabili tation unit where he may receive aggressive physical therapy along with management of his comorbid co nditions. Hospital Course: During hospitalization, diabetes, hypertension, and his comorbid conditions were ad dressed adequately. Pain was managed. His ability to have good rest at night also managed and bowel movements and urination all managed without any difficulty. Regarding his therapy at time of discharge, tub transfer independent, eating independent, grooming in dependent, upper and lower body dressing independent, donning and doffing of footwear independent and he returned to an excellent level of functioning, for discharge home. Regarding his physi haris therapy, ambulated with a rolling walker independently over 250 feet with good tolerance on multi ple surfaces, up and down 13 steps with good tolerance independently, mobilized with wheelchair 1000 feet independently, ambulated and transferred into a car and out independently. When he was discharg ed home, all durable medical equipment needs were met. Followup is with his general surgeon and [facility] physician as scheduled. KRIS Voice ID: [id number] Report ID: [id number]
== END 2024-07-10 17:30 | disposition home or self-care (01) | DRG 561 ==
LOC: 5TH 10:15
PROVIDERS: ADMIT Psychiatry & Neurology Neurology with Special Qualifications in Child Neurology; ATTEND Psychiatry & Neurology Neurology with Special Qualifications in Child Neurology
DX: Z47.81 Encounter for orthopedic aftercare following surgical amputation (principal); Z89.511 Acquired absence of right leg below knee; I10 Essential (primary) hypertension; E10.51 Type 1 diabetes mellitus with diabetic peripheral angiopathy without gangrene
CPT/HCPCS: 36415; 80048; 81001; 82040; 82947; 83735; 84134; 85025; 87086; 87088; 94010; 97110; 97116; 97161; 97165; 97530; 97542; J0878; Q0162